=== PATIENT | female | born 1950 | race Caucasian/White ===

== ENCOUNTER 2024-03-09 08:38 | Emergency (ER) | payer MEDICARE, BC, SELFPAY ==
[2024-03-09 08:44] VITALS: BP 126/74; PULSE 71; RESP 18; TEMP 36.1; O2SAT 95; BMI 28.2
--- NOTE | 2024-03-09 08:53 | CRLHL7_ITS ---
For Patients: As a result of the Century Cures Act, medical imaging exams and procedure reports are released immediately into your electronic medical record. You may view this report before your referring provider. If you have questions, please contact your health care provider. INDICATION: Calf pain COMPARISON: None. TECHNIQUE: [place]-scale, color, and duplex Doppler imaging of the right lower extremity veins. Compression and augmentation attempted where anatomically and clinically feasible. FINDINGS: Laterality: Right Examined veins: Common femoral, femoral, popliteal, peroneal, posterior tibial Proximal greater saphenous The examined veins are patent with normal grayscale appearance and normal compressibility where anatomically feasible. Normal color Doppler flow. Normal venous waveforms on duplex Doppler ultrasound with normal augmentation. The left common femoral vein was sampled for comparison and is normal. IMPRESSION: No deep vein thrombosis in the right lower extremity. Dictated by Cami Escamilla MD @ 03/09/2024 10:01:44 AM (Electronically Signed)
--- NOTE | 2024-03-09 08:58 | ED.GENADULT ---
HPI - General Adult General Date Seen: 03/09/24 Chief complaint: Extremity Pain/Injury, Lower Stated complaint: right leg pain and swelling Time Seen by Provider: 03/09/24 08:41 Source: patient Mode of arrival: ambulatory Limitations: no limitations History of Present Illness HPI narrative: Patient is a 74-year-old woman, here for evaluation of upper calf pain which she has noticed for the past couple of days. It hurts more with walking and with dorsiflexion. She feels like that leg is a little ?puffier than the other. She told the nurse that yesterday the front of her leg looked a little bit pink, that seems to resolved. She has a history of feeling more short of breath lately and says she is being evaluated for possible congestive heart failure so she has actually been walking less than usual. That said, no travel or immobility. No injury. Related Data Home Medications ?Medication ?Instructions ?Recorded ?Confirmed rosuvastatin 10 mg tablet 10 mg PO 07/15/22 07/15/22 budesonide 3 mg 9 mg PO DAILY 03/09/24 03/09/24 capsule,delayed,extended release potassium chloride 10 mEq 10 meq PO DAILY 03/09/24 03/09/24 tablet,extended release propranolol 40 mg tablet 40 mg PO Q12H 03/09/24 03/09/24 torsemide 20 mg tablet 20 mg PO DAILY 03/09/24 03/09/24 Allergies Allergy/AdvReac Type Severity Reaction Status Date / Time No Known Drug Allergies Allergy Verified 07/19/22 13:24 Review of Systems Status of ROS: Reports: 6 or more systems reviewed and unremarkable except as noted in History and below 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 Extremities: Examination the right leg shows it to be normal in appearance. There is no erythema, I do not see edema at this time. She has some mild tenderness of the upper calf, no masses or bruising. Range of motion of the knee is full. Skin: Warm dry well perfused. No rash or lesion. Const: Vital Signs, click to edit/add: Vital Signs - 24 hr 03/09/24 08:44 Temperature 97.0 F L Pulse Rate [Pulse Oximeter] 71 Respiratory Rate 18 Blood Pressure [Ri ght Upper Arm] 126/74 Pulse Oximetry 95 Oxygen Delivery Me thod Room Air Course Course ED Course: Ultrasound read by audio video technician as negative. Final read pending. No evidence of cellulitis, Delgadillo cyst, or superficial thrombophlebitis on exam. Recommend supportive care, presumably muscle related. For severe or worsening pain, new symptoms such as significant redness or swelling, fevers etcetera return for re-evaluation. Primary care follow-up if not gradually improving over the next week. Vital Signs Vital signs: Initial Vital Signs Temperature 97.0 F L 03/09/24 08:44 Temperature Source Temporal Artery Scan 03/09/24 08:44 Pulse Rate 71 03/09/24 08:44 Pulse Rhythm Regular 03/09/24 08:44 Respiratory Rate 18 03/09/24 08:44 Blood Pressure 126/74 03/09/24 08:44 Blood Pressure Mean 91 03/09/24 08:44 Blood Pressure Position Sitting 03/09/24 08:44 Pulse Oximetry 95 03/09/24 08:44 Oxygen Delivery Method Room Air 03/09/24 08:44 Vital Signs Temperature 97.0 F L 03/09/24 08:44 Pulse Rate 71 03/09/24 08:44 Respiratory Rate 18 03/09/24 08:44 Blood Pressure 126/74 03/09/24 08:44 Pulse Oximetry 95 03/09/24 08:44 Oxygen Delivery Method Room Air 03/09/24 08:44 Temperature 97.0 F L 03/09/24 08:44 Pulse Rate 71 03/09/24 08:44 Respiratory Rate 18 03/09/24 08:44 Blood Pressure 126/74 03/09/24 08:44 Pulse Oximetry 95 03/09/24 08:44 Oxygen Delivery Method Room Air 03/09/24 08:44 Discharge Plan Discharge Clinical Impression: Right calf pain Patient Disposition: Home, Self-Care Condition: Stable Instructions: Leg Pain (ED) Additional Instructions: Tylenol, ice as needed. Your ultrasound does not show any evidence of blood clot or other abnormalities, symptoms are most likely related to muscle pain. However, if you have severe pain, developed significant swelling or redness or other changes, you should return for re-evaluation. See primary care if not improving over the next few days to week. Prescriptions: No Action rosuvastatin 10 mg tablet 10 mg PO Patient Comments: TAKE 1 TABLET (10 MG TOTAL) BY MOUTH DAILY. torsemide 20 mg tablet 20 mg PO DAILY potassium chloride 10 mEq tablet extended release 10 meq PO DAILY propranolol 40 mg tablet 40 mg PO Q12H budesonide 3 mg capsule,delayed,extend.release 9 mg PO DAILY Follow Up/Referrals: Provider,Not a Local [Primary Care Provider] - Stand Alone Forms: [facility] Info Instructions
--- OUTSIDE RECORDS SUMMARY | 2024-03-09 09:08 | XMS_ITS | Referral Summary ---
Author Organization [facility] Address [address] [place] [address] Care Team Providers Care Field Aide Name Role Phone Galina Brooks APRN, C.N.P., D.N.P. Primary Ca re Provider Source Comments Patient records contain information from all sites at [facility]. For routine questions regarding patient records, call [phone] during business hours, M-F 8:00 AM - 5:00 PM Central Time. Record requests for emergency care only can be directed to [phone] at any time.[facility] Encounters Date Type Department Care Team Description 02/29/2024 8:50 AM CDT - 02/29/2024 11:59 PM CDT Hospital Encounter Department of Laboratory Medicine in [address] [phone] Adelina Champion APRN, C.N.P., D.N.P. Failure Renal Acute (Acute Kidney Injury) (HCC); Hypokalemia Discharge Disposition: Home or Self Care 02/29/2024 10:15 AM CDT Comprehensive Visit Department of Cardiovascular Diseases in [address] [phone] Yaya Douglas M.D. Dyspnea On Exertion Discharge Disposition: Home or Self Care 02/16/2024 9:56 AM CDT - 02/16/2024 11:59 PM CDT Hospital Encounter Department of Laboratory Medicine in [place] [address] [place] [address] Carroll Hester M.D. Hypokalemia; Failure Renal Acute (Acute Kidney Injury) (HCC) Discharge Disposition: Home or Self Care 02/16/2024 10:30 AM CDT Office Visit Department of Family Medicine, [facility], [place], [place] [address] [place] [phone] Adelina Champion APRN, C.N.PMarixa, D.N.P. Failure Renal Acute (Acute Kidney Injury) (HCC) (Primary Dx); Hypokalemia Discharge Disposition: Home or Self Care 02/13/2024 4:05 PM CDT - 02/13/2024 7:59 PM CDT Emergency [facility] [address] [place] [phone] Tommie Mina M.D. Scholz, Daniel J, M.D. Hypokalemia (Primary Dx); Failure Renal Acute (Acute Kidney Injury) (HCC) Discharge Disposition: Home or Self Care 02/13/2024 Intake [facility] 02/13/2024 Documentation Division of Pulmonary Medicine in [place], [place] [address] [place] [phone] Ramesh Desai APRN, C.N.P., D.N.P. 02/13/2024 10:13 AM CDT - 02/13/2024 4:04 PM CDT Hospital Encounter Department of Laboratory Medicine in [address] [phone] Ramesh Desai APRN, C.N.P., D.N.P. Fatigue Extreme; Abnormal Finding Of Blood Chemistry Unspecified; Human Immunodeficiency Virus Screening; Dyspnea Discharge Disposition: Home or Self Care 02/12/2024 Orders Only Division of Pulmonary Medicine in [place], [place] [address] [place] [phone] Ramesh Desai APRN, C.N.P., D.N.P. 02/09/[address] [facility] Emergency Department [address] [place] [phone] Deann Bermudez R.N. Follow-up (Left Without Being Seen) 02/09/2024 2:00 PM CDT Office Visit Department of Family Medicine, [facility], in [address] [phone] Galina Brooks APRN, C.N.P., D.N.P. Fatigue (Primary Dx); Shortness Of Breath; Congestive Heart Failure (HCC); Chronic Kidney Disease (CKD), Stage 3a Glomerular Filtration Rate (GFR) 45 To 59 (HCC); Depression Major Recurrent Moderate (HCC); Tremor Essential Discharge Disposition: Home or Self Care 02/08/2024 12:44 PM CDT - 02/08/2024 4:[address] [facility] Emergency Department [address] [place] [phone] Discharge Disposition: Left Against Medical Advice or Discontinued Care 02/08/2024 Documentation Division of Pulmonary Medicine in [address] [phone] Ramesh Desai APRN, C.N.P., D.N.P. 02/08/2024 Intake [facility] 02/07/2024 Orders Only Department of Obstetrics and Gynecology, Division of Gynecologic Oncology in [address] [phone] Marbella Slaughter APRN, C.N.P. 02/05/2024 Orders Only Department of Oncology in [address] [phone] Adelina Arango APRN, C.N.P. 02/04/2024 7:32 AM CDT - 02/04/2024 2:45 PM CDT Emergency [facility] [address] [place] [phone] Jagdeep Strong APRN, C.N.P., M.S.N. Congestive Heart Failure (HCC) (Primary Dx) Discharge Disposition: Home or Self Care 01/31/2024 Orders Only Department of Oncology in [place], [place] [address] [place] [phone] Adelina Arango APRN, C.N.P. Melanoma Leg Left (HCC) (Primary Dx); Secondary Malignant Neoplasm Lymph Node (HCC); Medication Therapy Assisted Not Anticoagulant 01/31/2024 10:20 AM CDT Virtual Visit Department of Oncology in [place], [place] [address] [place] [phone] Andressa Desai APRN, C.N.P., M.S.N. Jerri Alvarez R.N., O.C.N. Shortness Of Breath [R06.02] (Primary Dx) 01/25/2024 Clinical Communication Division of Pulmonary Medicine in [place], [place] [address] [place] [phone] Ramesh Desai APRN, C.N.Manasa., D.N.P. 01/25/2024 1:30 PM CDT Virtual Visit Division of Pulmonary Medicine in [place], [place] [address] [place] [phone] Ramesh Desai APRN C.N.P., D.N.P. Hypertension Essential Primary (Primary Dx); Dyspnea On Exertion; Deconditioned 01/24/2024 2:30 PM CDT Diagnostic Division of Pulmonary Medicine in [place], [place] [address] [place] [phone] Andressa Desai APRN C.N.P., M.S.N. Dyspnea On Exertion 01/24/2024 9:39 AM CDT - 01/24/2024 11:59 PM CDT Hospital Encounter Department of Cardiovascular Diseases in [place], [place] [address] [place] [phone] Ramesh Desai APRN, C.N.P., D.N.P. Dyspnea On Exertion Discharge Disposition: Home or Self Care 01/24/2024 1:00 PM CDT Diagnostic Division of Pulmonary Medicine in [place], [place] [address] [place] [phone] Ramesh Desai APRN, C.N.P., D.N.P. Dyspnea On Exertion; Shortness Of Breath 01/24/2024 8:40 AM CDT Office Visit Department of Oncology in [place], [place] [address] [place] [phone] Andressa Desai APRN, C.N.Manasa., M.S.N. Shortness Of Breath (Primary Dx) 01/23/2024 Orders Only Division of Pulmonary Medicine in [place], [place] [address] [place] [phone] Ramesh Desai APRN, C.N.Jan, D.N.P. Shortness Of Breath (Primary Dx) 01/23/2024 1:00 PM CDT Office Visit Department of Family Medicine, [facility], in [address] [phone] Galina Brooks APRN, C.N.PMarixa, D.N.P. Viral Wart Unspecified (Primary Dx) Discharge Disposition: Home or Self Care 01/22/2024 11:30 AM CDT Internal E-Consult Division of Endocrinology in [place], [place] [address] [place] [phone] Rola Mai M.D. Dyspnea On Exertion 01/19/2024 8:30 AM CDT Comprehensive Visit Division of Pulmonary Medicine in [place], [place] [address] [place] [phone] Ramesh Desai APRN, C.N.P., D.N.P. Melanoma Leg Left (HCC) (Primary Dx); Dyspnea On Exertion; Cancer Endometrium Personal History 01/17/2024 8:26 AM CDT - 01/17/2024 11:59 PM CDT Hospital Encounter Department of Cardiovascular Diseases in [place], [place] [address] [place] [phone] Andressa Desai APRN, C.N.PMarixa, M.S.N. Dyspnea On Exertion Discharge Disposition: Home or Self Care 01/17/2024 2:40 PM CDT Office Visit Department of Oncology in [place], [place] [address] [place] [phone] Andressa Desai APRN, C.N.P., M.S.N. Dyspnea On Exertion (Primary Dx) 01/10/2024 12:10 PM CDT - 01/10/2024 2:52 PM CDT Hospital Encounter Department [place] [address] [place] [phone] Adelina Arango APRN, C.N.PMarixa Dyspnea On Exertion; Secondary Malignant Neoplasm Lymph Node (HCC); Medication Therapy Research Pharmacist Not Anticoagulant; Melanoma Leg Left (HCC) Discharge Disposition: Home or Self Care 01/10/2024 2:53 PM CDT - 01/10/2024 11:59 PM CDT Hospital [place] [address] [place] [phone] Adelina Arango APRN, C.N.PMarixa Dyspnea On Exertion; Secondary Malignant Neoplasm Lymph Node (HCC); Medication Therapy Research Pharmacist Not Anticoagulant; Melanoma Leg Left (HCC); Shortness Of Breath Discharge Disposition: Home or Self Care 01/10/2024 2:00 PM CDT Office Visit Department of Oncology in [address] [phone] Andressa Desai APRN, C.N.Manasa., M.S.N. Dyspnea On Exertion (Primary Dx) 01/05/2024 1:30 PM CDT Office Visit Department of Obstetrics and Gynecology, Division of Gynecologic Oncology in [address] [phone] Marbella Slaughter APRN, C.N.P. Cancer Endometrium Personal History (Primary Dx) 01/04/2024 6:03 AM CDT - 01/04/2024 11:59 PM CDT Hospital Encounter [place], [place] [address] [place] [phone] Adelina Arango APRN, C.N.P. Secondary Malignant Neoplasm Lymph Node (HCC); Medication Therapy Research Pharmacist Not Anticoagulant; Melanoma Leg Left (HCC) Discharge Disposition: Home or Self Care 01/04/2024 3:00 PM CDT Office Visit Department of Oncology in [place], [place] [address] [place] [phone] Adelina Arango APRN, C.N.P. Dyspnea On Exertion (Primary Dx) 01/03/2024 10:30 AM CDT Clinical Communication Virtual Review in [place], [place] [address] [place] [phone] Pre-visit Intake 01/02/2024 11:00 AM CDT Office Visit Department of Family Medicine, [facility], in [address] [phone] Galina Brooks APRN, C.N.P., D.N.P. Juana Page R.N. Annual Medicare Examination Return (Primary Dx); Screening Test Laboratory Discharge Disposition: Home or Self Care 12/27/2023 Orders Only Department of Oncology in [address] [phone] Adelina Arango APRN C.N.P. 12/26/2023 2:40 PM CDT Office Visit Department of Oncology in [address] [phone] Vy Granger P.A.-C., M.S. Cami Contreras APRN C.N.P., M.S. Candidiasis Intertrigo (Primary Dx); Melanoma Leg Left (HCC); Dyspnea On Exertion 12/26/2023 1:10 PM CDT - 12/26/2023 11:59 PM CDT Hospital Encounter Department of Radiology, [facility], in [address] [phone] Vy Granger P.A.-C., M.S. Other Assisted Current Drug Therapy; Melanoma Leg Left (HCC); Secondary Malignant Neoplasm Lymph Node (HCC); Shortness Of Breath Discharge Disposition: Home or Self Care 12/12/2023 Orders Only Department of Oncology in [address] [place] [phone] Adelina Arango APRN, C.N.P. from Last 3 Months Allergies No known active allergies Medications Medication Sig Dispensed Refills Start Date End Date Status diphenhydrAMINE -acetaminophen (TYLENOL PM) 25-500 mg per tablet Take 2 tablets by mouth at bedtime. Active clobetasoL (TEMOVATE) 0.05 % ointment Apply 1 application topically 2 (two) times a week. Apply to affected area 30 g 2 2 Active estradioL (ESTRACE) 0.1 mg/g (0.01%) vaginal cream INSERT 1 GRAM VAGINALLY 2 TIMES PER WEEK 42.5 g 2 3 Active losartan (COZAAR) 25 mg tablet Take 1 tablet (25 mg total) by mouth daily. 90 tablet 3 3 Active rosuvastatin (CRESTOR) 10 mg tablet TAKE ONE TABLET (10 MG) BY MOUTH DAILY. 90 tablet 3 4 Active propranoloL (INDERAL) 40 mg tablet TAKE 1 TABLET (40 MG TOTAL) BY MOUTH EVERY 12 (TWELVE) HOURS. 180 tablet 3 4 11/13/19 25 Active budesonide (ENTOCORT EC) 3 mg 24 hr capsule Take 3 capsules (9 mg total) by mouth daily. 90 capsule 1 4 Active torsemide (DEMADEX) 20 mg tablet Take 1 tablet (20 mg total) by mouth daily. 30 tablet 4 02/09/20 25 Active potassium chloride (KLORCON/K-TAB) 10 mEq ER tablet Take 1 tablet (10 mEq total) by mouth daily. Do not crush or chew. 90 tablet 3 4 Active albuterol 90 mcg/actuation inhalerIndicati ons:Dyspnea On Exertion Inhale 1 puff every 6 (six) hours as needed for shortness of breath. 8 g 3 4 02/29/20 24 Discontinued inhalational spacing device (Aerochamber MV) spacer 1 each as needed (for use with albuterol when wheezing or dyspnea). 1 each 4 02/29/20 24 Discontinued torsemide (DEMADEX) 20 mg tablet Take 1 tablet (20 mg total) by mouth daily for 10 days. 10 tablet 4 02/09/20 24 Discontinued(Reo rder) empagliflozin (Jardiance) 10 mg tablet Take 1 tablet (10 mg total) by mouth every morning before breakfast. 90 tablet 3 4 02/29/20 24 Discontinued Active Problems Problem Noted Date Diagnosed Date Tremor Essential 02/09/2024 Shortness Of Breath 01/24/2024 Primary Osteoarthritis Knee Bilateral 07/10/2023 Chronic Kidney Disease (CKD) , Stage 3a Glomerular Filtration Rate (GFR) 45 To 59 07/10/2023 Secondary Malignant Neoplasm Lymph Node 12/30/19 Medication Therapy Research Pharmacist Not Anticoagulant 0 12/29/2022 Melanoma Leg Left 11/18/2022 Cancer Staging:Pathologic:Stage IIIC(pT0, pN2b, cM0) - Signed by Vy Granger P.A.-C., M.S. on 08/02/2023 Malignant Neoplasm Of Uterus Endometrial 023 Cancer Staging:Clinical stage from 11/08/2022:FIGO Stage IA(cT1a, cN0(sn), cM0) - Signed by Roly Gaviria APRN, C.N.P., M.S. on 11/18/2022 Polyp Uterus 08/03/2022 Overview: Added automatically from request for surgery [id number] Lesion Skin Foot 07/13/2022 Polyp Colon Personal History 07/13/2022 Depression Major Recurrent Moderate 03/01/2022 Positive Cologuard Stool Deoxyribonucleic Acid T est 07/23/2021 Overview: Added automatically from request for surgery [id number] Depressive Disorder 07/06/2021 Overview: Switched from Celexa to Prozac 04/2021. Hypertension Essential Primary 07/06/2021 Overview: No prior cardiovascular events or end-organ damage. Monotherapy with ARB. Pain Knee Left 01/04/2021 Overview: Added automatically from request for surgery [id number] Distress Epigastric 09/13/2019 Keratosis Actinic 04/03/2015 Lichen Sclerosus 04/03/2015 Overview: Maintenance topical steroid and vaginal estrogen twice weekly. Hypothyroidism Acquired 02/26/2014 Pain Back Lumbar 01/29/2013 Hyperlipidemia 09/14/2011 Overview: Medium potency statin. Pain Hip Right Primary Osteoarthritis Hip Right Immunizations Name Administration Dates Next Due HZV (ZOSTAVAX) 03/16/2012 Influenza Split 06/18/2014, 3,06/04/2012,2010 Influenza high dose QV(65 ye ars or older) (PF) 06/26/2023,07/13/2022,07/07/2021,2019 MMR 03/30/1993 PCV13 06/03/2016 PPSV23 06/06/2017 RSV: respiratory syncytial v irus (AREXVY) recombinant vaccine 07/05/2023 RZV (SHINGRIX) 09/03/2019,07/04/2019 SARS-COV-2 (COVID-19) - PFIZ ER TS(Discontinued)(12 years or older) 07/13/2022(Deferred: Other - will complete at local pharmacy) Td, (Adult) Unspecified 03/30/1993 Tdap 07/18/2022,09/13/2011 influenza high dose (65 year s or older) (PF) 06/20/2019,06/19/2018,06/07/2017 Social History Tobacco Use Types Packs/Day Years Used Date Smoking Tobacco: Never Passive Smoke Exposure: Past Smokeless Tobacco: Never Tobacco Cessation:Counseling Given: Not Answered Alcohol Use Standard Drinks/Week Comments Yes 1 (1 standard drink = 0.6 oz pur e alcohol) [facility] Utilities Answer Date Recorded In the past 12 months has e [email or web address], gas, oil, or water [email or web address] threatened to shut off services in your home? No 12/29/2023 Humiliation, Afraid, Rape, and Kick questionnair e Answer Date Recorded Within the last year, have y ou been afraid of your partner or ex-partner? No 07/07/2022 Within the last year, have y ou been humiliated or emotionally abused in other ways by your partner or ex-partner? No Within the last year, have y ou been kicked, hit, slapped, or otherwise physically hurt by your partner or ex-partner? No 07/07/2022 Within the last year, have y ou been raped or forced to have any kind of sexual activity by your partner or ex-partner? No 07/07/2022 Social Connection and Isolat ion Panel [NHANES] Answer Date Recorded In a typical week, how many times do you talk on the phone with family, friends, or neighbors? Once a week 07/07/2022 How often do you get togethe r with friends or relatives? More than three times a week 07/07/2022 How often do you attend chur or congregation services? Never 07/07/2022 Do you belong to any clubs o r organizations such as confucianist groups, unions, fraternal or athletic groups, or school groups? No 07/07/2022 How often do you attend meet ings of the clubs or organizations you belong to? Never 07/07/2022 Are you , , di vorced, , never , or living with a partner? 07/07/2022 AUDIT-C Answer Date Recorded Q1: How often do you have a drink containing alc ohol? Monthly or less 07/07/2022 Q2: How many drinks containi ng alcohol do you have on a typical day when you are drinking? 1 or 2 07/07/2022 Q3: How often do you have si x or more drinks on one occasion? Never 07/07/2022 Overall Financial Resource Strain (CARDIA) Answe r Date Recorded How hard is it for you to pa y for the very basics like food, housing, medical care, and heating? Not hard at all 07/07/2022 PHQ-2 Answer Date Recorded PHQ-2 Score 2 11/15/2023 [facility] Occup[facility] ional [facility] - Occupational Stress Questionnaire Answer Date Recorded Do you feel stress - tense, restless, nervous, or anxious, or unable to sleep at night because your mind is troubled all the time - these days? Not at all 11/01/2022 Exercise Vital Sign Answer Date Recorde d On average, how many days pe r week do you engage in moderate to strenuous exercise (like a brisk walk)? 0 days 12/26/2023 On average, how many minutes do you engage in exercise at this level? 30 min 12/26/2023 Hunger Vital Sign Answer Date Recorded Within the past 12 months, y ou worried that your food would run out before you got the money to buy more. Never true 12/29/19 24 Within the past 12 months, t he food you bought just didn't last and you didn't have money to get more. Never true 12/29/2023 PRAPARE - Transportation Answer Date Re corded In the past 12 months, has l ack of transportation kept you from medical appointments or from getting medications? No 12/04 In the past 12 months, has l ack of transportation kept you from meetings, work, or from getting things needed for daily living? No 12/29/2023 Depression Answer Date Recor ded PHQ-9 Total Score (max 27) 5 11/14 Nutrition Answer Date Recorded On average, how many serving s of fruits and vegetables do you eat per day (serving size is equal to 1 cup or approximately the size of a tennis ball)? 0-2 12/26/2023 Dental Answer Date Recorded Dental: Regular Dentist Yes 10/26/19 Employment Answer Date Recorded Employment status Retired 12/26/2023 Housing Stability Answer Date Recorded What is your living situation today? I have a [facility] place to live 12/29/2023 Education Answer Date Recorded What is the highest level of school you have completed or the highest degree you have received? Associate degree: academic program 12/31/2020 Sex and Gender Information Value Date Recorded Sex Assigned at Female 06/04/2018 9:58 PM CDT Gender Identity Female 06/04/2018 9:58 PM CDT Sexual Orientation Straight 06/04/2018 9: 58 PM CDT Last Filed Vital Signs Vital Sign Reading Time Taken Comments Blood Pressure 130/66 02/29/2024 10:11 AM CDT Pulse 75 02/29/2024 10:11 AM CDT Temperature 36.1 ??C (97 ??F) 02/29/2024 10:11 AM CDT Respiratory Rate 18 02/16/2024 10:14 AM CDT Oxygen Saturation 75% 02/29/2024 10:11 AM CDT Inhaled Oxygen Concentration - - Weight 85 kg (187 lb 6.3 oz) 02/29/2024 10:11 AM CDT Height 167 cm (5' 5.75) 02/16/2024 10:14 AM CDT Body Mass Index 30.48 02/16/2024 10:14 AM CDT Plan of Treatment Upcoming Encounters Date Type Department Care Team (Latest Contact Info) Description 03/29/2024 12:30 PM CDT Clinical Communication Virtual Review in [place], [place] 200 [place] [phone] 04/01/2024 2:40 PM CDT Appointment Department of Laboratory Medicine and Pathology, [facility] in [place], [place] [address] [place] [phone] Adelina Arango APRN, C.N.P. [address] [place] [phone] 04/01/2024 4:00 PM CDT Appointment Department of Radiology, [facility] in [place], [place] [address] [place] [phone] Adelina Arango APRN, C.N.P. [address] [place] [phone] 04/02/2024 1:00 PM CDT Office Visit Department of Oncology in [address] [phone] Julia Gunn M.D., Ph.D. [address] [place] [phone] 05/20/2024 3:00 PM CDT Office Visit Department of Dermatology in [address] [phone] Pam Crain M.D. [address] [place] [phone] Discharge Disposition: Home or Self Care Medical Devices Implanted Type Area Overlock Collar Setter Device Identifier Shelf Expiration Date Model / Serial / Lot Conversions - Default Historical Implant Device Implanted:Qty: 1 on 06/06/2017 Breast Other Left: Breast Description:Body Location - Breast L. Device Status Text - BreastOth. clip Clp Hrzn Ti 6 Clp Familia - [id number] Implanted:Qty: 1 on 11/08/2022 by Kiley Lees M.D. at [facility] Hardware e.g. pins/screws /rods [employer] [id number] 04/25/2027 [id number] / / [id number] Clp Hrzn Ti 6 Clp Sm Red - [id number] Implanted:Qty: 1 on 12/14/2022 by Marcial Bernstein M.D. at [facility] Hardware e.g. pins/screws /rods [employer] [id number] / / Clp Hrzn Ti 6 Clp Familia - [id number] Implanted:Qty: 1 on 12/14/2022 by Marcial Bernstein M.D. at [facility] Hardware e.g. pins/screws /rods [employer] [id number] / / Clp Hrzn Ti 6 Cathie Lam Familia - [id number] Implanted:Qty: 1 on 12/14/2022 by Marcial Bernstein M.D. at [facility] Hardware e.g. pins/screws /rods [employer] [id number] 09/11/2027 [id number] / / [id number] Hip Implant Hip Implant Right: Hip Description:02/17/2020-[facility] Procedures Procedure Name Priority Date/Time Associated Diagnosis Comments CARDIOPULMONARY (VO2) EXERCISE TEST Routine 03/06/2024 10:44 AM CDT Dyspnea On Exertion BASIC METABOLIC PANEL, S/P Routine 02/29/2024 9:24 AM CDT Failure Renal Acute (Acute Kidney Injury) (HCC) Hypokalemia BASIC METABOLIC PANEL, S/P Routine 02/16/2024 10:06 AM CDT Hypokalemia Failure Renal Acute (Acute Kidney Injury) (HCC) VENOUS BLOOD GAS W/O COOX STAT 02/13/2024 5:02 PM CDT NT-PRO B-TYPE NATRIURETIC PEPTIDE (BNP), S STAT 02/13/2024 5:02 PM CDT PHOSPHORUS (INORGANIC), S STAT 02/13/2024 5:02 PM CDT MAGNESIUM, S STAT 02/13/2024 5:02 PM CDT BASIC METABOLIC PANEL, S/P STAT 02/13/2024 5:02 PM CDT CBC WITH DIFFERENTIAL, B STAT 02/13/2024 5:02 PM CDT CORTISOL, FREE AND TOTAL Routine 02/13/2024 10:28 AM CDT Fatigue Extreme ACTH, P Routine 02/13/2024 10:28 AM CDT Fatigue Extreme TROPONIN T, 5TH GEN, P Routine 02/13/2024 10:28 AM CDT Fatigue Extreme D-DIMER, P Routine 02/13/2024 10:28 AM CDT Fatigue Extreme COMPREHENSIVE METABOLIC PANEL, S/P Routine 02/13/2024 10:28 AM CDT Fatigue Extreme CBC WITH DIFFERENTIAL, B Routine 02/13/2024 10:28 AM CDT Fatigue Extreme NT-PRO B-TYPE NATRIURETIC PEPTIDE (BNP), S Routine 02/13/2024 10:28 AM CDT Fatigue Extreme Dyspnea C-REACTIVE PROTEIN (CRP), S/P Routine 02/13/2024 10:28 AM CDT Fatigue Extreme SEDIMENTATION RATE, B Routine 02/13/2024 10:28 AM CDT Fatigue Extreme CREATINE KINASE (CK), S Routine 02/13/2024 10:28 AM CDT Fatigue Extreme IRON AND TOT IRON-BINDING CAPACITY, S/P Routine 02/13/2024 10:28 AM CDT Fatigue Extreme Abnormal Finding Of Blood Chemistry Unspecified HIV-1/-2 AG AND AB SCREEN, PLASMA Routine 02/13/2024 10:28 AM CDT Fatigue Extreme Human Immunodeficiency Virus Screening HCV AB W/REFLEX TO HCV PCR, S Routine 02/13/2024 10:28 AM CDT Fatigue Extreme HBC TOTAL AB, SERUM Routine 02/13/2024 10:28 AM CDT Fatigue Extreme HBS ANTIBODY, SERUM Routine 02/13/2024 10:28 AM CDT Fatigue Extreme HEPATITIS B SURFACE ANTIGEN Routine 02/13/2024 10:28 AM CDT Fatigue Extreme FERRITIN, S Routine 02/09/2024 2:50 PM CDT Congestive Heart Failure (HCC) Shortness Of Breath THYROID-STIMULATING HORMONE-SENSITIVE (S-TSH) Routine 02/09/2024 2:50 PM CDT Fatigue Shortness Of Breath T4 (THYROXINE), FREE, S Routine 02/09/2024 2:50 PM CDT Fatigue Shortness Of Breath VITAMIN D, IMMUNOASSAY, TOTAL, S Routine 02/09/2024 2:50 PM CDT Chronic Kidney Disease (CKD), Stage 3a Glomerular Filtration Rate (GFR) 45 To 59 (HCC) Fatigue Shortness Of Breath CONNECTIVE TISSUE DISEASE CASCADE, ROYCE, S Routine 02/09/2024 2:50 PM CDT Fatigue Shortness Of Breath VITAMIN B12 ASSAY, S Routine 02/09/2024 2:50 PM CDT Fatigue Shortness Of Breath FOLATE, S Routine 02/09/2024 2:50 PM CDT Fatigue Shortness Of Breath NT-PRO B-TYPE NATRIURETIC PEPTIDE (BNP), S STAT 02/08/2024 1:45 PM CDT BASIC METABOLIC PANEL, S/P STAT 02/08/2024 1:45 PM CDT CBC WITH DIFFERENTIAL, B STAT 02/08/2024 1:45 PM CDT DX CHEST AP OR PA AND LATERAL 2 VIEWS RAD - Semiurgent (Fast; most ED patients; some inpatients) 02/08/2024 1:13 PM CDT ECG STAT 02/08/2024 1:01 PM CDT TROPONIN T, 2H/6H, 5TH GEN, P Timed 02/04/2024 11:[address] CHEST ANGIOGRAM AND PULMONARY ARTERIES WITH IV CONTRAST RAD - Semiurgent (Fast; most ED patients; some inpatients) 02/04/2024 9:49 AM CDT COMPREHENSIVE METABOLIC PANEL, S/P STAT 02/04/2024 8:34 AM CDT D-DIMER, P STAT 02/04/2024 8:34 AM CDT TROPONIN T, BASELINE, 5TH GEN, P STAT 02/04/2024 8:34 AM CDT NT-PRO B-TYPE NATRIURETIC PEPTIDE (BNP), S STAT 02/04/2024 8:34 AM CDT CBC WITH DIFFERENTIAL, B STAT 02/04/2024 8:34 AM CDT INFLUENZA A, B, RSV, PCR, POCT STAT 02/04/2024 8:02 AM CDT SARS CORONAVIRUS 2, PCR RAPID, V STAT 02/04/2024 8:02 AM CDT ECG STAT 02/04/2024 7:55 AM CDT HOLTER MONITOR - IN CLINIC COMMERCIAL OR INSTITUTIONAL CLEANER Routine 01/25/2024 12:28 PM CDT Dyspnea On Exertion PUL HOME OVERNIGHT OXIMETRY Routine 01/25/2024 Dyspnea On Exertion ABG W/ LACTATE - PULM Routine 01/24/2024 10:32 AM CDT Shortness Of Breath ABG W/ LACTATE - PULM Routine 01/24/2024 10:31 AM CDT Shortness Of Breath CPET SPIROMETRY Routine 01/24/2024 10:16 AM CDT Dyspnea On Exertion GA DEST BENIGN LESN OTHR<=14 Routine 01/23/2024 1:00 PM CDT Viral Wart Unspecified PULMONARY FUNCTION TESTS Routine 01/19/2024 6:58 AM CDT Dyspnea On Exertion (TTE) 2D ECHO DOPPLER COLOR Routine 01/17/2024 11:00 AM CDT Dyspnea On Exertion US LOWER EXTREMITY VEINS LEFT RAD - Routine (most inpatients and all outpatients) 01/10/2024 3:22 PM CDT Dyspnea On Exertion Secondary Malignant Neoplasm Lymph Node (HCC) Medication Therapy Research Pharmacist Not Anticoagulant Melanoma Leg Left (HCC) Shortness Of Breath CBC WITH DIFFERENTIAL, B Routine 01/10/2024 12:38 PM CDT Dyspnea On Exertion Secondary Malignant Neoplasm Lymph Node (HCC) Medication Therapy Research Pharmacist Not Anticoagulant Melanoma Leg Left (HCC) PET CT WHOLE BODY RAD - Routine (most inpatients and all outpatients) 01/04/2024 8:34 AM CDT Secondary Malignant Neoplasm Lymph Node (HCC) Medication Therapy Assisted Not Anticoagulant Melanoma Leg Left (HCC) THYROPEROXIDASE (TPO) ABS, S Routine 01/04/2024 8:26 AM CDT GA T4 FREE Routine 01/04/2024 8:26 AM CDT THYROID FUNCTION CASCADE, S Routine 01/04/2024 8:26 AM CDT Secondary Malignant Neoplasm Lymph Node (HCC) Medication Therapy Assisted Not Anticoagulant Melanoma Leg Left (HCC) COMPREHENSIVE METABOLIC PANEL, S/P Routine 01/04/2024 8:26 AM CDT Secondary Malignant Neoplasm Lymph Node (HCC) Medication Therapy Assisted Not Anticoagulant Melanoma Leg Left (HCC) CBC WITH DIFFERENTIAL, B Routine 01/04/2024 8:26 AM CDT Secondary Malignant Neoplasm Lymph Node (HCC) Medication Therapy Assisted Not Anticoagulant Melanoma Leg Left (HCC) CREATINE KINASE (CK), S Routine 01/04/2024 8:23 AM CDT Dyspnea On Exertion HCV AB SCRN W/REFLEX TO HCV PCR, S Routine 01/02/2024 11:26 AM CDT Screening Test Laboratory CT CHEST ANGIOGRAM AND PULMONARY ARTERIES WITH IV CONTRAST RAD - Routine (most inpatients and all outpatients) 12/26/2023 2:33 PM CDT Other Research Pharmacist Current Drug Therapy Melanoma Leg Left (HCC) Secondary Malignant Neoplasm Lymph Node (HCC) Shortness Of Breath BI BREAST SCREENING BILATERAL WITH TOMOSYNTHESIS RAD - Routine (most inpatients and all outpatients) 10/24/2023 11:04 AM EQUAL OPPORTUNITY COUNSELOR Screening Mammogram Breast Cancer LIPID PANEL, S Routine 07/13/2022 6:43 AM EQUAL OPPORTUNITY COUNSELOR Hyperlipidemia General Medical Examination Adult COLONOSCOPY 10/01/2021 2:17 PM EQUAL OPPORTUNITY COUNSELOR COLOGUARD Routine 07/08/2021 10:00 AM CDT Screening Colon Cancer Average Risk from Last 3 Months or Most Recently Relevant to Health Maintenance Results * CARDIOPULMONARY (VO2) EXERCISE TEST (03/06/2024 10:44 AM CDT) RER-VO2Max 1.49 ANTON ARIC ZE SUITE [id number] 11 mL/beat ANTON BR EEZE SUITE Work Asif-AT 61 Asif ANTON B REEZE SUITE Work Asif-VO2Max 122 Asif ANTON BREEZE SUITE METS-VO2Max 4.6 ANTON JOCELYN SHANKAR SUITE Time min-VO2Max 10:26 min ANTON BREEZE SUITE VE BTPS-VO2Max 74.2 L/min ANTON BREEZE SUITE VO2 kg-AT 10.4 mL/kg/min ANTON BREEZ E SUITE VO2 kg-VO2Max 16.0 mL/kg/min ANTON B REEZE SUITE VEVCO2-AT 31 ANTON BREEZ E SUITE VEVCO2-VO2Max 35 ANTON B REEZE SUITE HR-VO2Max 123 BPM ANTON BREEZ E SUITE SpO2-VO2Max 100 % ANTON JOCELYN SHANKAR SUITE RR-VO2Max 51 br/min ANTON BREEZ E SUITE 01/24/2024 10:3 3 AM CDT Ramesh Desai APRN, C.N.P., D.N.P. P FT ORDERABLES ANTON JOCELYNE SUITE NA * (ABNORMAL) Basic Metabolic Panel (02/29/2024 9:24 AM CDT) Only the most recent of4 resultswithin the time period is included. Potassium, P 3.4(L) 3.6 - 5.2 mmol/L 02/29/2024 9:44 AM CDT CNFL Sodium, P 144 135 - 145 mmol/L 02/29/2024 9:44 AM CDT CNFL Chloride, P 98 98 - 107 mmol/L 02/29/2024 9:44 AM CDT CNFL Bicarbonate, P 34(H) 22 - 29 mmol/L 02/29/2024 9:44 AM CDT CNFL Anion Gap, P 12 7 - 15 02/29/2024 9:44 AM CDT CNFL BUN (Blood Urea Nitrogen), P 19 6 - 21 mg/dL 02/29/2024 9:44 AM CDT CNFL Creatinine 0.98 0.59 - 1.04 mg/dL 02/29/2024 9:44 AM CDT CNFL Estimated GFR (eGFR) 61 >=60 mL/min/BSA 02/29/2024 9:44 AM CDT CNFL Comment: Estimated GFR calculated using the 2020 CKD_EPI creatinine equation. Calcium, Total, P 9.5 8.8 - 10.2 mg/dL 02/29/2024 9:44 AM CDT CNFL Glucose, P 96 70 - 140 mg/dL 02/29/2024 9:44 AM CDT CNFL Blood (Blood, Venous) 02/29/2024 9:24 AM CDT 02/29/2024 9:25 AM CDT Adelina Champion APRN, C.N.P., D.N.P. LAB B LOOD ADD-ON Performing Organization Address City/State/[facility] Co de Phone Number [facility] [address] [place] [address], [facility] CNFL [facility] [place] [address] * (ABNORMAL) Blood Gas without Coox, Venous (02/13/2024 5:02 PM CDT) Pathologist [facility] Sample Site, Venous Venipunct 02/13/2024 5:06 PM CDT [facility] pO2, Venous 31 Not applicable mm Hg 02/13/2024 5:06 PM CDT [facility] pCO2, Venous 47 41 - 51 mm Hg 5:06 PM CDT [facility] pH, Venous 7.53(H) 7.32 - 7.43 pH 02/13/2024 5:06 PM CDT [facility] Base Excess, Venous 14 Not applicable mmol/L 02/13/2024 5:06 PM CDT [facility] HCO3, Venous 39 Not applicable mmol/L 02/13/2024 5:06 PM CDT [facility] Blood (Blood, Venous) 02/13/2024 5:02 PM CDT 02/13/2024 5:04 PM CDT Tommie Mina M.D. LAB BLOOD NON ADD-ON [facility] [address] [address], [facility] RDWG [facility] [place] [address] * NT-Pro B-Type Natriuretic Peptide (BNP) (02/13/2024 5:02 PM CDT) Only the most recent of4 resultswithin the time period is included. NT-Pro BNP 342 <=540 pg/mL 02/13/2024 5:38 PM CDT [facility] Comment: NT-proBNP values less than 300 pg/mL have a 99% negative predictive value for excluding acute congestive heart failure. A cutoff of 1200 pg/mL for patients with an eGFR<60 yields a diagnostic sensitivity and specificity of 89% and 72% for acute congestive heart failure. A diagnostic NT-proBNP cutoff of 900 pg/mL has been suggested in adults 50-75 years of age in the absence of renal failure. Blood (Blood, Venous) 02/13/2024 5:02 PM CDT 02/13/2024 5:04 PM CDT Tommie Mina M.D. LAB BLOOD ADD-ON Performing Organization Address City/[facility]/ZIP Co de Phone Number [facility] [place] [place] [address], [facility] [place] [address] * (ABNORMAL) CBC with Differential, Blood (02/13/2024 5:02 PM CDT) Only the most recent of6 resultswithin the time period is included. Hemoglobin 13.6 11.6 - 15.0 g/dL 02/13/2024 5:07 PM CDT [facility] Hematocrit 39.7 35.5 - 44.9 % 02/13/2024 5:07 PM CDT [facility] Erythrocytes 4.56 3.92 - 5.13 x10(12)/L 02/13/2024 5:07 PM CDT [facility] MCV 87.1 78.2 - 97.9 fL 02/13/2024 5:07 PM CDT [facility] RBC Distrib Width 13.2 12.2 - 16.1 % 02/13/2024 5:07 PM CDT [facility] Platelet Count 356 157 - 371 x10(9)/L 02/13/2024 5:07 PM CDT [facility] Leukocytes 11.2(H) 3.4 - 9.6 x10(9)/L 02/13/2024 5:07 PM CDT [facility] Neutrophils 7.49(H) 1.56 - 6.45 x10(9)/L 02/13/2024 5:07 PM CDT [facility] Lymphocytes 2.36 0.95 - 3.07 x10(9)/L 02/13/2024 5:07 PM CDT [facility] Monocytes 1.30(H) 0.26 - 0.81 x10(9)/L 02/13/2024 5:07 PM CDT [facility] Eosinophils <0.03 0.03 - 0.48 x10(9)/L 02/13/2024 5:07 PM CDT [facility] Basophils 0.05 0.01 - 0.08 x10(9)/L 02/13/2024 5:07 PM CDT [facility] Blood (Blood, Venous) 02/13/2024 5:02 PM CDT 02/13/2024 5:04 PM CDT Tommie Mina M.D. LAB BLOOD ADD-ON [facility] [address] [place] [address], [facility] RDWG [facility] [place] [address] [facility] [address] * Phosphorus Inorganic (02/13/2024 5:02 PM CDT) Pathologist [facility] Phosphorus (Inorganic), P 3.7 2.5 - 4.5 mg/dL 02/13/2024 5:29 PM CDT [facility] Blood (Blood, Venous) 02/13/2024 5:02 PM CDT 02/13/2024 5:04 PM CDT Tommie Mina M.D. LAB BLOOD ADD-ON [facility] [address] [address], [facility] RDWG [facility] [place] [address] [place] [facility] [place] [address] * Magnesium (02/13/2024 5:02 PM CDT) Magnesium, P 2.2 1.7 - 2.3 mg/dL 02/13/2024 5:29 PM CDT [facility] Blood (Blood, Venous) 02/13/2024 5:02 PM CDT 02/13/2024 5:04 PM CDT Tommie Mina M.D. LAB BLOOD ADD-ON Performing Organization Address City/[facility]/ZIP Co de Phone Number [facility] [place] [address], [facility] RDWG [facility] [place] [address] [place] [facility] [place] [address] * HIV-1/-2 Ag and Ab Screen, Plasma (02/13/2024 10:28 AM CDT) HIV Ag/Ab Screen, P Negative Negative 02/14/2024 11:28 AM CDT [facility] Comment: Negative result does not rule out HIV infection. If exposure to HIV infection occurred <14 days ago, contact the laboratory to request addition of HIV-1/HIV-2 RNA detection, Plasma (HIP12). HIV-1 p24 Ag Screen, P Negative Negative 02/14/2024 11:28 AM CDT [facility] Comment: Negative result does not rule out HIV infection. If exposure to HIV infection occurred <14 days ago, contact the laboratory to request addition of HIV-1/HIV-2 RNA detection, Plasma (HIP12). HIV-1 Ab Screen, P Negative Negative 02/14/2024 11:28 AM CDT [facility] Comment: Negative result does not rule out HIV infection. If exposure to HIV infection occurred <14 days ago, contact the laboratory to request addition of HIV-1/HIV-2 RNA detection, Plasma (HIP12). HIV-2 Ab Screen, P Negative Negative 02/14/2024 11:28 AM CDT E[facility] Comment: Negative result does not rule out HIV infection. If exposure to HIV infection occurred <14 days ago, contact the laboratory to request addition of HIV-1/HIV-2 RNA detection, Plasma (HIP12). Blood (Blood, Venous) 02/13/2024 10:28 AM CDT 02/13/2024 8:44 PM CDT Ramesh Desai APRN, C.N.P., D.N.P. L AB MICROBIOLOGY - BLOOD ORDERABLES [facility] [address] [place] [address], [facility] ECLR [facility] [place] [address] * (ABNORMAL) Cortisol, Free and Total (02/13/2024 10:28 AM CDT) Cortisol, Free, S 1.465(H) 6:00-10:30 AM Collection 0.121-1.065 mcg/dL mcg/dL 02/16/2024 10:33 PM CDT [facility] Comment: ----ADDITIONAL INFORMATION---- This test was developed and its performance characteristics determined by [facility] in a manner consistent with CLIA requirements. This test has not been cleared or approved by the U.S. Food and Drug Administration. AM Cortisol 26(H) 5 - 25 mcg/dL 02/15/2024 6:23 PM CDT [facility] Blood (Blood, Venous) 02/13/2024 10:28 AM CDT 02/14/2024 11:33 AM CDT Ramesh Desai APRN, C.N.P., Margo.N.P. L AB BLOOD NON ADD-ON [facility] [address] [place] [address] [facility] [address] [place] [address] [place] [address] * HCV Ab w/Reflex to HCV PCR, Serum (02/13/2024 10:28 AM CDT) HCV Ab, S Negative Negative 02/13/2024 9:14 PM CDT [facility] Blood (Blood, Venous) 02/13/2024 10:28 AM CDT 02/13/2024 8:44 PM CDT Narrative [facility] - 02/13/2024 9:14 PM CDT Specimen Information: Specimen ID: [id number] Specimen Type: Blood Specimen Collection Start Date: 02/13/2024 10:28 AM Specimen Received Date: 02/13/2024 ??8:44 PM Specimen ID: [id number] Specimen Type: Blood Specimen Collection Start Date: 02/13/2024 10:28 AM Specimen Received Date: 02/13/2024 ??8:44 PM Jass Escalona APRNN.Manasa., Margo.N.P. L AB MICROBIOLOGY - BLOOD ORDERABLES [facility] [address] [place] [address], [facility] ECLR [facility] [place] [address] * Iron and Total Iron-Binding Capacity (02/13/2024 10:28 AM CDT) Iron 115 35 - 145 mcg/dL 02/13/2024 3:31 PM CDT [facility] Total Iron Binding Capacity 359 250 - 400 mcg/dL 02/13/2024 3:31 PM CDT [facility] Percent Saturation 32 14 - 50 % 02/13/2024 3:31 PM CDT [facility] Blood (Blood, Venous) 02/13/2024 10:28 AM CDT 02/13/2024 2:25 PM CDT Naima Escalona APRN.N.P., Margo.N.P. L AB BLOOD ADD-ON Performing Organization Address City/[facility]/ZIP Co de Phone Number [facility] [address] [place] [address] ECLR [facility] in [address] [address] * HBc Total Ab, Serum (02/13/2024 10:28 AM CDT) HBc Total Ab, w/Reflex, S Negative Negative 02/13/2024 9:20 PM CDT [facility] Blood (Blood, Venous) 02/13/2024 10:28 AM CDT 02/13/2024 8:44 PM CDT Jass Escalona APRNN.P., D.N.P. L AB MICROBIOLOGY - BLOOD ORDERABLES Performing Organization Address City/[facility]/ZIP Co de Phone Number [facility] [address] [place] [id number] [place] [address] ECLR [facility] [place] [address] * ACTH (Adrenocorticotropic Hormone) (02/13/2024 10:28 AM CDT) Adrenocorticotropic Hormone, P 11 7.2-63 (a.m. collectio n) pg/mL 02/13/2024 8:54 PM CDT [facility] Blood (Blood, Venous) 02/13/2024 10:28 AM CDT 02/13/2024 8:23 PM CDT Naima Escalona APRN.N.P., D.N.P. L AB BLOOD NON ADD-ON [facility] [address] [place] [address] [facility] [address] [place] [address] * HBs Antibody, Serum (02/13/2024 10:28 AM CDT) HBs Antibody, S Positive 9:19 PM CDT [facility] Comment: Patient is considered to have been exposed to HBV or immune from HBV vaccination. ----REFERENCE VALUE---- Unvaccinated: Negative Vaccinated: Positive HBs Antibody, Quantitative, S 32.49 mIU/mL 02/13/2024 9:19 PM CDT [facility] Comment: ----REFERENCE VALUE---- <8.50: Negative 8.50-11.49: Indeterminate >=11.50: Positive Blood (Blood, Venous) 02/13/2024 10:28 AM CDT 02/13/2024 8:44 PM CDT Jass Escalona APRNNMarixaP., D.N.P. L AB MICROBIOLOGY - BLOOD ORDERABLES Performing Organization Address [facility] Co de Phone Number [facility] [address] [place] [address], [facility] ECLR [facility] [place] [address] * Hepatitis B Surface Antigen (02/13/2024 10:28 AM CDT) HBs Antigen, S Nonreactive Nonreactive 02/13/2024 9:20 PM CDT [facility] Blood (Blood, Venous) 02/13/2024 10:28 AM CDT 02/13/2024 8:44 PM CDT Naima Escalona APRN.N.P., D.N.P. L AB MICROBIOLOGY - BLOOD ORDERABLES Performing Organization Address City/[facility]/ZIP Co de Phone Number [facility] [address] [place] [id number] ECLR [facility] in [address] [address] * Sedimentation Rate (02/13/2024 10:28 AM CDT) Sedimentation Rate, B 22 0 - 29 mm/1 h 02/13/2024 2:53 PM CDT [facility] Blood (Blood, Venous) 02/13/2024 10:28 AM CDT 02/13/2024 2:25 PM CDT Ramesh Desai APRN, C.N.P., D.N.P. L AB BLOOD ADD-ON [facility] [address] [place] [phone] [place] [address] ECLR [facility] in [address] [address] * (ABNORMAL) D-Dimer (02/13/2024 10:28 AM CDT) Only the most recent of2 resultswithin the time period is included. Pathologist [facility] D-Dimer, P 540(H) <=500 ng/mL FEU 02/13/2024 10:49 AM CDT CNFL Comment: D-dimer concentrations increase with age. ??For DVT/PE exclusion, in addition to clinical pre-test probability, age-adjusted D-dimer cut-offs are suggested for patients >50 years old. For additional information refer to the D-dimer assay in the Laboratory Test Catalog (LTC) and/or AskMayoExpert (JOE). ----ADDITIONAL INFORMATION---- D-dimer values less than or equal to 500 ng/mL fibrinogen equivalent units (FEU) may be used in conjunction with clinical pre-test probability to exclude deep vein thrombosis (DVT) and/or pulmonary embolism (PE). Blood (Blood, Venous) 02/13/2024 10:28 AM CDT 02/13/2024 10:30 AM CDT Ramesh Desai APRN, C.N.P., LoN.P. L AB BLOOD ADD-ON [address] [address], [address] [address] * CRP (C-Reactive Protein) (02/13/2024 10:28 AM CDT) C-Reactive Protein (CRP), P 3.6 <5.0 mg/L 02/13/2024 10:54 AM CDT CNFL Blood (Blood, Venous) 02/13/2024 10:28 AM CDT 02/13/2024 10:30 AM CDT Ramesh Desai APRN, C.N.P., Margo.N.P. L AB BLOOD ADD-ON [address] [address], [place] [facility] in [address] [address] * (ABNORMAL) Troponin T, 5th Generation (02/13/2024 10:28 AM CDT) Troponin T, 5th gen 12(H) <=10 ng/L 02/13/2024 11:05 AM CDT CNFL Blood (Blood, Venous) 02/13/2024 10:28 AM CDT 02/13/2024 10:30 AM CDT Ramesh Desai APRN, C.N.P., Margo.N.P. L AB BLOOD ADD-ON [address] [address], [facility] in [address] [address] * CK (Creatine Kinase) (02/13/2024 10:28 AM CDT) Only the most recent of2 resultswithin the time period is included. Creatine Kinase, P 50 26 - 192 U/L 02/13/2024 10:54 AM CDT CNFL Blood (Blood, Venous) 02/13/2024 10:28 AM CDT 02/13/2024 10:30 AM CDT Ramesh Desai APRN, C.N.P., D.N.P. L AB BLOOD ADD-ON [facility] [address] [place] [address], [facility] CNFL [facility] [place] [address] * (ABNORMAL) Comprehensive Metabolic Panel (02/13/2024 10:28 AM CDT) Only the most recent of3 resultswithin the time period is included. Potassium, P 2.9(L) 3.6 - 5.2 mmol/L 02/13/2024 10:54 AM CDT CNFL Sodium, P 134(L) 135 - 145 mmol/L 02/13/2024 10:54 AM CDT CNFL Chloride, P 85(L) 98 - 107 mmol/L 02/13/2024 10:54 AM CDT CNFL Bicarbonate, P 35(H) 22 - 29 mmol/L 02/13/2024 10:54 AM CDT CNFL Anion Gap, P 14 7 - 15 02/13/2024 10:54 AM CDT CN[facility] BUN (Blood Urea Nitrogen), P 32(H) 6 - 21 mg/dL 02/13/2024 10:54 AM CDT CNFL Creatinine 1.00 0.59 - 1.04 mg/dL 02/13/2024 10:54 AM CDT CNFL Estimated GFR (eGFR) 59(L) >=60 mL/min/BS A 02/13/2024 10:54 AM CDT CN[facility] Comment: Estimated GFR calculated using the 2020 CKD_EPI creatinine equation. Calcium, Total, P 9.6 8.8 - 10.2 mg/dL 02/13/2024 10:54 AM CDT CNFL Glucose, P 128 70 - 140 mg/dL 02/13/2024 10:54 AM CDT CN[facility] Protein, Total, P 7.6 6.3 - 7.9 g/dL 02/13/2024 10:54 AM CDT CN[facility] Albumin, P 4.2 3.5 - 5.0 g/dL 02/13/2024 10:54 AM CDT CNFL Aspartate Aminotransferase (AST), P 23 8 - 43 U/L 02/13/2024 10:54 AM CDT [facility] Alkaline Phosphatase, P 126(H) 35 - 104 U/L 02/13/2024 10:54 AM CDT [facility] Alanine Aminotransferase (ALT), P 36 7 - 45 U/L 02/13/2024 10:54 AM CDT CNFL Bilirubin, Total, P 0.6 0.0 - 1.2 mg/dL 02/13/2024 10:54 AM CDT [facility] Blood (Blood, Venous) 02/13/2024 10:28 AM CDT 02/13/2024 10:30 AM CDT Ramesh Desai APRN, C.N.P., D.N.P. L AB BLOOD ADD-ON Performing Organization Address [facility]/State/ZIP Co de Phone Number [facility] [address] [place] [address], [facility] [place] [address] * Vitamin D, Immunoassay, Total, Serum (02/09/2024 2:50 PM CDT) Vitamin D, Immunoassay, Total, S 26 20 - 80 ng/mL 02/09/2024 9:26 PM CDT [facility] Comment: Optimum levels within the healthy population are 20-50, patients with bone disease may benefit from high levels within this range Blood (Blood, Venous) 02/09/2024 2:50 PM CDT 02/09/2024 8:40 PM CDT Galina Brooks APRN, C.N.P., D.N.P. LAB BLOOD ADD-ON [facility] [address] [place] [address], [facility] ECLR [facility] in [place] [address] [place] [address] * Connective Tissue Diseases [place] (02/09/2024 2:50 PM CDT) Antinuclear Ab, S 0.7 <=1.0 (Negative ) U 02/10/2024 2:42 PM CDT [facility] Comment: ----ADDITIONAL INFORMATION---- Method: Enzyme-linked immunoassay using HEp-2 nuclear extract supplemented with purified antigens. Cyclic Citrullinated Peptide Ab, S <15.6 <20.0 (Negative ) U 02/10/2024 12:04 PM CDT [facility] Interpretation SEE COMMENT 2:42 PM CDT [facility] Comment: Tests for antibodies to dsDNA and RADHA antigens are not performed automatically unless the SHO result is > or = 3.0 U. ??Studies performed at [facility] indicate that positive SHO results <3.0 U are rarely accompanied by positive second order tests. Blood (Blood, Venous) 02/09/2024 2:50 PM CDT 02/10/2024 6:59 AM CDT Jass Carrillo APRNN.P., D.N.P. LAB BLOOD ADD-ON [facility] [address] [place] [address] [facility] [address] [place] [address] * S-TSH (Thyroid-Stimulating Hormone - Sensitive) (02/09/2024 2:50 PM CDT) TSH, Sensitive 3.8 0.3 - 4.2 mIU/L 02/09/2024 4:22 PM CDT [facility] Blood (Blood, Venous) 02/09/2024 2:50 PM CDT 02/09/2024 2:54 PM CDT Galina Brooks APRN, C.N.P., Margo.N.P. LAB BLOOD ADD-ON [facility] [address] [place] [id number], [facility] CNFL [facility] in [address] [address] * T4 (Thyroxine), Free (02/09/2024 2:50 PM CDT) T4 (Thyroxine), Free, P 1.6 0.9 - 1.7 ng/dL 02/09/2024 7:40 PM CDT RDWG Blood (Blood, Venous) 02/09/2024 2:50 PM CDT 02/09/2024 6:58 PM CDT Galina Brooks APRN, C.N.P., D.N.P. LAB BLOOD ADD-ON Performing Organization Address City/[facility]/ZIP Co de Phone Number [facility] [address] [place] [phone], [facility] RDWG [facility] in [address] [id number] * Folate (02/09/2024 2:50 PM CDT) Folate, S 12.0 >=4.0 mcg/L 02/09/2024 9:26 PM CDT ECLR Comment: Biotin has been identified by the motorboat mechanic inboard/outboard as a potential interfering substance. Higher concentrations of biotin may be found in multivitamins, hair/nail supplements, and workout supplements. If the result does not match clinical observations, repeat testing after patient refrains from the use of supplements for at least 12 hours. Blood (Blood, Venous) 02/09/2024 2:50 PM CDT 02/09/2024 8:40 PM CDT Jass Carrillo APRNN.P., D.N.P. LAB BLOOD ADD-ON [facility] [address] [place] [address], [place] ECLR [facility] in [place] [address] [place] [address] * Ferritin (02/09/2024 2:50 PM CDT) Ferritin, S 267 11 - 328 mcg/L 02/09/2024 11:18 PM CDT RDWG Comment: Biotin has been identified by the motorboat mechanic inboard/outboard as a potential interfering substance. Higher concentrations of biotin may be found in multivitamins, hair/nail supplements, and workout supplements. If the result does not match clinical observations, repeat testing after patient refrains from the use of supplements for at least 12 hours. Blood (Blood, Venous) 02/09/2024 2:50 PM CDT 02/09/2024 6:58 PM CDT Jass Carrillo APRNN.P., D.N.P. LAB BLOOD ADD-ON Performing Organization Address City/[facility]/ZIP Co de Phone Number [facility] [address] [place] [id number], [facility] RDWG [facility] in [place] [address] [place] [id number] * Vitamin B12 Assay (02/09/2024 2:50 PM CDT) Vitamin B12 Assay, S 1105 232 - 1245 ng/L 02/09/2024 9:26 PM CDT ECLR Comment: Biotin has been identified by the motorboat mechanic inboard/outboard as a potential interfering substance. Higher concentrations of biotin may be found in multivitamins, hair/nail supplements, and workout supplements. If the result does not match clinical observations, repeat testing after patient refrains from the use of supplements for at least 12 hours. Blood (Blood, Venous) 02/09/2024 2:50 PM CDT 02/09/2024 8:40 PM CDT Galina M Cecilia DIANA, C.N.P., Margo.N.P. LAB BLOOD ADD-ON [facility] [address] [place] [address], [facility] ECLR [facility] in [address] [address] * DX Chest AP or PA and Lateral 2 Views (02/08/2024 1:13 PM CDT) Anatomical Region Laterality Modality Chest, Thoracic RST LOS, Tho racic ARZ LOS, Thoracic FLA LOS N/A Digital Radiography Impressions 02/08/2024 1:49 PM CDT No significant change from 11/07/2022. ??No focal consolidation, pleural effusion or pneumothorax. ??Normal heart size. ??Vascular calcifications. ??Scattered musculoskeletal degenerative changes. Narrative 02/08/2024 1:49 PM CDT EXAM: ??DX CHEST AP OR PA AND LATERAL 2 VIEWS Procedure Note Adan Martinez M.D. - 02/08/2024 EXAM: DX CHEST AP OR PA AND LATERAL 2 VIEWS IMPRESSION: No significant change from 11/07/2022. No focal consolidation, pleuraleffusion or pneumothorax. Normal heart size. Vascular calcifications.Scattered musculoskeletal degenerative changes. Jeremias Delgadillo APRN, C.N.P. IMG DIAGN OSTIC IMAGING PROCEDURES * ECG 12 Lead (02/08/2024 1:01 PM CDT) Only the most recent of2 resultswithin the time period is included. Ventricular Rate ECG/Min 91 BPM MUSE GA Interval 144 ms MUSE QRSD Interval 86 ms MUSE QT Interval 368 ms MUSE QTC Interval 452 ms MUSE P [place] 29 degrees MUSE R [place] -25 degrees MUSE T Wave [place] 44 degrees MUSE 02/08/2024 1:01 PM CDT 02/08/2024 1:19 PM CDT Impressions MUSE - 02/08/2024 1:19 PM CDT Normal sinus rhythm Moderate voltage criteria for LVH, may be normal variant Nonspecific ST and T wave abnormality When compared with ECG of 04-Feb-2024 07:55, No significant change was found Reviewed by NISHA Vasquez Narrative Procedure Note Sandeep Segovia M.D., Ph.D. - 02/08/2024 IMPRESSION: Normal sinus rhythm Moderate voltage criteria for LVH, may be normal variant Nonspecific ST and T wave abnormality When compared with ECG of 04-Feb-2024 07:55, No significant change was found Reviewed by NISHA Vasquez Jass Costello APRNNMarixaPMarixa ECG ORDER MCKAY MUSE NA * Troponin T, 2h/6h, 5th Gen (02/04/2024 11:53 AM CDT) Troponin T, 2 hr, 5th gen CANCELED <=10 ng/L 02/04/2024 7:10 PM CDT CNFL Comment: REVISED RESULTS ----PREVIOUSLY REPORTED ---- 15, Flagged as: Abnormal_High (Reported 02/04/2024 12:26) 2H Delta CANCELED ng/L 02/04/2024 7:10 PM CDT CNFL Comment: REVISED RESULTS ----PREVIOUSLY REPORTED ---- -4, Flagged as: Normal (Reported 02/04/2024 12:26) 2H Delta % CANCELED % 02/04/2024 7:10 PM CDT CNFL Comment:Result canceled by t he ancillary. 2H Delta Interp CANCELED 7:10 PM CDT CNFL Comment: REVISED RESULTS ----PREVIOUSLY REPORTED ---- Indeterminate Indeterminate delta, additional sample suggested, Flagged as: Normal (Reported 02/04/2024 12:26) Troponin T, 6 hr, 5th gen CANCELED 02/04/2024 7:10 PM CDT CNFL Comment:Result canceled by t he ancillary. 6H Delta CANCELED 02/04/2024 7:10 PM CDT CNFL Comment:Result canceled by t he ancillary. 6H Delta Interp CANCELED 7:10 PM CDT CNFL Comment:Result canceled by t he ancillary. Blood (Blood, Venous) 02/04/2024 11:53 AM CDT 02/04/2024 12:02 PM CDT Narrative [facility] - 02/04/2024 7:10 PM CDT Troponin T, 2H/6H, 5th gen, P was cancelled on 02/04/2024 at 19:10; Per provider's request. Specimen Information: Specimen ID: [id number] Specimen Type: Blood Specimen Collection Start Date: 02/04/2024 11:53 AM Specimen Received Date: 02/04/2024 12:02 PM Specimen ID: [id number] Specimen Type: Blood Jagdeep Strong APRN C.N.P., M.S.N. LAB B LOOD TROPONIN [facility] [address] [place] [address], [facility] [place] [address] * CT Chest Angiogram and Pulmonary Arteries with IV Contrast (02/04/2024 9:49 AM CDT) Only the most recent of2 resultswithin the time period is included. Anatomical Region Laterality Modality Chest, Cardiovascular RST LO S, Thoracic ARZ LOS, Thoracic FLA LOS N/A Computed Tomography 02/04/2024 9:51 AM CDT Impressions 02/04/2024 10:27 AM CDT - Negative for acute pulmonary embolism. -Mild diffuse interlobular septal thickening suggestive of mild acute interstitial pulmonary edema. -Diffuse mosaic lung attenuation which could also be seen with reactive small airway disease. Narrative 02/04/2024 10:27 AM CDT EXAM: CT CHEST ANGIOGRAM AND PULMONARY ARTERIES WITH IV CONTRAST Including 3D image postprocessing with or without AI assistance. COMPARISON: CT chest angiogram, 12/26/2023. FINDINGS: CT Angiogram Chest: Support Devices: None. Lungs and large airways: Diffuse mosaic lung attenuation. Mild diffuse interlobular septal thickening. Negative for consolidation. Mild dependent bibasal atelectasis. Previously noted left lower lobe micronodules are not well appreciated on the current exams. Pleura/diaphragm: Unremarkable Pulmonary arteries: No acute pulmonary emboli. Thoracic aorta: Normal caliber ascending thoracic aorta. Mild scattered atherosclerotic calcification in the thoracic aorta. Heart and pericardium: Unremarkable Mediastinum and natasha: Unchanged subcentimeter mediastinal lymph nodes and mildly enlarged right hilar lymph node probably reactive. Upper abdomen: Unremarkable Chest wall/lower neck: Unremarkable Bones: Mild chronic degenerative changes in the spine. Procedure Note Brenton Blue M.B., Rosio Serrano - 02/04/2024 EXAM: CT CHEST ANGIOGRAM AND PULMONARY ARTERIES WITH IV CONTRAST Including 3D image postprocessing with or without AI assistance. COMPARISON: CT chest angiogram, 12/26/2023. FINDINGS: CT Angiogram Chest: Support Devices: None. Lungs and large airways: Diffuse mosaic lung attenuation. Mild diffuseinterlobular septal thickening. Negative for consolidation. Mild dependentbibasal atelectasis. Previously noted left lower lobe micronodules are notwell appreciated on the current exams. Pleura/diaphragm: Unremarkable Pulmonary arteries: No acute pulmonary emboli. Thoracic aorta: Normal caliber ascending thoracic aorta. Mild scatteredatherosclerotic calcification in the thoracic aorta. Heart and pericardium: Unremarkable Mediastinum and natasha: Unchanged subcentimeter mediastinal lymph nodes andmildly enlarged right hilar lymph node probably reactive. Upper abdomen: Unremarkable Chest wall/lower neck: Unremarkable Bones: Mild chronic degenerative changes in the spine. IMPRESSION: - Negative for acute pulmonary embolism. -Mild diffuse interlobular septal thickening suggestive of mild acuteinterstitial pulmonary edema. -Diffuse mosaic lung attenuation which could also be seen with reactivesmall airway disease. Jagdeep Strong APRN, C.N.P., M.S.N. IMG C T PROCEDURES * (ABNORMAL) Troponin T, Baseline, 5th gen (02/04/2024 8:34 AM CDT) Troponin T, Baseline, 5th gen 19(H) <=10 ng/L 02/04/2024 9:10 AM CDT CNFL Blood (Blood, Venous) 02/04/2024 8:34 AM CDT 02/04/2024 8:46 AM CDT Jagdeep Strong APRN, C.N.P., M.S.N. LAB B LOOD TROPONIN Performing Organization Address [facility] Co de Phone Number [facility] [address] [place] [address], [facility] [place] [address] * SARS Coronavirus 2, PCR Rapid Symptomatic (02/04/2024 8:02 AM CDT) SARS CoV-2, PCR, Rapid, V Undetected Undetected 02/04/2024 9:08 AM CDT CNFL Comment: ----ADDITIONAL INFORMATION---- This RT-PCR test was performed using the [employer] SARS-CoV-2 and Influenza A/B Reagent assay from [employer], which has received Emergency Use Authorization(EUA) by the U.S. Food and Drug Administration. Fact sheets for this Emergency Use Authorization (EUA) assay can be found at the following links: For Healthcare Providers: https://www.fda.gov/media/481859/download For Patients: https://www.fda.gov/media/874680/download SARS Coronavirus 2, Source, Rapid Swab, Nasopharynx 02/04/2024 8:46 AM CDT CNFL Swab (Nasopharynx) 02/04/2024 8:02 AM CDT 02/04/2024 8:46 AM CDT Jagdeep Strong APRN, C.N.P., M.S.N. LAB M ICROBIOLOGY - GENERAL ORDERABLES [address] [address], [facility] in [address] [address] * Influenza A/B and RSV, PCR, Point of Care (02/04/2024 8:02 AM CDT) Influenza A, POCT Negative Negative 02/04/2024 9:09 AM CDT CNFL Influenza B, POCT Negative Negative 02/04/2024 9:09 AM CDT CNFL Resp Syncytial Virus, POCT Negative Negative 02/04/2024 9:09 AM CDT CNFL Swab (Nasopharynx) 02/04/2024 8:02 AM CDT 02/04/2024 8:46 AM CDT Naima Swan APRN.N.P., M.S.N. LAB P OCT ORDERABLES - DEVICE Performing Organization Address City/State/[facility] Co de Phone Number [address] [address], [facility] in [address] [address] * HOLTER MONITOR - IN CLINIC COMMERCIAL OR INSTITUTIONAL CLEANER (01/25/2024 12:28 PM CDT) Min Heart Rate 53 bpm INFOB IONIC MOME Max Heart Rate 114 bpm INFOB IONIC MOME Mean Heart Rate 73 bpm INFOBIONIC MOME VE Total Beats 378 count INFOB IONIC MOME VE Percent Beats less than 1 percent INFOBIONIC MOME SVE Total Beats 72 count INFOBIONIC MOME SVE Percent Beats less than 1 percent INFOBIONIC MOME AF Count 0 count INFOBIONIC MOME AF Duration 0 duration INFOBION IC MOME AF Crescent 0 percent INFOBIONIC MOME Symptom Count 1 count INFOBI ONIC MOME 01/24/2024 9:51 AM CDT Narrative INFOBIONIC MOME - 02/01/2024 11:29 AM CDT [place] 1. The basic rhythm was sinus with sinus arrhythmia. The total analyzed time was 1d 20h 35m. The heart rate varied from 53 to 114 bpm. The average HR was 73 bpm. 2. Premature ventricular complexes were noted singly, in one pair, and in bigeminal patterns. There were 378 PVCs recorded with a PVC burden of less than 1%. 3. Premature supraventricular complexes were noted singly, paired, and in one 4 beat atrial run at a rate of 103 bpm. ??There were 72 PACs recorded with a PAC burden of less than 1%. 4. A total of 1 symptomatic event was noted, which included shortness of breath. ??The basic rhythm was sinus. ??The heart rate was 66 bpm. ??No ectopy was noted during or around this time. [facility] Owner: NISHA Flynn/ NISHA Powell Procedure Note Jack Wells M.D. - 02/01/2024 [place] 1. The basic rhythm was sinus with sinus arrhythmia. The total analyzedtime was 1d 20h 35m. The heart rate varied from 53 to 114 bpm. The averageHR was 73 bpm. 2. Premature ventricular complexes were noted singly, in one pair, and inbigeminal patterns. There were 378 PVCs recorded with a PVC burden of lessthan 1%. 3. Premature supraventricular complexes were noted singly, paired, and inone 4 beat atrial run at a rate of 103 bpm. There were 72 PACs recordedwith a PAC burden of less than 1%. 4. A total of 1 symptomatic event was noted, which included shortness ofbreath. The basic rhythm was sinus. The heart rate was 66 bpm. Noectopy was noted during or around this time. [facility] Owner: NISHA Flynn/ NISHA Powell Ramesh Desai APRN, C.N.P., D.N.P. C V CARDIAC SERVICES PROCEDURES INFOBIONIC HECTOR NA * Home Overnight Oximetry (01/25/2024) 01/25/2024 Impressions [facility] - 01/26/2024 8:25 AM CDT This is an overnight oximetry performed on room air. ??Mean saturation of 92% with a varying baseline between 88 and 95%. ??A single abrupt drop in oxygen saturation is likely artifactual due to probe malposition. Impression: ??Borderline overnight oximetry. ??Oxygen saturation in the low- normal to mildly reduced range may suggest the presence of an underlying pulmonary gas exchange or ventilatory abnormality. ??No clear evidence for a sleep-related breathing disorder. Physician: Mickey Verde M.D. [id number] Narrative Procedure Note Mickey Verde M.D., Ph.D. - 01/26/2024 IMPRESSION: This is an overnight oximetry performed on room air. Mean saturation of92% with a varying baseline between 88 and 95%. A single abrupt drop inoxygen saturation is likely artifactual due to probe malposition. Impression: Borderline overnight oximetry. Oxygen saturation in thelow-normal to mildly reduced range may suggest the presence of anunderlying pulmonary gas exchange or ventilatory abnormality. No clearevidence for a sleep-related breathing disorder. Physician: Mickey Verde M.D. [id number] Naima Wolff APRN.N.Manasa., M.S.N. PFT ORDERABLES [facility] * Arterial Blood Gas with Lactate (01/24/2024 10:32 AM CDT) Only the most recent of2 resultswithin the time period is included. Sample Site Right Radial Catheter CPX 01/24/2024 12:14 PM CDT DTL Patient Position Sit 01/24/20 12:14 PM CDT DTL Patient Activity Rest 01/24/20 12:14 PM CDT DTL FIO2 21.00 21%=AIR % 01/24/2024 12:14 PM CDT DTL pH Arterial 7.45 7.35 - 7.45 01/24/2024 12:14 PM CDT DTL pCO2 Arterial 37.9 35.0 - 45.0 mm Hg 01/24/2024 12:14 PM CDT DTL pO2 Arterial 83.0 80.0 - 100.0 mm Hg 01/24/2024 12:14 PM CDT DTL Total Hemoglobin 13.6 11.6 - 15.0 g/dL 01/24/2024 12:14 PM CDT DTL O2 Saturation 96.5 94.0 - 98.0 % 01/24/2024 12:14 PM CDT DTL Carboxyhemoglobin 0.9 0.0 - 1.9 % 01/24/2024 12:14 PM CDT DTL Methemoglobin 0.2 0.0 - 0.9 % 01/24/2024 12:14 PM CDT DTL Bicarbonate Conc 26.0 22.0 - 26.0 mmol/L 01/24/2024 12:14 PM CDT DTL Base Excess 2.0 0.0 - 2.0 mmol/L 01/24/2024 12:14 PM CDT DTL Lactate, B 1.9 0.5 - 2.2 mmol/L 01/24/2024 12:14 PM CDT DTL Asif 0.00 01/24/2024 12:14 PM CDT DTL Activity Time 0.0 min 01/24/2024 12:14 PM CDT DTL Subcutaneous Lidocaine 2.0 mL 01/24/2024 12:14 PM CDT DTL O2 Devices N/A 01/24/2024 12:14 PM CDT DTL Blood (Blood, Arterial) 01/24/2024 10:32 AM CDT 01/24/2024 10:35 AM CDT Ramesh Desai APRN, C.N.P., D.N.P. L AB BLOOD NON ADD-ON [facility] [address] [place] [address], [facility] [address] [place] [address] * CPET Spirometry (01/24/2024 10:16 AM CDT) [facility] Signature CHALFVC 2.82 L 01/24/2024 4:51 PM CDT [facility] SUITE CHALFEV1 2.01 L 01/24/2024 4:[address] [facility] FEV1/FVC PROVOCATION 71.12 % 01/24/2024 4:[address] [facility] FEF 25-75% PROVOCATION 1.30 L/s 01/24/2024 4:[address] [facility] PEF PROVOCATION 6.26 L/s 4:[address] [facility] FET PROVOCATION 10.68 sec 4:[address] [facility] FVC PROVBASE 2.72 L 01/24/2024 4:[address] [facility] FEV 1 PROVBASE 1.98 L 01/24/2024 4:[address] [facility] FEV1/FVC PROVBASE 72.65 % 01/24/2024 4:[address] [facility] FEF 25-75% PROVBASE 1.39 L/s 01/24/2024 4:[address] [facility] PEF PROVBASE 6.14 L/s 01/24/2024 4:[address] [facility] FET PROVBASE 11.49 sec 01/24/2024 4:[address] [facility] MVV PROVBASE 89.84 L/min 01/24/2024 4:[address] [facility] SUBSTANCE PROVOCATION Post-Exerc ise 01/24/2024 4:[address] [facility] 01/24/2024 10:[address] [facility] - 01/24/2024 4:51 PM CDT Negative exercise challenge. Baseline spirometry is normal. The patient exercised on a cycle ergometer for a total of 7 minutes 25 seconds to a maximum workload of 120 w while breathing room air. Narrative Procedure Note Mickey Verde M.D., Ph.D. - 01/24/2024 IMPRESSION: Negative exercise challenge. Baseline spirometry is normal. The patient exercised on a cycle ergometer for a total of 7 minutes 25seconds to a maximum workload of 120 w while breathing room air. Ramesh Desai APRN C.N.P., D.N.P. P FT ORDERABLES Performing Organization Address City/[facility]/ZIP Co de Phone Number [facility] NA * GA DEST BENIGN LESN OTHR<=14 (01/23/2024 1:00 PM CDT) Narrative [facility] - 01/23/2024 1:00 PM CDT Galina Brooks APRN, C.N.PMarixa, Margo.N.P. ? 01/23/2024 ??1:23 PM Lesion Destruction Performed by: Galina Brooks APRN, C.N.PMarixa, Margo.N.P. Authorized by: Galina Brooks APRN, C.NZarina, Margo.N.P. ?? PROCEDURE DETAILS Number of body areas treated: 2 Body Area Number 1 Number of lesions treated: 1 Location on body: right lower extremity Lower extremity: calf. Destruction method: cryotherapy Hemostasis: natural processes Body Area Number 2 Number of lesions treated: 1 Location on body: right lower extremity Lower extremity: thigh, posterior. Destruction method: cryotherapy Hemostasis: natural processes CONSENT Consent obtained: verbal Consent given by: patient PRE-PROCEDURE DETAILS ?? Procedure purpose: therapeutic Appropriate hand hygiene, gown, cap, mask, protective eyewear, sterile gloves, skin preparation, sterile drape, and strict aseptic technique were utilized as applicable for the procedure.: yes ?? Site preparation: alcohol Pre-procedural diagnosis: wart POST-PROCEDURE DETAILS ?? Total lesions destroyed: 2 Total lesions destroyed by chemical injection: 0 Estimated blood loss: minimal Procedure completed successfully: yes ?? Complications: no apparent complications ?? Tolerance: well tolerated Follow up: no follow up planned unless complications COMMENTS Recommend dermatology visit if not resolving after 1-3 cryotherapy cycles due to history of melanoma. Jass Carrillo APRNNMarixaPMarixa, Margo.N.P. PRO CEDURE/MINOR SURGICAL ORDERABLES Performing Organization Address [facility] Co de Phone Number [facility] NA * Pulmonary Function Tests (01/19/2024 6:58 AM CDT) FVC 2.60 L 01/19/2024 11:[address] [facility] FEV1 1.98 L 01/19/2024 11:[address] [facility] FEV1/FVC 76.26 % 01/19/2024 11:[address] [facility] CLT69-25% 1.59 L/s 01/19/2024 11:[address] [facility] PEF PRE 6.23 L/s 01/19/2024 11:[address] [facility] PIF PRE 5.35 L/s 01/19/2024 11:[address] [facility] FEF 50 % FIF 50 PRE 33.63 % 01/19/2024 11:[address] [facility] FET PRE 11.84 sec 01/19/2024 11:[address] [facility] DLCO 16.55 ml/(min*mm Hg) 01/19/2024 11:[address] [facility] DLCOc 16.98 ml/(min*mm Hg) 01/19/2024 11:[address] [facility] HB 12.60 g(Hb)/dL 01/19/2024 11:[address] [facility] VA 4.34 L 01/19/2024 11:[address] [facility] 01/19/2024 6:[address] [facility] - 01/19/2024 11:12 AM CDT Normal study. Narrative Procedure Note Henrry Martin M.D. - 01/19/2024 IMPRESSION: Normal study. Andressa Desai APRN, C.N.P., M.S.N. PFT ORDERABLES [facility] NA * (TTE) 2D ECHO DOPPLER COLOR (01/17/2024 11:00 AM CDT) Ejection Fraction 60 MC CV EIMS Sinus of Valsalva 33 MC CV EIMS Sinotubular Junction 26 MC CV EIMS Proximal Ascending Aorta 31 MC CV EIMS Mid-Ascending Aorta 33 MC CV EIMS LV Mass Index 90 MC CV EIMS LV End-Diastolic Diameter 49 MC CV EIMS LV End-Systolic Diameter 33 MC CV EIMS LV End-Diastolic Volume 105 MC CV EIMS LV End-Systolic Volume 42 MC CV EIMS MV E Velocity 0.8 MC CV EIMS MV A Velocity 0.6 MC CV EIMS MV E/A 1.33 MC CV EIMS MV e' Velocity Medial 0.07 MC CV EIMS MV e' Velocity Lateral 0.07 MC CV EIMS MV E/e' Medial 11.4 MC CV EIMS MV E/e' Lateral 11.4 MC CV EIMS Left ventricular stroke volume index 37 MC CV EIMS Cardiac Output 4.02 MC CV EIMS Cardiac Index 2.05 MC CV EIMS LV Interventricular Septal Wall Thickness 10 MC CV EIMS LV Posterior Wall Thickness 10 MC CV EIMS LV Relative Wall Thickness 41 MC CV EIMS RV 4-Chamber Basal Diameter 35 MC CV EIMS RV 4-Chamber Mid Diameter 23 MC CV EIMS RV 4-Chamber Length 67 MC CV EIMS Tricuspid Annular S? 0.12 MC CV EIMS TR Vmax 2.2 MC CV EIMS RA Pressure 5 MC CV EIMS RV Systolic Pressure 24 MC CV EIMS AV mean gradient 2 MC CV EIMS Aortic valve area 2.67 MC CV EIMS Aortic Valve Dimensionless Index 0.77 MC CV EIMS LA Volume Index 24 MC CV EIMS Aortic Valve Systolic Peak Velocity 1 MC CV EIMS Anatomical Region Laterality Modality Other 01/17/2024 8:29 AM CDT Impressions 01/17/2024 10:05 AM CDT There are no previous [facility] echocardiograms available for comparison. LEFT VENTRICLE:Normal left ventricular chamber size. Normal left ventricular geometry. Calculated 2-D biplane volumetric left ventricular ejection fraction of 60%. Left ventricular stroke volume index 37 ml/m2. Left ventricular cardiac index 2.05 l/min/m2. No regional wall motion abnormalities. Normal left ventricular filling pressure. Left ventricular strain assessment was performed but not reported based on automotive parts interpreter's judgment. RIGHT VENTRICLE:Normal right ventricular chamber size. Normal right ventricular systolic function. Estimated right ventricular systolic pressure 24 mmHg (right atrial pressure of 5 mmHg). ATRIA:Normal left atrial size. Left atrial volume index 24 ml/m2. Strain imaging examination performed to assess left atrial function. Global averaged left atrial biplane longitudinal peak systolic strain is abnormal at 25.0% (normal is greater than 35%). Normal right atrial size. CARDIAC VALVES:Trileaflet aortic valve. Mildly thickened aortic valve. No aortic valve regurgitation. Normal mitral valve. Mild mitral valve regurgitation. Normal pulmonary valve. Normal pulmonary valve systolic velocities. No pulmonary valve regurgitation. Normal tricuspid valve. Mild tricuspid valve regurgitation. OTHER ECHO FINDINGS:Normal inferior vena cava size with normal inspiratory collapse (>50%). Normal sinus of Valsalva diameter of 33 mm. Proximal ascending aorta diameter of 31 mm. Normal mid ascending aorta diameter of 33 mm. No abdominal aortic aneurysm. Normal abdominal aorta Doppler flow pattern. Imaging inadequate for detection of atrial level shunt by color flow imaging. No intracardiac mass or thrombus, but the left atrial appendage cannot be visualized adequately with transthoracic echo to exclude thrombus in this location. No ??pericardial effusion. For the complete report, see the Order-Level Documents. Narrative 01/17/2024 10:05 AM CDT For the complete report, see the Order-Level Documents. Hemodynamics Heart Rate: 56 BPM Blood Pressure: 153 / 84 mmHg ECG: Sinus rhythm, Bradycardia Final Impressions 1. Normal left ventricular chamber size, no regional wall motion abnormalities, calculated 2-D biplane volumetric ejection fraction of 60%. 2. Left ventricular strain assessment was performed but not reported based on automotive parts interpreter's judgment. 3. Normal left ventricular geometry, normal filling pressure. 4. Normal right ventricular chamber size, normal systolic function, estimated right ventricular systolic pressure 24 mmHg (right atrial pressure of 5 mmHg). 5. No ??significant valvular heart disease. 6. No ??pericardial effusion. Procedure Note Jaime Hunter M.D. - 01/17/2024 For the complete report, see the Order-Level Documents. Hemodynamics Heart Rate: 56 BPM Blood Pressure: 153 / 84 mmHg ECG: Sinus rhythm, Bradycardia Final Impressions 1. Normal left ventricular chamber size, no regional wall motionabnormalities, calculated 2-D biplane volumetric ejection fraction of60%. 2. Left ventricular strain assessment was performed but not reported basedon automotive parts interpreter's judgment. 3. Normal left ventricular geometry, normal filling pressure. 4. Normal right ventricular chamber size, normal systolic function,estimated right ventricular systolic pressure 24 mmHg (right atrialpressure of 5 mmHg). 5. No significant valvular heart disease. 6. No pericardial effusion. Findings There are no previous [facility] echocardiograms available forcomparison. LEFT VENTRICLE:Normal left ventricular chamber size. Normal leftventricular geometry. Calculated 2-D biplane volumetric left ventricularejection fraction of 60%. Left ventricular stroke volume index 37 ml/m2.Left ventricular cardiac index 2.05 l/min/m2. No regional wall motionabnormalities. Normal left ventricular filling pressure. Left ventricularstrain assessment was performed but not reported based on automotive parts interpreter'sjudgment. RIGHT VENTRICLE:Normal right ventricular chamber size. Normal rightventricular systolic function. Estimated right ventricular systolicpressure 24 mmHg (right atrial pressure of 5 mmHg). ATRIA:Normal left atrial size. Left atrial volume index 24 ml/m2. Strainimaging examination performed to assess left atrial function. Globalaveraged left atrial biplane longitudinal peak systolic strain is abnormalat 25.0% (normal is greater than 35%). Normal right atrial size. CARDIAC VALVES:Trileaflet aortic valve. Mildly thickened aortic valve. Noaortic valve regurgitation. Normal mitral valve. Mild mitral valveregurgitation. Normal pulmonary valve. Normal pulmonary valve systolicvelocities. No pulmonary valve regurgitation. Normal tricuspid valve. Mildtricuspid valve regurgitation. OTHER ECHO FINDINGS:Normal inferior vena cava size with normal inspiratorycollapse (>50%). Normal sinus of Valsalva diameter of 33 mm. Proximalascending aorta diameter of 31 mm. Normal mid ascending aorta diameter of33 mm. No abdominal aortic aneurysm. Normal abdominal aorta Doppler flowpattern. Imaging inadequate for detection of atrial level shunt by colorflow imaging. No intracardiac mass or thrombus, but the left atrialappendage cannot be visualized adequately with transthoracic echo toexclude thrombus in this location. No pericardial effusion. For the complete report, see the Order-Level Documents. Andressa Desai APRN, C.N.P., M.S.N. CV ECHO PROCEDURES * US Lower Extremity Veins Left (01/10/2024 3:22 PM CDT) Anatomical Region Laterality Modality Lower Extremity, Ultrasound RST LOS, Ultrasound ARZ LOS, Ultrasound FLA LOS Left Ultrasound Impressions 01/10/2024 3:27 PM CDT Negative for acute DVT. Narrative 01/10/2024 3:27 PM CDT EXAM: US LOWER EXTREMITY VEINS LEFT Exam performed with color and spectral Doppler analysis. COMPARISON: None. FINDINGS: LEFT: Common Femoral Vein: Negative. Profunda Femoral Vein: Negative. Femoral Vein: Negative. Popliteal Vein: Negative. Gastrocnemius Veins: Negative where seen. Soleal Veins: Negative where seen. Posterior Tibial Veins: Negative where seen. Peroneal Veins: Negative where seen. Great Saphenous Vein: Negative where seen. Small Saphenous Vein: Not evaluated. Popliteal Fossa: Negative. Other: n/a Information on venous thrombosis and management can be found on the CDNlion site. Link [email or web address] Procedure Note Rigoberto Koo M.D. - 01/10/2024 EXAM: US LOWER EXTREMITY VEINS LEFT Exam performed with color and spectral Doppler analysis. COMPARISON: None. FINDINGS: LEFT: Common Femoral Vein: Negative. Profunda Femoral Vein: Negative. Femoral Vein: Negative. Popliteal Vein: Negative. Gastrocnemius Veins: Negative where seen. Soleal Veins: Negative where seen. Posterior Tibial Veins: Negative where seen. Peroneal Veins: Negative where seen. Great Saphenous Vein: Negative where seen. Small Saphenous Vein: Not evaluated. Popliteal Fossa: Negative. Other: n/a Information on venous thrombosis and management can be found on theCDNlion site. [email or web address] IMPRESSION: Negative for acute DVT. Adelina Arango APRN, C.N.P. IMG US GA OCEDURES * PET CT Whole Body FDG (01/04/2024 8:34 AM CDT) Anatomical Region Laterality Modality Whole body, Nuclear Medicine PET RST LOS, PET ARZ LOS, Nuclear Medicine PET FLA LOS, Nuclear Medicine N/A Positron Emission Tomogr aphy (PET), Positron Emission Tomography (PET) Impressions 01/04/2024 12:34 PM CDT 1. No FDG avid local recurrent or metastatic melanoma. 2. Decreased FDG activity through the colon suggestive of improved inflammation. Narrative 01/04/2024 12:34 PM CDT EXAM: ??PET CT WHOLE BODY FDG Serum glucose at time of F-18 FDG injection was 90 mg/dL. Patient followed standard dietary/fasting requirements for this exam. RADIOPHARMACEUTICAL/MEDS: Route: intravenous fludeoxyglucose F 18 injection SHELTER (FDG F-18),10.01 millicurie TECHNIQUE: ??F-18 FDG PET/CT scan was performed from the vertex through the toes with low dose, non-contrast, free-breathing CT images for attenuation correction and anatomic localization (AC/AL), with imaging beginning at approximately 60 minutes after radiotracer injection. 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 Status post left thigh excision and left inguinal lymph node dissection and immunotherapy. Subsequent treatment strategy. . The patient reports no recent vaccinations. FINDINGS: ?? Postoperative changes of left inguinal lymphadenectomy. ??No evidence of locally recurrent disease. ??Mild FDG activity in the resection bed is favored to be postoperative. No FDG avid hepatic lesions. ??No FDG avid osseous lesions. ??Near resolution of the FDG activity of the healing undisplaced fractures of the anterior lateral right 5th through 7th ribs. Synovitis bilateral knees with trace effusions. ??Degenerative type uptake bilateral knees, left hip, ??lumbar spine, and ??glenohumeral joints. Linear inflammatory type uptake in the esophagus. ?? Decreased mild/moderate FDG activity throughout the colon suggestive of improved inflammation, previously intense activity. Incidental CT findings: ??Vascular calcifications. ??Hysterectomy. ??Right GLENROY. ??Hepatic cysts. ??Subsegmental atelectasis/scarring at the lung bases. Procedure Note Adan Martinez M.D. - 01/04/2024 EXAM: PET CT WHOLE BODY FDG Serum glucose at time of F-18 FDG injection was 90 mg/dL. Patient followedstandard dietary/fasting requirements for this exam. RADIOPHARMACEUTICAL/MEDS: Route: intravenous fludeoxyglucose F 18 injection SHELTER (FDG F-18),10.01 millicurie TECHNIQUE: F-18 FDG PET/CT scan was performed from the vertex through thetoes with low dose, non-contrast, free-breathing CT images for attenuationcorrection and anatomic localization (AC/AL), with imaging beginning atapproximately 60 minutes after radiotracer injection. COMPARISON: FDG PET-CT 10/10/2023, 06/29/2023 INDICATION: Left thigh melanoma, metastatic left inguinal lymph nodesdiagnosed during hysterectomy and bilateral salpingo-oophorectomy forendometrial cancer on 11/08/2022. Status post left thigh excision and leftinguinal lymph node dissection and immunotherapy. Subsequent treatment strategy. . The patient reports no recent vaccinations. FINDINGS: Postoperative changes of left inguinal lymphadenectomy. No evidence oflocally recurrent disease. Mild FDG activity in the resection bed isfavored to be postoperative. No FDG avid hepatic lesions. No FDG avid osseous lesions. Nearresolution of the FDG activity of the healing undisplaced fractures of theanterior lateral right 5th through 7th ribs. Synovitis bilateral knees with trace effusions. Degenerative type uptakebilateral knees, left hip, lumbar spine, and glenohumeral joints. Linear inflammatory type uptake in the esophagus. Decreased mild/moderate FDG activity throughout the colon suggestive ofimproved inflammation, previously intense activity. Incidental CT findings: Vascular calcifications. Hysterectomy. RightTHA. Hepatic cysts. Subsegmental atelectasis/scarring at the lungbases. IMPRESSION: 1. No FDG avid local recurrent or metastatic melanoma. 2. Decreased FDG activity through the colon suggestive of improvedinflammation. Adelina Arango APRN, C.N.P. IMG NM GA OCEDURES * T4 (Thyroxine), Free, Serum (01/04/2024 8:26 AM CDT) T4 (Thyroxine), Free, S 1.1 0.9 - 1.7 ng/dL 01/04/2024 9:40 AM CDT DTL Blood 01/04/2024 8:26 AM CDT 01/04/2024 8:52 AM CDT Jass Mann APRNN.P. LAB BLOOD ADD-ON [facility] [address] [place] [address] * (ABNORMAL) Thyroid Function [place] (01/04/2024 8:26 AM CDT) TSH, Sensitive 7.7(H) 0.3 - 4.2 mIU/L 01/04/2024 9:18 AM CDT DTL Blood (Blood, Venous) 01/04/2024 8:26 AM CDT 01/04/2024 8:52 AM CDT Naima Mann APRN.N.P. LAB BLOOD ADD-ON Performing Organization Address City/[facility] Co de Phone Number [facility] [address] [place] [address] * Thyroperoxidase (TPO) Antibodies (01/04/2024 8:26 AM CDT) Thyroperoxidase Ab, S <15.0 <34.0 IU/mL 01/04/2024 9:40 AM CDT DTL Blood 01/04/2024 8:26 AM CDT 01/04/2024 8:52 AM CDT Naima Mann APRN.N.P. LAB BLOOD ADD-ON [facility] [address] [place] [address] * HCV Ab Scrn w/Reflex to HCV PCR, Serum (01/02/2024 11:26 AM CDT) HCV Ab Screen, S Negative Negative 01/03/2024 3:05 AM CDT ECLR Blood (Blood, Venous) 01/02/2024 11:26 AM CDT 01/02/2024 8:44 PM CDT Narrative [facility] - 01/03/2024 3:05 AM CDT Specimen Information: Specimen ID: [id number] Specimen Type: Blood Specimen Collection Start Date: 01/02/2024 11:26 AM Specimen Received Date: 01/02/2024 ??8:44 PM Specimen ID: [id number] Specimen Type: Blood Specimen Collection Start Date: 01/02/2024 11:26 AM Specimen Received Date: 01/02/2024 ??8:42 PM Galina Brooks APRN C.N.P., D.N.P. LAB MICROBIOLOGY - BLOOD ORDERABLES [facility] [address] [place] [address] ECLR [facility] [place] [address] * BI Breast Screening Bilateral with Tomosynthesis (10/24/2023 11:04 AM EQUAL OPPORTUNITY COUNSELOR) Anatomical Region Laterality Modality Breast, Breast Imaging RST L OS, Breast Imaging ARZ LOS, Breast Imaging FLA LOS Bilateral Mammography Impressions 10/24/2023 5:10 PM EQUAL OPPORTUNITY COUNSELOR Negative. RECOMMENDATION: ??Annual Screening Mammogram ASSESSMENT: ??BI-RADS: 1: Negative. Narrative 10/24/2023 5:10 PM EQUAL OPPORTUNITY COUNSELOR EXAM: ??BI BREAST SCREENING BILATERAL WITH TOMOSYNTHESIS Current study was evaluated with a Computer Aided Detection (CAD) system. INDICATION: ??Screening mammogram. COMPARISON: ??Prior exam(s) were available and reviewed for comparison. DENSITY: ??b. There are scattered areas of fibroglandular density. FINDINGS: ??No mammographic findings of malignancy. Procedure Note Marbella Kitchen D.O. - 10/24/2023 EXAM: BI BREAST SCREENING BILATERAL WITH TOMOSYNTHESIS Current study was evaluated with a Computer Aided Detection (CAD) system. INDICATION: Screening mammogram. COMPARISON: Prior exam(s) were available and reviewed for comparison. DENSITY: b. There are scattered areas of fibroglandular density. FINDINGS: No mammographic findings of malignancy. IMPRESSION: Negative. RECOMMENDATION: Annual Screening Mammogram ASSESSMENT: BI-RADS: 1: Negative. Naima Carrillo APRN.N.P., D.N.P. [facility]ED[place] * Lipid Panel (07/13/2022 6:43 AM EQUAL OPPORTUNITY COUNSELOR) Triglycerides 98 mg/dL 07/13/2022 7:40 AM EQUAL OPPORTUNITY COUNSELOR DTL Comment: ----REFERENCE VALUE---- Normal: <150 mg/dL Borderline High: 150-199 mg/dL High: 200-499 mg/dL Very High: > or =500 mg/dL Cholesterol, Total 183 mg/dL 2021 7:40 AM EQUAL OPPORTUNITY COUNSELOR DTL Comment: ----REFERENCE VALUE---- Desirable: < 200 mg/dL Borderline High: 200 - 239 mg/dL High: > or = 240 mg/dL Cholesterol, LDL, Calculated 94 mg/dL 07/13/2022 7:40 AM EQUAL OPPORTUNITY COUNSELOR DTL Comment: ----REFERENCE VALUE---- Desirable: <100 mg/dL Above Desirable: 100-129 mg/dL Borderline High: 130-159 mg/dL High: 160-189 mg/dL Very High: >=190 mg/dL ----ADDITIONAL INFORMATION---- LDL cholesterol calculated using the Terry/NIH equation. Cholesterol, HDL, S 71 >=50 mg/dL 07/13/2022 7:40 AM EQUAL OPPORTUNITY COUNSELOR DTL Cholesterol, Non-HDL, Calculated 112 mg/dL 07/13/2022 7:40 AM EQUAL OPPORTUNITY COUNSELOR DTL Comment: ----REFERENCE VALUE---- Desirable: <130 mg/dL Above Desirable: 130-159 mg/dL Borderline High: 160-189 mg/dL High: 190-219 mg/dL Very High: > or =220 mg/dL Fasting (8 HR or more) y 07/13/2022 7:22 AM EQUAL OPPORTUNITY COUNSELOR DTL Blood (Blood, Venous) 07/13/2022 6:43 AM EQUAL OPPORTUNITY COUNSELOR 07/13/2022 7:22 AM EQUAL OPPORTUNITY COUNSELOR Lidia Gan APRN, C.N.P., M.S.N. LAB BLOOD ADD-ON [facility] [address] [place] [address], [facility] DTL [facility] [address] [place] [address] * COLONOSCOPY (10/01/2021 2:17 PM EQUAL OPPORTUNITY COUNSELOR) Narrative Procedure Note Malcolm Strickland M.D. - 10/01/2021 2:17 PM CST [facility] Patient Name: Ivy Duran Procedure Date: 10/01/2021 2:17 PM Date of : 1950 Age: 71 Gender: Female Procedure: Colonoscopy Providers: Malcolm Strickland MD, Galina Brooks (Ordering Provider) Referring Provider: Galina Brooks Pre-op Diagnoses: Positive Cologuard test Post-op Diagnoses: - One 1 mm polyp in the ascending colon, removed with a cold biopsy forceps. Resected and retrieved. - Five 4 to 12 mm polyps in the transverse colon and in the ascending colon, removed with a cold snare. Resected and retrieved. - The examination was otherwise normal on direct and retroflexionviews. Recommendation: - Repeat colonoscopy in 3 years for surveillance. Findings: The perianal and digital rectal examinations were normal. A 1 mm polyp was found in the ascending colon. The polyp was sessile. The polyp was removed with a cold biopsy forceps. Resection and retrieval were complete. Five sessile polyps were found in the transverse colon and ascending colon. The polyps were 4 to 12 mm in size. These polyps were removed with a cold snare. Resection and retrieval were complete. The exam was otherwise without abnormality on direct and retroflexion views. Medicines: Monitored Anesthesia Care Estimated Blood Loss: Estimated blood loss: none. Complications: No immediate complications. Procedure Details: The patient was seen, evaluated, and history reviewed. Airway and heart and lung exams were performed and were satisfactory for plannedsedation care. The risks, benefits and alternatives for the procedure and sedation were discussed andinformed consent was obtained. A procedural pause was conducted in the presence of assisting personnelto verify the correct patient identity and procedureto be performed. Throughout the procedure, the patient's blood pressure, pulse, and oxygen saturations were monitored continuously. The Colonoscope was introduced under directvision through the anus and advanced to the terminalileum. The colonoscopy was performed without difficulty. The patient tolerated the procedure well. The quality of the bowel preparation was evaluatedusing the BBPS ([place] Bowel Preparation Scale) with scores of: Right Colon = 3, Transverse Colon = 3and Left Colon = 3 (entire mucosa seen well with no residual staining, small fragments of stool or opaque liquid). The total BBPS score equals 9. Sedation: ARLETTE Strickland MD 10/01/2021 2:21:51 PM This report has been signed electronically. Number of Addenda: 0 Note Initiated On: 10/01/2021 2:17 PM Galina Brooks APRN, C.N.P., D.N.P. GI PROCEDURE ORDERABLES * (ABNORMAL) Cologuard-Sent Out Lab (07/08/2021 10:00 AM CDT) Result Positive( A) Negative 07/23/2021 3:34 AM EQUAL OPPORTUNITY COUNSELOR EXLI Comment: POSITIVE TEST RESULT. A positive Cologuard result should be followed with a colonoscopy or visual examination of the colon. The normal value (reference range) for this assay is negative. TEST DESCRIPTION: Composite algorithmic analysis of stool DNA-biomarkers with hemoglobin immunoassay. ?? Quantitative values of individual biomarkers are not reportable and are not associated with individual biomarker result reference ranges. Cologuard is intended for colorectal cancer screening of adults of either sex, 45 years or older, who are at average-risk for colorectal cancer (CRC). Cologuard has been approved for use by the U.S. FDA. The performance of Cologuard was established in a cross sectional study of average-risk adults aged 50-84. Cologuard performance in patients ages 45 to 49 years was estimated by sub-group analysis of near-age groups. Colonoscopies performed for a positive result may find as the most clinically significant lesion: colorectal cancer [4.0%], advanced adenoma (including sessile serrated polyps greater than or equal to 1cm diameter) [20%] or non- advanced adenoma [31%]; or no colorectal neoplasia [45%]. These estimates are derived from a prospective cross-sectional screening study of 10,000 individuals at average risk for colorectal cancer who were screened with both Cologuard and colonoscopy. (Rocky Booker. et al, N Engl J Med 2014;370(14):0856-9271.) Cologuard may produce a false negative or false positive result (no colorectal cancer or precancerous polyp present at colonoscopy follow up). A negative Cologuard test result does not guarantee the absence of CRC or advanced adenoma (pre-cancer). The current Cologuard screening interval is every 3 years. ([place] [employer] and U.S. Multi-Society Task Force). Cologuard performance data in a 10,000 patient pivotal study using colonoscopy as the reference method can be accessed at the following location: www.[employer]/results. Additional description of the Cologuard test process, warnings and precautions can be found at www.cologuard.com. Stool (Stool) 07/08/2021 10: 00 AM CDT 07/10/2021 1:57 PM CDT Lidia Gan APRN, C.N.P., M.S.N. 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 See document viewer. * Full Code (Latest Code Status on File) Date Activated Date Inactivated Comments 12/14/2022 9:40 AM 12/14/2022 11:14 PM Question Answer Comments Full Code: Discussed * Full Code Date Activated Date Inactivated Comments 11/08/2022 2:44 PM 11/08/2022 7:17 PM Question Answer Comments Full Code: Not Discussed Due to: Patient not available * Full Code Date Activated Date Inactivated Comments 11/08/2022 5:48 AM 11/08/2022 2:44 PM Question Answer Comments Full Code: Discussed * Full Code Date Activated Date Inactivated Comments 10/21/2022 8:38 AM 10/21/2022 3:05 PM Question Answer Comments Full Code: Discussed * Full Code Date Activated Date Inactivated Comments 10/01/2021 2:48 PM 10/01/2021 5:03 PM Question Answer Comments Full Code: Discussed Care Teams Field Aide Relationship Specialty Start Date End Date Galina Brooks APRN, C.N.P., D.N.P. [id number] [place] [id number] PCP - General Family Medicine 02/22/21 Dr Favian Doan- pt was not aware what the name of the dental group is. Dentistry 11/01/22 opthalmology [place] 11/01/22
--- OUTSIDE RECORDS SUMMARY | 2024-03-09 09:08 | XMS_ITS | Clinical Summary ---
Author Organization [facility] Address [address] [place] [address] Care Team Providers Care Egg Buyer Name Role Phone Galina Brooks APRN, C.N.P., D.N.P. Primary Ca re Provider Source Comments Patient records contain information from all sites at [facility]. For routine questions regarding patient records, call [phone] during business hours, M-F 8:00 AM - 5:00 PM Central Time. Record requests for emergency care only can be directed to [phone] at any time.[facility] Allergies No known active allergies Medications Medication [...] 07/10/2023 Secondary Malignant Neoplasm Lymph Node 12/30/19 23 Medication Therapy Mold Breaker Not Anticoagulant 0 12/29/2022 Melanoma Leg Left 11/18/2022 Cancer Staging:Pathologic:Stage IIIC(pT0, pN2b, cM0) - Signed by Vy Granger P.A.-C., M.S. on 08/02/2023 Malignant Neoplasm Of Uterus Endometrial 023 Cancer Staging:Clinical stage from 11/08/2022:FIGO Stage IA(cT1a, cN0(sn), cM0) - Signed by Roly Gaviria APRN, C.N.P., M.S. on 11/18/2022 Polyp Uterus 08/03/2022 Overview: Added automatically from request for surgery [id number] Lesion Skin Foot 07/13/2022 Polyp Colon Personal History 07/13/2022 Depression Major Recurrent Moderate 03/01/2022 Positive Cologuard Stool Deoxyribonucleic Acid T est 07/23/2021 Overview: Added automatically from request for surgery [id number] Depressive Disorder 07/06/2021 Overview: Switched from Celexa to Prozac 04/2021. Hypertension Essential Primary 07/06/2021 Overview: No prior cardiovascular events or end-organ damage. Monotherapy with ARB. Pain Knee Left 01/04/2021 Overview: Added automatically from request for surgery [id number] Distress Epigastric 09/13/2019 Keratosis Actinic 04/03/2015 Lichen Sclerosus 04/03/2015 Overview: Maintenance topical steroid and vaginal estrogen twice weekly. Hypothyroidism Acquired 02/26/2014 Pain Back Lumbar 01/29/2013 Hyperlipidemia 09/14/2011 Overview: Medium potency statin. Pain Hip Right Primary Osteoarthritis Hip Right Encounters Date Type Department Care Team Description 02/29/2024 10:15 AM CDT Comprehensive Visit Department of Cardiovascular Diseases in [address] [phone] Yaya Douglas M.D. Dyspnea On Exertion Discharge Disposition: Home or Self Care 02/29/2024 8:50 AM CDT - 02/29/2024 11:59 PM CDT Hospital Encounter Department of Laboratory Medicine in [address] [phone] Adelina Champion APRN, C.N.P., D.N.P. Failure Renal Acute (Acute Kidney Injury) (HCC); Hypokalemia Discharge Disposition: Home or Self Care 02/16/2024 10:30 AM CDT Office Visit Department of Family Medicine, [facility], in [place], [place] [address] [place] [address] Adelina Champion APRN, C.N.P., D.N.P. Failure Renal Acute (Acute Kidney Injury) (HCC) (Primary Dx); Hypokalemia Discharge Disposition: Home or Self Care 02/16/2024 9:56 AM CDT - 02/16/2024 11:59 PM CDT Hospital Encounter Department of Laboratory Medicine in [place], [place] [address] [place] [address] Carroll Hester M.D. Hypokalemia; Failure Renal Acute (Acute Kidney Injury) (HCC) Discharge Disposition: Home or Self Care 02/13/2024 4:05 PM CDT - 02/13/2024 7:59 PM CDT Emergency [facility] [address] [place] [phone] Tommie Mina M.D. Scholz, Daniel J, M.D. Hypokalemia (Primary Dx); Failure Renal Acute (Acute Kidney Injury) (HCC) Discharge Disposition: Home or Self Care 02/13/2024 10:13 AM CDT - 02/13/2024 4:04 PM CDT Hospital Encounter Department of Laboratory Medicine in [address] [phone] Ramesh Desai APRN, C.N.P., D.N.P. Fatigue Extreme; Abnormal Finding Of Blood Chemistry Unspecified; Human Immunodeficiency Virus Screening; Dyspnea Discharge Disposition: Home or Self Care 02/13/2024 Intake [facility] 02/13/2024 Documentation Division of Pulmonary Medicine in [place], [place] [address] [place] [phone] Ramesh Desai APRN, C.N.P., D.N.P. 02/12/2024 Orders Only Division of Pulmonary Medicine in [place], [place] [address] [place] [phone] Ramesh eDsai APRN, C.N.P., D.N.P. 02/09/2024 2:00 PM CDT Office Visit Department of Family Medicine, [facility], in [address] [phone] Galina Brooks APRN, C.N.P., D.N.P. Fatigue (Primary Dx); Shortness Of Breath; Congestive Heart Failure (HCC); Chronic Kidney Disease (CKD), Stage 3a Glomerular Filtration Rate (GFR) 45 To 59 (HCC); Depression Major Recurrent Moderate (HCC); Tremor Essential Discharge Disposition: Home or Self Care 02/09/2024 Clinical Communication [facility] Emergency Department [address] [place] [phone] Deann Bermudez R.N. Follow-up (Left Without Being Seen) 02/08/2024 12:44 PM CDT - 02/08/2024 4:22 PM CDT Emergency [facility] Emergency Department [address] [place] [phone] Discharge Disposition: Left Against Medical Advice or Discontinued Care 02/08/2024 Documentation Division of Pulmonary Medicine in [address] [phone] Ramesh Desai APRN, C.N.P., D.N.P. 02/08/2024 Intake [facility] 02/07/2024 Orders Only Department of Obstetrics and Gynecology, Division of Gynecologic Oncology in [address] [phone] Marbella Slaughter APRN, C.N.P. 02/05/2024 Orders Only Department of Oncology in [address] [phone] Adelina Arango APRN, C.N.P. 02/04/2024 7:32 AM CDT - 02/04/2024 2:45 PM CDT Emergency [facility] [address] [place] [phone] Jagdeep Strong APRN, C.NFede., M.S.N. Congestive Heart Failure (HCC) (Primary Dx) Discharge Disposition: Home or Self Care 01/31/2024 10:20 AM CDT Virtual Visit Department of Oncology in [address] [phone] Andressa Desai APRN, C.N.Manasa., M.S.N. Jerri Alvarez R.N., O.C.N. Shortness Of Breath [R06.02] (Primary Dx) 01/31/2024 Orders Only Department of Oncology in [address] [phone] Adelina Arango APRN, C.N.Jan Melanoma Leg Left (HCC) (Primary Dx); Secondary Malignant Neoplasm Lymph Node (HCC); Medication Therapy Mold Breaker Not Anticoagulant 01/25/2024 1:30 PM CDT Virtual Visit Division of Pulmonary Medicine in [address] [phone] Ramesh Desai APRN C.N.P., D.N.P. Hypertension Essential Primary (Primary Dx); Dyspnea On Exertion; Deconditioned 01/25/2024 Clinical Communication Division of Pulmonary Medicine in [address] [phone] Ramesh Desai APRN, C.N.P., D.N.P. 01/24/2024 2:30 PM CDT Diagnostic Division of Pulmonary Medicine in [address] [phone] Andressa Desai APRN, C.N.P., M.S.N. Dyspnea On Exertion 01/24/2024 1:00 PM CDT Diagnostic Division of Pulmonary Medicine in [address] [phone] Ramesh Desai APRN, C.N.P., D.N.P. Dyspnea On Exertion; Shortness Of Breath 01/24/2024 9:39 AM CDT - 01/24/2024 11:59 PM CDT Hospital Encounter Department of Cardiovascular Diseases in [place], [place] [address] [place] [phone] Ramesh Desai APRN, C.N.PMarixa, D.N.P. Dyspnea On Exertion Discharge Disposition: Home or Self Care 01/24/2024 8:40 AM CDT Office Visit Department of Oncology in [place], [place] [address] [place] [phone] Andressa Desai APRN, C.N.P., M.S.N. Shortness Of Breath (Primary Dx) 01/23/2024 1:00 PM CDT Office Visit Department of Family Medicine, [facility], in [address] [phone] Galina Brooks APRN, C.N.PMarixa, D.N.P. Viral Wart Unspecified (Primary Dx) Discharge Disposition: Home or Self Care 01/23/2024 Orders Only Division of Pulmonary Medicine in [address] [phone] Ramesh Desai APRN, C.N.P., D.N.P. Shortness Of Breath (Primary Dx) 01/22/2024 11:30 AM CDT Internal E-Consult Division of Endocrinology in [place], [place] [address] [place] [phone] Rola Mai M.D. Dyspnea On Exertion 01/19/2024 8:30 AM CDT Comprehensive Visit Division of Pulmonary Medicine in [address] [phone] Ramesh Desai APRN C.N.P., D.N.P. Melanoma Leg Left (HCC) (Primary Dx); Dyspnea On Exertion; Cancer Endometrium Personal History 01/17/2024 2:40 PM CDT Office Visit Department of Oncology in [place], [place] [address] [place] [phone] Andressa Desai APRN, C.N.P., M.S.N. Dyspnea On Exertion (Primary Dx) 01/17/2024 8:26 AM CDT - 01/17/2024 11:59 PM CDT Hospital Encounter Department of Cardiovascular Diseases in [place], [place] [address] [place] [phone] Andressa Desai APRN, C.NZarina, M.S.N. Dyspnea On Exertion Discharge Disposition: Home or Self Care 01/10/2024 2:53 PM CDT - 01/10/2024 11:59 PM CDT Hospital Encounter Department of Radiology, [place], [place] [address] [place] [phone] Adelina Arango APRN, C.N.P. Dyspnea On Exertion; Secondary Malignant Neoplasm Lymph Node (HCC); Medication Therapy Mold Breaker Not Anticoagulant; Melanoma Leg Left (HCC); Shortness Of Breath Discharge Disposition: Home or Self Care 01/10/2024 2:00 PM CDT Office Visit Department of Oncology in [address] [phone] Andressa Desai APRN, C.NZarina, M.S.N. Dyspnea On Exertion (Primary Dx) 01/10/2024 12:10 PM CDT - 01/10/2024 2:52 PM CDT Hospital Encounter [facility] [address] [phone] Adelina Arango APRN, C.N.P. Dyspnea On Exertion; Secondary Malignant Neoplasm Lymph Node (HCC); Medication Therapy Assisted Not Anticoagulant; Melanoma Leg Left (HCC) Discharge Disposition: Home or Self Care 01/05/2024 1:30 PM CDT Office Visit Department of Obstetrics and Gynecology, Division of Gynecologic Oncology in [address] [phone] Marbella Slaughter APRN, C.N.PMarixa Cancer Endometrium Personal History (Primary Dx) 01/04/2024 3:00 PM CDT Office Visit Department of Oncology in [address] [phone] Kottschade, Adelina A, HEAD MVA REACTOR OPERATOR, C.N.P. Dyspnea On Exertion (Primary Dx) 01/04/2024 6:03 AM CDT - 01/04/2024 11:59 PM CDT Hospital Encounter Department of Radiology, [facility], in [place], [place] [address] [place] [phone] Adelina Arango APRN, C.N.P. Secondary Malignant Neoplasm Lymph Node (HCC); Medication Therapy Assisted Not Anticoagulant; Melanoma Leg Left (HCC) Discharge Disposition: Home or Self Care 01/03/2024 10:30 AM CDT Clinical Communication Virtual Review in [place], [place] 200 [place] [phone] Pre-visit Intake 01/02/2024 11:00 AM CDT Office Visit Department of Family Medicine, [facility], in [address] [phone] Galina Brooks APRN C.N.P., Margo.N.P. Juana Page, R.Ismael. Annual Medicare Examination Return (Primary Dx); Screening Test Laboratory Discharge Disposition: Home or Self Care 12/27/2023 Orders Only Department of Oncology in [address] [phone] Adelina Arango APRN, C.N.P. 12/26/2023 2:40 PM CDT Office Visit Department of Oncology in [place], [place] [address] [place] [phone] yV Granger P.A.-C., M.S. Cami Contreras APRN, C.N.P., M.S. Candidiasis Intertrigo (Primary Dx); Melanoma Leg Left (HCC); Dyspnea On Exertion 12/26/2023 1:10 PM CDT - 12/26/2023 11:59 PM CDT Hospital Encounter Department of Radiology, [facility], in [place], [place] [address] [place] [phone] Vy Granger P.A.-C., M.S. Other Assisted Current Drug Therapy; Melanoma Leg Left (HCC); Secondary Malignant Neoplasm Lymph Node (HCC); Shortness Of Breath Discharge Disposition: Home or Self Care 12/12/2023 Orders Only Department of Oncology in [place], [place] [address] [place] [phone] Adelina Arango APRN, C.N.P. from Last 3 Months Immunizations Name Administration Dates Next Due HZV [...] (65 year s or older) (PF) 06/20/2019,06/19/2018,06/07/2017 Family History Medical History Relation Name Comments Other cancer Father Amilcar Pancreatic cancer Father Amilcar 83 y/o dx Hypertension Maternal Grandfather Mother Breast cancer Mother Brianna 65 yrs old Diabetes Mother Brianna Hyperlipidemia Mother Brianna Hypertension Mother Brianna Other cancer Mother Brianna Breast cancer Mother's Sister 1 Adelaida Other cancer Mother's Sister 1 Adelaida Leukemia Mother's Sister 2 Ivy Other cancer Mother's Sister 2 Ivy Breast cancer Sister 1 Lorna > 5 yrs ago Diabetes Sister 1 Lorna Hyperlipidemia Sister 1 Lorna Hypertension Sister 1 Lorna Other cancer Sister 1 Lorna Breast cancer Sister 2 Sofia > 30 yrs ago Other cancer Sister 2 Sofia Diabetes Sister 3 matt Hyperlipidemia Sister 3 matt Other cancer Sister 3 matt bone lichen sclerosus Sister 4 Nguyen Relation Name Status Comments Father Amilcar Maternal Grandfather Mother Mother Brianna Mother's Sister 1 Adelaida Mother's Sister 2 Ivy Sister 1 Lorna Sister 2 Sofia Sister 3 amtt Sister 4 Nguyen Alive Social History Tobacco Use Types Packs/Day Years Used Date Smoking Tobacco: Never Passive Smoke Exposure: Past Smokeless Tobacco: Never Tobacco Cessation:Counseling Given: Not Answered Alcohol Use Standard Drinks/Week Comments Yes 1 (1 standard drink = 0.6 oz pur e alcohol) [facility] Utilities Answer Date Recorded In the past 12 months has e [employer], [employer], oil, or water [employer] threatened to shut off services in your [...] 07/07/2022 How often do you attend chur ch or judaism services? Never 07/07/2022 Do you belong to any clubs o r organizations such as restorationism groups, unions, fraternal or athletic groups, or [...] Answer Date Recorded PHQ-2 Score 2 11/15/2023 [facility] - Occupational Stress Questionnaire Answer Date Recorded [...] your living situation today? I have a [facility] place to live 12/29/2023 Education Answer Date [...] PM CDT Clinical Communication Virtual Review in [place], [place] [address] [place] [phone] 04/01/2024 2:40 PM CDT Appointment Department of Laboratory Medicine and Pathology, [facility] [place], [place] [address] [place] [phone] Adelina Arango APRN, C.N.P. [address] [place] [phone] 04/01/2024 4:00 PM CDT Appointment Department of Radiology, [place], [place] [address] [place] [address] Adelina Arango APRN, C.N.P. [address] [place] [phone] 04/02/2024 1:00 PM CDT Office Visit Department of Oncology in [place], [place] [address] [place] [phone] Julia Gunn M.D., Ph.D. [address] [place] [phone] 05/20/2024 3:00 PM CDT Office Visit Department of Dermatology in [address] [phone] Pam Crain M.D. [address] [place] [phone] Discharge Disposition: Home or Self Care Health Maintenance Due Date Last Done Comments CT Colonography 1950 Visit: Chronic Disease, age 18+ 11/01/2023 11/01/2022 Depression Monitoring (PHQ-9) 03/16/2024 11/15/2023 Influenza Vaccine (#1) 2024 , 07/13/2022, 07/07/2021, Additional history exists Cologuard 07/23/2024 07/23/2021, 07/08/2021 Colonoscopy 10/01/2024 10/01/2021, 09/05, 09/04/2010 (Performed elsewhere) Colorectal Cancer Surveillance 10/01/2024 Mammogram 10/24/2024 10/24/2023, 05/2022, 07/14/2021, Additional history exists Visit: Medicare Annual Wellness 01/02/2025 01/02/2024 Creatinine Level (Kidney Function Test) 02/28/2025 02/29/2024, 02/16/2024, 02/13/2024, Additional history exists Office Visit for Blood Pressure Check / Re-check 02/28/2025 02/29/2024 Potassium Level 02/28/2025 02/29/2024, 02/02, 02/13/2024, Additional history exists Sodium Level 02/28/2025 02/29/2024, 02/02, 02/13/2024, Additional history exists Fasting Glucose for Diabetes Screening 02/28/2027 02/29/2024, 02/16/2024, 02/13/2024, Additional history exists Lipid (Cholesterol) Screening 07/13/2027 07/13/2022, 07/07/2021, 06/23/2020, Additional history exists DTaP,Tdap,and Td Vaccines (3 - Td or Tdap) 07/18/2032 07/18/2022, 09/13/2011, 03/30/1993 Pneumococcal vaccine (65+ years) Completed 06/06/2017, 06/03/2016 Zoster Vaccines Completed 09/03/2019, 06/06, 03/16/2012 RSV vaccine - (32-36 weeks) or 60+ years Completed 07/05/2023 COVID-19 Vaccine Completed 01/09/2024, , 01/09/2023, Additional history exists Fall Risk Screen (Annual) Completed 01/24/2024 HPV Vaccines Aged Out No longer eligi ble based on patient's age to complete this topic Medical Devices Implanted Type Area Soaking Room Operator Device Identifier Shelf Expiration Date Model / Serial / Lot Conversions - Default Historical Implant Device Implanted:Qty: 1 on 06/06/2017 Breast Other Left: Breast Description:Body Location - Breast L. Device Status Text - BreastOth. clip Clp Hrzn Ti 6 Cathie Lam Familia - [id number] Implanted:Qty: 1 on 11/08/2022 by Kiley Lees M.D. at [facility] Hardware e.g. pins/screws /rods Teleflex Viveve [id number] 04/25/2027 [id number] / / [id number] Clp Hrzn Ti 6 Clp Red - [id number] Implanted:Qty: 1 on 12/14/2022 by Marcial Bernstein M.D. at [facility] Hardware e.g. pins/screws /rods [employer] [id number] / / Clp Hrzn Ti 6 Cathie Lam Familia - [id number] Implanted:Qty: 1 on 12/14/2022 by Marcial Bernstein M.D. at [facility] Hardware e.g. pins/screws /rods [employer] [id number] / / Cathie Hrzn Ti 6 Clp Familia - [id number] Implanted:Qty: 1 on 12/14/2022 by Marcial Bernstein M.D. at [facility] Hardware e.g. pins/screws /rods [employer]flex Viveve [id number] 09/11/2027 [id number] / / [id number] Hip Implant Hip Implant Right: Hip Description:02/17/2020-[facility] ield Procedures Procedure Name Priority Date/Time Associated Diagnosis [...] AM CDT HOLTER MONITOR - IN CLINIC PRIVATE EQUITY ASSOCIATE Routine 01/25/2024 12:28 PM CDT Dyspnea On Exertion PUL HOME OVERNIGHT OXIMETRY Routine 01/25/2024 Dyspnea On Exertion ABG W/ LACTATE - PULM Routine 01/24/2024 10:32 AM CDT Shortness Of Breath ABG W/ LACTATE - PULM Routine 01/24/2024 10:31 AM CDT Shortness Of Breath CPET SPIROMETRY Routine 01/24/2024 10:16 AM CDT Dyspnea On Exertion [place] DEST BENIGN LESN OTHR<=14 Routine 01/23/2024 1:00 [...] Assisted Not Anticoagulant Melanoma Leg Left (HCC) Shortness Of Breath CBC WITH DIFFERENTIAL, B Routine 01/10/2024 12:38 PM CDT Dyspnea On Exertion Secondary Malignant Neoplasm Lymph Node (HCC) Medication Therapy Assisted Not Anticoagulant Melanoma Leg Left (HCC) PET CT WHOLE BODY RAD - Routine (most inpatients and all outpatients) 01/04/2024 8:34 AM CDT Secondary Malignant Neoplasm Lymph Node (HCC) Medication Therapy Mold Breaker Not Anticoagulant Melanoma Leg Left (HCC) THYROPEROXIDASE (TPO) ABS, S Routine 01/04/2024 8:26 AM CDT [place] T4 FREE Routine 01/04/2024 8:26 AM CDT THYROID FUNCTION CASCADE, S Routine 01/04/2024 8:26 AM CDT Secondary Malignant Neoplasm Lymph Node (HCC) Medication Therapy Assisted Not Anticoagulant Melanoma Leg Left (HCC) COMPREHENSIVE METABOLIC PANEL, S/P Routine 01/04/2024 8:26 AM CDT Secondary Malignant Neoplasm Lymph Node (HCC) Medication Therapy Mold Breaker Not Anticoagulant Melanoma Leg Left (HCC) CBC [...] all outpatients) 12/26/2023 2:33 PM CDT Other Mold Breaker Current Drug Therapy Melanoma Leg Left (HCC) Secondary Malignant Neoplasm Lymph Node (HCC) Shortness Of Breath BI BREAST SCREENING BILATERAL WITH TOMOSYNTHESIS RAD - Routine (most inpatients and all outpatients) 10/24/2023 11:04 AM ACLS NURSE Screening Mammogram Breast Cancer LIPID PANEL, S Routine 07/13/2022 6:43 AM ACLS NURSE Hyperlipidemia General Medical Examination Adult COLONOSCOPY 10/01/2021 2:17 PM ACLS NURSE COLOGUARD Routine 07/08/2021 10:00 AM CDT Screening Colon Cancer Average Risk from Last 3 Months or Most Recently Relevant to Health Maintenance Results * CARDIOPULMONARY (VO2) EXERCISE TEST (03/06/2024 10:44 AM CDT) RER-VO2Max 1.49 [facility] [id number] 11 mL/beat [facility] Work Asif-AT 61 Asif [facility] Work Asif-VO2Max 122 Asif [facility] METS-VO2Max 4.6 [facility] Time min-VO2Max 10:26 min [facility] VE BTPS-VO2Max 74.2 L/min [facility] VO2 kg-AT 10.4 mL/kg/min [facility] VO2 kg-VO2Max 16.0 mL/kg/min [facility] VEVCO2-AT 31 [facility] VEVCO2-VO2Max 35 [facility] HR-VO2Max 123 BPM [facility] SpO2-VO2Max 100 % [facility] RR-VO2Max 51 br/min [facility] 01/24/2024 10:3 3 AM CDT Mellissa Escalona APRN.P., Margo.N.P. P FT ORDERABLES BROAD TOP MARANDA SUITE NA * (ABNORMAL) Basic Metabolic Panel [...] 9:24 AM CDT 02/29/2024 9:25 AM CDT Naima Toro APRN.N.P., D.N.P. LAB B LOOD ADD-ON [facility] [address] [place] [address], [facility] CNFL [facility] in [address] [address] * (ABNORMAL) Blood Gas without Coox, Venous (02/13/2024 5:02 PM CDT) Sample Site, Venous Venipunct 02/13/2024 5:06 PM [...] Tommie Mina M.D. LAB BLOOD NON ADD-ON [facility] [address] [place] [address], [facility] R[facility] [place] [address] [place] [phone] * NT-Pro B-Type Natriuretic Peptide (BNP) (02/13/2024 [...] CDT Tommie Mina M.D. LAB BLOOD ADD-ON [facility] [address] [place] [address], [facility] [place] [address] [facility] [place] [phone] * (ABNORMAL) CBC with Differential, Blood (02/13/2024 [...] M.D. LAB BLOOD ADD-ON Performing Organization Address City/[facility]/ZIP Co de Phone Number [facility] [address] [place] [address], [facility] RDW[facility] in [address] [address] * Phosphorus Inorganic (02/13/2024 5:02 PM CDT) Phosphorus (Inorganic), P 3.7 2.5 - 4.5 mg/dL 02/13/2024 5:29 PM CDT [facility] Blood (Blood, Venous) 02/13/2024 5:02 PM CDT 02/13/2024 5:04 PM CDT Tommie Mina M.D. LAB BLOOD ADD-ON [facility] [address] [place] [address], [facility] in [address] [phone] * Magnesium (02/13/2024 5:02 PM CDT) Magnesium, P 2.2 1.7 - 2.3 mg/dL 02/13/2024 5:29 PM CDT [facility] Blood (Blood, Venous) 02/13/2024 5:02 PM CDT 02/13/2024 5:04 PM CDT Tommie Mina M.D. LAB BLOOD ADD-ON [facility] [address] [place] [address], [place] [facility] [place] [address] [place] [address] * HIV-1/-2 Ag and Ab Screen, Plasma [...] D.N.P. L AB MICROBIOLOGY - BLOOD ORDERABLES [facility] [address] [place] [address], [facility] ECLR [facility] [place] [address] [place] [address] * (ABNORMAL) Cortisol, Free and Total (02/13/2024 10:28 AM CDT) Cortisol, Free, S 1.465(H) 6:00-10:30 AM Collection 0.121-1.065 mcg/dL mcg/dL 02/16/2024 10:33 PM CDT [facility] Comment: ----ADDITIONAL INFORMATION---- This test was developed and its performance characteristics determined by [facility] in a manner consistent with CLIA requirements. This test has not been cleared or approved by the U.S. Food and Drug Administration. AM Cortisol 26(H) 5 - 25 mcg/dL 02/15/2024 6:23 PM CDT [facility] Blood (Blood, Venous) 02/13/2024 10:28 AM CDT 02/14/2024 11:33 AM CDT Ramesh Desai APRN, C.N.P., D.N.P. L AB BLOOD NON ADD-ON [facility] [address] [place] [address] [facility] [address] [place] [address] [place] [address] * HCV Ab w/Reflex to HCV PCR, Serum (02/13/2024 10:28 AM CDT) HCV Ab, S Negative Negative 02/13/2024 9:14 PM CDT [facility] Blood (Blood, Venous) 02/13/2024 10:28 AM CDT 02/13/2024 8:44 PM CDT Narrative [facility] - 02/13/2024 9:14 PM CDT Specimen Information: Specimen ID: [id number] Specimen Type: Blood Specimen Collection Start Date: 02/13/2024 10:28 AM Specimen Received Date: 02/13/2024 ??8:44 PM Specimen ID: [id number] Specimen Type: Blood Specimen Collection Start Date: 02/13/2024 10:28 AM Specimen Received Date: 02/13/2024 ??8:44 PM Naima Escalona APRN.N.P., D.N.P. L AB MICROBIOLOGY - BLOOD ORDERABLES Performing Organization Address City/[facility] Co de Phone Number [facility] [address] [place] [address], [facility] ECLR [facility] [address] * Iron and Total Iron-Binding Capacity (02/13/2024 10:28 AM CDT) Iron 115 35 - 145 mcg/dL 02/13/2024 3:31 PM CDT ECLR Total Iron Binding Capacity 359 250 - 400 mcg/dL 02/13/2024 3:31 PM CDT ECLR Percent Saturation 32 14 - 50 % 02/13/2024 3:31 PM CDT ECLR Blood (Blood, Venous) 02/13/2024 10:28 AM CDT 02/13/2024 2:25 PM CDT Naima Escalona APRN.N.P., D.N.P. L AB BLOOD ADD-ON Performing Organization Address [facility] Co de Phone Number [facility] [address] [place] [address], [facility] ECLR [facility] in [address] [address] * HBc Total Ab, Serum (02/13/2024 10:28 AM CDT) HBc Total Ab, w/Reflex, S Negative Negative 02/13/2024 9:20 PM CDT ECLR Blood (Blood, Venous) 02/13/2024 10:28 AM CDT 02/13/2024 8:44 PM CDT Ramesh Desai APRN, C.N.P., LoNMarixaP. L AB MICROBIOLOGY - BLOOD ORDERABLES [facility] [address] [place] [address], [facility] [place] [address] * ACTH (Adrenocorticotropic Hormone) (02/13/2024 10:28 AM CDT) Adrenocorticotropic Hormone, P 11 7.2-63 (a.m. collectio n) pg/mL 02/13/2024 8:54 PM CDT [facility] Blood (Blood, Venous) 02/13/2024 10:28 AM CDT 02/13/2024 8:23 PM CDT Ramesh Desai APRN, C.N.P., Susie L AB BLOOD NON ADD-ON Performing Organization Address City/[facility]/ZIP Co de Phone Number [facility] [address] [place], [place] [phone] [place] [address] [place] [address] * HBs Antibody, Serum (02/13/2024 10:28 AM [...] 8:44 PM CDT Ramesh Desai APRN, C.N.P., Margo.N.P. L AB MICROBIOLOGY - BLOOD ORDERABLES Performing Organization Address City/[facility]/ZIP Co de Phone Number [facility] [address] [place] [address], [facility] ECLR [facility] in [address] [address] * Hepatitis B Surface Antigen (02/13/2024 10:28 AM CDT) HBs Antigen, S Nonreactive Nonreactive 02/13/2024 9:20 PM CDT ECLR Blood (Blood, Venous) 02/13/2024 10:28 AM CDT 02/13/2024 8:44 PM CDT Ramesh Desai APRN, C.N.P., Margo.N.P. L AB MICROBIOLOGY - BLOOD ORDERABLES Performing Organization Address City/[facility] Co de Phone Number [facility] [address] [place] [address], [facility] ECLR [facility] in [address] [address] * Sedimentation Rate (02/13/2024 10:28 AM CDT) Sedimentation Rate, B 22 0 - 29 mm/1 h 02/13/2024 2:53 PM CDT ECLR Blood (Blood, Venous) 02/13/2024 10:28 AM CDT 02/13/2024 2:25 PM CDT Ramesh Desai APRN, C.N.P., Margo.N.P. L AB BLOOD ADD-ON Performing Organization Address City/[facility]/ZIP Co de Phone Number [facility] [address] [place] [address], [facility] ECLR [facility] in [address] [address] * (ABNORMAL) D-Dimer (02/13/2024 10:28 AM CDT) Only the most recent of2 resultswithin the time period is included. D-Dimer, P 540(H) <=500 ng/mL FEU 02/13/2024 [...] L AB BLOOD ADD-ON Performing Organization Address City/State/[facility] Co de Phone Number [facility] [place] [address], [facility] [place] [address] * CRP (C-Reactive Protein) (02/13/2024 10:28 AM CDT) C-Reactive Protein (CRP), P 3.6 <5.0 mg/L 02/13/2024 10:54 AM CDT [place] Blood (Blood, Venous) 02/13/2024 10:28 AM CDT 02/13/2024 10:30 AM CDT Ramesh Desai APRN, C.N.P., D.N.P. L AB BLOOD ADD-ON [address] [address], [address] [address] * (ABNORMAL) Troponin T, 5th Generation (02/13/2024 10:28 AM CDT) Troponin T, 5th gen 12(H) <=10 ng/L 02/13/2024 11:05 AM CDT [facility] Blood (Blood, Venous) 02/13/2024 10:28 AM CDT 02/13/2024 10:30 AM CDT Naima Escalona APRN.N.P., D.N.P. L AB BLOOD ADD-ON Performing Organization Address [facility] Co de Phone Number [address] [address], [address] [address] * CK (Creatine Kinase) (02/13/2024 10:28 AM CDT) Only the most recent of2 resultswithin the time period is included. Creatine Kinase, P 50 26 - 192 U/L 02/13/2024 10:54 AM CDT [facility] Blood (Blood, Venous) 02/13/2024 10:28 AM CDT 02/13/2024 10:30 AM CDT Naima Escalona APRN.N.P., D.N.P. L AB BLOOD ADD-ON [address] [address], [address] [address] * (ABNORMAL) Comprehensive Metabolic Panel (02/13/2024 10:28 [...] 10:28 AM CDT 02/13/2024 10:30 AM CDT Naima Escalona APRN.N.Manasa., Margo.N.P. L AB BLOOD ADD-ON Performing Organization Address City/[facility] Co de Phone Number [facility] [address] [place] [address], [facility] CNFL [facility] in [address] [address] * Vitamin D, Immunoassay, Total, Serum (02/09/2024 2:50 PM CDT) Vitamin D, Immunoassay, Total, S 26 20 - 80 ng/mL 02/09/2024 9:26 PM CDT ECLR Comment: Optimum levels within the healthy population are 20-50, patients with bone disease may benefit from high levels within this range Blood (Blood, Venous) 02/09/2024 2:50 PM CDT 02/09/2024 8:40 PM CDT Naima Carrillo APRN.N.P., D.N.P. LAB BLOOD ADD-ON Performing Organization Address City/[facility] Co de Phone Number [facility] [address] [place] [address], [facility] [place]R [place] [address] * Connective Tissue Diseases Marlin (02/09/2024 2:50 PM CDT) Antinuclear Ab, S 0.7 <=1.0 (Negative ) U 02/10/2024 2:42 PM CDT [facility] Comment: ----ADDITIONAL INFORMATION---- Method: Enzyme-linked immunoassay using HEp-2 nuclear extract supplemented with purified antigens. Cyclic Citrullinated Peptide Ab, S <15.6 <20.0 (Negative ) U 02/10/2024 12:04 PM CDT [facility] Interpretation SEE COMMENT 2:42 PM CDT [facility] Comment: Tests for antibodies to dsDNA and RADHA antigens are not performed automatically unless the SHO result is > or = 3.0 U. ??Studies performed at [facility] indicate that positive SHO results <3.0 U are rarely accompanied by positive second order tests. Blood (Blood, Venous) 02/09/2024 2:50 PM CDT 02/10/2024 6:59 AM CDT Mellissa Carrillo APRN.Manasa., D.N.P. LAB BLOOD ADD-ON [facility] [address] [place] [address] [facility] [address] [place] [address] * S-TSH (Thyroid-Stimulating Hormone - Sensitive) (02/09/2024 2:50 PM CDT) Pathologist [facility] TSH, Sensitive 3.8 0.3 - 4.2 mIU/L 02/09/2024 4:22 PM CDT CNFL Blood (Blood, Venous) 02/09/2024 2:50 PM CDT 02/09/2024 2:54 PM CDT Jass Carrillo APRNN.P., D.N.P. LAB BLOOD ADD-ON Performing Organization Address City/[facility]/ZIP Co de Phone Number [facility] [address] [place] [address], [facility] in [address] [address] * T4 (Thyroxine), Free (02/09/2024 2:50 PM CDT) T4 (Thyroxine), Free, P 1.6 0.9 - 1.7 ng/dL 02/09/2024 7:40 PM CDT [facility] Blood (Blood, Venous) 02/09/2024 2:50 PM CDT 02/09/2024 6:58 PM CDT Galina Brooks APRN, C.N.P., D.N.P. LAB BLOOD ADD-ON [facility] [address] [place] [address], [place] [facility] [place] [address] [place] [address] * Folate (02/09/2024 2:50 PM CDT) Folate, S 12.0 >=4.0 mcg/L 02/09/2024 9:26 PM CDT ECLR Comment: Biotin has been identified by the fire prevention bureau captain as a potential interfering substance. Higher concentrations of biotin may be found in multivitamins, hair/nail supplements, and workout supplements. If the result does not match clinical observations, repeat testing after patient refrains from the use of supplements for at least 12 hours. Blood (Blood, Venous) 02/09/2024 2:50 PM CDT 02/09/2024 8:40 PM CDT Galina Brooks APRN, C.N.P., D.N.P. LAB BLOOD ADD-ON [facility] [address] [place] [address], [facility] ECLR [place] [address] * Ferritin (02/09/2024 2:50 PM CDT) Ferritin, S 267 11 - 328 mcg/L 02/09/2024 11:18 PM CDT [facility] Comment: Biotin has been identified by the fire prevention bureau captain as a potential interfering substance. Higher concentrations of biotin may be found in multivitamins, hair/nail supplements, and workout supplements. If the result does not match clinical observations, repeat testing after patient refrains from the use of supplements for at least 12 hours. Blood (Blood, Venous) 02/09/2024 2:50 PM CDT 02/09/2024 6:58 PM CDT Galina Brooks APRN, C.N.P., Margo.N.P. LAB BLOOD ADD-ON [facility] [address] [place] [address], [facility] [facility] [place] [address] [place] [address] * Vitamin B12 Assay (02/09/2024 2:50 PM CDT) Vitamin B12 Assay, S 1105 232 - 1245 ng/L 02/09/2024 9:26 PM CDT ECLR Comment: Biotin has been identified by the fire prevention bureau captain as a potential interfering substance. Higher concentrations of biotin may be found in multivitamins, hair/nail supplements, and workout supplements. If the result does not match clinical observations, repeat testing after patient refrains from the use of supplements for at least 12 hours. Blood (Blood, Venous) 02/09/2024 2:50 PM CDT 02/09/2024 8:40 PM CDT Galina Brooks APRN, C.N.P., D.N.P. LAB BLOOD ADD-ON [facility] [address] [place] [address], [facility] ECLR [facility] in [address] [address] * DX Chest AP or PA and [...] included. Ventricular Rate ECG/Min 91 BPM MUSE [place] Interval 144 ms MUSE QRSD Interval 86 ms MUSE QT Interval 368 ms MUSE QTC Interval 452 ms MUSE P [place] 29 degrees MUSE R [place] -25 degrees MUSE T Wave [place] 44 degrees MUSE 02/08/2024 1:01 PM CDT [...] change was found Reviewed by NISHA Vasquez Jeremias Delgadillo APRN, C.N.P. ECG ORDER MCKAY MUSE NA * Troponin [...] AM CDT 02/04/2024 12:02 PM CDT Narrative [facility] - 02/04/2024 7:10 PM CDT Troponin T, 2H/6H, 5th gen, P was cancelled on 02/04/2024 at 19:10; Per provider's request. Specimen Information: Specimen ID: [id number] Specimen Type: Blood Specimen Collection Start Date: 02/04/2024 11:53 AM Specimen Received Date: 02/04/2024 12:02 PM Specimen ID: [id number] Specimen Type: Blood Jagdeep Strong APRN, C.N.P., M.S.N. LAB B LOOD TROPONIN [facility] [address] [place] [address], [facility] CNFL [facility] in [address] [address] * CT Chest Angiogram and Pulmonary Arteries [...] the spine. Procedure Note Brenton Blue M.B., Maggie, MJosephine. - 02/04/2024 EXAM: CT CHEST ANGIOGRAM AND [...] also be seen with reactivesmall airway disease. Naima Swan APRN.N.P., M.S.N. IMG C T PROCEDURES * (ABNORMAL) Troponin T, Baseline, 5th gen (02/04/2024 8:34 AM CDT) [facility] Troponin T, Baseline, 5th gen 19(H) <=10 ng/L 02/04/2024 9:10 AM CDT [facility] Blood (Blood, Venous) 02/04/2024 8:34 AM CDT 02/04/2024 8:46 AM CDT Naima Swan APRN.N.P., M.S.N. LAB B LOOD TROPONIN [facility] [address] [place] [address], [facility] in [address] [address] * SARS Coronavirus 2, PCR Rapid Symptomatic (02/04/2024 8:02 AM CDT) [facility] SARS CoV-2, PCR, Rapid, V Undetected Undetected [...] at the following links: For Healthcare Providers: https://www.fda.gov/media/128288/download For Patients: https://www.fda.gov/media/376408/download SARS Coronavirus 2, Source, Rapid Swab, Nasopharynx 02/04/2024 8:46 AM CDT CNFL Swab (Nasopharynx) 02/04/2024 8:02 AM CDT 02/04/2024 8:46 AM CDT Jagdeep Strong APRN, C.N.P., M.S.N. LAB M ICROBIOLOGY - GENERAL ORDERABLES Performing Organization Address [facility]/ZIP Co de Phone Number [facility] [address] [place] [address], [facility] [place] [address] * Influenza A/B and RSV, PCR, Point of Care (02/04/2024 8:02 AM CDT) Influenza A, POCT Negative Negative 02/04/2024 9:09 AM CDT [facility] Influenza B, POCT Negative Negative 02/04/2024 9:09 AM CDT CN[facility] Resp Syncytial Virus, POCT Negative Negative 02/04/2024 9:09 AM CDT [facility] Swab (Nasopharynx) 02/04/2024 8:02 AM CDT 02/04/2024 8:46 AM CDT Jagdeep Strong APRN, C.N.P., M.S.N. LAB P OCT ORDERABLES - DEVICE [facility] [address] [place] [address], [place] CN[place] [facility] in [address] [address] * HOLTER MONITOR - IN CLINIC PRIVATE EQUITY ASSOCIATE (01/25/2024 12:28 PM CDT) Min Heart Rate [...] Duration 0 duration INFOBION IC MOME AF [place] 0 percent INFOBIONIC MOME Symptom Count 1 count INFOBI ONIC MOME 01/24/2024 9:51 AM CDT Narrative INFOBIONIC MOME - 02/01/2024 11:29 AM CDT [place] 1. The basic rhythm was sinus with [...] was noted during or around this time. Office Assistant Receptionist: NISHA Flynn/ NISHA Powell Procedure Note Jack Wells M.D. - 02/01/2024 [place] 1. The basic rhythm was sinus with [...] was noted during or around this time. Office Assistant Receptionist: NISHA Flynn/ NISHA Powell Ramesh Desai APRN, C.N.P., D.N.P. C V CARDIAC SERVICES PROCEDURES INFOBIONIC HECTOR NA * Home Overnight Oximetry (01/25/2024) 01/25/2024 [facility]ressions [facility] - 01/26/2024 8:25 AM CDT This is [...] sleep-related breathing disorder. Physician: Mickey Verde M.D. [id number] Narrative Procedure Note Mickey Verde M.D., Ph.D. [...] sleep-related breathing disorder. Physician: Mickey Verde M.D. [id number] Andressa Desai APRN, C.N.P., M.S.N. PFT ORDERABLES [facility] EAP * Arterial Blood Gas with Lactate [...] C.N.P., D.N.P. L AB BLOOD NON ADD-ON [facility] [address] [place] [address], [facility] [address] [place] [address] * CPET Spirometry (01/24/2024 10:16 AM CDT) CHALFVC 2.82 L 01/24/2024 4:51 PM CDT [facility] SUITE CHALFEV1 2.01 L 01/24/2024 4:51 PM CDT [facility] FEV1/FVC PROVOCATION 71.12 % 01/24/2024 4:51 PM CDT [facility] FEF 25-75% PROVOCATION 1.30 L/s 01/24/2024 4:51 PM CDT [facility] PEF PROVOCATION 6.26 L/s 4:51 PM CDT [facility] FET PROVOCATION 10.68 sec 4:51 PM CDT [facility] FVC PROVBASE 2.72 L 01/24/2024 4:51 PM CDT [facility] FEV 1 PROVBASE 1.98 L 01/24/2024 4:51 PM CDT [facility] FEV1/FVC PROVBASE 72.65 % 01/24/2024 4:51 PM CDT [facility] FEF 25-75% PROVBASE 1.39 L/s 01/24/2024 4:51 PM CDT [facility] PEF PROVBASE 6.14 L/s 01/24/2024 4:51 PM CDT [facility] FET PROVBASE 11.49 sec 01/24/2024 4:51 PM CDT [facility] MVV PROVBASE 89.84 L/min 01/24/2024 4:51 PM CDT [facility] SUBSTANCE PROVOCATION Post-Exerc ise 01/24/2024 4:51 PM CDT [facility] 01/24/2024 10:1 6 AM CDT Impressions [facility] - 01/24/2024 4:51 PM CDT Negative exercise [...] of 120 w while breathing room air. Naima Escalona APRN.N.PMarixa, D.N.P. P FT ORDERABLES [facility] NA * [place] DEST BENIGN LESN OTHR<=14 (01/23/2024 1:00 PM CDT) Narrative MMODAL - 01/23/2024 1:00 PM CDT Galian Brooks APRN, C.N.P., D.N.P. ? 01/23/2024 ??1:23 PM Lesion Destruction Performed by: Galina Brooks APRN, C.N.P., D.N.P. Authorized by: Galina Brooks APRN, C.N.P., D.N.P. ?? PROCEDURE DETAILS Number of body areas [...] cryotherapy cycles due to history of melanoma. Galina Brooks APRN, C.N.P., D.N.P. PRO CEDURE/MINOR SURGICAL ORDERABLES MM[facility]AL NA * Pulmonary Function Tests (01/19/2024 6:58 AM CDT) FVC 2.60 L 01/19/2024 11:12 AM CDT [facility] FEV1 1.98 L 01/19/2024 11:12 AM CDT [facility] FEV1/FVC 76.26 % 01/19/2024 11:12 AM CDT [facility] HGJ12-49% 1.59 L/s 01/19/2024 11:12 AM CDT [facility] PEF PRE 6.23 L/s 01/19/2024 11:12 AM CDT [facility] PIF PRE 5.35 L/s 01/19/2024 11:12 AM CDT [facility] FEF 50 % FIF 50 PRE 33.63 % 01/19/2024 11:12 AM CDT [facility] FET PRE 11.84 sec 01/19/2024 11:12 AM CDT [facility] DLCO 16.55 ml/(min*mm Hg) 01/19/2024 11:12 AM CDT [facility] DLCOc 16.98 ml/(min*mm Hg) 01/19/2024 11:12 AM CDT [facility] HB 12.60 g(Hb)/dL 01/19/2024 11:12 AM CDT [facility] VA 4.34 L 01/19/2024 11:12 AM CDT [facility] 01/19/2024 6:58 AM CDT Impressions [facility] - 01/19/2024 11:12 AM CDT Normal study. Narrative Procedure Note Henrry Martin M.D. - 01/19/2024 IMPRESSION: Normal study. Andressa Desai APRN, C.N.P., M.S.N. PFT ORDERABLES [facility] NA * (TTE) 2D ECHO DOPPLER COLOR [...] CDT There are no previous [facility] echocardiograms available for comparison. LEFT VENTRICLE:Normal left ventricular chamber size. Normal left ventricular geometry. Calculated 2-D biplane volumetric left ventricular ejection fraction of 60%. Left ventricular stroke volume index 37 ml/m2. Left ventricular cardiac index 2.05 l/min/m2. No regional wall motion abnormalities. Normal left ventricular filling pressure. Left ventricular strain assessment was performed but not reported based on audiovisual librarian's judgment. RIGHT VENTRICLE:Normal right ventricular chamber size. [...] was performed but not reported based on audiovisual librarian's judgment. 3. Normal left ventricular geometry, normal [...] assessment was performed but not reported basedon audiovisual librarian's judgment. 3. Normal left ventricular geometry, normal filling pressure. 4. Normal right ventricular chamber size, normal systolic function,estimated right ventricular systolic pressure 24 mmHg (right atrialpressure of 5 mmHg). 5. No significant valvular heart disease. 6. No pericardial effusion. Findings There are no previous [facility] echocardiograms available forcomparison. LEFT VENTRICLE:Normal left ventricular chamber size. Normal leftventricular geometry. Calculated 2-D biplane volumetric left ventricularejection fraction of 60%. Left ventricular stroke volume index 37 ml/m2.Left ventricular cardiac index 2.05 l/min/m2. No regional wall motionabnormalities. Normal left ventricular filling pressure. Left ventricularstrain assessment was performed but not reported based on audiovisual librarian'sjudgment. RIGHT VENTRICLE:Normal right ventricular chamber size. Normal [...] report, see the Order-Level Documents. Andressa Desai APRN C.N.Manasa., M.S.N. CV ECHO PROCEDURES * US Lower [...] and management can be found on the [employer] site. Link [email or web address]/topic/clinical-answers/cnt-12543269/cpm-[email or web address] 29982 Procedure Note Rigoberto Koo M.D. - 01/10/2024 [...] thrombosis and management can be found on theAskMa[place]urtle [place] site. [email or web address]://[email or web address]/topic/clinical-answers/[email or web address]/cpm -2049 1725 IMPRESSION: Negative for acute DVT. Adelina Arango APRN C.N.P. IMG [place] OCEDURES * PET CT Whole Body FDG [...] RADIOPHARMACEUTICAL/MEDS: Route: intravenous fludeoxyglucose F 18 injection [facility] (FDG F-18),10.01 millicurie TECHNIQUE: ??F-18 FDG PET/CT [...] RADIOPHARMACEUTICAL/MEDS: Route: intravenous fludeoxyglucose F 18 injection [facility] (FDG F-18),10.01 millicurie TECHNIQUE: F-18 FDG PET/CT [...] activity through the colon suggestive of improvedinflammation. Jass Mann APRNN.P. [facility] [place] OCEDURES * T4 (Thyroxine), Free, Serum (01/04/2024 8:26 AM CDT) T4 (Thyroxine), Free, S 1.1 0.9 - 1.7 ng/dL 01/04/2024 9:40 AM CDT DTL Blood 01/04/2024 8:26 AM CDT 01/04/2024 8:52 AM CDT Adelina Arango APRN C.N.P. LAB BLOOD ADD-ON [facility] [address] [place] [address], [facility] [address] [place] [address] * (ABNORMAL) Thyroid Function [place] (01/04/2024 8:26 AM CDT) TSH, Sensitive 7.7(H) 0.3 - 4.2 mIU/L 01/04/2024 9:18 AM CDT DTL Blood (Blood, Venous) 01/04/2024 8:26 AM CDT 01/04/2024 8:52 AM CDT Jass Mann APRNNMarixaP. LAB BLOOD ADD-ON Performing Organization Address City/[facility]/ZIP Co de Phone Number [facility] [address] [place] [address] * Thyroperoxidase (TPO) Antibodies (01/04/2024 8:26 AM CDT) Thyroperoxidase Ab, S <15.0 <34.0 IU/mL 01/04/2024 9:40 AM CDT DTL Blood 01/04/2024 8:26 AM CDT 01/04/2024 8:52 AM CDT Jass Mann APRNN.P. LAB BLOOD ADD-ON Performing Organization Address City/[facility] [place] [address] * HCV Ab Scrn w/Reflex to HCV PCR, Serum (01/02/2024 11:26 AM CDT) HCV Ab Screen, S Negative Negative 01/03/2024 3:05 AM CDT ECL[facility] Blood (Blood, Venous) 01/02/2024 11:26 AM CDT 01/02/2024 8:44 PM CDT Narrative [facility] - 01/03/2024 3:05 AM CDT Specimen Information: Specimen ID: [id number] Specimen Type: Blood Specimen Collection Start Date: 01/02/2024 11:26 AM Specimen Received Date: 01/02/2024 ??8:44 PM Specimen ID: [id number] Specimen Type: Blood Specimen Collection Start Date: 01/02/2024 11:26 AM Specimen Received Date: 01/02/2024 ??8:42 PM Naima Carrillo APRN.N.P., D.N.P. LAB MICROBIOLOGY - BLOOD ORDERABLES [facility] [address] [place] [address], [facility] ECLR [facility] [place] [address] [place] [address] * BI Breast Screening Bilateral with Tomosynthesis (10/24/2023 11:04 AM ACLS NURSE) Anatomical Region Laterality Modality Breast, Breast Imaging RST L OS, Breast Imaging ARZ LOS, Breast Imaging FLA LOS Bilateral Mammography Impressions 10/24/2023 5:10 PM ACLS NURSE Negative. RECOMMENDATION: ??Annual Screening Mammogram ASSESSMENT: ??BI-RADS: 1: Negative. Narrative 10/24/2023 5:10 PM ACLS NURSE EXAM: ??BI BREAST SCREENING BILATERAL WITH TOMOSYNTHESIS [...] BI-RADS: 1: Negative. Naima Carrillo APRN.N.P., D.N.P. IMG BI PROCEDURES * Lipid Panel (07/13/2022 6:43 AM ACLS NURSE) Triglycerides 98 mg/dL 07/13/2022 7:40 AM ACLS NURSE DTL Comment: ----REFERENCE VALUE---- Normal: <150 mg/dL Borderline High: 150-199 mg/dL High: 200-499 mg/dL Very High: > or =500 mg/dL Cholesterol, Total 183 mg/dL 2021 7:40 AM ACLS NURSE DTL Comment: ----REFERENCE VALUE---- Desirable: < 200 mg/dL Borderline High: 200 - 239 mg/dL High: > or = 240 mg/dL Cholesterol, LDL, Calculated 94 mg/dL 07/13/2022 7:40 AM ACLS NURSE DTL Comment: ----REFERENCE VALUE---- Desirable: <100 mg/dL Above Desirable: 100-129 mg/dL Borderline High: 130-159 mg/dL High: 160-189 mg/dL Very High: >=190 mg/dL ----ADDITIONAL INFORMATION---- LDL cholesterol calculated using the Terry/NIH equation. Cholesterol, HDL, S 71 >=50 mg/dL 07/13/2022 7:40 AM ACLS NURSE DTL Cholesterol, Non-HDL, Calculated 112 mg/dL 07/13/2022 7:40 AM ACLS NURSE DTL Comment: ----REFERENCE VALUE---- Desirable: <130 mg/dL Above Desirable: 130-159 mg/dL Borderline High: 160-189 mg/dL High: 190-219 mg/dL Very High: > or =220 mg/dL Fasting (8 HR or more) y 07/13/2022 7:22 AM ACLS NURSE DTL Blood (Blood, Venous) 07/13/2022 6:43 AM ACLS NURSE 07/13/2022 7:22 AM ACLS NURSE Lidia Gan APRN, C.N.P., M.S.N. LAB BLOOD ADD-ON [facility] [address] [place] [address], [facility] [address] [place] [address] * COLONOSCOPY (10/01/2021 2:17 PM ACLS NURSE) Narrative Procedure Note Malcolm Strickland M.D. - 10/01/2021 2:17 PM CST [facility] Patient Name: Ivy Duran Procedure Date: [...] the bowel preparation was evaluatedusing the BBPS ([place] Bowel Preparation Scale) with scores of: Right [...] Initiated On: 10/01/2021 2:17 PM Galina Brooks ADALGISA, C.N.P., D.N.P. GI PROCEDURE ORDERABLES * (ABNORMAL) Cologuard-Sent Out Lab (07/08/2021 10:00 AM CDT) Result Positive( A) Negative 07/23/2021 3:34 AM ACLS NURSE EXLI Comment: POSITIVE TEST RESULT. A positive [...] screened with both Cologuard and colonoscopy. (Rocky Campbell al, N Engl J Med 2014;370(14):1411-6692.) Cologuard may produce a false negative or false positive result (no colorectal cancer or precancerous polyp present at colonoscopy follow up). A negative Cologuard test result does not guarantee the absence of CRC or advanced adenoma (pre-cancer). The current Cologuard screening interval is every 3 years. ([place] [employer] Society and U.S. Multi-Society Task Force). Cologuard performance data in a 10,000 patient pivotal study using colonoscopy as the reference method can be accessed at the following location: www.[employer].iFlipd/results. Additional description of the Cologuard test process, warnings and precautions can be found at www.cologuard.com. Stool (Stool) 07/08/2021 10: 00 AM CDT 07/10/2021 1:57 PM CDT Lidia Gan APRN C.N.P., M.S.N. LAB BODY FLUIDS AND STOOLS ORDERABLES [employer] [address] [place] [id number] [employer] [address] [place] [address], [address] [place] [address] from Last 3 Months or Most Recently Relevant to Health Maintenance Advance Directives For more information, please contact: [phone] Documents on File Type Date Recorded Patient Coronary Care Unit Nurse Expl anation Advance Directives 09/13/2011 12:00 AM [...] Answer Comments Full Code: Discussed Care Teams Egg Buyer Relationship Specialty Start Date End Date Galina Brooks APRN, C.N.P., D.N.P. [id number] [phone] PCP - General Family Medicine 02/22/21 Dr Favian Doan- pt was not aware what the name of the dental group is. Dentistry 11/01/22 opthalmology [place] 11/01/22
--- OUTSIDE RECORDS SUMMARY | 2024-03-09 09:09 | XMS_ITS | Encounter Summary ---
Author Organization [facility] Address [address] [place] [address] Care Team Providers Care Stitcher Tape Controlled Machine Name Role Phone Galina Brooks APRN, C.N.P., D.N.P. Primary Ca re Provider Reason for Visit * Reason Comments Post Ed Visit Follow-up * Appointment Request (Routine) - Closed Specialty Diagnoses / Procedures Referred By Patric yeung Referred To Contact Family Medicine Referral ID Status Reason Start Date Expiration Date Visits Re quested Visits Authorized [id number] Closed 02/15/2024 02/14/2025 1 1 Encounter Details Date Type Department Care Team (Late st Contact Info) Description 02/16/2024 10:30 AM CDT Office Visit Department of Family Medicine, [facility], in [place], [place] [address] [place] [phone] Adelina Champion APRN, C.N.P., D.N.P. [address] [place] [phone] Failure Renal Acute (Acute Kidney Injury) (HCC) (Primary Dx); Hypokalemia Discharge Disposition: Home or Self Care Social History Tobacco Use Types Packs/Day Years Used Date Smoking Tobacco: Never Passive Smoke Exposure: Past Smokeless Tobacco: Never Tobacco Cessation:Counseling Given: Not Answered Alcohol Use Standard Drinks/Week Comments Yes 1 (1 standard drink = 0.6 oz pur e alcohol) [facility] Utilities Answer Date Recorded In the past 12 months has [employer], [employer], or [employer] threatened to shut off services in your [...] How often do you attend chur or rastafarian services? Never 07/07/2022 Do you belong to any clubs o r organizations such as episcopal groups, unions, fraternal or athletic groups, or [...] Answer Date Recorded PHQ-2 Score 2 11/15/2023 [place] [employer] - Occupational Stress [...] your living situation today? I have a [facility] place to live 12/29/2023 Education Answer Date Recorded What is the highest level of school you have completed or the highest degree you have received? Associate degree: academic program 12/31/2020 Sex and Gender Information Value Date Recorded Sex Assigned at Female 06/04/2018 9:58 PM CDT Gender Identity Female 06/04/2018 9:58 PM CDT Sexual Orientation Straight 06/04/2018 9: 58 PM CDT documented as of this encounter Last Filed Vital Signs Vital Sign Reading Time Taken Comments Blood Pressure 115/75 02/16/2024 10:14 AM CDT Pulse 64 02/16/2024 10:14 AM CDT Temperature 36.3 ??C (97.3 ??F) 02/16/2024 10:14 AM C DT Respiratory Rate 18 02/16/2024 10:14 AM CDT Oxygen Saturation - - Inhaled Oxygen Concentration - - Weight 82.8 kg (182 lb 8.7 oz) 02/16/2024 10:14 AM CDT Height 167 cm (5' 5.75) 02/16/2024 10:14 AM CDT Body Mass Index 29.69 02/16/2024 10:14 AM CDT documented in this encounter Progress Notes * Adelina Champion, ADALGISA, C.N.P., D.N.P. 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 ACTIVE PROBLEM LIST Patient Active Problem List Diagnosis Hyperlipidemia Hypothyroidism Acquired Keratosis Actinic Lichen Sclerosus Pain Back Lumbar Distress Epigastric Pain Hip Right Primary Osteoarthritis Hip Right Pain Knee Left Depressive Disorder Hypertension Essential Primary Positive Cologuard Stool Deoxyribonucleic Acid Test Depression Major Recurrent Moderate (HCC) Lesion Skin Foot Polyp Colon Personal History Polyp Uterus Malignant Neoplasm Of Uterus Endometrial (HCC) Melanoma Leg Left (HCC) Secondary Malignant Neoplasm Lymph Node (HCC) Medication Therapy Detention Not Anticoagulant Primary Osteoarthritis Knee Bilateral Chronic Kidney Disease (CKD), Stage 3a Glomerular Filtration Rate (GFR) 45 To 59 (HCC) Shortness Of Breath Tremor Essential HISTORY OF PRESENT ILLNESS 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 She had an ED visit on 02/04/2024 found to be congestive heart failure, followed up with her PCP on02/09/2024 where it was felt her shortness breath was related to heart failure, she was continued on torsemide 20 mg daily until Cardiology follow-up. She was seen by pulmonology on 02/13/2024. At that appointment given her progressive fatigue, rising BUN and bicarbonate, it was suspected that her presyncopal symptoms or related to this, and dehydration and she was again sent to the emergency department. She was seen in the ED 02/13/2024, potassium 3.3, sodium 132, creatinine 1.31, EGFR 43 and BUN 36. Her potassium was repleted in the ED and she was provided 2 L of crystalloid fluids, she was up to the bathroom several times without any dizziness. She is here today for follow-up. She is cardiovascular appointment on 02/29/2024. She had echo on 01/17/2024 1. Normal left ventricular chamber size, no regional wall motion abnormalities, calculated 2-D biplane volumetric ejection fraction of 60%. 2. Left ventricular strain assessment was performed but not reported based on gas desulfurizer's judgment. 3. Normal left ventricular geometry, normal filling pressure. 4. Normal right ventricular chamber size, normal systolic function, estimated right ventricular systolic pressure 24 mmHg (right atrial pressure of 5 mmHg). 5. No significant valvular heart disease. 6. No pericardial effusion. She had chest CT angiogram on 02/04/2024 IMPRESSION: - Negative for acute pulmonary embolism. -Mild diffuse interlobular septal thickening suggestive of mild acute interstitial pulmonary edema. -Diffuse mosaic lung attenuation which could also be seen with reactive small airway disease. She had chest x-ray 02/08/2024 IMPRESSION: No significant change from 11/07/2022. No focal consolidation, pleural effusion or pneumothorax. Normal heart size. Vascular calcifications. Scattered musculoskeletal degenerative changes. Overall she does feel like she is slowly improving. She is trying to be more active. Her iswondering if PT would be an option to help with her fatigue symptoms. Wt Readings from Last 3 Encounters: 02/16/24 82.8 kg 02/13/24 81.9 kg 02/09/24 83.6 kg I have reviewed and updated the following: The following portions of the patient's history were reviewed and updated as appropriate: current medications, allergies, medical history, surgical history, and problem list. REVIEW OF SYSTEMS Constitutional: Positive for fatigue. All other systems reviewed and are negative. OBJECTIVE VITAL SIGNS BP 115/75 (BP Location: Left arm, Patient Position: Sitting, Cuff Size: Regular) Pulse 64 Temp 36.3 ??C (Temporal) Resp 18 Ht 167 cm Wt 82.8 kg BMI 29.69 kg/m?? PHYSICAL EXAMINATION Constitutional Appearance: Normal appearance. HENT Mouth/Throat: Mouth: Mucous membranes are moist. Eyes Pupils: Pupils are equal, round, and reactive to light. Cardiovascular Rate and Rhythm: Normal rate and regular rhythm. Pulses: Normal pulses. Heart sounds: Normal heart sounds. No murmur heard. No gallop. Pulmonary Effort: Pulmonary effort is normal. Musculoskeletal Right lower leg: No edema. Left lower leg: No edema. Skin General: Skin is warm and dry. Capillary Refill: Capillary refill takes less than 2 seconds. Neurological Mental Status: She is alert and oriented to person, place, and time. Mental status is at baseline. Psychiatric Mood and Affect: Mood normal. Behavior: Behavior normal. DIAGNOSTICS Recent Results (from the past 24 hour(s)) Basic Metabolic Panel Collection Time: 02/16/24 10:06 AM Result Value Potassium, P 3.3 (L) Sodium, P 139 Chloride, P 94 (L) Bicarbonate, P 37 (H) Anion Gap, P 8 BUN (Blood Urea Nitrogen), P 24 (H) Creatinine 1.13 (H) Estimated GFR (eGFR) 51 (L) Calcium, Total, P 9.5 Glucose, P 109 ASSESSMENT / PLAN 1. Failure Renal Acute (Acute Kidney Injury) (HCC) 2. Hypokalemia -her potassium is still slightly low. Recommend potassium chloride 10 mEq daily with food, recheck BMP prior to her cardiology appointment on 02/29/2024. -Discussed her fatigue symptoms and recommended she work to 10-minutes of walking daily, slowly increasing time [id number] versus day-to-day. At this time, I do not think that a PT evaluation wouldbe necessary for the fatigue, however, I did encourage them to discuss with pulmonology and cardiology whether they feel cardiac or pulmonary rehab would be a benefit for her moving forward, or this time and slow increase in activity due to deconditioning is sufficient. -Continue to monitor daily weights. Continue on Torsemide 20 mg daily. -I encouraged her to intake electrolytes with POWERade/Gatorade/Pedialyte with her daily fluid intake for added electrolytes. -Follow-up with PCP as needed and Cardiology as scheduled on 02/29/2024. Patient verbalizes understanding. All questions were answered/addressed to the best of my ability. Happy to see back in clinic if symptoms worsen, fail to improve or change. documented in this encounter Plan of Treatment Upcoming Encounters Date Type Department Care Team (Latest Contact Info) Description 03/29/2024 12:30 PM CDT Clinical Communication Virtual Review in [place], [place] [address] [place] [phone] 04/01/2024 2:40 PM CDT Appointment Department of Laboratory Medicine and Pathology, [place], [place] [address] [place] [phone] Adelina Arango APRN, C.N.P. [address] [place] [phone] 04/01/2024 4:00 PM CDT Appointment Department of Radiology, [place], [place] [address] [place] [phone] Adelina Arango APRN, C.N.P. [address] [place] [phone] 04/02/2024 1:00 PM CDT Office Visit Department of Oncology in [address] [phone] Julia Gunn M.D., Ph.D. [address] [place] [phone] 05/20/2024 3:00 PM CDT Office Visit Department of Dermatology in [address] [phone] Pam Crain M.D. [address] [place] [phone] Discharge Disposition: Home or Self Care documented as of this encounter Results * (ABNORMAL) Basic Metabolic Panel (02/29/2024 9:24 AM CDT) Potassium, P 3.4(L) 3.6 - 5.2 mmol/L [...] APRN, C.N.P., D.N.P. LAB B LOOD ADD-ON [facility] [address] [place] [phone], [facility] CNFL [facility] in [address] [address] documented in this encounter Visit Diagnoses Diagnosis Failure Renal Acute (Acute Kidney Injury) (HCC)- Primary Hypokalemia documented in this encounter Additional Health Concerns Assessment Noted Time PHQ-9 Depression Total Score: 5 11/15/19 24 11:23 AM CDT documented as of this encounter Care Teams Stitcher Tape Controlled Machine Relationship Specialty Start Date End Date Galina Brooks APRN, C.N.P., D.N.P. [address] [phone] PCP - General Family Medicine 02/22/21 Dr Favian Doan- pt was not aware what the name of the dental group is. Dentistry 11/01/22 opthalmology [place] 11/01/22 documented as of this encounter
--- OUTSIDE RECORDS SUMMARY | 2024-03-09 09:09 | XMS_ITS | Encounter Summary ---
Author Organization [facility] Address [address] [place] [address] Care Team Providers Care Medical Language Specialist Name Role Phone Galina Brooks APRN, C.N.P., D.N.P. Primary Ca re Provider Reason for Referral * Outpatient (Routine) - Authorized Specialty Diagnoses / Procedures Referred By Patric yeung Referred To Contact Cardiovascular Disease Yaya Douglas M.D. [address] [place] [address] [facility] Region Referral ID Status Reason Start Date Expiration Date V isits Requested Visits Authorized [id number] Authorized 02/29/2024 08/30/2025 1 1 Reason for Visit * Reason Comments Consult Congestive Heart Failure * Outpatient (Routine) - Closed Specialty Diagnoses / Procedures Referred By Patric yeung Referred To Contact Emergency Medicine Diagnoses Congestive Heart Failure (HCC) Jagdeep Strong APRN, C.N.P., M.S.N. [address] [place] [address] [facility] Region Referral ID Status Reason Start Date Expiration Date Visits Re quested Visits Authorized [id number] Closed 02/04/2024 08/05/2025 1 1 Encounter Details Date Type Department Care Team (Latest Contact Info) Description 02/29/2024 10:15 AM CDT Comprehensive Visit Department of Cardiovascular Diseases in [address] [place] [phone] Yaya Douglas M.D. [address] [facility] [place] [address] Dyspnea On Exertion Discharge Disposition: Home or Self Care Social History Tobacco Use Types Packs/Day Years Used Date Smoking Tobacco: Never Passive Smoke Exposure: Past Smokeless Tobacco: Never Tobacco Cessation:Counseling Given: Not Answered Alcohol Use Standard Drinks/Week Comments Yes 1 (1 standard drink = 0.6 oz pur e alcohol) [facility] Utilities Answer Date Recorded In the past 12 months has e [employer], gas, oil, or water company threatened to shut off services in your [...] often do you attend chur ch or pentecostalism services? Never 07/07/2022 Do you belong to any clubs o r organizations such as jewish groups, unions, fraternal or athletic groups, or [...] Answer Date Recorded PHQ-2 Score 2 11/15/2023 [facility] - Occupational Stress Questionnaire Answer Date Recorded [...] ??F) 02/29/2024 10:11 AM CDT Respiratory Rate - - Oxygen Saturation 75% 02/29/2024 10:11 AM CDT Inhaled Oxygen Concentration - - Weight 85 kg (187 lb 6.3 oz) 02/29/2024 10:11 AM CDT Height - - Body Mass Index 30.48 02/16/2024 10:14 AM CDT documented in this encounter Patient Instructions * Patient Instructions* Yaya Douglas M.D. - 02/29/2024 10:15 AM CDT Ok to stop jardiance. Use the torsemide as you see fit. Regular exercise (20-30 minutes most days of the week). Strength training. documented in this encounter Consult Notes * Yaya Douglas M.D. - 02/29/2024 10:15 AM CDT SUBJECTIVE REFERRING PROVIDER Jagdeep Strong, ADALGISA, C.N.P., M.S.N. 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 Over the last several months, she developed increased dyspnea on exertion. She was seen in the emergency department on 02/04/24. EKG demonstrated normal sinus rhythm. NT proBNP was 5626. CTA angiogram showed no evidence of pulmonary edema. CT suggested mild interstitial pulmonary edema. She was started on torsemide. With this, she lost several kg and felt mildly but not completely improved. An echoon 01/17/2024 was normal. These included normal filling pressures at rest. A Holter monitor showed sinus rhythm without any significant abnormalities. She was also seen by Pulmonary this spring. They did not have a clear etiology for her dyspnea. [id number] was limited by leg fatigue. No evidence of ischemia. There was no clear cardiac or pulmonary impairment. She was able to do 70% of predicted. Workup has also included PFTs which were overall normal. She has a background history of endometrial cancer status post NENA/BSO 11/08/2022. While undergoingTAH/BSO, sentinel lymph node biopsy noted metastatic melanoma. It was felt that the primary may have been in her left heel. She was treated with an immune checkpoint inhibitor. 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 She has not had PND or orthopnea. She actually feels better lying flat. No significant edema. She notes dyspnea when she exerts herself with some associated tightness in her chest. She does feel there is likely a component of deconditioning. MEDICAL HISTORY 1. Hypothyroidism. 2. History of uterine cancer. 3. History of melanoma, metastatic to lymph node. 4. CKD. CURRENT MEDICATIONS Current Outpatient Medications on File Prior to Visit Medication Sig Dispense Refill budesonide (ENTOCORT EC) 3 mg 24 hr capsule Take 3 capsules (9 mg total) by mouth daily. 90 capsule1 clobetasoL (TEMOVATE) 0.05 % ointment Apply 1 application topically 2 (two) times a week. Apply to affected area 30 g 2 diphenhydrAMINE-acetaminophen (TYLENOL PM) 25-500 mg per tablet Take 2 tablets by mouth at bedtime. empagliflozin (Jardiance) 10 mg tablet Take 1 tablet (10 mg total) by mouth every morning before breakfast. 90 tablet 3 estradioL (ESTRACE) 0.1 mg/g (0.01%) vaginal cream INSERT 1 GRAM VAGINALLY 2 TIMES PER WEEK 42.5 g 2 losartan (COZAAR) 25 mg tablet Take 1 tablet (25 mg total) by mouth daily. 90 tablet 3 potassium chloride (KLORCON/K-TAB) 10 mEq ER tablet Take 1 tablet (10 mEq total) by mouth daily. Donot crush or chew. 90 tablet 3 propranoloL (INDERAL) 40 mg tablet TAKE 1 TABLET (40 MG TOTAL) BY MOUTH EVERY 12 (TWELVE) HOURS. 180 tablet 3 rosuvastatin (CRESTOR) 10 mg tablet TAKE ONE TABLET (10 MG) BY MOUTH DAILY. 90 tablet 3 torsemide (DEMADEX) 20 mg tablet Take 1 tablet (20 mg total) by mouth daily. 30 tablet 0 albuterol 90 mcg/actuation inhaler Inhale 1 puff every 6 (six) hours as needed for shortness of breath. 8 g 3 inhalational spacing device (Aerochamber MV) spacer 1 each as needed (for use with albuterol when wheezing or dyspnea). 1 each 0 No current facility-administered medications on file prior to visit. SOCIAL HISTORY Social History Tobacco Use Smoking status: Never Passive exposure: Past Smokeless tobacco: Never Substance Use Topics Alcohol use: Yes Alcohol/week: 1.0 standard drink of alcohol FAMILY HISTORY Family History Problem Relation Name Age of Onset Diabetes Mother Brianna Breast cancer Mother Brianna 65 yrs old Hypertension Mother Brianna Hyperlipidemia Mother Brianna Other cancer Mother Brianna Pancreatic cancer Father Amlicar 83 y/o dx Other cancer Father Amilcar Breast cancer Sister Lorna > 5 yrs ago Diabetes Sister Lorna Hypertension Sister Lorna Hyperlipidemia Sister Lorna Other cancer Sister Lorna Breast cancer Sister Sofia > 30 yrs ago Other cancer Sister Sofia Other cancer Sister matt bone Diabetes Sister matt Hyperlipidemia Sister matt Other (lichen sclerosus) Sister Nguyen Breast cancer Mother's Sister Adelaida Other cancer Mother's Sister Adelaida Leukemia Mother's Sister Ivy Other cancer Mother's Sister Ivy Hypertension Maternal Grandfather Mother REVIEW OF SYSTEMS As per HPI. OBJECTIVE BP 130/66 (BP Location: Left arm, Patient Position: Sitting, Cuff Size: Regular) Pulse 75 Temp 36.1 ??C Wt 85 kg SpO2 (!) 75% BMI 30.48 kg/m?? PHYSICAL EXAMINATION General: Pleasant, conversant, and in no distress. Appears stated age. HEENT: Mucous membranes moist. Neck is supple. Trachea is midline. No scleral icterus or conjunctival pallor. Neck: Supple, no erythema. Cardiovascular: Regular rhythm and rate. No murmurs. Jugular venous pressure is normal. Pulmonary: Normal respiratory effort. Clear without wheezing or rhonchi. Abdomen: Soft, nontender, nondistended. Extremities: Warm and dry without significant edema. Psychiatric: Alert and oriented with appropriate affect. DIAGNOSTICS Lab Results Component Value Date/Time CHOL 183 07/13/2022 06:43 AM LDLCALC 94 07/13/2022 06:43 AM HDL 71 07/13/2022 06:43 AM TRIG 98 07/13/2022 06:43 AM ASSESSMENT / PLAN 1. Dyspnea on exertion, query diastolic heart failure. 2. Metastatic melanoma with recent treatment with immune checkpoint inhibitor. 3. Endometrial cancer status post NENA/BSO. She has had dyspnea over the last several months. She has a relatively complicated past medical history with endometrial cancer status post NENA/BSO as well as metastatic melanoma recently treated with Nivolumab. Workup for dyspnea thus far has been reassuring. She did have an elevated NT proBNP and a chest CT which suggested the possibility of pulmonary edema. She lost several lb with the diuretic but did not feel substantially better. She does not have other signs of heart failure such as PND, orthopnea, or lower extremity edema. Her echo was normal including normal diastolic function at rest. VO2 treadmill suggested no particular cardiac or pulmonary impairment and did not suggest ischemia.Evaluation has also been done by Pulmonary. While she does have some findings that would suggest congestive heart failure, I will reserve this diagnosis for now. Some of the volume may be related to recent chemotherapy/treatment related to multiple malignancies. I think there is also a component of deconditioning. I think that further workup at this time we would be low value. I would like her to have some more time to recover away from chemotherapy and any surgeries. She will continue to use her diuretic as needed. We will meet back with her again in 3 months. If she has persistent trouble with volume overload or manifested other signs of cardiovascular disease, then we can treat accordingly. I think it is very important that she have a regular aerobic exercise program and we discussed this in detail. If she continued to have symptoms and her diagnosis was unclear, she could undergo a right and leftheart catheterization with exercise in [place]. 60 minutes over half of which was spent in counseling and coordination of care in regards to dyspnea on exertion. documented in this encounter Plan of Treatment Upcoming Encounters Date Type Department Care Team (Latest Contact Info) Description 03/29/2024 12:30 PM CDT Clinical Communication Virtual Review in [place], [place] [address] [place] [address] 04/01/2024 2:40 PM CDT Appointment Department of Laboratory Medicine and Pathology, [facility] in [address] [phone] Adelina Arango APRN, C.N.P. [address] [place] [phone] 04/01/2024 4:00 PM CDT Appointment Department of Radiology, [facility] in [address] [phone] Adelina Arango APRN, C.N.P. [address] [place] [phone] 04/02/2024 1:00 PM CDT Office Visit Department of Oncology in [address] [phone] Julia Gunn M.D., Ph.D. [address] [place] [phone] 05/20/2024 3:00 PM CDT Office Visit Department of Dermatology in [address] [phone] Pam Crain M.D. [address] [place] [phone] Discharge Disposition: Home or Self Care Scheduled Referrals Name Type Priority Associated Diagnoses Order Schedule Cardiovascular Disease office visit (clinic) Outpatient Referral Routine Expect ed: 05/31/2024 (Approximate), Expires: 05/31/2025 documented as of this encounter Visit Diagnoses Diagnosis Dyspnea On Exertion documented in this encounter Additional Health Concerns Assessment Noted Time PHQ-9 Depression Total Score: 5 11/15/19 24 11:23 AM CDT documented as of this encounter Care Teams Medical Language Specialist Relationship Specialty Start Date End Date Galina Brooks APRN, C.N.P., D.N.P. [address] [place] [phone] PCP - General Family Medicine 02/22/21 Dr Favian Doan- pt was not aware what the name of the dental group is. Dentistry 11/01/22 opthalmology [place] 11/01/22 documented as of this encounter
--- OUTSIDE RECORDS SUMMARY | 2024-03-09 09:09 | XMS_ITS | Encounter Summary ---
Author Organization [facility] Address [address] [place] [address] Care Team Providers Care Vice President Of Manufacturing Name Role Phone Galina Brooks APRN, C.N.P., D.N.P. Primary Ca re Provider Encounter Details Date Type Department Care Team (Latest Contact Info) Description 02/16/2024 9:56 AM CDT - 02/16/2024 11:59 PM CDT Hospital Encounter Department of Laboratory Medicine in [place], [place] [address] [place] [phone] Carroll Hester M.D. [address] [place] [phone] Hypokalemia; Failure Renal Acute (Acute Kidney Injury) (HCC) Discharge Disposition: Home or Self Care Social History Tobacco Use Types Packs/Day Years Used Date Smoking Tobacco: Never Passive Smoke Exposure: Past Smokeless Tobacco: Never Alcohol Use Standard Drinks/Week Comments Yes 1 (1 standard drink = 0.6 oz pur e alcohol) [facility] Utilities Answer Date Recorded In the past 12 months has e electric, gas, oil, or water company threatened to [...] often do you attend chur ch or taoist services? Never 07/07/2022 Do you belong to any clubs o r organizations such as jew groups, unions, fraternal or athletic groups, or [...] Answer Date Recorded PHQ-2 Score 2 11/15/2023 [facility] of Occupat ional Health - Occupational Stress [...] your living situation today? I have a [facility] place to live 12/29/2023 Education Answer [...] PM CDT documented as of this encounter Medications at Time of Discharge Medication Sig Dispensed Refills Start Date End Date budesonide (ENTOCORT EC) 3 mg 24 hr capsule Take 3 capsules (9 mg total) by mouth daily. 90 capsule 1 01/24/2024 clobetasoL (TEMOVATE) 0.05 % ointment Apply 1 application topically 2 (two) times a week. Apply to affected area 30 g 2 09/13/2021 diphenhydrAMINE-aceta minophen (TYLENOL PM) 25-500 mg per tablet Take 2 tablets by mouth at bedtime. estradioL (ESTRACE) 0.1 mg/g (0.01%) vaginal cream INSERT 1 GRAM VAGINALLY 2 TIMES PER WEEK 42.5 g 2 03/16/2023 losartan (COZAAR) 25 mg tablet Take 1 tablet (25 mg total) by mouth daily. 90 tablet 3 07/17/2023 potassium chloride (KLORCON/K-TAB) 10 mEq ER tablet Take 1 tablet (10 mEq total) by mouth daily. Do not crush or chew. 90 tablet 3 02/16/2024 propranoloL (INDERAL) 40 mg tablet TAKE 1 TABLET (40 MG TOTAL) BY MOUTH EVERY 12 (TWELVE) HOURS. 180 tablet 3 11/13/2023 11/12/2024 rosuvastatin (CRESTOR) 10 mg tablet TAKE ONE TABLET (10 MG) BY MOUTH DAILY. 90 tablet 3 10/12/2023 torsemide (DEMADEX) 20 mg tablet Take 1 tablet (20 mg total) by mouth daily. 30 tablet 02/09/2024 02/08/2025 albuterol 90 mcg/actuation inhalerIndications:Dy spnea On Exertion Inhale 1 puff every 6 (six) hours as needed for shortness of breath. 8 g 3 01/19/2024 02/29/2024 empagliflozin (Jardiance) 10 mg tablet Take 1 tablet (10 mg total) by mouth every morning before breakfast. 90 tablet 3 02/09/2024 02/29/2024 inhalational spacing device (Aerochamber MV) spacer 1 each as needed (for use with albuterol when wheezing or dyspnea). 1 each 01/24/2024 02/29/2024 documented as of this encounter Plan of Treatment Upcoming Encounters Date Type Department Care Team (Latest Contact Info) Description 03/29/2024 12:30 PM CDT Clinical Communication Virtual Review in [place], [place] [address] [place] [phone] 04/01/2024 2:40 PM CDT Appointment Department of Laboratory Medicine and Pathology, [facility], in [place], [place] [address] [place] [address] Adelina Arango APRN, C.N.P. [address] [place] [phone] 04/01/2024 4:00 PM CDT Appointment Department of Radiology, [facility], in [place], [place] [address] [place] [phone] Adelina Arango APRN, C.N.P. [address] [place] [phone] 04/02/2024 1:00 PM CDT Office Visit Department of Oncology in [place], [place] [address] [place] [phone] Julia Gunn M.D., Ph.D. [address] [place] [phone] 05/20/2024 3:00 PM CDT Office Visit Department of Dermatology in [address] [phone] Pam Crain M.D. [address] [place] [phone] Discharge Disposition: Home or Self Care documented as of this encounter Procedures Procedure Name Priority Date/Time Associated Diagnosis Comments BASIC METABOLIC PANEL, S/P Routine 02/16/2024 10:06 AM CDT Hypokalemia Failure Renal Acute (Acute Kidney Injury) (HCC) documented in this encounter Results * (ABNORMAL) Basic Metabolic Panel (02/16/2024 10:06 AM CDT) Potassium, P 3.3(L) 3.6 - 5.2 mmol/L 02/16/2024 10:28 AM CDT [facility] Sodium, P 139 135 - 145 mmol/L 02/16/2024 10:28 AM CDT [facility] Chloride, P 94(L) 98 - 107 mmol/L 02/16/2024 10:28 AM CDT [facility] Bicarbonate, P 37(H) 22 - 29 mmol/L 02/16/2024 10:28 AM CDT [facility] Anion Gap, P 8 7 - 15 02/16/2024 10:28 AM CDT [facility] BUN (Blood Urea Nitrogen), P 24(H) 6 - 21 mg/dL 02/16/2024 10:28 AM CDT [facility] Creatinine 1.13(H) 0.59 - 1.04 mg/dL 02/16/2024 10:28 AM CDT [facility] Estimated GFR (eGFR) 51(L) >=60 mL/min/BSA 02/16/2024 10:28 AM CDT [facility] Comment: Estimated GFR calculated using the 2020 CKD_EPI creatinine equation. Calcium, Total, P 9.5 8.8 - 10.2 mg/dL 02/16/2024 10:28 AM CDT [facility] Glucose, P 109 70 - 140 mg/dL 02/16/2024 10:28 AM CDT [facility] Blood (Blood, Venous) 02/16/2024 10:06 AM CDT 02/16/2024 10:07 AM CDT Carroll Hester M.D. LAB BLOOD ADD-ON [facility] [address] [place] [address], [facility] in [place] [address] [place] [address] documented in this encounter Visit Diagnoses Diagnosis Hypokalemia Failure Renal Acute (Acute Kidney Injury) (HCC) documented in this encounter Additional Health Concerns Assessment Noted Time PHQ-9 Depression Total Score: 5 11/15/19 24 11:23 AM CDT documented as of this encounter Care Teams Vice President Of Manufacturing Relationship Specialty Start Date End Date Galina Brooks APRN, C.N.P., D.N.P. [address] [phone] PCP - General Family Medicine 02/22/21 Dr Favian Doan- pt was not aware what the name of the dental group is. Dentistry 11/01/22 opthalmology [place] 11/01/22 documented as of this encounter
--- OUTSIDE RECORDS SUMMARY | 2024-03-09 09:09 | XMS_ITS | Encounter Summary ---
Author Organization [facility] Address [address] [place] [address] Care Team Providers Care Edge Inker Name Role Phone Galina Brooks APRN, C.N.P., D.N.P. Primary Ca re Provider Reason for Referral * Outpatient (Routine) - Closed Specialty Diagnoses / Procedures Referred By Patirc yeung Referred To Contact Emergency Medicine Diagnoses Hypokalemia Failure Renal Acute (Acute Kidney Injury) (HCC) Carroll Hester M.D. [address] [address] [facility] Region Referral ID Status Reason Start Date Expiration Date Visits Re quested Visits Authorized [id number] Closed 02/13/2024 08/14/2025 1 1 Reason for Visit * Reason Comments Abnormal Lab Patient has had abno rmal labs, she has been recently put on diuretic which has now lead to dehydration & lab derangement. Encounter Details Date Type Department Care Team (Late st Contact Info) Description 02/13/2024 4:05 PM CDT - 02/13/2024 7:59 PM CDT Emergency [facility] [address] [place] [address] [phone] Tommie Mina M.D. Scholz, Daniel J, M.D. [address] [address] Hypokalemia (Primary Dx); Failure Renal Acute (Acute Kidney Injury) (HCC) Discharge Disposition: Home or Self Care Social History Tobacco Use Types Packs/Day Years Used Date Smoking Tobacco: Never Passive Smoke Exposure: Past Smokeless Tobacco: Never Alcohol Use Standard Drinks/Week Comments Yes 1 (1 standard drink = 0.6 oz pur e alcohol) [facility] Utilities Answer Date Recorded In the past 12 months has e [employer], oil, or water [employer] threatened to shut off services in your [...] How often do you attend chur or holiness services? Never 07/07/2022 Do you belong to any clubs o r organizations such as moravian groups, unions, fraternal or athletic groups, or [...] Answer Date Recorded PHQ-2 Score 2 11/15/2023 [facility] - Occupational Stress Questionnaire Answer [...] living situation today? I have a [facility] [place] place to live 12/29/2023 Education Answer Date [...] Sign Reading Time Taken Comments Blood Pressure 115/52 02/13/2024 7:15 PM CDT Pulse 79 02/13/2024 7:15 PM CDT Temperature 36.9 ??C (98.5 ??F) 02/13/2024 4:10 PM CD T Respiratory Rate 23 02/13/2024 7:15 PM CDT Oxygen Saturation 94% 02/13/2024 7:15 PM CDT Inhaled Oxygen Concentration - - Weight 81.9 kg (180 lb 8 oz) 02/13/2024 4:09 PM CDT Height - - Body Mass Index 29.36 01/24/2024 9:01 AM CDT documented in this encounter Discharge Instructions * Discharge Instructions* Carroll Hester M.D. - 02/13/2024 6:52 PM CDT I have requested outpatient follow-up for you and a repeat check of your potassium and kidney function before this follow-up. You should follow-up within the next 3 days. You should have a diet high in potassium in the meantime. Please see paperwork for foods high in potassium. Please reseek care sooner if you become lightheaded and are passing out at home, have worsening shortness of breath, or feel unsafe at home. * Attachments The following attachments cannot be sent through Care Everywhere. * Hypokalemia (Urdu) documented in this encounter Medications at Time of Discharge [...] by mouth daily. 90 tablet 3 07/17/2023 propranoloL (INDERAL) 40 mg tablet TAKE 1 [...] 01/24/2024 02/29/2024 documented as of this encounter ED Notes * Carroll Hseter M.D. - 02/13/2024 7:43 PM CDT Assuming care of this patient. She has eaten ice cream. She is finishing her 2L of crystalloid. Shehas ambulated multiple times to the bathroom without presyncope. I requested outpatient follow-up for her with family medicine in the next few days and ordered a basic metabolic panel for her. I alsorecommended a diet high in potassium. I discussed return precautions with her. VITAL SIGNS BP (!) 115/52 Pulse 79 Temp 36.9 ??C (Oral) Resp 23 Wt 81.9 kg SpO2 94% BMI 29.36 kg/m?? Final Diagnoses: as of 02/13/241942 Hypokalemia Failure Renal Acute (Acute Kidney Injury) (HCC) Carroll Hester M.D. 02/13/241951 * Tommie Mina M.D. - 02/13/2024 6:27 PM CDT SUBJECTIVE CHIEF COMPLAINT/REASON FOR VISIT Abnormal Lab (Patient has had abnormal labs, she has been recently put on diuretic which has now lead to dehydration & lab derangement. ) HISTORY OF PRESENT ILLNESS 74-year-old with a history of uterine cancer, melanoma, CKD, and hypertension who was recently treated for congestive heart failure who was evaluated for some worsening fatigue. Patient had had some lab done yesterday and early today for evaluation of her response to CHF treatment as well as to look for reversible cause for her recent fatigue. She had recently been on a prednisone taper as well as some continuing doses of budesonide. Laboratory values revealed some hypokalemia, worsening renal function, and likely dehydration. She was contacted by provider who recommended she come in here forfluids and possibly other electrolyte replacement. Patient denies any current symptoms of shortnessof breath, chest pain, nausea, vomiting, or dysuria. REVIEW OF SYSTEMS Constitutional: Positive for fatigue. Negative for chills and fever. HENT: Negative for ear pain and sore throat. Eyes: Negative for pain and visual disturbance. Respiratory: Negative for cough and shortness of breath. Cardiovascular: Negative for chest pain, palpitations and leg swelling. Gastrointestinal: Negative for abdominal pain, diarrhea, nausea and vomiting. Genitourinary: Negative for dysuria, flank pain and hematuria. Musculoskeletal: Negative for back pain and extremity pain. Skin: Negative for color change and rash. Neurological: Negative for weakness and headaches. Psychiatric/Behavioral: Negative for depression. The patient is not nervous/anxious. OBJECTIVE Initial Vitals Temperature 02/13/24 1610 36.9 ??C Pulse Rate 02/13/24 1608 76 Heart Rate 02/13/24 1610 82 Resp Rate 02/13/24 1610 17 Blood Pressure 02/13/24 1609 141/73 SpO2 02/13/24 1608 93 % Pain Score 02/13/24 1608 0 - No pain PHYSICAL EXAMINATION Constitutional: Nursing note and vitals reviewed. She is cooperative. No distress. HENT: Head: Normocephalic and atraumatic. Mouth/Throat: Oropharynx is clear and moist. Mucous membranes are moist. Eyes: Conjunctivae and EOM are normal. Neck: Neck supple. Cardiovascular: Normal rate, intact distal pulses and normal peripheral perfusion. Edema: no edema noted Pulmonary/Chest: Effort normal. Musculoskeletal: General: Normal range of motion. Cervical back: Full passive range of motion without pain, normal range of motion and neck supple. Neurological: Alert and oriented to person, place, and time. She has normal sensation and normal strength. Normal speech. Skin: Skin is warm, dry and intact. No rash noted. Psychiatric: She has a normal mood and affect. Speech pattern is normal. ASSESSMENT/PLAN ED Medication Administration from 02/13/2024 1602 to 02/13/2024 1851 Date/Time Order Dose Route Action Action by 02/13/2024 1703 CDT NaCl 0.9 % bolus 1,000 mL 1,000 mL intravenous New Bag Anna Izaguirre 02/13/2024 1827 CDT NaCl 0.9 % bolus 1,000 mL 0 mL intravenous Kandi Abdullahi 02/13/2024 1819 CDT potassium chloride ER tablet 60 mEq (KLOR-CON M/KDUR) 60 mEq oral Given Megan Hopkins 02/13/2024 1840 CDT Lactated Ringer's bolus 1,000 mL 1,000 mL intravenous New Bag Kandi Lees ED Course as of 02/13/24 1857 Tue Feb 13, 2024 1709 Blood Gas without Coox, Venous(!): Sample Site, Venous Venipunct pO2, Venous 31 Venous pCO2 47 Venous pH 7.53(!) Base Excess, Venous 14 HCO3, Venous 39 1828 Potassium, P(!): 3.3 1828 Sodium, P(!): 132 1828 Chloride, P(!): 86 1828 Bicarbonate, P(!): 34 1828 BUN (Blood Urea Nitrogen), P(!): 36 1828 Creatinine(!): 1.31 1828 Estimated GFR (eGFR)(!): 43 Final Diagnoses: as of 02/13/241856 Hypokalemia Failure Renal Acute (Acute Kidney Injury) (HCC) Fluid replacement initiated and patient is already feeling better. She had a large amount of urine which she was quite pleased about. Potassium is at 3.3 upon recheck today. Patient will be given 60 of oral potassium and information about dietary supplementation of her potassium. Anticipate discharge home and follow up with her medical team in the next few days. Tommie Mina M.D. 02/13/24 1858 documented in this encounter Plan of Treatment Upcoming Encounters Date Type Department Care Team (Latest Contact Info) Description 03/29/2024 12:30 PM CDT Clinical Communication Virtual Review in [place], [place] [address] [place] [phone] 04/01/2024 2:40 PM CDT Appointment Department of Laboratory Medicine and Pathology, [facility] in [address] [phone] Adelina Arango APRN, C.N.P. [address] [place] [phone] 04/01/2024 4:00 PM CDT Appointment Department of Radiology, [facility] in [place], [place] [address] [place] [phone] Adelina Arango APRN, C.N.P. [address] [place] [phone] 04/02/2024 1:00 PM CDT Office Visit Department of Oncology in [address] [phone] Julia Gunn M.D., Ph.D. [address] [place] [phone] 05/20/2024 3:00 PM CDT Office Visit Department of Dermatology in [address] [phone] Pam Crain M.D. [address] [place] [phone] Discharge Disposition: Home or Self Care Scheduled Referrals Name Type Priority Associated Diagnoses Orde r Schedule POST ED VISIT Family Medicine Outpatient Referral Routine Hypokalemia Failure Renal Acute (Acute Kidney Injury) (HCC) Expected: 02/16/2024, Expires: 05/15/2025 documented as of this encounter Procedures Procedure Name Priority Date/Time Associated Diagnosis Comments VENOUS BLOOD GAS W/O COOX STAT 02/13/2024 5:02 PM CDT NT-PRO B-TYPE NATRIURETIC PEPTIDE (BNP), S STAT 02/13/2024 5:02 PM CDT CBC WITH DIFFERENTIAL, B STAT 02/13/2024 5:02 PM CDT PHOSPHORUS (INORGANIC), S STAT 02/13/2024 5:02 PM CDT MAGNESIUM, S STAT 02/13/2024 5:02 PM CDT BASIC METABOLIC PANEL, S/P STAT 02/13/2024 5:02 PM CDT documented in this encounter Results * (ABNORMAL) [...] CDT Carroll Hester M.D. LAB BLOOD ADD-ON [facility] [address] [place] [address], [facility] [place] [address] * (ABNORMAL) Blood Gas without Coox, Venous [...] Tommie Mina M.D. LAB BLOOD NON ADD-ON [facility] [address] [address], [facility] in [place] [address] * NT-Pro B-Type Natriuretic Peptide (BNP) (02/13/2024 5:02 PM CDT) NT-Pro BNP 342 <=540 pg/mL 02/13/2024 5:38 [...] M.D. LAB BLOOD ADD-ON Performing Organization Address City/[facility]/ZIP Co de Phone Number [facility] [address], [place] [address], [facility] [place] [address] * Phosphorus Inorganic (02/13/2024 5:02 PM CDT) Phosphorus (Inorganic), P 3.7 2.5 - 4.5 mg/dL 02/13/2024 5:29 PM CDT [facility] Blood (Blood, Venous) 02/13/2024 5:02 PM CDT 02/13/2024 5:04 PM CDT Tommie Mina M.D. LAB BLOOD ADD-ON [facility] [address] [place] [address], [facility] [place] [address] * Magnesium (02/13/2024 5:02 PM CDT) Magnesium, P 2.2 1.7 - 2.3 mg/dL 02/13/2024 5:29 PM CDT [facility] Blood (Blood, Venous) 02/13/2024 5:02 PM CDT 02/13/2024 5:04 PM CDT Tommie Mina M.D. LAB BLOOD ADD-ON Performing Organization Address City/[facility]/ZIP Co de Phone Number [facility] [address] [place] [address], [facility] [place] [address] * (ABNORMAL) Basic Metabolic Panel (02/13/2024 5:02 PM CDT) Potassium, P 3.3(L) 3.6 - 5.2 mmol/L 02/13/2024 5:29 PM CDT [facility] Sodium, P 132(L) 135 - 145 mmol/L 02/13/2024 5:29 PM CDT [facility] Chloride, P 86(L) 98 - 107 mmol/L 02/13/2024 5:29 PM CDT [facility] Bicarbonate, P 34(H) 22 - 29 mmol/L 02/13/2024 5:29 PM CDT [facility] Anion Gap, P 12 7 - 15 02/13/2024 5:29 PM CDT [facility] BUN (Blood Urea Nitrogen), P 36(H) 6 - 21 mg/dL 02/13/2024 5:29 PM CDT [facility] Creatinine 1.31(H) 0.59 - 1.04 mg/dL 02/13/2024 5:29 PM CDT [facility] Estimated GFR (eGFR) 43(L) >=60 mL/min/BSA 02/13/2024 5:29 PM CDT [facility] Comment: Estimated GFR calculated using the 2020 CKD_EPI creatinine equation. Calcium, Total, P 9.4 8.8 - 10.2 mg/dL 02/13/2024 5:29 PM CDT [facility] Glucose, P 120 70 - 140 mg/dL 02/13/2024 5:29 PM CDT [facility] Blood (Blood, Venous) 02/13/2024 5:02 PM CDT 02/13/2024 5:04 PM CDT Tommie Mina M.D. LAB BLOOD ADD-ON [facility] [address] [place] [address], [facility] in [place] 701 [place] [phone] * (ABNORMAL) CBC with Differential, Blood (02/13/2024 5:02 PM CDT) Hemoglobin 13.6 11.6 - 15.0 g/dL 02/13/2024 [...] CDT Tommie Mina M.D. LAB BLOOD ADD-ON [facility] [address] [place] [address], [facility] in [place] [address] [place] [phone] documented in this encounter Visit Diagnoses Diagnosis Hypokalemia- Primary Failure Renal Acute (Acute Kidney Injury) (HCC) documented in this encounter Administered Medications Inactive Administered Medications - up to 3 most recent administrations Medication Order MAR Action Action Date Dose Rate Site Lactated Ringer's bolus 1,000 mL 1,000 mL, intravenous, at 1,000 mL/hr, Administer over 1 Hours, Once, On Mon02/13/24 at 1830, For 1 dose New Bag 02/13/2024 6:40 PM CDT 1,000 mL 1000 mL/hr NaCl 0.9 % bolus 1,000 mL 1,000 mL, intravenous, at 1,000 mL/hr, Administer over 1 Hours, Once, On Mon02/13/24 at 1642, For 1 dose New Bag 02/13/2024 5:03 PM CDT 1,000 mL 1000 mL/hr potassium chloride ER tablet 60 mEq (KLOR-CON M/KDUR) 60 mEq, oral, Once, On Mon02/13/24 at 1813, For 1 dose, For K<3.0-3.2 mEq/L - give total of 60 mEq Depending on the preschool assistant director this tablet may be split on score and give as partial tablets, or added to an ounce of water and dispersed into a slurry for drinking. It is not recommended that the microburst tablet be crushed as it may cause stomach upset., Monitor the following for replacement: Potassium, Replace Potassium per: Standard Schedule Given 02/13/2024 6:19 PM CDT 60 mEq sodium chloride 0.9 % injection 2-10 mL 2-10 mL, intravenous, As needed, line care, Starting on Mon02/13/24 at 1641 documented in this encounter Active and Recently Administered Medications Times are shown in CDT. Scheduled Medication Order 02/11/2024 02/12/2024 02/13/2024 Lactated Ringer's bolus 1,000 mL (COMPLETED) 1,000 mL, intravenous, at 1,000 mL/hr, Administer over 1 Hours, Once, On Mon02/13/24 at 1830, For 1 dose 1840 (New Bag - Prov ider: Nikkie Lees R.N.)1945 (Stopped - Provider: Nikkie Lees RMarixaN.) NaCl 0.9 % bolus 1,000 mL (COMPLETED) 1,000 mL, intravenous, at 1,000 mL/hr, Administer over 1 Hours, Once, On Mon02/13/24 at 1642, For 1 dose 1703 (Estuardo Bag - Prov ider: Addie Izaguirre R.N.)1827 (Stopped - Provider: Nikkie Lees RMarixaN.) potassium chloride ER tablet 60 mEq (KLOR-CON M/KDUR) (COMPLETED) 60 mEq, oral, Once, On Mon02/13/24 at 1813, For 1 dose, For K<3.0-3.2 mEq/L - give total of 60 mEq Depending on the preschool assistant director this tablet may be split on score and give as partial tablets, or added to an ounce of water and dispersed into a slurry for drinking. It is not recommended that the microburst tablet be crushed as it may cause stomach upset., Monitor the following for replacement: Potassium, Replace Potassium per: Standard Schedule 1819 (Given - Provid er: Tom Hopkins R.N.) PRN Medication Order 02/11/2024 02/12/2024 02/13/2024 sodium chloride 0.9 % injection 2-10 mL(Linked Group 1) 2-10 mL, intravenous, As needed, line care, Starting on Mon02/13/24 at 1641 Linked Groups Order Group 1: Place peripheral IV: No upper extremity site restrictions (COMPLETED) Upper extremity site restriction: No upper extremity site restrictions, Quantity of PIVs requested: One, STAT, Once, On Mon02/13/24 at 1642, For 1 occurrence And sodium chloride 0.9 % injection 2-10 mLJump to med 2-10 mL, intravenous, As needed, line care, Starting on Mon02/13/24 at 1641 documented in this encounter Additional Health Concerns Assessment Noted Time PHQ-9 Depression Total Score: 5 11/15/19 24 11:23 AM CDT documented as of this encounter Care Teams Edge Inker Relationship Specialty Start Date End Date Galina Brooks APRN, C.N.P., D.N.P. [id number] [phone] PCP - General Family Medicine 02/22/21 Dr Favian Doan- pt was not aware what the name of the dental group is. Dentistry 11/01/22 opthalmology [place] 11/01/22 documented as of this encounter
--- OUTSIDE RECORDS SUMMARY | 2024-03-09 09:09 | XMS_ITS | Encounter Summary ---
Author Organization [facility] Address [address] [place] [phone] Care Team Providers Care Seed Buyer Name Role Phone Galina Brooks APRN, C.N.P., D.N.P. Primary Ca re Provider Encounter Details Date Type Department Care Team (Late st Contact Info) Description 02/12/2024 Orders Only Division of Pulmonary Medicine in [place], [place] [address] [place] [phone] Ramesh Desai APRN, C.N.P., D.N.P. [address] [place] [phone] Social History Tobacco Use Types Packs/Day Years Used Date Smoking Tobacco: Never Passive Smoke Exposure: Past Smokeless Tobacco: Never Alcohol Use Standard Drinks/Week Comments Yes 1 (1 standard drink = 0.6 oz pur e alcohol) [facility] Utilities Answer Date Recorded In the past 12 months has e [employer], gas, oil, or water [employer] threatened to shut off services in your [...] How often do you attend chur or moravian services? Never 07/07/2022 Do you belong to any clubs o r organizations such as muslim groups, unions, fraternal or athletic groups, or [...] Answer Date Recorded PHQ-2 Score 2 11/15/2023 [facility] - Occupational Stress [...] your living situation today? I have a [facility] place to live 12/29/2023 Education [...] PM CDT documented as of this encounter Plan of Treatment Upcoming Encounters Date Type Department Care Team (Latest Contact Info) Description 03/29/2024 12:30 PM CDT Clinical Communication Virtual Review in [place], [place] 200 [place] [phone] 04/01/2024 2:40 PM CDT Appointment Department of Laboratory Medicine and Pathology, [facility], in [place], [place] [address] [place] [phone] Adelina Arango APRN, C.N.P. [address] [place] [phone] 04/01/2024 4:00 PM CDT Appointment Department of Radiology, [facility], in [place], [place] [address] [place] [phone] Adelina Arango APRN, C.N.P. [address] [place] [phone] 04/02/2024 1:00 PM CDT Office Visit Department of Oncology in [place], [place] [address] [place] [phone] Julia Gunn M.D., Ph.D. [address] [place] [phone] 05/20/2024 3:00 PM CDT Office Visit Department of Dermatology in [address] [phone] Pam Crain M.D. [address] [place] [phone] Discharge Disposition: Home or Self Care documented as of this encounter Visit Diagnoses Not on filedocumented in this encounter Additional Health Concerns Assessment Noted Time PHQ-9 Depression Total Score: 5 11/15/19 24 11:23 AM CDT documented as of this encounter Care Teams Seed Buyer Relationship Specialty Start Date End Date Galina Brooks APRN, C.N.P., D.N.P. [address] [place] [phone] PCP - General Family Medicine 02/22/21 Dr Favian Doan- pt was not aware what the name of the dental group is. Dentistry 11/01/22 opthalmology [place] 11/01/22 documented as of this encounter
--- OUTSIDE RECORDS SUMMARY | 2024-03-09 09:09 | XMS_ITS | Encounter Summary ---
Author Organization [facility] Address [address] [place] [address] Care Team Providers Care Chemical Process Engineer Name Role Phone Galina Brooks APRN, C.N.P., D.N.P. Primary Ca re Provider Reason for Visit * Reason Comments Follow-up Re treat wart ? Back of leg and up by inner knee Shortness of Breath Post ED visit from and Monday SOB hard to do 12 stairs and fatigue started with the COB ? CHF? * Outpatient (Routine) - Closed Specialty Diagnoses / Procedures Referred By Patric yeung Referred To Contact Family Medicine Galina Brooks APRN, C.N.P., D.N.P. [address] [place] [phone] [facility] Referral ID Status Reason Start Date Expiration Date Visits Re quested Visits Authorized [id number] Closed 01/25/2024 07/26/2025 1 1 Encounter Details Date Type Department Care Team (Late st Contact Info) Description 02/09/2024 2:00 PM CDT Office Visit Department of Family Medicine, [facility], in [address] [phone] Galina Brooks APRN, C.N.P., D.N.P. [address] [place] [phone] Fatigue (Primary Dx); Shortness Of Breath; Congestive Heart Failure (HCC); Chronic Kidney Disease (CKD), Stage 3a Glomerular Filtration Rate (GFR) 45 To 59 (HCC); Depression Major Recurrent Moderate (HCC); Tremor Essential Discharge Disposition: Home or Self Care Social History Tobacco Use Types Packs/Day Years Used Date Smoking Tobacco: Never Passive Smoke Exposure: Past Smokeless Tobacco: Never Tobacco Cessation:Counseling Given: Not Answered Alcohol Use Standard Drinks/Week Comments Yes 1 (1 standard drink = 0.6 oz pur e alcohol) [facility] [employer] Answer Date Recorded In the past 12 months has e [employer], oil, or water [employer] threatened to shut off services in your [...] often do you attend chur ch or mandaen services? Never 07/07/2022 Do you belong to any clubs o r organizations such as uatsdin groups, unions, fraternal or athletic groups, or [...] Answer Date Recorded PHQ-2 Score 2 11/15/2023 [facility] of Occupat ional Health - Occupational Stress [...] Date Recorded Dental: Regular Dentist Yes 10/26/19 21 Employment Answer Date Recorded Employment status Retired [...] Sign Reading Time Taken Comments Blood Pressure 139/87 02/09/2024 1:56 PM CDT Pulse 94 02/09/2024 1:56 PM CDT Temperature 36.5 ??C (97.7 ??F) 02/09/2024 1:56 PM CD T Respiratory Rate - - Oxygen Saturation 100% 02/09/2024 1:56 PM CDT Inhaled Oxygen Concentration - - Weight 83.6 kg (184 lb 4.9 oz) 02/09/2024 1:56 P M CDT Height - - Body Mass Index 29.98 01/24/2024 9:01 AM CDT documented in this encounter Progress Notes * Galina Brooks, ADALGISA, C.N.P., D.N.P. 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 Back of leg and up by inner knee ) and Shortness of Breath (Post ED visit from yesterday and Monday /SOB hard to do 12 stairs and fatigue started with the COB ? CHF? ). 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 She was first evaluated in the emergency room on February 03 and found to have a CHF exacerbation with elevated BNP, she was treated with IV Lasix and oral torsemide. She reported minimal improvement in fatigue symptoms and shortness of breaths symptoms so returned to the emergency room yesterday where workup showed a BNP back to normallevels and no other concerning evaluation. She reports significant fatigue described as sleepiness, and a whole-body fatigue. She also continues to have shortness a breath. She does not have any orthopnea. She does not have any lower extremity edema. OBJECTIVE PHYSICAL EXAMINATION Vital Signs: BP 139/87 (BP Location: Left arm, Patient Position: Sitting, Cuff Size: Regular) Pulse 94 Temp 36.5 ??C Wt 83.6 kg SpO2 100% BMI 29.98 kg/m?? Body mass index is 29.98 kg/m??. General: No acute distress. HEENT: Normocephalic. Extraocular movements intact. Pupils equal, round, reactive to light. Canals patent. Tympanic membranes normal. Oropharynx without lesion of mucosa. Neck: No nodes, no thyromegaly, no bruit auscultated. Heart: Regular rate and rhythm. No murmurs, gallops or rubs noted. Lungs: Non-labored breathing. Clear to auscultation bilaterally. No expiratory wheeze. Abdomen: Nontender to palpation. No hepatosplenomegaly. No mass. Normal bowel sounds in all 4 quadrants. Extremities: No lower extremity edema. No neurovascular compromise. No cyanosis, clubbing or edema. Skin: No atypical moles or skin changes. Neurologic: Alert and oriented x3, nonfocal, moving all 4 extremities. Cranial nerves 2-12 grossly intact. Psychiatric: Affect is appropriate. ASSESSMENT / PLAN #1 Shortness Of Breath #2 Congestive Heart Failure (HCC) She has had a thorough evaluation of her symptoms thus far, she is currently following with Pulmonary. Discussed that I do suspect that her shortness a breath is likely due to her heart failure, her fluid status does seem optimized today. Recommend continuing on torsemide 20 mg daily until cardiology follow-up. Discussed daily weight checks and increasing to 40 mg daily if her weight increases by3 lb overnight or 5 lb over a few days. Will add in Jardiance 10 mg daily. Advised on fluid and salt restriction. #3 Fatigue Unclear etiology at this time, will obtain labs for further evaluation. #4 Chronic Kidney Disease (CKD), Stage 3a Glomerular Filtration Rate (GFR) 45 To 59 (HCC) Labs stable, blood pressure improved with diuresis. Continue on current medication regimen. #5 Depression Major Recurrent Moderate (HCC) Not currently on medications, continue to monitor for the need for starting medications or therapy. #6 Tremor Essential She is currently on propanolol 40 mg twice daily for tremor. Did discuss that this has the potential for causing bronchial spasm, so could consider discontinuation to see if her shortness a breath improves. She does not want to do this at this time. Patient was instructed to follow up in primary care if symptoms are worsening or there is no improvement over the next several days. Plan was discussed with patient and is in agreement with plan. All questions were answered. Side effects of any/all new medications were discussed. Patient left in no acute distress. PATIENT EDUCATION: Ready to learn. No apparent learning barriers were identified. Learning preferences include listening. Explained diagnosis and treatment plan. Patient/Child/Caregiver expressed understanding of the content. Galina Brooks APRN, C.N.P., D.N.P. Total Time: 45 minute. documented in this encounter Plan of Treatment Upcoming Encounters Date Type Department Care Team (Latest Contact Info) Description 03/29/2024 12:30 PM CDT Clinical Communication Virtual Review in [address] [phone] 04/01/2024 2:40 PM CDT Appointment Department of Laboratory Medicine and Pathology, [address] [phone] Adelina Arango APRN, C.N.P. [address] [place] [phone] 04/01/2024 4:00 PM CDT Appointment Department of Radiology, [facility] in [address] [phone] Adelina Arango APRN, C.N.P. [address] [place] [phone] 04/02/2024 1:00 PM CDT Office Visit Department of Oncology in [address] [phone] Julia Gunn M.D., Ph.D. [address] [place] [phone] 05/20/2024 3:00 PM CDT Office Visit Department of Dermatology in [address] [phone] Pam Crain M.D. [address] [place] [phone] Discharge Disposition: Home or Self Care documented as of this encounter Procedures Procedure Name Priority Date/Time Associated Diagnosis Comments VITAMIN D, IMMUNOASSAY, TOTAL, S Routine 02/09/2024 2:50 PM CDT Chronic Kidney Disease (CKD), Stage 3a Glomerular Filtration Rate (GFR) 45 To 59 (HCC) Fatigue Shortness Of Breath CONNECTIVE TISSUE DISEASE CASCADE, ROYCE, S Routine 02/09/2024 2:50 PM CDT Fatigue Shortness Of Breath THYROID-STIMULATING HORMONE-SENSITIVE (S-TSH) Routine 02/09/2024 2:50 PM CDT Fatigue Shortness Of Breath T4 (THYROXINE), FREE, S Routine 02/09/2024 2:50 PM CDT Fatigue Shortness Of Breath FOLATE, S Routine 02/09/2024 2:50 PM CDT Fatigue Shortness Of Breath FERRITIN, S Routine 02/09/2024 2:50 PM CDT Congestive Heart Failure (HCC) Shortness Of Breath VITAMIN B12 ASSAY, S Routine 02/09/2024 2:50 PM CDT Fatigue Shortness Of Breath documented in this encounter Results * Ferritin (02/09/2024 2:50 PM CDT) Ferritin, S 267 11 - 328 mcg/L 02/09/2024 11:18 PM CDT [facility] Comment: Biotin has been identified by the real estate agent as a potential interfering substance. Higher concentrations of biotin may be found in multivitamins, hair/nail supplements, and workout supplements. If the result does not match clinical observations, repeat testing after patient refrains from the use of supplements for at least 12 hours. Blood (Blood, Venous) 02/09/2024 2:50 PM CDT 02/09/2024 6:58 PM CDT Naima Carrillo APRN.N.P., D.N.P. LAB BLOOD ADD-ON [facility] [address] [place] [phone], [facility] in [address] [phone] * Folate (02/09/2024 2:50 PM CDT) Pathologist [facility] Folate, S 12.0 >=4.0 mcg/L 02/09/2024 9:26 PM CDT [facility] Comment: Biotin has been identified by the real estate agent as a potential interfering substance. Higher concentrations of biotin may be found in multivitamins, hair/nail supplements, and workout supplements. If the result does not match clinical observations, repeat testing after patient refrains from the use of supplements for at least 12 hours. Blood (Blood, Venous) 02/09/2024 2:50 PM CDT 02/09/2024 8:40 PM CDT Naima Carrillo APRN.N.P., D.N.P. LAB BLOOD ADD-ON [facility] [address] [place] [phone], [facility] in [address] [address] * Vitamin B12 Assay (02/09/2024 2:50 PM CDT) Vitamin B12 Assay, S 1105 232 - 1245 ng/L 02/09/2024 9:26 PM CDT [facility] Comment: Biotin has been identified by the real estate agent as a potential interfering substance. Higher concentrations of biotin may be found in multivitamins, hair/nail supplements, and workout supplements. If the result does not match clinical observations, repeat testing after patient refrains from the use of supplements for at least 12 hours. Blood (Blood, Venous) 02/09/2024 2:50 PM CDT 02/09/2024 8:40 PM CDT Naima Carrillo APRN.N.PMarixa, D.N.P. LAB BLOOD ADD-ON [facility] [address] [place] [address], [facility] ECLR [facility] [place] [address] * Connective Tissue Diseases [place] (02/09/2024 2:50 PM CDT) Pathologist [facility] Antinuclear Ab, S 0.7 <=1.0 (Negative ) U 02/10/2024 2:42 PM CDT [facility] Comment: ----ADDITIONAL INFORMATION---- Method: Enzyme-linked immunoassay using HEp-2 nuclear extract supplemented with purified antigens. Cyclic Citrullinated Peptide Ab, S <15.6 <20.0 (Negative ) U 02/10/2024 12:04 PM CDT [facility] Interpretation SEE COMMENT 2:42 PM CDT [facility] Comment: Tests for antibodies to dsDNA and RADHA antigens are not performed automatically unless the SHO result is > or = 3.0 U. ??Studies performed at [facility] indicate that positive SHO results <3.0 U are rarely accompanied by positive second order tests. Blood (Blood, Venous) 02/09/2024 2:50 PM CDT 02/10/2024 6:59 AM CDT Naima Carrillo APRN.N.P., D.N.P. LAB BLOOD ADD-ON [facility] [address] [place] [address] [facility] [address] [place] [address] * Vitamin D, Immunoassay, Total, Serum (02/09/2024 2:50 PM CDT) Vitamin D, Immunoassay, Total, S 26 20 - 80 ng/mL 02/09/2024 9:26 PM CDT [facility] Comment: Optimum levels within the healthy population are 20-50, patients with bone disease may benefit from high levels within this range Blood (Blood, Venous) 02/09/2024 2:50 PM CDT 02/09/2024 8:40 PM CDT Jass Carrillo APRNNZarina, D.N.P. LAB BLOOD ADD-ON Performing Organization Address City/[facility]/ZIP Co de Phone Number [facility] [address] [place] [address], [facility] ECLR [facility] [place] [address] * T4 (Thyroxine), Free (02/09/2024 2:50 PM CDT) T4 (Thyroxine), Free, P 1.6 0.9 - 1.7 ng/dL 02/09/2024 7:40 PM CDT [facility] Blood (Blood, Venous) 02/09/2024 2:50 PM CDT 02/09/2024 6:58 PM CDT Jass Carrillo APRNNZarina, D.N.P. LAB BLOOD ADD-ON [facility] [address] [place] [address], [facility] in [place] [address] [place] [address] * S-TSH (Thyroid-Stimulating Hormone - Sensitive) (02/09/2024 2:50 PM CDT) TSH, Sensitive 3.8 0.3 - 4.2 mIU/L 02/09/2024 4:22 PM CDT [facility] Blood (Blood, Venous) 02/09/2024 2:50 PM CDT 02/09/2024 2:54 PM CDT Galina Brooks APRN, C.N.P., D.N.P. LAB BLOOD ADD-ON [facility] [address] [place] [address], [facility] CNFL [facility] in [address] [address] documented in this encounter Visit Diagnoses Diagnosis Fatigue- Primary Shortness Of Breath Congestive Heart Failure (HCC) Chronic Kidney Disease (CKD), Stage 3a Glomerular Filtration Rate (GFR) 45 To 59 (HCC) Depression Major Recurrent Moderate (HCC) Tremor Essential documented in this encounter Additional Health Concerns Assessment Noted Time PHQ-9 Depression Total Score: 5 11/15/19 24 11:23 AM CDT documented as of this encounter Care Teams Chemical Process Engineer Relationship Specialty Start Date End Date Galina Brooks APRN, C.N.P., D.N.P. [address] [place] [phone] PCP - General Family Medicine 02/22/21 Dr Favian Doan- pt was not aware what the name of the dental group is. Dentistry 11/01/22 opthalmology [place] 11/01/22 documented as of this encounter
--- OUTSIDE RECORDS SUMMARY | 2024-03-09 09:09 | XMS_ITS | Encounter Summary ---
Author Organization [facility] Address [address] [place] [address] Care Team Providers Care Manual Control Auger Press Operator Name Role Phone Galina Brooks APRN, C.N.P., D.N.P. Primary Ca re Provider Reason for Visit * Reason Onset Date Comments Follow-up 02/09/2024 Left Without Nikki ng Seen Encounter Details Date Type Department Care Team (Latest Contact Info) Description 02/09/2024 Clinical Communication [facility] Emergency Department [address] [place] [address] Deann Bermudez S, RMarixaN. [address] [place] [address] Follow-up (Left Without Being Seen) Social History Tobacco Use Types Packs/Day Years Used Date Smoking Tobacco: Never Passive Smoke Exposure: Past Smokeless Tobacco: Never Alcohol Use Standard Drinks/Week Comments Yes 1 (1 standard drink = 0.6 oz pur e alcohol) [facility] Util[employer] Answer Date Recorded In the past 12 months has [facility] [employer], gas, oil, or water [employer] threatened to shut off services in your [...] often do you attend chur ch or taoism services? Never 07/07/2022 Do you belong to any clubs o r organizations such as jehovah's witness groups, unions, fraternal or athletic groups, or [...] Answer Date Recorded PHQ-2 Score 2 11/15/2023 [facility] of Occupat ionfl Health - Occupational Stress Questionnaire Answer Date [...] your living situation today? I have a [facility] place to live 12/29/2023 Education Answer [...] PM CDT documented as of this encounter Miscellaneous Notes * Telephone Encounter - Deann Bermudez, RMarixaN. - 02/09/2024 10:57 AM CDT Ivy Duran presented to the [facility] ED on 02/08/24 with concerns for shortness of breath. Per note lila SÁNCHEZ, Sofia Crawford, Pt here for fatigue and shortness of breath that hasn't gotten any better since her ED visit at [place] on monday02/04/2024. Pt's primary sent pt to the ED for further eval. Protocols were initiated in Intake including lab tests and ECG. The patient left the ED prior tobeing seen by a provider. I contacted the patient today to reassess, assure awareness of results and discuss a plan for follow up care. Ms. Duran reports she is very fatigued today. She is able to perform basic ADL's but tires easily.For example, she notes she can climb a flight of stairs but has to rest at the top. She denies chest pain or difficulty breathing. She is speaking in clear, complete sentences without pause. I did review lab results with her. She reports she has an appointment today with her primary care provider to discuss her symptoms and review recent tests. I did inform her that she may return to the ED at any time for new or worsening symptoms such as chest pain, difficulty breathing, dizziness, confusion,or weakness. Ms. Duran verbalized understanding and had no further questions at this time. Deann Bermudez R.N. 02/09/24 1107 documented in this encounter Plan of Treatment Upcoming Encounters Date Type Department Care Team (Latest Contact Info) Description 03/29/2024 12:30 PM CDT Clinical Communication Virtual Review in [address] [phone] 04/01/2024 2:40 PM CDT Appointment Department of Laboratory Medicine and Pathology, [facility] in [address] [phone] Adelina Arango APRN, C.N.P. [address] [place] [phone] 04/01/2024 4:00 PM CDT Appointment Department of Radiology, [facility] in [address] [phone] Adelina Arango APRN, C.N.P. [address] [place] [phone] 04/02/2024 1:00 PM CDT Office Visit Department of Oncology in [place], [place] [address] [place] [phone] Julia Gunn M.D., Ph.D. [address] [place] [phone] 05/20/2024 3:00 PM CDT Office Visit Department of Dermatology in [address] [phone] Pam Crain M.D. [address] [place] [phone] Discharge Disposition: Home or Self Care documented as of this encounter Visit Diagnoses Not on filedocumented in this encounter Additional Health Concerns Assessment Noted Time PHQ-9 Depression Total Score: 5 11/15/19 24 11:23 AM CDT documented as of this encounter Care Teams Manual Control Auger Press Operator Relationship Specialty Start Date End Date Galina Brooks APRN, C.N.P., D.N.P. [address] [place] [phone] PCP - General Family Medicine 02/22/21 Dr Favian Doan- pt was not aware what the name of the dental group is. Dentistry 11/01/22 opthalmology [place] 11/01/22 documented as of this encounter
--- OUTSIDE RECORDS SUMMARY | 2024-03-09 09:09 | XMS_ITS | Encounter Summary ---
Author Organization [facility] Address [address] [place] [address] Care Team Providers Care Clerical Order Filler Name Role Phone Galina Brooks APRN, C.N.P., D.N.P. Primary Ca re Provider Encounter Details Date Type Department Care Team (Latest Contact Info) Description 02/29/2024 8:50 AM CDT - 02/29/2024 11:59 PM CDT Hospital Encounter Department of Laboratory Medicine in [address] [phone] Adelina Champion, ADALGISA, C.N.P., D.N.P. [address] [place] [phone] Failure Renal Acute (Acute Kidney Injury) (HCC); Hypokalemia Discharge Disposition: Home or Self Care Social History Tobacco Use Types Packs/Day Years Used Date Smoking Tobacco: Never Passive Smoke Exposure: Past Smokeless Tobacco: Never Alcohol Use Standard Drinks/Week Comments Yes 1 (1 standard drink = 0.6 oz pur e alcohol) [facility] Utilities Answer Date Recorded In the past 12 months has e [employer], gas, oil, or water [employer] threatened to shut off services in your [...] often do you attend chur ch or baptism services? Never 07/07/2022 Do you belong to any clubs o r organizations such as voodoo groups, unions, fraternal or athletic groups, or [...] Answer Date Recorded PHQ-2 Score 2 11/15/2023 [facility] of Occupat ional Health - Occupational Stress [...] your living situation today? I have a [facility] place to live 12/29/2023 Education Answer Date [...] by mouth daily. 30 tablet 02/09/2024 02/08/2025 documented as of this encounter Plan of Treatment Upcoming Encounters Date Type Department Care Team (Latest Contact Info) Description 03/29/2024 12:30 PM CDT Clinical Communication Virtual Review in [place], [place] 200 [place] [address] 04/01/2024 2:40 PM CDT Appointment Department of Laboratory Medicine and Pathology, [facility] in [place], [place] [address] [place] [phone] Adelina Arango APRN, C.N.P. [address] [place] [phone] 04/01/2024 4:00 PM CDT Appointment Department of Radiology, [place], [place] [address] [place] [phone] Adelina Arango APRN, C.N.P. [address] [place] [phone] 04/02/2024 1:00 PM CDT Office Visit Department of Oncology in [place], [place] [address] [place] [address] Julia Gunn M.D., Ph.D. [address] [place] [address] 05/20/2024 3:00 PM CDT Office Visit Department of Dermatology in [address] [phone] Pam Crain M.D. 200 [place] [phone] Discharge Disposition: Home or Self Care documented as of this encounter Procedures Procedure Name Priority Date/Time Associated Diagnosis Comments BASIC METABOLIC PANEL, S/P Routine 02/29/2024 9:24 AM CDT Failure Renal Acute (Acute Kidney Injury) (HCC) Hypokalemia documented in this encounter Results * (ABNORMAL) [...] Adelina Champion APRN, C.N.P., D.N.P. LAB B OD ADD-ON [facility] [address] [place] [address], [facility] CNFL [facility] in [address] [address] documented in this encounter Visit Diagnoses Diagnosis Failure Renal Acute (Acute Kidney Injury) (HCC) Hypokalemia documented in this encounter Additional Health Concerns Assessment Noted Time PHQ-9 Depression Total Score: 5 11/15/19 24 11:23 AM CDT documented as of this encounter Care Teams Clerical Order Filler Relationship Specialty Start Date End Date Galina Brooks APRN, C.N.P., D.N.P. [address] [place] [phone] PCP - General Family Medicine 02/22/21 Dr Favian Doan- pt was not aware what the name of the dental group is. Dentistry 11/01/22 opthalmology [place] 11/01/22 documented as of this encounter
--- OUTSIDE RECORDS SUMMARY | 2024-03-09 09:09 | XMS_ITS | Encounter Summary ---
Author Organization [facility] Address [address] [place] [address] Care Team Providers Care Optometric Technologist Name Role Phone Galina Brooks APRN, C.N.P., D.N.P. Primary Ca re Provider Encounter Details Date Type Department Care Team (Late st Contact Info) Description 02/13/2024 Documentation Division of Pulmonary Medicine in [place], [place] [address] [place] [phone] Ramesh Desai APRN, C.N.P., D.N.P. [address] [place] [phone] Social History Tobacco Use Types Packs/Day Years Used Date Smoking Tobacco: Never Passive Smoke Exposure: Past Smokeless Tobacco: Never Alcohol Use Standard Drinks/Week Comments Yes 1 (1 standard drink = 0.6 oz pur e alcohol) [facility] Utilities Answer Date Recorded In the past 12 months has e [employer], gas, oil, or water [employer] threatened to shut off services in [...] How often do you attend chur or oriental orthodox services? Never 07/07/2022 Do you belong to any clubs o r organizations such as roman catholic groups, unions, fraternal or athletic groups, or [...] Answer Date Recorded PHQ-2 Score 2 11/15/2023 [facility] of Occupat ional Health - Occupational Stress [...] your living situation today? I have a [facility] place to live 12/29/2023 Education Answer [...] PM CDT documented as of this encounter Progress Notes * Ramesh Desai APRN, C.N.P., D.N.P. - 02/13/2024 2:37 PM CDT Chart Update #1 Worsening fatigue #2 Electrolyte derangement, likely secondary to diuretic #3 Endometrial cancer 2022 #3 Melanoma of the left leg post resection (2022), most recently treated with nivolumab last dose November 2023 I called the patient in response to lab studies from earlier today. Recall, she is a 74-year-old female, never smoker with a past medical history most significant for melanoma and endometrial malignancy diagnosed in 2022 most recently on nivolumab (last dose November 2023). Past medical history is also significant for hyperlipidemia, hypertension, history of depression. Secondary to progressive fatigue, I did have her complete additional laboratory studies today. She does have some electrolyte derangements and with rising BUN and bicarbonate likely some degree of dehydration. She has noted some presyncopal episodes when standing. From a positive perspective, her BNP has improved dramatically from a week ago. Please recall, she did recently complete a prednisone taper which may very well be somewhat contributing to her fatigue. While we could attempt to correct some of these electrolytes with oral replacement, given her presyncopal episodes I do think that it would be prudent for her to be evaluated in the ER for consideration of rehydration and electrolyte balancing. The patient is agreeable to proceed with the plan as outlined above, all questions have been answered. I have contacted the [facility] and updated them of her impending arrival to [facility]. I personally spent 25 minutes in care of the patient today. Time includes both non face to face andface to face patient care. documented in this encounter Plan of Treatment Upcoming Encounters Date Type Department Care Team (Latest Contact Info) Description 03/29/2024 12:30 PM CDT Clinical Communication Virtual Review in [place], [place] 200 [place] [phone] 04/01/2024 2:40 PM CDT Appointment Department of Laboratory Medicine and Pathology, [address] [phone] Adelina Arango APRN, C.N.P. [address] [place] [phone] 04/01/2024 4:00 PM CDT Appointment Department of Radiology, [address] [phone] Adelina Arango APRN, C.N.P. [address] [place] [phone] 04/02/2024 1:00 PM CDT Office Visit Department of Oncology in [place], [place] [address] [place] [phone] Julia Gunn M.D., Ph.D. [address] [place] [phone] 05/20/2024 3:00 PM CDT Office Visit Department of Dermatology in [address] [phone] Pam Crain M.D. [address] [place] [phone] Discharge Disposition: Home or Self Care documented as of this encounter Visit Diagnoses Diagnosis Fatigue [R53.83]- Primary Fluid And Electrolyte Disorder [E87.8] documented in this encounter Additional Health Concerns Assessment Noted Time PHQ-9 Depression Total Score: 5 11/15/19 24 11:23 AM CDT documented as of this encounter Care Teams Optometric Technologist Relationship Specialty Start Date End Date Galina Brooks APRN, C.N.P., D.N.P. [address] [place] [phone] PCP - General Family Medicine 02/22/21 Dr Favian Doan- pt was not aware what the name of the dental group is. Dentistry 11/01/22 opthalmology [place] 11/01/22 documented as of this encounter
--- OUTSIDE RECORDS SUMMARY | 2024-03-09 09:09 | XMS_ITS ---
Author Organization [facility] Address [address] [place] [address] Care Team Providers Care Fruit Grader Name Role Phone Galina Brooks APRN, C.N.P., D.N.P. Primary Ca re Provider Active Problems Problem Noted Date Diagnosed Date Tremor Essential 02/09/2024 Shortness Of Breath 01/24/2024 Primary Osteoarthritis Knee Bilateral 07/10/2023 Chronic Kidney Disease (CKD) , Stage 3a Glomerular Filtration Rate (GFR) 45 To 59 07/10/2023 Secondary Malignant Neoplasm Lymph Node 12/30/19 23 Medication Therapy Residential Not Anticoagulant 0 12/29/2022 Melanoma Leg Left 11/18/2022 Cancer Staging:Pathologic:Stage IIIC(pT0, pN2b, cM0) - Signed by Vy Granger, Berna-C., M.S. on 08/02/2023 Malignant Neoplasm Of Uterus Endometrial 023 Cancer Staging:Clinical stage from 11/08/2022:FIGO Stage IA(cT1a, cN0(sn), cM0) - Signed by Roly Gaviria APRN, C.N.P., M.S. on 11/18/2022 Polyp Uterus 08/03/2022 Overview: Added automatically from request for surgery [id number] Lesion Skin Foot 07/13/2022 Polyp Colon Personal History 07/13/2022 Depression Major Recurrent Moderate 03/01/2022 Positive Cologuard Stool Deoxyribonucleic Acid T est 07/23/2021 Overview: Added automatically from request for surgery [id number] Depressive Disorder 07/06/2021 Overview: Switched from Celexa to Prozac 04/2021. Hypertension Essential Primary 07/06/2021 Overview: No prior cardiovascular events or end-organ damage. Monotherapy with ARB. Pain Knee Left 01/04/2021 Overview: Added automatically from request for surgery [id number] Distress Epigastric 09/13/2019 Keratosis Actinic 04/03/2015 Lichen Sclerosus 04/03/2015 Overview: Maintenance topical steroid and vaginal estrogen twice weekly. Hypothyroidism Acquired 02/26/2014 Pain Back Lumbar 01/29/2013 Hyperlipidemia 09/14/2011 Overview: Medium potency statin. Pain Hip Right Primary Osteoarthritis Hip Right Current Oncology Plans No current plan information found. Past Plans Flushes/Hydration Plan Name Start Date Discontinue Date Treatment Medications Discontinue Reason Plan Provider VASCULAR ACCESS PATENCY - PERIPHERAL INTRAVENOUS CATHETER AND RAPID INFUSION CATHETER 01/02/2023 12/27/2023 No medications scheduled. Therapy Complete - Hematology / Oncology Treatment 1 Plan Name Start Date Discontinue Date Treatment Medications Discontinue Reason Plan Provider Cycles Nivolumab 480 mg every 4 weeks 01/02/2023 02/05/2024 nivolumab (Opdivo)nivolu mab (Opdivo) 480 MG IVPB in NaCl 0.9% 100 mL (Opdivo) Therapy Complete Adelina Arango APRN, C.N.P. 11 of 12 cycles started Radiation Treatments * No radiation treatments are documented for this patient in [facility]. Treatments may have been administered in another system.
--- OUTSIDE RECORDS SUMMARY | 2024-03-09 09:09 | XMS_ITS | Encounter Summary ---
Author Organization [facility] Address [address] [place] [address] Care Team Providers Care Dehydrogenation Supervisor Name Role Phone Galina Brooks APRN, C.N.P., D.N.P. Primary Ca re Provider Encounter Details Date Type Department Care Team (Latest Contact Info) Description 02/13/2024 Intake [facility] Social History Tobacco Use Types Packs/Day Years Used Date Smoking Tobacco: Never Passive Smoke Exposure: Past Smokeless Tobacco: Never Alcohol Use Standard Drinks/Week Comments Yes 1 (1 standard drink = 0.6 oz pur e alcohol) [facility] Utilities Answer Date Recorded In the past 12 months has [facility] [employer], gas, oil, or water [employer] threatened to shut off services in your [...] How often do you attend chur or sabianist services? Never 07/07/2022 Do you belong to any clubs o r organizations such as orthodoxy groups, unions, fraternal or athletic groups, or [...] Answer Date Recorded PHQ-2 Score 2 11/15/2023 [facility] Occupat ional Health [...] your living situation today? I have a [facility] place to live 12/29/2023 Education Answer [...] PM CDT Clinical Communication Virtual Review in [place], [place] [address] [place] [phone] 04/01/2024 2:40 PM CDT Appointment Department of Laboratory Medicine and Pathology, [place], [place] [address] [place] [phone] Adelina Arango APRN, C.N.P. [address] [place] [phone] 04/01/2024 4:00 PM CDT Appointment Department of Radiology, [facility] in [place], [place] [address] [place] [phone] Adelina Arango APRN, C.N.P. [address] [place] [phone] 04/02/2024 1:00 PM CDT Office Visit Department of Oncology in [place], [place] [address] [place] [phone] Julia Gunn M.D., Ph.D. [address] [place] [phone] 05/20/2024 3:00 PM CDT Office Visit Department of Dermatology in [address] [phone] Pam Crain M.D. [address] [place] [phone] Discharge Disposition: Home or Self Care documented as of this encounter Visit Diagnoses Not on filedocumented in this encounter Additional Health Concerns Assessment Noted Time PHQ-9 Depression Total Score: 5 11/15/19 24 11:23 AM CDT documented as of this encounter Care Teams Dehydrogenation Supervisor Relationship Specialty Start Date End Date Galina Brooks APRN, C.N.P., D.N.P. [address] [place] [phone] PCP - General Family Medicine 02/22/21 Dr Favian Doan- pt was not aware what the name of the dental group is. Dentistry 11/01/22 opthalmology [place] 11/01/22 documented as of this encounter
--- OUTSIDE RECORDS SUMMARY | 2024-03-09 09:09 | XMS_ITS | Encounter Summary ---
Author Organization [facility] Address [address] [place] [address] Care Team Providers Care Information Technology Account Manager Name Role Phone Galina Brooks APRN, C.N.P., D.N.P. Primary Ca re Provider Encounter Details Date Type Department Care Team (Latest Contact Info) Description 02/13/2024 10:13 AM CDT - 02/13/2024 4:04 PM CDT Hospital Encounter Department of Laboratory Medicine in [address] [phone] Ramesh Desai APRN, C.N.P., D.N.P. [address] [place] [phone] Fatigue Extreme; Abnormal Finding Of Blood Chemistry Unspecified; Human Immunodeficiency Virus Screening; Dyspnea Discharge Disposition: Home or Self Care Social History Tobacco Use Types Packs/Day Years Used Date Smoking Tobacco: Never Passive Smoke Exposure: Past Smokeless Tobacco: Never Alcohol Use Standard Drinks/Week Comments Yes 1 (1 standard drink = 0.6 oz pur e alcohol) [facility] Utilities Answer Date Recorded In the past 12 months has e [employer], gas, oil, or water [employer] threatened to shut off services in your [...] How often do you attend chur or mandaen services? Never 07/07/2022 Do you belong to any clubs o r organizations such as jainism groups, unions, fraternal or athletic groups, or [...] Answer Date Recorded PHQ-2 Score 2 11/15/2023 [facility] of Occupat ional Health - Occupational Stress [...] your living situation today? I have a [facility] place to live 12/29/2023 Education Answer Date [...] PM CDT Clinical Communication Virtual Review in [place], [place] 200 [place] [phone] 04/01/2024 2:40 PM CDT Appointment Department of Laboratory Medicine and Pathology, [facility], in [place], [place] [address] [place] [phone] Adelina Arango APRN, C.N.P. [address] [place] [phone] 04/01/2024 4:00 PM CDT Appointment Department of Radiology, [facility], in [place], [place] [address] [place] [phone] Adelina Arango APRN, C.N.P. [address] [place] [phone] 04/02/2024 1:00 PM CDT Office Visit Department of Oncology in [place], [place] [address] [place] [phone] Julia Gunn M.D., Ph.D. [address] [place] [phone] 05/20/2024 3:00 PM CDT Office Visit Department of Dermatology in [address] [phone] Pam Crain M.D. [address] [place] [phone] Discharge Disposition: Home or Self Care documented as of this encounter Procedures Procedure Name Priority Date/Time Associated Diagnosis Comments HIV-1/-2 AG AND AB SCREEN, PLASMA Routine 02/13/2024 10:28 AM CDT Fatigue Extreme Human Immunodeficiency Virus Screening CORTISOL, FREE AND TOTAL Routine 02/13/2024 10:28 AM CDT Fatigue Extreme HCV AB W/REFLEX TO HCV PCR, S Routine 02/13/2024 10:28 AM CDT Fatigue Extreme NT-PRO B-TYPE NATRIURETIC PEPTIDE (BNP), S Routine 02/13/2024 10:28 AM CDT Fatigue Extreme Dyspnea IRON AND TOT IRON-BINDING CAPACITY, S/P Routine 02/13/2024 10:28 AM CDT Fatigue Extreme Abnormal Finding Of Blood Chemistry Unspecified HBC TOTAL AB, SERUM Routine 02/13/2024 1 0:28 AM CDT Fatigue Extreme ACTH, P Routine 02/13/2024 10:28 AM CDT Fatigue Extreme HBS ANTIBODY, SERUM Routine 02/13/2024 1 0:28 AM CDT Fatigue Extreme HEPATITIS B SURFACE ANTIGEN Routine 02/13/2024 10:28 AM CDT Fatigue Extreme SEDIMENTATION RATE, B Routine 02/13/2024 10:28 AM CDT Fatigue Extreme D-DIMER, P Routine 02/13/2024 10:28 AM CDT Fatigue Extreme CBC WITH DIFFERENTIAL, B Routine 02/13/2024 10:28 AM CDT Fatigue Extreme C-REACTIVE PROTEIN (CRP), S/P Routine 02/13/2024 10:28 AM CDT Fatigue Extreme TROPONIN T, 5TH GEN, P Routine 02/13/2024 10:28 AM CDT Fatigue Extreme CREATINE KINASE (CK), S Routine 02/13/2024 10:28 AM CDT Fatigue Extreme COMPREHENSIVE METABOLIC PANEL, S/P Routine 02/13/2024 10:28 AM CDT Fatigue Extreme documented in this encounter Results * (ABNORMAL) Cortisol, Free and Total (02/13/2024 10:28 AM CDT) Pathologist [facility] Cortisol, Free, S 1.465(H) 6:00-10:30 AM Collection 0.121-1.065 mcg/dL mcg/dL 02/16/2024 10:33 PM CDT [facility] Comment: ----ADDITIONAL INFORMATION---- This test was developed and its performance characteristics determined by [facility] in a manner consistent with CLIA requirements. This test has not been cleared or approved by the U.S. Food and Drug Administration. AM Cortisol 26(H) 5 - 25 mcg/dL 02/15/2024 6:23 PM CDT [facility] Blood (Blood, Venous) 02/13/2024 10:28 AM CDT 02/14/2024 11:33 AM CDT Jass Escalona APRNN.Manasa., Margo.N.P. L AB BLOOD NON ADD-ON Performing Organization Address City/[facility]/ZIP Co de Phone Number [facility] [address] [place] [address] [facility] [address] [place] [address] [place] [address] * ACTH (Adrenocorticotropic Hormone) (02/13/2024 10:28 AM CDT) Adrenocorticotropic Hormone, P 11 7.2-63 (a.m. collectio n) pg/mL 02/13/2024 8:54 PM CDT [facility] Blood (Blood, Venous) 02/13/2024 10:28 AM CDT 02/13/2024 8:23 PM CDT Ramesh Desai APRN, C.N.P., D.N.P. L AB BLOOD NON ADD-ON Performing Organization Address [facility] Co de Phone Number [facility] [address] [place] [address] [facility] [address] [place] [address] * (ABNORMAL) Troponin T, 5th Generation (02/13/2024 10:28 AM CDT) Troponin T, 5th gen 12(H) <=10 ng/L 02/13/2024 11:05 AM CDT [facility] Blood (Blood, Venous) 02/13/2024 10:28 AM CDT 02/13/2024 10:30 AM CDT Jass Escalona APRNN.Manasa., Margo.N.P. L AB BLOOD ADD-ON [facility] [address] [place] [address], [address] [address] * (ABNORMAL) D-Dimer (02/13/2024 10:28 AM CDT) D-Dimer, P 540(H) <=500 ng/mL FEU 02/13/2024 [...] Escalona APRN.N.P., D.N.P. L AB BLOOD ADD-ON [facility] [address] [place] [address], [address] [address] * (ABNORMAL) Comprehensive Metabolic Panel (02/13/2024 10:28 AM CDT) Potassium, P 2.9(L) 3.6 - 5.2 mmol/L [...] APRN, C.N.P., D.N.P. L AB BLOOD ADD-ON [place] [address] [place] [address], [facility] CNFL [facility] in [address] [address] * (ABNORMAL) CBC with Differential, Blood (02/13/2024 10:28 AM CDT) [facility] Hemoglobin 14.1 11.6 - 15.0 g/dL 02/13/2024 10:37 AM CDT CNFL Hematocrit 42.2 35.5 - 44.9 % 02/13/2024 10:37 AM CDT CNFL Erythrocytes 4.88 3.92 - 5.13 x10(12)/L 02/13/2024 10:37 AM CDT CNFL MCV 86.5 78.2 - 97.9 fL 02/13/2024 10:37 AM CDT CNFL RBC Distrib Width 13.0 12.2 - 16.1 % 02/13/2024 10:37 AM CDT CNFL Platelet Count 370 157 - 371 x10(9)/L 02/13/2024 10:37 AM CDT CNFL Leukocytes 9.7(H) 3.4 - 9.6 x10(9)/L 02/13/2024 10:37 AM CDT CNFL Neutrophils 6.11 1.56 - 6.45 x10(9)/L 02/13/2024 10:37 AM CDT CNFL Lymphocytes 2.45 0.95 - 3.07 x10(9)/L 02/13/2024 10:37 AM CDT CNFL Monocytes 1.11(H) 0.26 - 0.81 x10(9)/L 02/13/2024 10:37 AM CDT CNFL Eosinophils <0.04 0.03 - 0.48 x10(9)/L 02/13/2024 10:37 AM CDT CNFL Basophils <0.04 0.01 - 0.08 x10(9)/L 02/13/2024 10:37 AM CDT CNFL Blood (Blood, Venous) 02/13/2024 10:28 AM CDT 02/13/2024 10:30 AM CDT Ramesh Desai APRN, C.N.P., LoN.P. L AB BLOOD ADD-ON [facility] [address] [place] [phone], [facility] in [address] [address] * NT-Pro B-Type Natriuretic Peptide (BNP) (02/13/2024 10:28 AM CDT) NT-Pro BNP 359 <=540 pg/mL 02/13/2024 11:05 AM CDT [facility] Comment: NT-proBNP values less than 300 pg/mL [...] of renal failure. Blood (Blood, Venous) 02/13/2024 10:28 AM CDT 02/13/2024 10:30 AM CDT Ramesh Desai APRN, C.N.P., oLN.P. L AB BLOOD ADD-ON [address] [address], [facility] in [address] [address] * CRP (C-Reactive Protein) (02/13/2024 10:28 AM CDT) C-Reactive Protein (CRP), P 3.6 <5.0 mg/L 02/13/2024 10:54 AM CDT [facility] Blood (Blood, Venous) 02/13/2024 10:28 AM CDT 02/13/2024 10:30 AM CDT Ramesh Desai APRN, C.N.P., Margo.N.P. L AB BLOOD ADD-ON [facility] [address] [place] [phone], [facility] CNFL [facility] in [address] [place] [address] * Sedimentation Rate (02/13/2024 10:28 AM CDT) Sedimentation Rate, B 22 0 - 29 mm/1 h 02/13/2024 2:53 PM CDT [facility] Blood (Blood, Venous) 02/13/2024 10:28 AM CDT 02/13/2024 2:25 PM CDT Naima Escalona APRN.N.P., Konrad.P. L AB BLOOD ADD-ON Performing Organization Address City/[facility]/ZIP Co de Phone Number [facility] [address] [place] [address], [facility] ECLR [facility] [place] [address] * HIV-1/-2 Ag and Ab Screen, Plasma [...] 8:44 PM CDT Ramesh Desai APRN, C.N.P., LoN.P. L AB MICROBIOLOGY - BLOOD ORDERABLES Performing Organization Address City/[facility] Co de Phone Number [facility] [address] [place] [address], [facility] ECLR [facility] [place] [address] * HCV Ab w/Reflex to HCV PCR, Serum (02/13/2024 10:28 AM CDT) HCV Ab, S Negative Negative 02/13/2024 9:14 PM CDT [facility] Blood (Blood, Venous) 02/13/2024 10:28 AM CDT 02/13/2024 8:44 PM CDT Narrative [facility] - 02/13/2024 9:14 PM CDT Specimen Information: Specimen ID: [id number] Specimen Type: Blood Specimen Collection Start Date: 02/13/2024 10:28 AM Specimen Received Date: 02/13/2024 ??8:44 PM Specimen ID: [id number] Specimen Type: Blood Specimen Collection Start Date: 02/13/2024 10:28 AM Specimen Received Date: 02/13/2024 ??8:44 PM Ramesh Desai APRN, C.N.P., Margo.N.P. L AB MICROBIOLOGY - BLOOD ORDERABLES Performing Organization Address City/[facility]/ZIP Co de Phone Number [facility] [address] [place] [address] ECLR [facility] [place] [address] * HBc Total Ab, Serum (02/13/2024 10:28 AM CDT) HBc Total Ab, w/Reflex, S Negative Negative 02/13/2024 9:20 PM CDT [facility] Blood (Blood, Venous) 02/13/2024 10:28 AM CDT 02/13/2024 8:44 PM CDT Ramesh Desai APRN, C.N.P., D.N.P. L AB MICROBIOLOGY - BLOOD ORDERABLES [facility] [address] [place] [address] ECLR [facility] [place] [address] * HBs Antibody, Serum (02/13/2024 10:28 AM [...] D.N.P. L AB MICROBIOLOGY - BLOOD ORDERABLES [facility] [address] [place] [address] ECLR [facility] in [address] [address] * Hepatitis B Surface Antigen (02/13/2024 10:28 AM CDT) HBs Antigen, S Nonreactive Nonreactive 02/13/2024 9:20 PM CDT [facility] Blood (Blood, Venous) 02/13/2024 10:28 AM CDT 02/13/2024 8:44 PM CDT Naima Escalona APRN.N.P., D.N.P. L AB MICROBIOLOGY - BLOOD ORDERABLES [facility] [address] [place] [phone] [place] [address] ECLR [facility] in [address] [address] * CK (Creatine Kinase) (02/13/2024 10:28 AM CDT) Creatine Kinase, P 50 26 - 192 U/L 02/13/2024 10:54 AM CDT CNFL Blood (Blood, Venous) 02/13/2024 10:28 AM CDT 02/13/2024 10:30 AM CDT Naima Escalona APRN.N.P., D.N.P. L AB BLOOD ADD-ON [facility] [address] [place] [address], [facility] in [address] [address] * Iron and Total Iron-Binding Capacity (02/13/2024 [...] APRN, C.N.P., D.N.P. L AB BLOOD ADD-ON [facility] [address] [place] [address], [facility] ECLR [facility] [place] [address] documented in this encounter Visit Diagnoses Diagnosis Fatigue Extreme Abnormal Finding Of Blood Chemistry Unspecified Human Immunodeficiency Virus Screening Dyspnea documented in this encounter Additional Health Concerns Assessment Noted Time PHQ-9 Depression Total Score: 5 11/15/19 24 11:23 AM CDT documented as of this encounter Care Teams Information Technology Account Manager Relationship Specialty Start Date End Date Galina Brooks APRN, C.N.P., D.N.P. [address] [place] [phone] PCP - General Family Medicine 02/22/21 Dr Favian Doan- pt was not aware what the name of the dental group is. Dentistry 11/01/22 opthalmology [place] 11/01/22 documented as of this encounter
--- OUTSIDE RECORDS SUMMARY | 2024-03-09 09:09 | XMS_ITS ---
Author Organization [facility] Address [address] [place] [address] Care Team Providers Care Press Operator [employer] Name Role Phone Unavailable Unavailable Unavailable Surgery Details Not on file Complications Check Surgery Details section. Procedure Estimated Blood Loss Check Surgery Details section. Procedure Findings Check Surgery Details section. Procedure Specimens Taken Check Surgery Details section.
--- OUTSIDE RECORDS SUMMARY | 2024-03-09 09:10 | XMS_ITS | Encounter Summary ---
Author Organization [facility] Address [address] [place] [address] Care Team Providers Care Artists' Model Name Role Phone Galina Brooks APRN, C.N.P., D.N.P. Primary Ca re Provider Encounter Details Date Type Department Care Team (Late st Contact Info) Description 02/05/2024 Orders Only Department of Oncology in [place], [place] [address] [place] [phone] Adelina Arango APRN, C.N.P. [address] [place] [phone] Social History Tobacco Use Types Packs/Day Years Used Date Smoking Tobacco: Never Passive Smoke Exposure: Past Smokeless Tobacco: Never Alcohol Use Standard Drinks/Week Comments Yes 1 (1 standard drink = 0.6 oz pur e alcohol) [facility] Utilities Answer Date Recorded In the past 12 months has [place], gas, oil, or water [employer] threatened to shut off services in your [...] often do you attend chur ch or orthodoxy services? Never 07/07/2022 Do you belong to any clubs o r organizations such as lutheran groups, unions, fraternal or athletic groups, or [...] Answer Date Recorded PHQ-2 Score 2 11/15/2023 [facility] of Occupat ional Health - [...] your living situation today? I have a [facility] place to live 12/29/2023 Education Answer [...] PM CDT Clinical Communication Virtual Review in [place], [place] [address] [place] [phone] 04/01/2024 2:40 PM CDT Appointment Department of Laboratory Medicine and Pathology, [facility], in [place], [place] [address] [place] [phone] Adelina Arango APRN, C.N.P. [address] [place] [phone] 04/01/2024 4:00 PM CDT Appointment Department of Radiology, [facility], in [place], [place] [address] [place] [phone] Adelina Arango APRN, C.N.P. [address] [place] [phone] 04/02/2024 1:00 PM CDT Office Visit Department of Oncology in [place], [place] [address] [place] [phone] Julia Gunn M.D., Ph.D. [address] [place] [phone] 05/20/2024 3:00 PM CDT Office Visit Department of Dermatology in [address] [phone] Pam Crain M.D. [address] [place] [phone] Discharge Disposition: Home or Self Care documented as of this encounter Visit Diagnoses Not on filedocumented in this encounter Additional Health Concerns Assessment Noted Time PHQ-9 Depression Total Score: 5 11/15/19 24 11:23 AM CDT documented as of this encounter Care Teams Artists' Model Relationship Specialty Start Date End Date Galina Brooks APRN, C.N.P., D.N.P. [address] [place] [phone] PCP - General Family Medicine 02/22/21 Dr Favian Doan- pt was not aware what the name of the dental group is. Dentistry 11/01/22 opthalmology [place] 11/01/22 documented as of this encounter
--- OUTSIDE RECORDS SUMMARY | 2024-03-09 09:10 | XMS_ITS | Encounter Summary ---
Author Organization [facility] Address [address] [place] [address] Care Team Providers Care Sales Planner Name Role Phone Galina Brooks APRN, C.N.P., D.N.P. Primary Ca re Provider Reason for Visit * Reason Comments Shortness of Breath Encounter Details Date Type Department Care Team (Late st Contact Info) Description 02/08/2024 12:44 PM CDT - 02/08/2024 4:22 PM CDT Emergency [facility] Emergency Department [address] [place] [phone] Discharge Disposition: Left Against Medical Advice or Discontinued Care Social History Tobacco Use Types Packs/Day Years Used Date Smoking Tobacco: Never Passive Smoke Exposure: Past Smokeless Tobacco: Never Alcohol Use Standard Drinks/Week Comments Yes 1 (1 standard drink = 0.6 oz pur e alcohol) [facility] Utilities Answer Date Recorded In the past 12 months has [facility] [employer] gas, oil, or water [employer] threatened to shut off services in your [...] How often do you attend chur or worship services? Never 07/07/2022 Do you belong to any clubs o r organizations such as zoroastrian groups, unions, fraternal or athletic groups, or [...] Answer Date Recorded PHQ-2 Score 2 11/15/2023 [facility] of Occupat ionmi Health - Occupational Stress Questionnaire Answer Date [...] your living situation today? I have a [facility] place [facility] 12/29/2023 Education Answer [...] Sign Reading Time Taken Comments Blood Pressure 144/98 02/08/2024 2:52 PM CDT Pulse 95 02/08/2024 2:52 PM CDT Temperature 36.5 ??C (97.7 ??F) 02/08/2024 12:53 PM C DT Respiratory Rate 16 02/08/2024 2:52 PM CDT Oxygen Saturation 98% 02/08/2024 2:52 PM CDT Inhaled Oxygen Concentration - - Weight 83.1 kg (183 lb 3.2 oz) 02/08/2024 12:46 PM CDT Height - - Body Mass Index 29.8 01/24/2024 9:01 AM CDT documented in this encounter Medications at Time [...] BY MOUTH DAILY. 90 tablet 3 10/12/2023 albuterol 90 mcg/actuation inhalerIndications:Dy spnea On Exertion Inhale 1 puff every 6 (six) hours as needed for shortness of breath. 8 g 3 01/19/2024 02/29/2024 inhalational spacing device (Aerochamber MV) spacer 1 each as needed (for use with albuterol when wheezing or dyspnea). 1 each 01/24/2024 02/29/2024 torsemide (DEMADEX) 20 mg tablet Take 1 tablet (20 mg total) by mouth daily for 10 days. 10 tablet 02/04/2024 02/09/2024 documented as of this encounter ED Notes * Sofia Crawford R.N. - 02/08/2024 12:51 PM CDT Pt here for fatigue and shortness of breath that hasn't gotten any better since her ED visit at [place] on monday02/04/2024. Pt's primary sent pt to the ED for further eval. Sofia Crawford R.N. 02/08/24 1252 documented in this encounter Plan of Treatment Upcoming Encounters Date Type Department Care Team (Latest Contact Info) Description 03/29/2024 12:30 PM CDT Clinical Communication Virtual Review in [place], [place] 200 [place] [phone] 04/01/2024 2:40 PM CDT Appointment Department of Laboratory Medicine and Pathology, [place], [place] [address] [place] [phone] Adelina Arango APRN, C.N.P. [address] [place] [phone] 04/01/2024 4:00 PM CDT Appointment Department of Radiology, [facility] in [place], [place] [address] [place] [phone] Adelina Arango APRN, C.N.P. [address] [place] [phone] 04/02/2024 1:00 PM CDT Office Visit Department of Oncology in [address] [phone] Julia Gunn M.D., Ph.D. [address] [place] [phone] 05/20/2024 3:00 PM CDT Office Visit Department of Dermatology in [address] [phone] Pam Crain M.D. [address] [place] [phone] Discharge Disposition: Home or Self Care documented as of this encounter Procedures Procedure Name Priority Date/Time Associated Diagnosis Comments NT-PRO B-TYPE NATRIURETIC PEPTIDE (BNP), S STAT 02/08/2024 1:45 PM CDT CBC WITH DIFFERENTIAL, B STAT 02/08/2024 1:45 PM CDT BASIC METABOLIC PANEL, S/P STAT 02/08/2024 1:45 PM CDT DX CHEST AP OR PA AND LATERAL 2 VIEWS RAD - Semiurgent (Fast; most ED patients; some inpatients) 02/08/2024 1:13 PM CDT ECG STAT 02/08/2024 1:01 PM CDT documented in this encounter Results * NT-Pro B-Type Natriuretic Peptide (BNP) (02/08/2024 1:45 PM CDT) NT-Pro BNP 334 <=540 pg/mL 02/08/2024 2:18 PM CDT [facility] Comment: NT-proBNP values less than 300 pg/mL [...] absence of renal failure. Blood (Blood, Venous) 02/08/2024 1:45 PM CDT 02/08/2024 1:53 PM CDT Jeremias Delgadillo APRN, C.N.P. LAB BLOOD ADD-ON [facility] [address] [place] [address], [facility] [address] [place] [address] * (ABNORMAL) Basic Metabolic Panel (02/08/2024 1:45 PM CDT) Potassium, P 3.9 3.6 - 5.2 mmol/L 02/08/2024 2:12 PM CDT [facility] Sodium, P 137 135 - 145 mmol/L 02/08/2024 2:12 PM CDT [facility] Chloride, P 93(L) 98 - 107 mmol/L 02/08/2024 2:12 PM CDT [facility] Bicarbonate, P 30(H) 22 - 29 mmol/L 02/08/2024 2:12 PM CDT [facility] Anion Gap, P 14 7 - 15 02/08/2024 2:12 PM CDT [facility] BUN (Blood Urea Nitrogen), P 28(H) 6 - 21 mg/dL 02/08/2024 2:12 PM CDT [facility] Creatinine 0.97 0.59 - 1.04 mg/dL 02/08/2024 2:12 PM CDT [facility] Estimated GFR (eGFR) 62 >=60 mL/min/BSA 02/08/2024 2:12 PM CDT [facility] Comment: Estimated GFR calculated using the 2020 CKD_EPI creatinine equation. Calcium, Total, P 9.6 8.8 - 10.2 mg/dL 02/08/2024 2:12 PM CDT [facility] Glucose, P 135 70 - 140 mg/dL 02/08/2024 2:12 PM CDT [facility] Blood (Blood, Venous) 02/08/2024 1:45 PM CDT 02/08/2024 1:53 PM CDT Jeremias Delgadillo APRN, C.N.P. LAB BLOOD ADD-ON [facility] [address] [place] [address], [facility] [address] [place] [address] * (ABNORMAL) CBC with Differential, Blood (02/08/2024 1:45 PM CDT) Hemoglobin 13.8 11.6 - 15.0 g/dL 02/08/2024 1:56 PM CDT [facility] Hematocrit 42.4 35.5 - 44.9 % 02/08/2024 1:56 PM CDT [facility] Erythrocytes 4.83 3.92 - 5.13 x10(12)/L 02/08/2024 1:56 PM CDT [facility] MCV 87.8 78.2 - 97.9 fL 02/08/2024 1:56 PM CDT [facility] RBC Distrib Width 13.3 12.2 - 16.1 % 02/08/2024 1:56 PM CDT [facility] Platelet Count 410(H) 157 - 371 x10(9)/L 02/08/2024 1:56 PM CDT [facility] Leukocytes 9.0 3.4 - 9.6 x10(9)/L 02/08/2024 1:56 PM CDT [facility] Neutrophils 6.24 1.56 - 6.45 x10(9)/L 02/08/2024 1:56 PM CDT [facility] Lymphocytes 1.92 0.95 - 3.07 x10(9)/L 02/08/2024 1:56 PM CDT [facility] Monocytes 0.79 0.26 - 0.81 x10(9)/L 02/08/2024 1:56 PM CDT [facility] Eosinophils 0.04 0.03 - 0.48 x10(9)/L 02/08/2024 1:56 PM CDT [facility] Basophils 0.05 0.01 - 0.08 x10(9)/L 02/08/2024 1:56 PM CDT [facility] Blood (Blood, Venous) 02/08/2024 1:45 PM CDT 02/08/2024 1:53 PM CDT Jeremias Delgadillo APRN, C.N.P. LAB BLOOD ADD-ON [facility] [address] [place] [address], [facility] ST[facility] [address] [place] [address] DHPM [facility] [address] [place] [address] * DX Chest AP or PA and [...] ECG 12 Lead (02/08/2024 1:01 PM CDT) Ventricular Rate ECG/Min 91 BPM MUSE [place] Interval 144 ms MUSE QRSD Interval 86 ms MUSE QT Interval 368 ms MUSE QTC Interval 452 ms MUSE P [place] 29 degrees MUSE R [place] -25 degrees MUSE T Wave [place] 44 degrees MUSE 02/08/2024 1:01 PM CDT [...] APRN, C.N.P. ECG ORDER MCKAY MUSE NA documented in this encounter Visit Diagnoses Not on filedocumented in this encounter Additional Health Concerns Assessment Noted Time PHQ-9 Depression Total Score: 5 11/15/19 24 11:23 AM CDT documented as of this encounter Care Teams Sales Planner Relationship Specialty Start Date End Date Galina Brooks APRN, C.N.P., D.N.P. [id number] [place] [phone] PCP - General Family Medicine 02/22/21 Dr Favian Doan- pt was not aware what the name of the dental group is. Dentistry 11/01/22 opthalmology [place] 11/01/22 documented as of this encounter
--- OUTSIDE RECORDS SUMMARY | 2024-03-09 09:10 | XMS_ITS | Encounter Summary ---
Author Organization [facility] Address [address] [place] [phone] Care Team Providers Care Fabric Finisher Name Role Phone Galina Brooks APRN, C.N.P., D.N.P. Primary Ca re Provider Encounter Details Date Type Department Care Team (Late st Contact Info) Description 01/24/2024 1:00 PM CDT Diagnostic Division of Pulmonary Medicine in [place], [place] [address] [place] [phone] Ramesh Desai APRN, C.N.P., D.N.P. [address] [place] [phone] Dyspnea On Exertion; Shortness Of Breath Social History Tobacco Use Types Packs/Day Years Used Date Smoking Tobacco: Never Passive Smoke Exposure: Past Smokeless Tobacco: Never Alcohol Use Standard Drinks/Week Comments Yes 1 (1 standard drink = 0.6 oz pur e alcohol) [facility] Utilities Answer Date Recorded In the past 12 months has e [employer], gas, oil, or water [employer] threatened to shut off services in your [...] often do you attend chur ch or gnosticism services? Never 07/07/2022 Do you belong to any clubs o r organizations such as roman catholic groups, unions, fraRollbar or athletic groups, or school groups? No [...] Answer Date Recorded PHQ-2 Score 2 11/15/2023 [facility] of Occupat ional Health - Occupational Stress [...] living situation today? I have a [facility] place to live 12/29/2023 Education Answer Date [...] as of this encounter Progress Notes * Ellie Whitehead, LMarixaRMarixaT. - 01/24/2024 1:00 PM CDT Mrs. Duran was given an exercise prescription as outlined below. Lower extremity endurance mode including but not limited to walking, jogging, running, or biking. Intensity of exercise includes: target heart rate of 95-105 and a perceived exertion level of 10-12(6-20 scale). Duration goals include: a warm up of 3-5 minutes, conditioning phase of 30 minutes, and a cool downof 5-10 minutes. Frequency exercise days: 3-5 days per week Other instructions: stretch lower extremities before and after exercise and start slow, set goals, stretch before and after exercise, consult your physician with any questions. The patient understanding: verbalized understanding of exercise. documented in this encounter Plan of Treatment Upcoming Encounters Date Type Department Care Team (Latest Contact Info) Description 03/29/2024 12:30 PM CDT Clinical Communication Virtual Review in [place], [place] [address] [place] [phone] 04/01/2024 2:40 PM CDT Appointment Department of Laboratory Medicine and Pathology, [facility] in [address] [phone] Adelina Arango APRN, C.N.P. [address] [place] [phone] 04/01/2024 4:00 PM CDT Appointment Department of Radiology, [facility] in [address] [phone] Adelina Arango APRN, C.N.P. [address] [place] [phone] 04/02/2024 1:00 PM CDT Office Visit Department of Oncology in [address] [phone] Julia Gunn M.D., Ph.D. [address] [place] [phone] 05/20/2024 3:00 PM CDT Office Visit Department of Dermatology in [address] [phone] Pam Crain M.D. [address] [place] [phone] Discharge Disposition: Home or Self Care documented as of this encounter Procedures Procedure Name Priority Date/Time Associated Diagnosis Comments CARDIOPULMONARY (VO2) EXERCISE TEST Routine 03/06/2024 10:44 AM CDT Dyspnea On Exertion ABG W/ LACTATE - PULM Routine 01/24/2024 10:32 AM CDT Shortness Of Breath ABG W/ LACTATE - PULM Routine 01/24/2024 10:31 AM CDT Shortness Of Breath documented in this encounter Results * CARDIOPULMONARY (VO2) EXERCISE TEST (03/06/2024 10:44 AM CDT) RER-VO2Max 1.49 [id number] 11 mL/beat [facility] EEZE SUITE Work Asif-AT 61 Asif [facility] SUITE Work Asif-VO2Max 122 Asif [facility] SU[facility] METS-VO2Max 4.6 [facility] SUITE Time min-VO2Max 10:26 min [facility] SU[facility] VE BTPS-VO2Max 74.2 L/min [facility] VO2 kg-AT 10.4 mL/kg/min [facility] SUITE VO2 kg-VO2Max 16.0 mL/kg/min [facility] SUITE VEVCO2-AT 31 [facility] SUITE VEVCO2-VO2Max 35 [facility] SUITE HR-VO2Max 123 BPM [facility] SUITE SpO2-VO2Max 100 % [facility] SUITE RR-VO2Max 51 br/min [facility] SUITE 01/24/2024 10:3 3 AM CDT Ramesh Desai APRN, C.N.P., D.N.P. P FT ORDERABLES [facility] SU[facility] NA * Arterial Blood Gas with Lactate (01/24/2024 10:32 AM CDT) Sample Site Right Radial Catheter CPX 01/24/2024 [...] C.N.P., D.N.P. L AB BLOOD NON ADD-ON [facility] [address] [place] [address], [facility] DTL [facility] [address] [place] [address] * (ABNORMAL) Arterial Blood Gas with Lactate (01/24/2024 10:31 AM CDT) Sample Site Right Radial Catheter CPX 01/24/2024 12:14 PM CDT DTL Patient Position Sit 01/24/20 12:14 PM CDT DTL Patient Activity Ergometry 01/24/20 12:14 PM CDT DTL FIO2 21.00 21%=AIR % 01/24/2024 12:14 PM CDT DTL pH Arterial 7.40 7.35 - 7.45 01/24/2024 12:14 PM CDT DTL pCO2 Arterial 34.2(L) 35.0 - 45.0 mm Hg 01/24/2024 12:14 PM CDT DTL pO2 Arterial 94.2 80.0 - 100.0 mm Hg 01/24/2024 12:14 PM CDT DTL Total Hemoglobin 14.3 11.6 - 15.0 g/dL 01/24/2024 12:14 PM CDT DTL O2 Saturation 96.8 94.0 - 98.0 % 01/24/2024 12:14 PM CDT DTL Carboxyhemoglobin 1.1 0.0 - 1.9 % 01/24/2024 12:14 PM CDT DTL Methemoglobin 0.6 0.0 - 0.9 % 01/24/2024 12:14 PM CDT DTL Bicarbonate Conc 21.0(L) 22.0 - 26.0 mmol/L 01/24/2024 12:14 PM CDT DTL Base Excess -3.9(L) 0.0 - 2.0 mmol/L 01/24/2024 12:14 PM CDT DTL Lactate, B 8.4(H) 0.5 - 2.2 mmol/L 01/24/2024 12:14 PM CDT DTL Asif 120.00 01/24/2024 12:14 PM CDT DTL Subcutaneous Lidocaine 0.0 mL 01/24/2024 12:14 PM CDT DTL O2 Devices N/A 01/24/2024 12:14 PM CDT DTL Blood (Blood, Arterial) 01/24/2024 10:31 AM CDT 01/24/2024 10:35 AM CDT Ramesh Desai APRN, C.N.P., D.N.P. L AB BLOOD NON ADD-ON [facility] [address] [place] [address], [facility] [address] [place] [address] documented in this encounter Visit Diagnoses Diagnosis Dyspnea On Exertion Shortness Of Breath documented in this encounter Additional Health Concerns Infection Onset Date Last Indicated Resolved Time COVID19 Pending 02/04/2024 02/04/2024 02/04/2024 9 :27 AM CDT Assessment Noted Time PHQ-9 Depression Total Score: 5 11/15/19 24 11:23 AM CDT documented as of this encounter Care Teams Fabric Finisher Relationship Specialty Start Date End Date Galina Brooks APRN, C.N.P., D.N.P. [address] [place] [phone] PCP - General Family Medicine 02/22/21 Dr Favian Doan- pt was not aware what the name of the dental group is. Dentistry 11/01/22 opthalmology [place] 11/01/22 documented as of this encounter
--- OUTSIDE RECORDS SUMMARY | 2024-03-09 09:10 | XMS_ITS | Encounter Summary ---
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 Primary Ca re Provider Reason for Referral * Outpatient (Routine) - Closed Specialty Diagnoses / Procedures Referred By Contac t Referred To Contact Emergency Medicine Diagnoses Congestive Heart Failure (HCC) Jagdeep Strong APRN, C.N.P., M.S.N. [address] [address] [facility] Region Referral ID Status Reason Start Date Expiration Date Visits Re quested Visits Authorized [id number] Closed 02/04/2024 08/05/2025 1 1 * Outpatient (Routine) - Authorized Specialty Diagnoses / Procedures Referred By Contac t Referred To Contact Emergency Medicine Diagnoses Congestive Heart Failure (HCC) Jagdeep Strong APRN, Naima.N.P., M.S.N. [address] [address] [facility] Region Referral ID Status Reason Start Date Expiration Date V isits Requested Visits Authorized [id number] Authorized 02/04/2024 08/05/2025 1 1 Reason for Visit * Reason Comments Shortness of Breath Pt arrives to ED via private vehicle with . Has had SOB x1 month, states intermittent pain in head with standing, ear pain bilaterally, states low grade fevers in evenings and mornings (T Max 100.7 F per pt). General malaise and weakness in BLE. Encounter Details Date Type Department Care Team (Late st Contact Info) Description 02/04/2024 7:32 AM CDT - 02/04/2024 2:45 PM CDT [facility] [address] [place] [phone] Jagdeep Strong APRN, C.N.P., M.S.N. [address] [place] [address] Congestive Heart Failure (HCC) (Primary Dx) Discharge Disposition: Home or Self Care Social History Tobacco Use Types Packs/Day Years Used Date Smoking Tobacco: Never Passive Smoke Exposure: Past Smokeless Tobacco: Never Alcohol Use Standard Drinks/Week Comments Yes 1 (1 standard drink = 0.6 oz pur e alcohol) [facility] Utilities Answer Date Recorded In the past 12 months has e [employer], gas, oil, or water [employer] threatened to shut off services in your [...] often do you attend chur ch or buddhist services? Never 07/07/2022 Do you belong to any clubs o r organizations such as oriental orthodox groups, unions, fraternal or athletic groups, or [...] Answer Date Recorded PHQ-2 Score 2 11/15/2023 [facility] - Occupational Stress Questionnaire Answer Date Recorded [...] your living situation today? I have a [facility] place to live 12/29/2023 [...] Sign Reading Time Taken Comments Blood Pressure 102/66 02/04/2024 2:27 PM CDT Pulse 86 02/04/2024 2:27 PM CDT Temperature 36.7 ??C (98.1 ??F) 02/04/2024 2:27 PM CD T Respiratory Rate 18 02/04/2024 2:27 PM CDT Oxygen Saturation 93% 02/04/2024 2:27 PM CDT Inhaled Oxygen Concentration - - Weight 87.8 kg (193 lb 9 oz) 02/04/2024 7:42 AM CDT Height - - Body Mass Index 31.48 01/24/2024 9:01 AM CDT documented in this encounter Discharge Instructions * Discharge Instructions* Jagdeep Strong, ADALGISA, C.N.P., M.S.N. - 02/04/2024 12:16 PM CDT Ensure you are taking the diuretic medication that you were started on daily and follow up closely with the your primary care provider as well as Cardiology. We yourself daily if you have a weight gain of 5 lb overnight then please return to the emergency department for further evaluation. If you have any new or worsening symptoms then please return to the ED for further evaluation. documented in this encounter Medications at Time [...] as of this encounter ED Notes * Jagdeep Strong APRN, C.N.P., M.S.N. - 02/04/2024 7:59 AM CDT SUBJECTIVE CHIEF COMPLAINT/REASON FOR VISIT Shortness of Breath (Pt arrives to ED via private vehicle with . Has had SOB x1 month, states intermittent pain in head with standing, ear pain bilaterally, states low grade fevers in eveningsand mornings (T Max 100.7 F per pt). 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 She states that her shortness of breath has been ongoing over the last month. She states that she has been seen previously and has had labs and imaging. She does state that she previously completed therapy for colon cancer in December. She states that she camein the emergency department because she feels that the shortness of breath is now worse than it wasbefore. She states that the shortness of breath increases with the movement and ambulation. 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 Respiratory: Positive for shortness of breath. Negative for cough. Cardiovascular: Negative for chest pain, palpitations and leg swelling. Gastrointestinal: Negative for abdominal distention, abdominal pain, constipation, diarrhea, nauseaand vomiting. Genitourinary: Negative for flank pain. Musculoskeletal: Negative for back pain and extremity pain. Neurological: Positive for headaches. Negative for dizziness, weakness and numbness. Psychiatric/Behavioral: Negative for agitation and confusion. OBJECTIVE Initial Vitals Temperature 02/04/24 0743 36.9 ??C Pulse Rate 02/04/24 0734 61 Heart Rate -- Resp Rate 02/04/24 0734 20 Blood Pressure 02/04/24 0743 127/74 SpO2 06/02/24 0734 99 % Pain Score 02/04/24 0741 0 - No pain PHYSICAL EXAMINATION Constitutional: Nursing note and vitals reviewed. She is cooperative. No distress. Eyes: Conjunctivae and EOM are normal. Pupils are equal, round, and reactive to light. Neck: No tracheal deviation present. Cardiovascular: Normal rate, regular rhythm, S1 normal, S2 normal and normal heart sounds. Pulses are strong and palpable. Pulses: Radial pulses are 2+ on the right side, and 2+ on the left side. Capillary refill: takes less than 3 seconds, Right upper extremity < 2. , Left upper extremity < 2 Pulmonary/Chest: Effort normal and breath sounds normal. There is normal air entry. No stridor. No tachypnea. No respiratory distress. She has no wheezes. She has no rhonchi. She has no rales. Abdominal: Soft. Bowel sounds are normal. exhibits no distension. There is no abdominal tenderness.There is no guarding, no CVA tenderness, no tenderness at McBurney's point and negative Pagan's sign. Neurological: Alert and oriented to person, place, and time. She has normal strength and cranial nerves II through XII intact. She is not disoriented. No cranial nerve deficit. GCS eye subscore is 4.GCS verbal subscore is 5. GCS motor subscore is 6. Normal speech. Interacting normally Skin: Skin is warm, dry, intact and normal color. She is not diaphoretic. Psychiatric: She has a normal mood and affect. Speech pattern is normal and behavior is normal. Relaxed.Cognition and memory are normal. 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 She states that her shortness of breath has been ongoing over the last month. She states that she has been seen previously and has had labs and imaging. She does state that she previously completed therapy for colon cancer in December. She states that she camein the emergency department because she feels that the shortness of breath is now worse than it wasbefore. She states that the shortness of breath increases with the movement and ambulation. She otherwise denies any cough, fever, chills, chest pain, nausea, vomiting any other related symptoms On physical exam patient was alert oriented vitals stable, afebrile and does not appear to be in any acute distress. Lung sounds clear and equal bilateral no cardiac abnormalities noted auscultation.Pulses +2 equal bilateral. Abdomen is soft nontender nondistended. Patient was resting comfortably and does not appear to be any acute distress, she does not appear to be short of breath the time of exam. No significant abnormalities noted on physical exam. We will obtain further workup and evaluation including CBC, CMP, troponin, proBNP, D-dimer, viral swab, ECG, and CT imaging of the chest. ECG was reassuring as it did not demonstrate any signs of ischemia. CBC did note a mild anemia however she denied any obvious signs of bleeding low suspicion forGI bleed it was a cause of anemia it was could be related to fluid overload. No leukocytosis noted.CMP noted a mild decrease in sodium and chloride no renal dysfunction noted. However patient was have some elevation in his alk phos it was well as her AST and ALT. No obvious signs of significant hepatic dysfunction. Patients initial troponin it was 19, 2 hour repeat troponin was indeterminate butdowntrending ACS unlikely. ProBNP was elevated at 5626 with no previous labs to compare to. Her D-dimer was elevated at [address] with CT imaging for PE rule out. CT imaging was negative for PE however she did have some pulmonary edema which increases my suspicion for congestive heart fail ure as cause of his symptoms. I did give the patient a dose of Lasix 40 mg IV here in the emergencydepartment. Consulted Cardiology who agreed that this is likely a congestive failure exacerbation, however, she was vitally stable and I believe she can follow up in the outpatient setting which cardiology agreed with. We did monitor the patient after her Lasix was given and she did have a appropriate response to diuretics. Her vitals remained stable and therefore feel that we can continue with outpatient follow up. We will place a close follow up with the primary care provider as well as with Cardiology. Strict ED return precautions discussed with the patient. At time of discharge patient isunder no acute distress, appears non-toxic, and is still alert and acting normally. Patient was advised to f/u in ED if pt develops any new/worsening sx. Patient was agreeable to planof care. Patient understands patient education and ED return precautions. All other questions and concerns were addressed prior to patient discharge home . DIFFERENTIAL DIAGNOSES Differential diagnosis includes but isn't limited to pneumonia, PE, ACS, viral upper respiratory illness,. PROBLEMS ADDRESSED THIS VISIT Problem 1: Shortness of breath. ED Course as of 02/04/24 1435 Sun Feb 04, 2024 0758 ECG 12 Lead ECG demonstrates normal sinus rhythm no ST elevation or depression noted no widened QRS complex noted rate 96 beats per minute QTC 429 0905 Hemoglobin(!): 10.6 0905 Hematocrit(!): 32.5 0905 Leukocytes: 4.9 0905 CBC notes mild anemia 2 point drop last 3 weeks, no leukocytosis 0910 Potassium, P: 4.0 0910 Sodium, P(!): 133 0910 Chloride, P(!): 97 0910 Aspartate Aminotransferase (AST), P(!): 91 0910 Alkaline Phosphatase, P(!): 151 0910 Alanine Aminotransferase (ALT), P(!): 134 0910 CMP notes mild decrease in sodium and chloride no renal dysfunction noted however patient was does have some elevated liver enzymes which it was new on today's labs. 0910 Troponin T, Baseline, 5th gen(!): 19 Troponin mildly elevated at 19, no previous to compare we will continue to trend and repeat in 2 hours 0911 D-DIMER, P(!): 1115 D-dimer elevated at 1115 we will proceed with a CT imaging for PE 0927 NT-Pro BNP(!): 5626 ProBNP elevated at 5626 no signs of significant fluid overload 0927 SARS CoV-2, PCR, Rapid, V: Undetected 1031 CT Chest Angiogram and Pulmonary Arteries with IV Contrast On my review patient was CT angiogram no acute pulmonary embolism noted. Radiology report agrees with this assessment notes following findings: IMPRESSION: - Negative for acute pulmonary embolism. -Mild diffuse interlobular septal thickening suggestive of mild acute interstitial pulmonary edema. -Diffuse mosaic lung attenuation which could also be seen with reactive small airway disease. 1032 Influenza A, POCT: Negative 1033 Influenza B, POCT: Negative 1033 Resp Syncytial Virus, POCT: Negative 1033 SARS CoV-2, PCR, Rapid, V: Undetected 1033 Viral swab unremarkable 1122 Contacted ATC for cardiology consult it was able to speak to with Cardiology as I gave the patient 40 mg of IV Lasix for a CHF exacerbation. Did agree that this has likely related to CHF he recommended starting the patient on torsemide 20 mg and monitoring the patient was here after the Lasix to determine appropriate response to diuretics. He did feel the patient will likely be appropriate for outpatient cardiology and PCP follow up recommending a echocardiogram prior to cardiology follow up. 1227 Troponin T, 2 hr, 5th gen(!): 15 2 hour repeat troponin indeterminate with a delta of -4. Final Diagnoses: as of 02/04/24 1435 Congestive Heart Failure (HCC) My ECG interpretation is documented in ED Course. My CT Scan interpretation is documented in ED Course. I discussed the management of the patient with: Cardiology. Jagdeep tSrong APRN, C.N.P., M.S.N. 02/04/24 1435 documented in this encounter Plan of Treatment Upcoming Encounters Date Type Department Care Team (Latest Contact Info) Description 03/29/2024 12:30 PM CDT Clinical Communication Virtual Review in [address] [phone] 04/01/2024 2:40 PM CDT Appointment Department of Laboratory Medicine and Pathology, [address] [address] Adelina Arango APRN, C.N.P. [address] [place] [phone] 04/01/2024 4:00 PM CDT Appointment Department of Radiology, [address] [phone] Adelina Arango APRN, C.N.P. [address] [place] [phone] 04/02/2024 1:00 PM CDT Office Visit Department of Oncology in [address] [phone] Julia Gunn M.D., Ph.D. [address] [place] [address] 05/20/2024 3:00 PM CDT Office Visit Department of Dermatology in [address] [phone] Pam Crain M.D. [address] [place] [address] Discharge Disposition: Home or Self Care Scheduled Referrals Name Type Priority Associated Diagnoses Order Schedule POST ED VISIT Family Medicine Outpatient Referral Routine Congestive Heart Failure (HCC) Expected: 02/04/2024, Expires: 05/06/2025 POST ED VISIT Cardiovascular Disease Outpatient Referral Routine Congestive Heart Failure (HCC) Expected: 02/07/2024, Expires: 05/06/2025 documented as of this encounter Procedures Procedure Name Priority Date/Time Associated Diagnosis Comments TROPONIN T, 2H/6H, 5TH GEN, P Timed 02/04/2024 11:[address] CHEST ANGIOGRAM AND PULMONARY ARTERIES WITH IV CONTRAST RAD - Semiurgent (Fast; most ED patients; some inpatients) 02/04/2024 9:49 AM CDT TROPONIN T, BASELINE, 5TH GEN, P STAT 02/04/2024 8:34 AM CDT NT-PRO B-TYPE NATRIURETIC PEPTIDE (BNP), S STAT 02/04/2024 8:34 AM CDT D-DIMER, P STAT 02/04/2024 8:34 AM CDT CBC WITH DIFFERENTIAL, B STAT 02/04/2024 8:34 AM CDT COMPREHENSIVE METABOLIC PANEL, S/P STAT 02/04/2024 8:34 AM CDT SARS CORONAVIRUS 2, PCR RAPID, V STAT 02/04/2024 8:02 AM CDT INFLUENZA A, B, RSV, PCR, POCT STAT 02/04/2024 8:02 AM CDT ECG STAT 02/04/2024 7:55 AM CDT documented in this encounter Results * Troponin T, 2h/6h, 5th Gen (02/04/2024 [...] AM CDT 02/04/2024 12:02 PM CDT Narrative [facility] - 02/04/2024 7:10 PM CDT Troponin T, 2H/6H, 5th gen, P was cancelled on 02/04/2024 at 19:10; Per provider's request. Specimen Information: Specimen ID: [id number] Specimen Type: Blood Specimen Collection Start Date: 02/04/2024 11:53 AM Specimen Received Date: 02/04/2024 12:02 PM Specimen ID: [id number] Specimen Type: Blood Jagdeep Strong APRN, C.N.P., M.S.N. LAB B LOOD TROPONIN [facility] [address] [place] [address], [facility] CNFL [facility] [place] [address] * CT Chest Angiogram and Pulmonary Arteries with IV Contrast (02/04/2024 9:49 AM CDT) Anatomical Region Laterality Modality Chest, Cardiovascular RST [...] seen with reactivesmall airway disease. Jagdeep Strong APRN C.N.P., M.S.N. IMG C T PROCEDURES * (ABNORMAL) Comprehensive Metabolic Panel (02/04/2024 8:34 AM CDT) [facility] Potassium, P 4.0 3.6 - 5.2 mmol/L 02/04/2024 9:07 AM CDT [facility] Sodium, P 133(L) 135 - 145 mmol/L 02/04/2024 9:07 AM CDT [facility] Chloride, P 97(L) 98 - 107 mmol/L 02/04/2024 9:07 AM CDT [facility] Bicarbonate, P 26 22 - 29 mmol/L 02/04/2024 9:07 AM CDT CN[facility] Anion Gap, P 10 7 - 15 02/04/2024 9:07 AM CDT [facility] BUN (Blood Urea Nitrogen), P 19 6 - 21 mg/dL 02/04/2024 9:07 AM CDT [facility] Creatinine 0.90 0.59 - 1.04 mg/dL 02/04/2024 9:07 AM CDT [facility] Estimated GFR (eGFR) 68 >=60 mL/min/BS A 02/04/2024 9:07 AM CDT [facility] Comment: Estimated GFR calculated using the 2020 CKD_EPI creatinine equation. Calcium, Total, P 8.5(L) 8.8 - 10.2 mg/dL 02/04/2024 9:07 AM CDT [facility] Glucose, P 106 70 - 140 mg/dL 02/04/2024 9:07 AM CDT [facility] Protein, Total, P 6.1(L) 6.3 - 7.9 g/dL 02/04/2024 9:07 AM CDT CN[facility] Albumin, P 3.2(L) 3.5 - 5.0 g/dL 02/04/2024 9:07 AM CDT [facility] Aspartate Aminotransferase (AST), P 91(H) 8 - 43 U/L 02/04/2024 9:07 AM CDT [facility] Alkaline Phosphatase, P 151(H) 35 - 104 U/L 02/04/2024 9:07 AM CDT [facility] Alanine Aminotransferase (ALT), P 134(H) 7 - 45 U/L 02/04/2024 9:07 AM CDT [facility] Bilirubin, Total, P 0.4 0.0 - 1.2 mg/dL 02/04/2024 9:07 AM CDT [facility] Blood (Blood, Venous) 02/04/2024 8:34 AM CDT 02/04/2024 8:46 AM CDT Jagdeep Strong APRN, C.N.P., M.S.N. LAB B GORDON ADD-ON [facility] [address] [place] [id number], [facility] CNFL [facility] [place] [address] * (ABNORMAL) D-Dimer (02/04/2024 8:34 AM CDT) D-Dimer, P 1115(H) <=500 ng/mL FEU 02/04/2024 9:[address] [facility] Comment: D-dimer concentrations increase with age. ??For [...] and/or pulmonary embolism (PE). Blood (Blood, Venous) 02/04/2024 8:34 AM CDT 02/04/2024 8:46 AM CDT Jagdeep Strong APRN, Naima.N.P., M.S.N. LAB B LOOD ADD-ON Performing Organization Address City/[facility]/[place] [address], [facility] in [address] [address] * (ABNORMAL) Troponin T, Baseline, 5th gen (02/04/2024 8:34 AM CDT) Troponin T, Baseline, 5th gen 19(H) <=10 ng/L 02/04/2024 9:[address] [facility] Blood (Blood, Venous) 02/04/2024 8:34 AM CDT 02/04/2024 8:46 AM CDT Naima Swan APRN.N.P., M.S.N. LAB B LOOD TROPONIN [address] [place] [address], [facility] in [address] [address] * (ABNORMAL) NT-Pro B-Type Natriuretic Peptide (BNP) (02/04/2024 8:34 AM CDT) Pathologist [facility] NT-Pro BNP 5626(H) <=540 pg/mL 02/04/2024 9:19 AM CDT CNFL Comment: NT-proBNP values less than 300 pg/mL [...] absence of renal failure. Blood (Blood, Venous) 02/04/2024 8:34 AM CDT 02/04/2024 8:46 AM CDT Jass Swan APRNNFede., M.S.N. LAB B LOOD ADD-ON [facility] [address] [place] [id number], [facility] in [address] [address] * (ABNORMAL) CBC with Differential, Blood (02/04/2024 8:34 AM CDT) Pathologist [facility] Hemoglobin 10.6(L) 11.6 - 15.0 g/dL 02/04/2024 9:04 AM CDT CNFL Hematocrit 32.5(L) 35.5 - 44.9 % 02/04/2024 9:04 AM CDT CNFL Erythrocytes 3.63(L) 3.92 - 5.13 x10(12)/L 02/04/2024 9:04 AM CDT CNFL MCV 89.5 78.2 - 97.9 fL 02/04/2024 9:04 AM CDT CNFL RBC Distrib Width 14.2 12.2 - 16.1 % 02/04/2024 9:04 AM CDT CN[facility] Platelet Count 162 157 - 371 x10(9)/L 02/04/2024 9:04 AM CDT [facility] Leukocytes 4.9 3.4 - 9.6 x10(9)/L 02/04/2024 9:04 AM CDT CNFL Neutrophils 3.70 1.56 - 6.45 x10(9)/L 02/04/2024 9:04 AM CDT CNFL Lymphocytes 0.73(L) 0.95 - 3.07 x10(9)/L 02/04/2024 9:04 AM CDT CNFL Monocytes 0.46 0.26 - 0.81 x10(9)/L 02/04/2024 9:04 AM CDT CNFL Eosinophils <0.04 0.03 - 0.48 x10(9)/L 02/04/2024 9:04 AM CDT CNFL Basophils <0.04 0.01 - 0.08 x10(9)/L 02/04/2024 9:04 AM CDT CN[facility] Blood (Blood, Venous) 02/04/2024 8:34 AM CDT 02/04/2024 8:46 AM CDT Jagdeep Strong APRN C.N.P., M.S.N. LAB B LOOD ADD-ON Performing Organization Address City/State/[facility] Co de Phone Number [facility] [address] [place] [id number], [facility] CNFL [facility] in [address] [address] * Influenza A/B and RSV, PCR, Point of Care (02/04/2024 8:02 AM CDT) Pathologist [facility] Influenza A, POCT Negative Negative 02/04/2024 9:09 AM CDT CNFL Influenza B, POCT Negative Negative 02/04/2024 9:09 AM CDT CNFL Resp Syncytial Virus, POCT Negative Negative 02/04/2024 9:09 AM CDT CNFL Swab (Nasopharynx) 02/04/2024 8:02 AM CDT 02/04/2024 8:46 AM CDT Jagdeep Strong APRN, C.N.P., M.S.N. LAB P OCT ORDERABLES - DEVICE Performing Organization Address [facility] [place] [address], [place] [address] * SARS Coronavirus 2, PCR Rapid Symptomatic (02/04/2024 8:02 AM CDT) SARS CoV-2, PCR, Rapid, V Undetected Undetected 02/04/2024 9:[address] [facility] Comment: ----ADDITIONAL INFORMATION---- This RT-PCR test was performed using the [employer] SARS-CoV-2 and Influenza A/B Reagent assay from [employer], which has received Emergency Use Authorization(EUA) by the U.S. Food and Drug Administration. Fact sheets for this Emergency Use Authorization (EUA) assay can be found at the following links: For Healthcare Providers: https://www.fda.gov/media/119395/download For Patients: https://www.fda.gov/media/044240/download SARS Coronavirus 2, Source, Rapid Swab, Nasopharynx 02/04/2024 8:[address] [facility] Swab (Nasopharynx) 02/04/2024 8:02 AM CDT 02/04/2024 8:46 AM CDT Jagdeep Strong APRN, C.N.P., M.S.N. LAB M ICROBIOLOGY - GENERAL ORDERABLES [address] [address], [place] [address] * ECG 12 Lead (02/04/2024 7:55 AM CDT) Ventricular Rate ECG/Min 96 BPM MUSE NV Interval 154 ms MUSE QRSD Interval 86 ms MUSE QT Interval 340 ms MUSE QTC Interval 429 ms MUSE P [place] 60 degrees MUSE R [place] -26 degrees MUSE T Wave [place] 47 degrees MUSE 02/04/2024 7:55 AM CDT 02/04/2024 7:57 AM CDT Impressions MUSE - 02/04/2024 7:57 AM CDT Normal sinus rhythm Normal ECG When compared with ECG of 07-Nov-2022 13:57, No significant change was found Reviewed by NISHA Polanco Narrative Procedure Note Sandeep Segovia M.D., Ph.D. - 02/04/2024 IMPRESSION: Normal sinus rhythm Normal ECG When compared with ECG of 07-Nov-2022 13:57, No significant change was found Reviewed by NISHA Polanco Jass Swan APRNNFede., M.S.N. ECG O RDERABLES MUSE NA documented in this encounter Visit Diagnoses Diagnosis Congestive Heart Failure (HCC)- Primary documented in this encounter Administered Medications Inactive Administered Medications - up to 3 most recent administrations Medication Order MAR Action Action Date Dose Rate Site dexAMETHasone injection 10 mg (DECADRON) 10 mg, intravenous, Once, On 02/04/24 at 0749, For 1 dose Given 02/04/2024 8:04 AM CDT 10 mg furosemide injection 40 mg (LASIX) 40 mg, intravenous, Once, On Mon02/04/24 at 1032, For 1 dose, Adults: Doses less than 120 mg: IV push over 20 mg/minute. Doses 120 mg or greater: IVPB at 4 mg/minute. Peds/Neonates: Doses less than 120 mg over 0.5 mg/kg/minute. Doses 120 mg or greater: IVPB at 4 mg/minute. Given 02/04/2024 10:58 AM CDT 40 mg iopromide 370 mg iodine/mL injection 100 mL (ULTRAVIST) 100 mL, intravenous, Once in imaging, contrast, Starting on Mon02/04/24 at 0931, For 1 dose Given 02/04/2024 9:50 AM CDT 100 mL ketorolac injection 15 mg (TORADOL) 15 mg, intravenous, Once, On 02/04/24 at 0808, For 1 dose, Adult IV push rate: Over 15 seconds. Peds IV push rate: Over 1 minute. Doses > 15 mg IV/IM are discouraged due to lack of additional analgesic benefit. Given 02/04/2024 8:09 AM CDT 15 mg NaCl 0.9 % bolus 80 mL 80 mL, intravenous, at 80 mL/hr, Administer over 1 Hours, Once, On 02/04/24 at 0933, For 1 dose New Bag 02/04/2024 9:51 AM CDT 80 mL 80 mL/hr sodium chloride 0.9 % injection 10 mL 10 mL, intravenous, As needed, line care, Starting on 02/04/24 at 0747, Peripheral Intravenous Catheter and Rapid Infusion Catheter, prior to blood sampling, post blood transfusion or post blood sampling Given 02/04/2024 11:01 AM CDT 10 mL sodium chloride 0.9 % injection 10 mL 10 mL, intravenous, Once, On 02/04/24 at 0933, For 1 dose Given 02/04/2024 9:51 AM CDT 10 mL sodium chloride 0.9 % injection 3 mL 3 mL, intravenous, As needed, line care, Starting on 02/04/24 at 0747, Prior to and following infusion and between multiple consecutive infusions: sodium chloride 0.9 % injection sodium chloride 0.9 % injection 3 mL 3 mL, intravenous, Every 12 hours scheduled, First dose on Mon02/04/24 at 0900, Peripheral Intravenous Catheter and Rapid Infusion Catheter, when no infusion to maintain patency documented in this encounter Active and Recently Administered Medications Times are shown in CDT. Scheduled Medication Order 02/02/2024 02/03/2024 02/04/2024 dexAMETHasone injection 10 mg (DECADRON) (COMPLETED) 10 mg, intravenous, Once, On 02/04/24 at 0749, For 1 dose 0804 (Given - Provid er: Tracee Stanford R.N.) furosemide injection 40 mg (LASIX) (COMPLETED) 40 mg, intravenous, Once, On 02/04/24 at 1032, For 1 dose, Adults: Doses less than 120 mg: IV push over 20 mg/minute. Doses 120 mg or greater: IVPB at 4 mg/minute. Peds/Neonates: Doses less than 120 mg over 0.5 mg/kg/minute. Doses 120 mg or greater: IVPB at 4 mg/minute. 1058 (Given - Provid er: Tracee Stanford R.N.) ketorolac injection 15 mg (TORADOL) (COMPLETED) 15 mg, intravenous, Once, On 02/04/24 at 0808, For 1 dose, Adult IV push rate: Over 15 seconds. Peds IV push rate: Over 1 minute. Doses > 15 mg IV/IM are discouraged due to lack of additional analgesic benefit. 0809 (Given - Provid er: Tracee Stanford R.N.) NaCl 0.9 % bolus 80 mL (COMPLETED) 80 mL, intravenous, at 80 mL/hr, Administer over 1 Hours, Once, On 02/04/24 at 0933, For 1 dose 0951 (New Bag - Prov ider: Jeanne Can(R)(CT), R.T.(R))1147 (Stopped - Provider: Morales Ann R.N.) sodium chloride 0.9 % injection 10 mL (COMPLETED) 10 mL, intravenous, Once, On 02/04/24 at 0933, For 1 dose 0951 (Given - Provid er: Jeanne Can(R)(CT), R.T.(R)) sodium chloride 0.9 % injection 3 mL 3 mL, intravenous, Every 12 hours scheduled, First dose on Mon02/04/24 at 0900, Peripheral Intravenous Catheter and Rapid Infusion Catheter, when no infusion to maintain patency 0900 (Due) PRN Medication Order 02/02/2024 02/03/2024 02/04/2024 iopromide 370 mg iodine/mL injection 100 mL (ULTRAVIST) (COMPLETED) 100 mL, intravenous, Once in imaging, contrast, Starting on 02/04/24 at 0931, For 1 dose 0950 (Given - Provid er: Jeanne Can(R)(CT), R.T.(R)) sodium chloride 0.9 % injection 10 mL 10 mL, intravenous, As needed, line care, Starting on Mon02/04/24 at 0747, Peripheral Intravenous Catheter and Rapid Infusion Catheter, prior to blood sampling, post blood transfusion or post blood sampling 1101 (Given - Provid er: Tracee Stanford R.N.) sodium chloride 0.9 % injection 3 mL 3 mL, intravenous, As needed, line care, Starting on 02/04/24 at 0747, Prior to and following infusion and between multiple consecutive infusions: sodium chloride 0.9 % injection documented in this encounter Additional Health Concerns Infection Onset Date Last Indicated Resolved Time COVID19 Pending 02/04/2024 02/04/2024 02/04/2024 9 :27 AM CDT Assessment Noted Time PHQ-9 Depression Total Score: 5 11/15/19 24 11:23 AM CDT documented as of this encounter Care Teams Automatic Corn Grinder Operator Relationship Specialty Start Date End Date Galina Brooks APRN, C.N.P., D.N.P. [address] [phone] PCP - General Family Medicine 02/22/21 Dr Favian Doan- pt was not aware what the name of the dental group is. Dentistry 11/01/22 opthalmology [place] 11/01/22 documented as of this encounter
--- OUTSIDE RECORDS SUMMARY | 2024-03-09 09:10 | XMS_ITS | Encounter Summary ---
Author Organization [facility] Address [address] [place] [address] Care Team Providers Care Fireworks Maker Name Role Phone Galina Brooks APRN, C.N.P., D.N.P. Primary Ca re Provider Encounter Details Date Type Department Care Team (Latest Contact Info) Description 02/08/2024 Intake [facility] Social History Tobacco Use Types Packs/Day Years Used Date Smoking Tobacco: Never Passive Smoke Exposure: Past Smokeless Tobacco: Never Alcohol Use Standard Drinks/Week Comments Yes 1 (1 standard drink = 0.6 oz pur e alcohol) [facility] Utilities Answer Date Recorded In the past 12 months has [facility] [employer], gas, oil, or water [employer] threatened to shut off services in your [...] How often do you attend chur or druze services? Never 07/07/2022 Do you belong to any clubs o r organizations such as christian groups, unions, fraternal or athletic groups, or [...] Answer Date Recorded PHQ-2 Score 2 11/15/2023 [facility]at ional [facility] - [...] your living situation today? I have a [facility] place to live 12/29/2023 Education Answer [...] PM CDT Clinical Communication Virtual Review in [place], [place] [address] [place] [phone] 04/01/2024 2:40 PM CDT Appointment Department of Laboratory Medicine and Pathology, [place], [place] [address] [place] [phone] Adelina Arango APRN, C.N.P. [address] [place] [phone] 04/01/2024 4:00 PM CDT Appointment Department of Radiology, [facility] in [place], [place] [address] [place] [phone] Adelina Arango APRN, C.N.P. [address] [place] [phone] 04/02/2024 1:00 PM CDT Office Visit Department of Oncology in [place], [place] [address] [place] [phone] Julia Gunn M.D., Ph.D. [address] [place] [phone] 05/20/2024 3:00 PM CDT Office Visit Department of Dermatology in [address] [phone] Pam Crain M.D. [address] [place] [phone] Discharge Disposition: Home or Self Care documented as of this encounter Visit Diagnoses Not on filedocumented in this encounter Additional Health Concerns Assessment Noted Time PHQ-9 Depression Total Score: 5 11/15/19 24 11:23 AM CDT documented as of this encounter Care Teams Fireworks Maker Relationship Specialty Start Date End Date Galina Brooks APRN, C.N.P., D.N.P. [address] [place] [phone] PCP - General Family Medicine 02/22/21 Dr Favian Doan- pt was not aware what the name of the dental group is. Dentistry 11/01/22 opthalmology [place] 11/01/22 documented as of this encounter
--- OUTSIDE RECORDS SUMMARY | 2024-03-09 09:10 | XMS_ITS | Encounter Summary ---
Author Organization [facility] Address [address] [place] [address] Care Team Providers Care Indirect Fire Infantryman Name Role Phone Galina Brooks APRN, C.N.PMarixa, D.N.P. Primary Ca re Provider Reason for Referral * Outpatient (Routine) - Closed Specialty Diagnoses / Procedures Referred By Patric t Referred To Contact Family Medicine Galina Brooks APRN, C.N.P., D.N.P. [phone] [place] [phone] [facility] Referral ID Status Reason Start Date Expiration Date Visits Re quested Visits Authorized [id number] Closed 01/25/2024 07/26/2025 1 1 Encounter Details Date Type Department Care Team (Late st Contact Info) Description 01/25/2024 Clinical Communication Division of Pulmonary Medicine in [place], [place] [address] [place] [phone] Ramesh Desai APRN, C.N.P., D.N.P. [address] [place] [phone] Social History Tobacco Use Types Packs/Day Years Used Date Smoking Tobacco: Never Passive Smoke Exposure: Past Smokeless Tobacco: Never Alcohol Use Standard Drinks/Week Comments Yes 1 (1 standard drink = 0.6 oz pur e alcohol) [facility] Utilities Answer Date Recorded In the [...] any clubs o r organizations such as anabaptist groups, unions, fraternal or athletic groups, or [...] Answer Date Recorded PHQ-2 Score 2 11/15/2023 [facility] of Occupat ional [facility] - Occupational Stress Questionnaire Answer [...] your living situation today? I have a [facility] place to live 12/29/2023 Education [...] encounter Miscellaneous Notes * Telephone Encounter - Galina Brooks APRN, C.NZarina, D.N.P. - 01/25/2024 1:56 PM CDT Chacho-Thanks, I will meet with her to discuss. Scheduling- Could you assist with scheduling for an appointment in 2-3 weeks to re-treat her wart and to discuss blood pressure/exercise. documented in this encounter Plan of Treatment Upcoming Encounters Date Type Department Care Team (Latest Contact Info) Description 03/29/2024 12:30 PM CDT Clinical Communication Virtual Review in [address] [phone] 04/01/2024 2:40 PM CDT Appointment Department of Laboratory Medicine and Pathology, [facility] in [address] [phone] Adelina Arango APRN, C.N.P. [address] [place] [phone] 04/01/2024 4:00 PM CDT Appointment Department of Radiology, [facility] in [address] [phone] Adelina Arango APRN, C.N.P. [address] [place] [phone] 04/02/2024 1:00 PM CDT Office Visit Department of Oncology in [address] [phone] Julia Gunn M.D., Ph.D. [address] [place] [phone] 05/20/2024 3:00 PM CDT Office Visit Department of Dermatology in [address] [phone] Pam Crain M.D. [address] [place] [phone] Discharge Disposition: Home or Self Care Scheduled Referrals Name Type Priority Associated Diagnoses Orde r Schedule Family Medicine office visit (clinic) Outpatient Referral Routine Expected: 02/08/2024, Expires: 04/26/2025 documented as of this encounter Visit Diagnoses Not on filedocumented in this encounter Additional Health Concerns Infection Onset Date Last Indicated Resolved Time COVID19 Pending 02/04/2024 02/04/2024 02/04/2024 9 :27 AM CDT Assessment Noted Time PHQ-9 Depression Total Score: 5 11/15/19 24 11:23 AM CDT documented as of this encounter Care Teams Indirect Fire Infantryman Relationship Specialty Start Date End Date Galina Brooks APRN, C.N.P., D.N.P. [address] [place] [phone] PCP - General Family Medicine 02/22/21 Dr Favian Doan- pt was not aware what the name of the dental group is. Dentistry 11/01/22 opthalmology [facility] 11/01/22 documented as of this encounter
--- OUTSIDE RECORDS SUMMARY | 2024-03-09 09:10 | XMS_ITS | Encounter Summary ---
Author Organization [facility] Address [address] [place] [phone] Care Team Providers Care Account Representative Name Role Phone Galina Brooks APRN, C.N.P., D.N.P. Primary Ca re Provider Reason for Visit * Outpatient (Routine) - Closed Specialty Diagnoses / Procedures Referred By Patric yeung Referred To Contact Oncology Andressa Desai APRN C.N.P., M.S.N. [address] [place] [phone] [facility] Referral ID Status Reason Start Date Expiration Date Visits Re quested Visits Authorized [id number] Closed 01/24/2024 07/25/2025 1 1 Encounter Details Date Type Department Care Team (Late st Contact Info) Description 01/31/2024 10:20 AM CDT Virtual Visit Department of Oncology in [place], [place] [address] [place] [phone] Andressa Desai APRN C.N.P., M.S.N. [address] [place] [phone] Jerri Alvarez R.N., O.C.N. [address] [place] [phone] Shortness Of Breath [R06.02] (Primary Dx) Social History Tobacco Use Types Packs/Day Years Used Date Smoking Tobacco: Never Passive Smoke Exposure: Past Smokeless Tobacco: Never Alcohol Use Standard Drinks/Week Comments Yes 1 (1 standard drink = 0.6 oz pur e alcohol) [facility] Utilities Answer Date Recorded In the past 12 months has th e electric, gas, oil, or water company [...] often do you attend chur ch or christianity services? Never 07/07/2022 Do you belong to [...] Date Recorded PHQ-2 Score 2 11/15/2023 [facility] - Occupational Stress Questionnaire Answer [...] your living situation today? [facility] 12/29/2023 Education Answer Date [...] as of this encounter Progress Notes * Jerri Alvarez R.N., O.C.N. - 01/31/2024 10:20 AM CDT SUBJECTIVE CHIEF COMPLAINT / REASON FOR CALL ICI Follow Up ICI Toxicity: Colitis, ? Pneumonitis ASSESSMENT Confirmed with patient that they are currently taking: Steroids: 9 mg budesonide daily I called and spoke with Mrs. Duran. She states that she stopped her prednisone approx 1 week ago. She states that she hasn't noticed any negative effect after stopping this. She states that she does not have any shortness of breath at rest. She reports that she can do approx 8 minutes of walking before she notices any shortness of breath. She states that this is mild. She states that she has checked her oxygen saturations at rest on room air and they have been in the low 90's, but she hasn't checked it with activity. I have encouraged her to check this after activitytoday and to let us know if it is below 90%. Mrs. Duran reports having a slight wheeze when she isshort of breath. She states that this is chronic for her and is unchanged. She denies any cough, chest pain, or chest pressure. Mrs. Duran reports that she is having 2-3 formed bowel movements per day. She denies any blood in the stool, abdominal pain, and nausea. She states that she is eating and drinking well. She does note that she has dry mouth. She denies noticing any dry eyes. I have reviewed with her that she shouldstay well hydrated, but that she can try sugar free hard candies or over the counter mouthwashes, such as biotene or similar. She verbalized understanding of this. Corticosteroid History: 01/04/2024-prednisone 40 mg p.o. daily 01/10/2024-prednisone 80 mg p.o. daily 01/17/2024- Prednisone 60 mg daily 01/20/2024- Prednisone 40 mg daily 01/24/2024- Prednisone 20 mg daily and Budesonide 9 mg daily 01/27/2024- Prednisone stopped; budesonide 9 mg daily PLAN Update Andressa Desai, ADALGISA, CRYSTAL GROWER and Adelina Arango APRN, CNP Disposition/Recommendation: notified provider and awaiting recommendations. Information/Education: patient/caller able to teach back. Caller agreeable to plan of care: yes. The following references were used: nursing clinical judgement. Follow up conducted via real-time audio technology by Jerri Alvarez R.N., O.C.NMarixa in [facility] to the patient in patient's home. * Obdulia Bernstein R.N. - 01/31/2024 10:20 AM CDT Unable to reach the patient by phone. Will send detailed POM.Per Andressa Desai APRN will dismiss form ICI follow up. Will encourage her to reach out to primary onc team with any symptom changes. documented in this encounter Plan of Treatment Upcoming Encounters Date Type Department Care Team (Latest Contact Info) Description 03/29/2024 12:30 PM CDT Clinical Communication Virtual Review in [address] [phone] 04/01/2024 2:40 PM CDT Appointment Department of Laboratory Medicine and Pathology, [address] [phone] Adelina Arango APRN, C.N.P. [address] [place] [phone] 04/01/2024 4:00 PM CDT Appointment Department of Radiology, [address] [phone] Adelina Arango APRN, C.N.P. [address] [place] [phone] 04/02/2024 1:00 PM CDT Office Visit Department of Oncology in [place], [place] [address] [place] [phone] Julia Gunn M.D., Ph.D. [address] [place] [phone] 05/20/2024 3:00 PM CDT Office Visit Department of Dermatology in [address] [phone] Pam Crain M.D. [address] [place] [phone] Discharge Disposition: Home or Self Care documented as of this encounter Visit Diagnoses Diagnosis Shortness Of Breath [R06.02]- Primary documented in this encounter Additional Health Concerns Assessment Noted Time PHQ-9 Depression Total Score: 5 11/15/19 24 11:23 AM CDT documented as of this encounter Care Teams Account Representative Relationship Specialty Start Date End Date Galina Brooks APRN, C.N.P., D.N.P. [address] [place] [phone] PCP - General Family Medicine 02/22/21 Dr Favian Doan- pt was not aware what the name of the dental group is. Dentistry 11/01/22 opthalmology [place] 11/01/22 documented as of this encounter
--- OUTSIDE RECORDS SUMMARY | 2024-03-09 09:10 | XMS_ITS | Encounter Summary ---
Author Organization [facility] Address [address] [place] [address] Care Team Providers Care Ink Technician Name Role Phone Galina Brooks APRN, C.N.P., D.N.P. Primary Ca re Provider Encounter Details Date Type Department Care Team (Late st Contact Info) Description 02/08/2024 Documentation Division of Pulmonary Medicine in [place], [place] [address] [place] [phone] Ramesh Desai APRN, C.N.P., D.N.P. [address] [place] [phone] Social History Tobacco Use Types Packs/Day Years Used Date Smoking Tobacco: Never Passive Smoke Exposure: Past Smokeless Tobacco: Never Alcohol Use Standard Drinks/Week Comments Yes 1 (1 standard drink = 0.6 oz pur e alcohol) [facility] Utilities Answer Date Recorded In the past 12 months has e [employer], gas, oil, or water [employer] threatened to shut off services in your [...] How often do you attend chur or hoahaoism services? Never 07/07/2022 Do you belong to any clubs o r organizations such as christianity groups, unions, fraternal or athletic groups, or [...] Answer Date Recorded PHQ-2 Score 2 11/15/2023 [facility] of Occupat ional Health - Occupational [...] * Ramesh Desai APRN, C.N.P., D.N.P. - 02/08/2024 11:11 AM CDT Chart Update #1 Worsening dyspnea on exertion and fatigue #2 Endometrial cancer 2022 #3 Melanoma of the left leg post resection (2022), most recently treated with nivolumab last dose November 2023 I received a portal message from the patient today that she is purely exhausted, she feels as though she is slipping; mild hypoxemia with 89% reported. She does not feel as though she can tolerate this until her family medicine appointment tomorrow. Recall, she was seen in the local emergency department on 02/04/2024 and was found to have a BNP of 5600, she was treated with IV Lasix and placed on oral torsemide. CT angiogram at that time was negative for PE though did show some pulmonary edema, D-dimer was 1115. She was also noted to have some relative anemia down to 10.6 from 12.6 last month ago. Please see previously extensive workup here in the Pulmonary Department in January 2024. Given her worsening symptomatology despite evaluation a few days ago, I do believe that it would beprudent for her to be evaluated urgently today. For higher level of care I would recommend she be evaluated in the [facility] Emergency Department. My primary concern is question of heart failure. Given her progressive symptoms, after ER evaluation there may be a role for admission. The patient wishes to proceed as outlined above. I have updated the ATC of her impending arrival, will drive via private car. I personally spent 25 minutes in care of the patient today. Time includes both non face to face andface to face patient care. documented in this encounter Plan of Treatment Upcoming Encounters Date Type Department Care Team (Latest Contact Info) Description 03/29/2024 12:30 PM CDT Clinical Communication Virtual Review in [place], [place] 200 [place] [phone] 04/01/2024 2:40 PM CDT Appointment Department of Laboratory Medicine and Pathology, [facility] in [place], [place] [address] [place] [phone] Adelina Arango APRN, C.N.P. [address] [place] [phone] 04/01/2024 4:00 PM CDT Appointment Department of Radiology, [facility] in [place], [place] [address] [place] [phone] Adelina Arango APRN, C.N.P. [address] [place] [phone] 04/02/2024 1:00 PM CDT Office Visit Department of Oncology in [place], [place] [address] [place] [phone] Julia Gunn M.D., Ph.D. [address] [place] [phone] 05/20/2024 3:00 PM CDT Office Visit Department of Dermatology in [address] [phone] Pam Crain M.D. [address] [place] [phone] Discharge Disposition: Home or Self Care documented as of this encounter Visit Diagnoses Diagnosis Dyspnea On Exertion [R06.09]- Primary documented in this encounter Additional Health Concerns Assessment Noted Time PHQ-9 Depression Total Score: 5 11/15/19 24 11:23 AM CDT documented as of this encounter Care Teams Ink Technician Relationship Specialty Start Date End Date Galina Brooks APRN, C.N.P., D.N.P. [address] [place] [phone] PCP - General Family Medicine 02/22/21 Dr Favian Doan- pt was not aware what the name of the dental group is. Dentistry 11/01/22 opthalmology [place] 11/01/22 documented as of this encounter
--- OUTSIDE RECORDS SUMMARY | 2024-03-09 09:10 | XMS_ITS | Encounter Summary ---
Author Organization [facility] Address [address] [place] [address] Care Team Providers Care Program Advocate Name Role Phone Galina Brooks APRN, C.N.P., D.N.P. Primary Ca re Provider Reason for Visit * Outpatient (Routine) - Closed Specialty Diagnoses / Procedures Referred By Patric yeung Referred To Contact Pulmonary Medicine Diagnoses Dyspnea On Exertion Ramesh Desai APRN, C.N.P., D.N.P. [address] [place] [phone] [facility] Referral ID Status Reason Start Date Expiration Date Visits Re quested Visits Authorized [id number] Closed 01/19/2024 07/20/2025 1 1 Encounter Details Date Type Department Care Team (Latest Contact Info) Description 01/25/2024 1:30 PM CDT Virtual Visit Division of Pulmonary Medicine in [place], [place] [address] [place] [phone] Ramesh Desai APRN, C.N.P., D.N.P. [address] [place] [phone] Hypertension Essential Primary (Primary Dx); Dyspnea On Exertion; Deconditioned Social History Tobacco Use Types Packs/Day Years Used Date Smoking Tobacco: Never Passive Smoke Exposure: Past Smokeless Tobacco: Never Alcohol Use Standard Drinks/Week Comments Yes 1 (1 standard drink = 0.6 oz pur e alcohol) [facility] Utilities Answer Date Recorded In the past 12 months has th e [employer], [employer], oil, or water [employer] threatened to shut off services in your [...] any clubs o r organizations such as sikhism groups, unions, fraternal or athletic groups, or [...] Answer Date Recorded PHQ-2 Score 2 11/15/2023 [facility] - Occupational Stress Questionnaire Answer Date Recorded [...] your living situation today? [facility] 12/29/2023 Education Answer [...] of this encounter Progress Notes * Ramesh Desai, ADALGISA, C.N.P., D.N.P. - 01/25/2024 1:30 PM CDT PROGRESS NOTE, ESTABLISHED PATIENT SUBJECTIVE Ms. Duran returns today for discussion of recent diagnostics as well as development of a plan of care. Recall, she is a 74-year-old female, never smoker with a past medical history most significant for melanoma and endometrial malignancy diagnosed in 2022 most recently on nivolumab (last dose November 2023). Past medical history is also significant for hyperlipidemia, hypertension, history of depression. Over the past month or two she has developed dyspnea on exertion even with simple tasks. 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 However she was started on oral prednisone 40 mg on 01/04/2024 secondary to the worsening dyspnea, colitis symptoms have resolved but dyspnea did not change. Therefore on 01/10/2024 she was increased to 80 mg of prednisone still with no improvement in dyspnea. She has subsequently been slowlydown titrated to 60 mg prednisone as of 01/17/2024. CT scan 12/26/2023: No significant bilateral infiltrate, PE negative. Echocardiogram 01/17/2024: LVEF 60%; RVSP 24 with normal size. PFT 01/19/2024: FEV1 1.98 (88%), bronchodilator response not assessed; DLCO 86%. Hemoglobin 12.6. Cardiopulmonary exercise test 01/24/2024: No pulmonary limitation to exercise. Deconditioning. Baseline systolic hypertension. Overnight oximeter 01/24/2024: No acute need for nocturnal oxygen supplementation. Holter monitor 01/24/2024: Pending. She continues to have dyspnea on exertion, no acutely new symptoms. She continues on her prednisonetaper, has been resumed on budesonide by Oncology to try and prevent recurrence of ICI colitis. OBJECTIVE This was a phone visit. ASSESSMENT / PLAN #1 Indeterminate dyspnea on exertion, query relation to baseline hypertension and deconditioning #2 Endometrial cancer 2022 #3 Melanoma of the left leg post resection (2022), most recently treated with nivolumab last dose November 2023 I personally reviewed the patient's diagnostics with the patient today via phone. Cardiopulmonary exercise test did demonstrated degree of deconditioning and baseline hypertension, cardiac and pulmonary responses to exercise were normal. I will personally reach out to her primary care provider, Galina Brooks APRN, to assist in further blood pressure management given this. We did discuss the importance of increasing activity to improve tolerance. We did also discuss the importance of weight lossas another mechanism by which to improve dyspnea on exertion. I will follow-up on her Holter monitor once that is concluded, though my review of the tracing thus far does not demonstrate any acute concern. I would recommend we continue with prednisone taper as previously discussed. She will reach out if there is any concern in the future. The patient is agreeable to proceed with the plan as outlined above, all questions have been answered. Total time of 25 minutes includes Tbaj-yd-Izkc and gdz-Kasm-pj-Face pre and post visit tasks performed on the day of patient visit. documented in this encounter Plan of Treatment Upcoming Encounters Date Type Department Care Team (Latest Contact Info) Description 03/29/2024 12:30 PM CDT Clinical Communication Virtual Review in [address] [phone] 04/01/2024 2:40 PM CDT Appointment Department of Laboratory Medicine and Pathology, [facility] in [address] [phone] Adelina Arango APRN, C.N.P. [address] [place] [phone] 04/01/2024 4:00 PM CDT Appointment Department of Radiology, [facility] in [address] [phone] Adelina Arango APRN, C.N.P. [address] [place] [phone] 04/02/2024 1:00 PM CDT Office Visit Department of Oncology in [address] [phone] Julia Gunn M.D., Ph.D. [address] [place] [phone] 05/20/2024 3:00 PM CDT Office Visit Department of Dermatology in [address] [phone] Pam Crain M.D. [address] [place] [phone] Discharge Disposition: Home or Self Care documented as of this encounter Visit Diagnoses Diagnosis Hypertension Essential Primary- Primary Dyspnea On Exertion Deconditioned documented in this encounter Additional Health Concerns Assessment Noted Time PHQ-9 Depression Total Score: 5 11/15/19 24 11:23 AM CDT documented as of this encounter Care Teams Program Advocate Relationship Specialty Start Date End Date Galina Brooks APRN, C.N.P., D.N.P. [address] [place] [phone] PCP - General Family Medicine 02/22/21 Dr Favian Doan- pt was not aware what the name of the dental group is. Dentistry 11/01/22 opthalmology [place] 11/01/22 documented as of this encounter
--- OUTSIDE RECORDS SUMMARY | 2024-03-09 09:10 | XMS_ITS | Encounter Summary ---
Author Organization [facility] Address [address] [place] [address] Care Team Providers Care Dental Laboratory Worker Name Role Phone Galina Brooks APRN, C.N.P., D.N.P. Primary Ca re Provider Reason for Referral * Outpatient (Routine) - Authorized Specialty Diagnoses / Procedures Referred By Contac t Referred To Contact Diagnoses Dyspnea On Exertion Procedures ECG Heart rhythm monitor (Holter) Ramesh eDsai APRN, C.N.P., D.N.P. [address] [place] [phone] [facility] Referral ID Status Reason Start Date Expiration Date V isits Requested Visits Authorized [id number] Authorized 01/19/2024 01/18/2025 1 1 Reason for Visit * Outpatient (Routine) - Authorized Specialty Diagnoses / Procedures Referred By Contac t Referred To Contact Diagnoses Dyspnea On Exertion Procedures ECG Heart rhythm monitor (Holter) Ramesh Desai APRN, C.N.P., D.N.P. [address] [place] [phone] [facility] Referral ID Status Reason Start Date Expiration Date V isits Requested Visits Authorized [id number] Authorized 01/19/2024 01/18/2025 1 1 Encounter Details Date Type Department Care Team (Latest Contact Info) Description 01/24/2024 9:39 AM CDT - 01/24/2024 11:59 PM CDT Hospital Encounter Department of Cardiovascular Diseases in [place], [place] [address] [place] [phone] Ramesh Desai APRN, C.N.P., D.N.P. [address] [place] [phone] Dyspnea On Exertion Discharge Disposition: Home or Self Care Social History Tobacco Use Types Packs/Day Years Used Date Smoking Tobacco: Never Passive Smoke Exposure: Past Smokeless Tobacco: Never Alcohol Use Standard Drinks/Week Comments Yes 1 (1 standard drink = 0.6 oz pur e alcohol) [facility] [employer] Answer Date Recorded In the past 12 months has e [employer], gas, oil, or water [employer] threatened to shut off services in your [...] often do you attend chur ch or spiritism services? Never 07/07/2022 Do you belong to any clubs o r organizations such as taoist groups, unions, fraternal or athletic groups, or [...] Answer Date Recorded PHQ-2 Score 2 11/15/2023 [facility] - Occupational Stress Questionnaire Answer Date [...] your living situation today? I have a [facility] place to live 12/29/2023 Education Answer [...] of breath. 8 g 3 01/19/2024 02/29/2024 famotidine (PEPCID) 20 mg tablet Take 1 tablet (20 mg total) by mouth 2 (two) times a day. 30 tablet 1 01/04/2024 02/04/2024 inhalational spacing device (Aerochamber MV) spacer 1 each as needed (for use with albuterol when wheezing or dyspnea). 1 each 01/24/2024 02/29/2024 predniSONE (DELTASONE) 20 mg tablet Take 4 tablets (80 mg total) by mouth daily. Taper per oncology 01/10/2024 02/04/2024 documented as of this encounter Plan of Treatment Upcoming Encounters Date Type Department Care Team (Latest Contact Info) Description 03/29/2024 12:30 PM CDT Clinical Communication Virtual Review in [place], [place] 200 [place] [phone] 04/01/2024 2:40 PM CDT Appointment Department of Laboratory Medicine and Pathology, [facility] in [place], [place] [address] [place] [phone] Adelina Arango, ADALGISA, C.N.P. [address] [place] [phone] 04/01/2024 4:00 PM CDT Appointment Department of Radiology, [facility] in [address] [phone] Adelina Arango APRN, C.N.P. [address] [place] [phone] 04/02/2024 1:00 PM CDT Office Visit Department of Oncology in [address] [phone] Julia Gunn M.D., Ph.D. [address] [place] [phone] 05/20/2024 3:00 PM CDT Office Visit Department of Dermatology in [address] [phone] Pam Crain M.D. [address] [place] [phone] Discharge Disposition: Home or Self Care documented as of this encounter Procedures Procedure Name Priority Date/Time Associated Diagnosis Comments HOLTER MONITOR - IN CLINIC STRATEGIC PLANNING CONSULTANT Routine 01/25/2024 12:28 PM CDT Dyspnea On Exertion documented in this encounter Results * HOLTER MONITOR - IN CLINIC STRATEGIC PLANNING CONSULTANT (01/25/2024 12:28 PM CDT) Min Heart Rate [...] Duration 0 duration INFOBION IC MOME AF Mobile 0 percent INFOBIONIC MOME Symptom Count 1 count INFOBI ONIC MOME 01/24/2024 9:51 AM CDT Narrative INFOBIONIC MOME - 02/01/2024 11:29 AM CDT [place] 1. The basic rhythm was sinus with [...] was noted during or around this time. Plastic Sewer: NISHA Flynn/ NISHA Powell Procedure Note Jack Wells M.D. - 02/01/2024 [place] 1. The basic rhythm was sinus with [...] was noted during or around this time. Plastic Sewer: NISHA Flynn/ NISHA Powell Ramesh Desai APRN, C.N.P., D.N.P. C V CARDIAC SERVICES PROCEDURES INFOBIONIC HECTOR NA documented in this encounter Visit Diagnoses Diagnosis Dyspnea On Exertion documented in this encounter Additional Health Concerns Assessment Noted Time PHQ-9 Depression Total Score: 5 11/15/19 24 11:23 AM CDT documented as of this encounter Care Teams Dental Laboratory Worker Relationship Specialty Start Date End Date Galina Brooks APRN, C.N.P., D.N.P. [address] [place] [phone] PCP - General Family Medicine 02/22/21 Dr Favian Doan- pt was not aware what the name of the dental group is. Dentistry 11/01/22 opthalmology [place] 11/01/22 documented as of this encounter
--- OUTSIDE RECORDS SUMMARY | 2024-03-09 09:10 | XMS_ITS | Encounter Summary ---
Author Organization [facility] Address [address] [place] [address] Care Team Providers Care Medical Office Representative Name Role Phone Galina Brooks APRN, C.N.P., D.N.P. Primary Ca re Provider Reason for Referral * Outpatient (Routine) - Authorized Specialty Diagnoses / Procedures Referred By Contmustapha t Referred To Contact Obstetrics and Gynecology Marbella Slaughter APRN, C.N.P. [address] [place] [phone] [facility] Referral ID Status Reason Start Date Expiration Date V isits Requested Visits Authorized [id number] Authorized 02/07/2024 08/08/2025 1 1 Scheduling Instructions 4-6 months is fine. Coordinate with other appointments Encounter Details Date Type Department Care Team (Late st Contact Info) Description 02/07/2024 Orders Only Department of Obstetrics and Gynecology, Division of Gynecologic Oncology in [place], [place] [address] [place] [phone] Marbella Slaughter APRN, C.N.P. [address] [place] [phone] Social History Tobacco Use Types Packs/Day Years [...] often do you attend chur ch or mosque services? Never 07/07/2022 Do you belong to [...] Answer Date Recorded PHQ-2 Score 2 11/15/2023 [facility] - Occupational Stress [...] your living situation today? I have a [facility] place to live 12/29/2023 Education Answer Date [...] PM CDT Clinical Communication Virtual Review in [place], [place] 200 [place] [phone] 04/01/2024 2:40 PM CDT Appointment Department of Laboratory Medicine and Pathology, [facility] in [place], [place] [address] [place] [phone] Adelina Arango APRN, C.N.P. [address] [place] [phone] 04/01/2024 4:00 PM CDT Appointment Department of Radiology, [facility] in [place], [place] [address] [place] [phone] Adelina Arango APRN, C.N.P. [address] [place] [phone] 04/02/2024 1:00 PM CDT Office Visit Department of Oncology in [address] [phone] Julia Gunn M.D., Ph.D. [address] [place] [phone] 05/20/2024 3:00 PM CDT Office Visit Department of Dermatology in [address] [phone] Pam Crain M.D. [address] [place] [phone] Discharge Disposition: Home or Self Care Scheduled Referrals Name Type Priority Associated Diagnoses Order Schedule Obstetrics and Gynecology office visit (clinic) Outpatient Referral Routine Expected: 06/08/2024, Expires: 05/09/2025 documented as of this encounter Visit Diagnoses Not on filedocumented in this encounter Additional Health Concerns Assessment Noted Time PHQ-9 Depression Total Score: 5 11/15/19 24 11:23 AM CDT documented as of this encounter Care Teams Medical Office Representative Relationship Specialty Start Date End Date Galina Brooks APRN, C.N.P., D.N.P. [address] [place] [phone] PCP - General Family Medicine 02/22/21 Dr Favian Doan- pt was not aware what the name of the dental group is. Dentistry 11/01/22 opthalmology [place] 11/01/22 documented as of this encounter
--- OUTSIDE RECORDS SUMMARY | 2024-03-09 09:10 | XMS_ITS | Encounter Summary ---
Author Organization [facility] Address [address] [place] [address] Care Team Providers Care Software Project Lead Name Role Phone Galina Brooks APRN, C.N.P., D.N.P. Primary Ca re Provider Reason for Referral * Outpatient (Routine) - Authorized Specialty Diagnoses / Procedures Referred By Patric t Referred To Contact Oncology Adelina Arango APRN, C.N.P. [address] [place] [phone] [facility] Referral ID Status Reason Start Date Expiration Date V isits Requested Visits Authorized [id number] Authorized 01/31/2024 08/01/2025 1 1 * MRI/CAT/PET Scan (Routine) - Authorized Specialty Diagnoses / Procedures Referred By Contmustapha t Referred To Contact Radiology Diagnoses Melanoma Leg Left (HCC) Secondary Malignant Neoplasm Lymph Node (HCC) Medication Therapy Pier Master Not Anticoagulant Procedures CT Abdomen Pelvis with IV Contrast Adelina Arango APRN, C.N.P. [address] [place] [phone] [facility] Referral ID Status Reason Start Date Expiration Date V isits Requested Visits Authorized [id number] Authorized 01/31/2024 01/30/2025 1 1 * MRI/CAT/PET Scan (Routine) - Authorized Specialty Diagnoses / Procedures Referred By Patric yeung Referred To Contact Radiology Diagnoses Melanoma Leg Left (HCC) Secondary Malignant Neoplasm Lymph Node (HCC) Medication Therapy Jail Not Anticoagulant Procedures CT Chest without IV Contrast Adelina Arango APRN, C.N.P. [address] [place] [phone] [facility] Referral ID Status Reason Start Date Expiration Date V isits Requested Visits Authorized [id number] Authorized 01/31/2024 01/30/2025 1 1 Encounter Details Date Type Department Care Team (Late st Contact Info) Description 01/31/2024 Orders Only Department of Oncology in [place], [place] [address] [place] [phone] Adelina Arango APRN, C.N.P. [address] [place] [phone] Melanoma Leg Left (HCC) (Primary Dx); Secondary Malignant Neoplasm Lymph Node (HCC); Medication Therapy Pier Master Not Anticoagulant Social History Tobacco Use Types Packs/Day Years Used Date Smoking Tobacco: Never Passive Smoke Exposure: Past Smokeless Tobacco: Never Alcohol Use Standard Drinks/Week Comments Yes 1 (1 standard drink = 0.6 oz pur e alcohol) [facility] Utilities Answer Date Recorded In the past 12 months has [facility] [employer], oil, or water [employer] threatened to shut off services in your [...] any clubs o r organizations such as anglican groups, unions, fraternal or athletic groups, or [...] 11/15/2023 [facility] of Occupat ional Health [...] your living situation today? I have a [facility] place to live 12/29/2023 Education Answer [...] PM CDT Clinical Communication Virtual Review in [place], [place] [address] [place] [phone] 04/01/2024 2:40 PM CDT Appointment Department of Laboratory Medicine and Pathology, [facility], in [place], [place] [address] [place] [phone] Adelina Arango APRN, C.N.P. [address] [place] [phone] 04/01/2024 4:00 PM CDT Appointment Department of Radiology, [facility], in [place], [place] [address] [place] [phone] Adelina Arango APRN, C.N.P. [address] [place] [phone] 04/02/2024 1:00 PM CDT Office Visit Department of Oncology in [place], [place] [address] [place] [phone] Julia Gunn M.D., Ph.D. [address] [place] [phone] 05/20/2024 3:00 PM CDT Office Visit Department of Dermatology in [address] [phone] Pam Crain M.D. [address] [place] [phone] Discharge Disposition: Home or Self Care Scheduled Orders Name Type Priority Associated Diagnoses Orde r Schedule CBC with Differential, Blood Lab Routine Melanoma Leg Left (HCC) Secondary Malignant Neoplasm Lymph Node (HCC) Medication Therapy Jail Not Anticoagulant Expected: 04/01/2024, Expires: 05/02/2025 Comprehensive Metabolic Panel Lab Routine Melanoma Leg Left (HCC) Secondary Malignant Neoplasm Lymph Node (HCC) Medication Therapy Pier Master Not Anticoagulant Expected: 04/01/2024, Expires: 05/02/2025 Thyroid Function [place] Lab Routine Melanoma Leg Left (HCC) Secondary Malignant Neoplasm Lymph Node (HCC) Medication Therapy Pier Master Not Anticoagulant Expected: 04/01/2024, Expires: 05/02/2025 LD (Lactate Dehydrogenase) Lab Routine Melanoma Leg Left (HCC) Secondary Malignant Neoplasm Lymph Node (HCC) Medication Therapy Jail Not Anticoagulant Expected: 04/01/2024, Expires: 05/02/2025 CT Chest without IV Contrast Imaging RAD - Routine (most inpatients and all outpatients) Melanoma Leg Left (HCC) Secondary Malignant Neoplasm Lymph Node (HCC) Medication Therapy Jail Not Anticoagulant Expected: 04/02/2024, Expires: 05/02/2025 CT Abdomen Pelvis with IV Contrast Imaging RAD - Routine (most inpatients and all outpatients) Melanoma Leg Left (HCC) Secondary Malignant Neoplasm Lymph Node (HCC) Medication Therapy Jail Not Anticoagulant Expected: 04/02/2024, Expires: 05/02/2025 Scheduled Referrals Name Type Priority Associated Diagnoses Orde r Schedule Oncology office visit (clinic) Outpatient Referral Routine Expected: 04/01/2024, Expires: 05/02/2025 documented as of this encounter Visit Diagnoses Diagnosis Melanoma Leg Left (HCC)- Primary Secondary Malignant Neoplasm Lymph Node (HCC) Medication Therapy Pier Master Not Anticoagulant documented in this encounter Additional Health Concerns Assessment Noted Time PHQ-9 Depression Total Score: 5 11/15/19 24 11:23 AM CDT documented as of this encounter Care Teams Software Project Lead Relationship Specialty Start Date End Date Galina Brooks APRN, C.N.P., D.N.P. [address] [place] [phone] PCP - General Family Medicine 02/22/21 Dr Favian Doan- pt was not aware what the name of the dental group is. Dentistry 11/01/22 opthalmology [place] 11/01/22 documented as of this encounter
--- OUTSIDE RECORDS SUMMARY | 2024-03-09 09:10 | XMS_ITS | Encounter Summary ---
Author Organization [facility] Address [address] [place] [address] Care Team Providers Care Driver Trainer Name Role Phone Galina Brooks APRN, C.N.P., D.N.P. Primary Ca re Provider Encounter Details Date Type Department Care Team (Late st Contact Info) Description 01/24/2024 2:30 PM CDT Diagnostic Division of Pulmonary Medicine in [place], [place] [address] [place] [phone] Andressa Desai APRN, C.N.P., M.S.N. [address] [place] [phone] Dyspnea On Exertion Social History Tobacco Use Types Packs/Day Years Used Date Smoking Tobacco: Never Passive Smoke Exposure: Past Smokeless Tobacco: Never Alcohol Use Standard Drinks/Week Comments Yes 1 (1 standard drink = 0.6 oz pur e alcohol) [facility] Utilities Answer Date Recorded In the past 12 months has [facility] [employer], gas, oil, or water [employer] threatened to shut off services in [...] often do you attend chur ch or uatsdin services? Never 07/07/2022 Do you belong to any clubs o r organizations such as pentecostal groups, unions, fraternal or athletic groups, or [...] 2 11/15/2023 [facility] of Occupat ionri Health - Occupational Stress Questionnaire Answer Date [...] your living situation today? I have a [facility] place to live 12/29/2023 Education Answer [...] PM CDT Clinical Communication Virtual Review in [place], [place] [address] [place] [address] 04/01/2024 2:40 PM CDT Appointment Department of Laboratory Medicine and Pathology, [facility], in [place], [place] [address] [place] [phone] Adelina Arango APRN, C.N.P. [address] [place] [phone] 04/01/2024 4:00 PM CDT Appointment Department of Radiology, [facility], in [place], [place] [address] [place] [phone] Adelina Arango APRN, Naima.N.P. [address] [place] [phone] 04/02/2024 1:00 PM CDT Office Visit Department of Oncology in [place], [place] [address] [place] [phone] Julia Gunn M.D., Ph.D. [address] [place] [phone] 05/20/2024 3:00 PM CDT Office Visit Department of Dermatology in [address] [phone] Pam Crain M.D. [address] [place] [phone] Discharge Disposition: Home or Self Care documented as of this encounter Procedures Procedure Name Priority Date/Time Associated Diagnosis Comments PUL HOME OVERNIGHT OXIMETRY Routine 01/25/2024 Dyspnea On Exertion documented in this encounter Results * Home Overnight Oximetry (01/25/2024) 01/25/2024 Impressions [place] [facility] - 01/26/2024 8:25 AM CDT This is [...] sleep-related breathing disorder. Physician: Mickey Verde M.D. [id number] Narrative Procedure Note Mickey Verde M.D., Ph.D. [...] sleep-related breathing disorder. Physician: Mickey Verde M.D. [id number] Andressa Desai APRN, C.N.P., M.S.N. PFT ORDERABLES Performing Organization Address City/State/[facility] Co de Phone Number [facility] documented in this encounter Visit Diagnoses Diagnosis Dyspnea On Exertion documented in this encounter Additional Health Concerns Assessment Noted Time PHQ-9 Depression Total Score: 5 11/15/19 24 11:23 AM CDT documented as of this encounter Care Teams Driver Trainer Relationship Specialty Start Date End Date Galina Brooks APRN, C.N.P., D.N.P. [id number] [phone] PCP - General Family Medicine 02/22/21 Dr Favian Doan- pt was not aware what the name of the dental group is. Dentistry 11/01/22 opthalmology [place] 11/01/22 documented as of this encounter
--- OUTSIDE RECORDS SUMMARY | 2024-03-09 09:11 | XMS_ITS | Encounter Summary ---
Author Organization [facility] Address [address] [place] [phone] Care Team Providers Care Grain Elevator Agent Name Role Phone Galina Brooks APRN, C.N.P., D.N.P. Primary Ca re Provider Encounter Details Date Type Department Care Team (Late st Contact Info) Description 01/23/2024 Orders Only Division of Pulmonary Medicine in [place], [place] [address] [place] [phone] Ramesh Desai APRN, C.N.P., D.N.P. [address] [place] [phone] Shortness Of Breath (Primary Dx) Social History Tobacco Use Types Packs/Day Years Used Date Smoking Tobacco: Never Passive Smoke Exposure: Past Smokeless Tobacco: Never Alcohol Use Standard Drinks/Week Comments Yes 1 (1 standard drink = 0.6 oz pur e alcohol) [facility] Utilities Answer Date Recorded In the past 12 months has [facility] [employer], gas, oil, or water [employer] threatened to shut off services in your [...] often do you attend chur ch or sabianism services? Never 07/07/2022 Do you belong to any clubs o r organizations such as congregation groups, unions, fraternal or athletic groups, or [...] Answer Date Recorded PHQ-2 Score 2 11/15/2023 [facility] of Occupat ional Health - Occupational [...] your living situation today? I have a [facility] place to live 12/29/2023 [...] PM CDT Clinical Communication Virtual Review in [place], [place] [address] [place] [phone] 04/01/2024 2:40 PM CDT Appointment Department of Laboratory Medicine and Pathology, [facility], in [place], [place] [address] [place] [phone] Adelina Arango APRN, C.N.P. [address] [place] [phone] 04/01/2024 4:00 PM CDT Appointment Department of Radiology, [facility], in [place], [place] [address] [place] [phone] Adelina Arango APRN, C.N.P. [address] [place] [phone] 04/02/2024 1:00 PM CDT Office Visit Department of Oncology in [place], [place] [address] [place] [phone] Julia Gunn M.D., Ph.D. [address] [place] [phone] 05/20/2024 3:00 PM CDT Office Visit Department of Dermatology in [address] [phone] Pam Crain M.D. [address] [place] [phone] Discharge Disposition: Home or Self Care documented as of this encounter Results * Arterial Blood Gas with Lactate (01/24/2024 [...] C.N.P., D.N.P. L AB BLOOD NON ADD-ON [facility] [address] [place] [address], [facility] [address] [place] [address] * (ABNORMAL) Arterial Blood Gas with Lactate [...] C.N.P., D.N.P. L AB BLOOD NON ADD-ON [facility] [address] [place] [address], [place] DTL [facility] er Main [place] [address] [place] [address] documented in this encounter Visit Diagnoses Diagnosis Shortness Of Breath- Primary documented in this encounter Additional Health Concerns Infection Onset Date Last Indicated Resolved Time COVID19 Pending 02/04/2024 02/04/2024 02/04/2024 9 :27 AM CDT Assessment Noted Time PHQ-9 Depression Total Score: 5 11/15/19 24 11:23 AM CDT documented as of this encounter Care Teams Grain Elevator Agent Relationship Specialty Start Date End Date Galina Brooks APRN, C.N.P., D.N.P. [address] [place] [phone] PCP - General Family Medicine 02/22/21 Dr Favian Doan- pt was not aware what the name of the dental group is. Dentistry 11/01/22 opthalmology [place] 11/01/22 documented as of this encounter
--- OUTSIDE RECORDS SUMMARY | 2024-03-09 09:11 | XMS_ITS | Encounter Summary ---
Author Organization [facility] Address [address] [place] [phone] Care Team Providers Care Matchbook Maker Name Role Phone Galina Brooks APRN, C.N.P., D.N.P. Primary Ca re Provider Encounter Details Date Type Department Care Team (Latest Contact Info) Description 01/10/2024 12:10 PM CDT - 01/10/2024 2:52 PM CDT Hospital Encounter Department of Laboratory Medicine and Pathology, [facility] in [place], [place] [address] [place] [phone] Adelina Arango APRN, C.N.P. [address] [place] [phone] Dyspnea On Exertion; Secondary Malignant Neoplasm Lymph Node (HCC); Medication Therapy [facility] Not Anticoagulant; Melanoma Leg Left (HCC) Discharge Disposition: Home or Self Care Social History Tobacco Use Types Packs/Day Years Used Date Smoking Tobacco: Never Passive Smoke Exposure: Past Smokeless Tobacco: Never Alcohol Use Standard Drinks/Week Comments Yes 1 (1 standard drink = 0.6 oz pur e alcohol) [facility] Utilities Answer Date Recorded In the past 12 months has e electric, gas, oil, or water [employer] threatened to shut off services in your [...] any clubs o r organizations such as scientology groups, unions, fraternal or athletic groups, or [...] your living situation today? I have a [facility] place to live 12/29/2023 Education Answer Date [...] Sig Dispensed Refills Start Date End Date clobetasoL (TEMOVATE) 0.05 % ointment Apply 1 [...] BY MOUTH DAILY. 90 tablet 3 10/12/2023 budesonide (ENTOCORT EC) 3 mg 24 hr capsule Take 3 capsules (9 mg total) by mouth daily. 90 capsule 1 12/11/2023 01/24/2024 famotidine (PEPCID) 20 mg tablet Take 1 tablet (20 mg total) by mouth 2 (two) times a day. 30 tablet 1 01/04/2024 02/04/2024 predniSONE (DELTASONE) 20 mg tablet Take 4 tablets (80 mg total) by mouth daily. Taper per oncology 01/10/2024 02/04/2024 sulfamethoxazole-trim ethoprim (BACTRIM) 400-80 mg per tablet Take 1 tablet by mouth daily. 30 tablet 01/04/2024 01/23/2024 documented as of this encounter Plan of Treatment Upcoming Encounters Date Type Department Care Team (Latest Contact Info) Description 03/29/2024 12:30 PM CDT Clinical Communication Virtual Review in [place], [place] 200 [place] [phone] 04/01/2024 2:40 PM CDT Appointment Department of Laboratory Medicine and Pathology, [place], [place] [address] [place] [phone] Adelina Arango APRN, C.N.P. [address] [place] [phone] 04/01/2024 4:00 PM CDT Appointment Department of Radiology, [facility] in [address] [phone] Adelina Arango APRN, C.N.P. [address] [place] [phone] 04/02/2024 1:00 PM CDT Office Visit Department of Oncology in [place], [place] [address] [place] [phone] Julia Gunn M.D., Ph.D. [address] [place] [phone] 05/20/2024 3:00 PM CDT Office Visit Department of Dermatology in [address] [phone] Pam Crain M.D. [address] [place] [phone] Discharge Disposition: Home or Self Care documented as of this encounter Procedures Procedure Name Priority Date/Time Associated Diagnosis Comments CBC WITH DIFFERENTIAL, B Routine 01/10/2024 12:38 PM CDT Dyspnea On Exertion Secondary Malignant Neoplasm Lymph Node (HCC) Medication Therapy [facility] Not Anticoagulant Melanoma Leg Left (HCC) documented in this encounter Results * (ABNORMAL) CBC with Differential, Blood (01/10/2024 12:38 PM CDT) Hemoglobin 12.6 11.6 - 15.0 g/dL 01/10/2024 1:43 PM CDT DTL Hematocrit 38.6 35.5 - 44.9 % 01/10/2024 1:43 PM CDT DTL Erythrocytes 4.24 3.92 - 5.13 x10(12)/L 01/10/2024 1:43 PM CDT DTL MCV 91.0 78.2 - 97.9 fL 01/10/2024 1:43 PM CDT DTL RBC Distrib Width 14.5 12.2 - 16.1 % 01/10/2024 1:43 PM CDT DTL Platelet Count 225 157 - 371 x10(9)/L 01/10/2024 1:43 PM CDT DTL Leukocytes 9.2 3.4 - 9.6 x10(9)/L 01/10/2024 1:43 PM CDT DTL Neutrophils 7.95(H) 1.56 - 6.45 x10(9)/L 01/10/2024 1:43 PM CDT DHPM Lymphocytes 1.01 0.95 - 3.07 x10(9)/L 01/10/2024 1:43 PM CDT DTL Monocytes 0.21(L) 0.26 - 0.81 x10(9)/L 01/10/2024 1:43 PM CDT DTL Eosinophils <0.03 0.03 - 0.48 x10(9)/L 01/10/2024 1:43 PM CDT DTL Basophils 0.03 0.01 - 0.08 x10(9)/L 01/10/2024 1:43 PM CDT DTL Blood (Blood, Venous) 01/10/2024 12:38 PM CDT 01/10/2024 1:31 PM CDT Adelina Arango APRN, C.N.P. LAB BLOOD ADD-ON Performing Organization Address City/State/[facility] Co de Phone Number [facility] [address] [place] [address], [facility] DTL [facility] [address] [place] [address] DHPM [facility] 200 [place] [address] documented in this encounter Visit Diagnoses Diagnosis Dyspnea On Exertion Secondary Malignant Neoplasm Lymph Node (HCC) Medication Therapy [facility] Not Anticoagulant Melanoma Leg Left (HCC) documented in this encounter Additional Health Concerns Assessment Noted Time PHQ-9 Depression Total Score: 5 11/15/19 24 11:23 AM CDT documented as of this encounter Care Teams Matchbook Maker Relationship Specialty Start Date End Date Galina Brooks APRN, C.N.P., D.N.P. [phone] [place] [phone] PCP - General Family Medicine 02/22/21 Dr Favian Doan- pt was not aware what the name of the dental group is. Dentistry 11/01/22 opthalmology [place] 11/01/22 documented as of this encounter
--- OUTSIDE RECORDS SUMMARY | 2024-03-09 09:11 | XMS_ITS | Encounter Summary ---
Author Organization [facility] Address [address] [place] [id number] Care Team Providers Care Installers Mechanical Name Role Phone Galina Brooks APRN, C.N.P., D.N.P. Primary Ca re Provider Reason for Referral * Outpatient (Routine) - Closed Specialty Diagnoses / Procedures Referred By Patric yeung Referred To Contact Oncology Adelina Arango APRN, C.N.P. [address] [place] [phone] [facility] Referral ID Status Reason Start Date Expiration Date Visits Re quested Visits Authorized [id number] Closed 01/06/2024 07/07/2025 1 1 Reason for Visit * Outpatient (Routine) - Closed Specialty Diagnoses / Procedures Referred By Patric yeung Referred To Contact Oncology Adelina Arango APRN, C.N.P. [address] [place] [phone] [facility] Referral ID Status Reason Start Date Expiration Date Visits Re quested Visits Authorized [id number] Closed 12/05/2023 06/05/2025 1 1 Encounter Details Date Type Department Care Team (Late st Contact Info) Description 01/04/2024 3:00 PM CDT Office Visit Department of Oncology in [place], [place] [address] [place] [phone] Adelina Arango, ADALGISA, C.N.P. [address] [place] [phone] Dyspnea On Exertion (Primary Dx) Social History Tobacco Use Types Packs/Day Years Used Date Smoking Tobacco: Never Passive Smoke Exposure: Past Smokeless Tobacco: Never Alcohol Use Standard Drinks/Week Comments Yes 1 (1 standard drink = 0.6 oz pur e alcohol) [facility] Utilities Answer Date Recorded In the past 12 months has e [employer], gas, oil, or water [employer] threatened to shut off services in your [...] often do you attend chur ch or rastafari services? Never 07/07/2022 Do you belong to any clubs o r organizations such as confucianism groups, unions, fraternal or athletic groups, or [...] Answer Date Recorded PHQ-2 Score 2 11/15/2023 [facility] - Occupational [...] Answer Date Recorded Dental: Regular Dentist Yes 02/22/20 21 Employment Answer Date Recorded Employment status [...] Sign Reading Time Taken Comments Blood Pressure 115/70 01/04/2024 2:54 PM CDT Pulse 69 01/04/2024 2:54 PM CDT Temperature 36.8 ??C (98.2 ??F) 01/04/2024 2:54 PM CD T Respiratory Rate 16 01/04/2024 2:54 PM CDT Oxygen Saturation 95% 01/04/2024 2:54 PM CDT Inhaled Oxygen Concentration - - Weight 86 kg (189 lb 9.5 oz) 01/04/2024 2:54 PM CDT Height 168.1 cm (5' 6.18) 01/04/2024 2:54 PM CD T Body Mass Index 30.43 01/04/2024 2:54 PM CDT documented in this encounter Progress Notes * Katelynn Oakley, Pharm.D., R.Ph. 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 She was referred by Adelina Arango APRN, C.N.P. Patient was at the visit with patient's significant other Gene. The patient does not appear cognitively impaired at this visit. Patient's purpose of visit today is assessment of radiologic, laboratory values and symptom assessment of her resected stage III melanoma. SUBJECTIVE CHIEF COMPLAINT/PURPOSE OF VISIT: 1. Resected stage III melanoma 2. Resected stage I endometrial cancer Collaborating provider today is Dr. Julia Gunn Primary collaborating provider is Dr. Julia Gunn HISTORY OF PRESENT ILLNESS: Oncology History Malignant Neoplasm Of Uterus Endometrial (HCC) 11/08/2022 Clinical Stage Staging form: Corpus Uteri - Carcinoma And Carcinosarcoma, AJCC 8th Edition - Clinical stage from 11/08/2022: FIGO Stage IA (cT1a, cN0(sn), cM0) Method of lymph node assessment: [place] lymph node biopsy Histologic grade (G): G3 Histologic grading system: 3 grade system Genetic Testing and Tumor Genotyping Negative germline genetic testing in 2022; Doshi Syndrome Analyses and CustomNext- Cancer + RNAinsight panel from [facility]. Melanoma Leg Left (HCC) 11/08/2022 Biopsy/Pathology While undergoing a NENA/BSO for endometrial cancer, 3 non-sentinel enlarged lymph nodes were noted in the left inguinal region and were resected and found to be metastatic melanoma. 11/08/2022 Initial Diagnosis Melanoma Leg Left (HCC) 11/08/2022 Pathologic Stage Staging form: Melanoma Of The Skin, AJCC 8th Edition - Pathologic: Stage IIIC (pT0, pN2b, cM0) Residual tumor (R): R0 - None 11/08/2022 Genetic Testing and Tumor Genotyping BRAF/KIT WT 12/14/2022 Surgery and Procedures Left inguinal LN dissection 0 of 8 Lymph nodes involved. WLE of dysplastic nevi on the left upper thigh. 01/02/2023 - Chemotherapy Nivolumab 480 mg every 4 weeks Start Date: 01/02/2023 Interval history: Ms. Duran returns for follow-up. She states she is doing well. 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 She states she is having approximately 1 stool per day. Herstools are more formed and no longer loose. She describes her bowel movements as ribbon like the width of a pencil. She denies other symptoms of immune related adverse events including headache, dizziness, lightheadedness, vision changes, shortness of breath, cough, difficulty swallowing, heart palpitations, chest pain, diarrhea, constipation, new rash, or new pain. ECOG performance status is 0. Past Medical/Surgical History: Past Medical History: Diagnosis Date Cataract Depressive Disorder 2014 Hyperlipidemia 09/14/2011 Hypertension NOS Hypothyroidism Keratosis Actinic 04/03/2015 Lichen Sclerosus 04/03/2015 Malignant Neoplasm Of Uterus Endometrial (HCC) Melanoma Skin (HCC) November 2022 Tremor Essential Past Surgical History: Procedure Laterality Date ARTHROSCOPY KNEE MENISCUS Left 01/13/2021 Procedure: ARTHROSCOPY KNEE MENISCUS, partial medial meniscectomy, chondroplasty of the medial femoral condyle, limited synovectomy; Surgeon: Carroll Desai M.D., Ph.D.; Location: [facility] OR BREAST SURGERY chip implant 2016 COLONOSCOPY N/A 09/30/2021 Procedure: COLONOSCOPY-p; Surgeon: Malcolm Strickland M.D.; Location: [facility] COLONOSCOPY N/A 10/01/2021 Procedure: COLONOSCOPY-p; Surgeon: Malcolm Strickland M.D.; Location: [facility] JOINT REPLACEMENT 02/17/2020 hip LYMPHADENECTOMY INGUINAL Left 11/08/2022 Procedure: LYMPHADENECTOMY INGUINAL; Surgeon: Kiley Lees M.D.; Location: [facility] OR LYMPHADENECTOMY INGUINAL Left 12/14/2022 Procedure: LEFT INGUINAL LYMPHADENECTOMY.; Surgeon: Marcial Bernstein M.D.; Location: [facility] OR LYMPHADENECTOMY SENTINEL PELVIC Bilateral 11/08/2022 Procedure: LYMPHADENECTOMY SENTINEL PELVIC.; Surgeon: Kiley Lees M.D.; Location: [facility] OR OMENTECTOMY N/A 11/08/2022 Procedure: OMENTAL BIOPSY.; Surgeon: Kiley Lees M.D.; Location: [facility] OR OOPHORECTOMY, PARTIAL OR TOTAL, UNILATERAL OR BILATERAL;.. 2022 OPERATIVE HYSTEROSCOPY N/A 10/21/2022 Procedure: OPERATIVE HYSTEROSCOPY, POLYPECTOMY; Surgeon: Aman Ferreira M.D.; Location: [facility] ROBOTIC-ASSISTED HYSTERECTOMY WITH BSO N/A 11/08/2022 Procedure: ROBOTIC-ASSISTED HYSTERECTOMY, BILATERAL SALPINGO - OOPHORECTOMY.; Surgeon: Kiley Lees M.D.; Location: [facility] OR SALPINGECTOMY 2022 WIDE LOCAL EXCISION Left 12/14/2022 Procedure: LEFT LATERAL THIGH WIDE LOCAL EXCISION MELANOMA.; Surgeon: Marcial Bernstein M.D.; Location: [facility] RO OR I reviewed the Medications, Allergies, Past Medical History, Social History, and Family History. OBJECTIVE VITAL SIGNS: Vitals: 01/04/24 1454 BP: 115/70 BP Location: Right arm Patient Position: Sitting Cuff Size: Regular Pulse: 69 Resp: 16 Temp: 36.8 ??C TempSrc: Tympanic SpO2: 95% Weight: 86 kg Height: 168.1 cm No data recorded ASSESSMENT / PLAN #1 Resected stage III melanoma It was a pleasure to see Mrs. Duran today in melanoma clinic. She continues to do well off all immunotherapy. Her PET/CT imaging today revealed no FDG avid melanoma and decreased FDG avidity throughout her colon indicative of improved inflammation. She is having one bowel movement each day and stools are more formed. She continues budesonide 9 mg once daily. #2 Resected Stage I endometrial cancer There was no evidence of recurrence of her endometrial cancer at this time. #3 New Dyspnea on Exertion In Adelina Arango's interview with Mrs. Duran, she states she got winded today while at her appointments and required the use of a wheelchair. Adelina walked with Mrs. Duran today and her oxygen saturations dropped into the mid 80's. Adelina started Mrs. Duran on prednisone 40 mg once daily and will check a chest CT and troponin. Follow-up with pharmacist was not scheduled at this time. Ivy expressed understanding of, and agreement with plan of care. She was provided a written summary of recommendations via patient online services. Total time spent was 15 minutes, with more than 50% of the time spent on counseling, coordination of care and patient education. Plan of care was communicated to the referring provider via an electronically routed chart and verbally. * Adelina Arango APRN, C.N.P. - 01/04/2024 3:00 PM CDT SUBJECTIVE CHIEF COMPLAINT/PURPOSE OF VISIT: Resected Stage III melanoma Resected stage I endometrial cancer Collaborating provider today is Dr. Julia Gunn Primary collaborating provider is Dr. Julia Gunn HISTORY OF PRESENT ILLNESS: Oncology History Malignant Neoplasm Of Uterus Endometrial (HCC) 11/08/2022 Clinical Stage Staging form: Corpus Uteri - Carcinoma And Carcinosarcoma, AJCC 8th Edition - Clinical stage from 11/08/2022: FIGO Stage IA (cT1a, cN0(sn), cM0) Method of lymph node assessment: [place] lymph node biopsy Histologic grade (G): G3 Histologic grading system: 3 grade system Genetic Testing and Tumor Genotyping Negative germline genetic testing in 2022; Doshi Syndrome Analyses and CustomNext- Cancer + RNAinsight panel from [facility]. Melanoma Leg Left (HCC) 11/08/2022 Biopsy/Pathology While undergoing a NENA/BSO for endometrial cancer, 3 non-sentinel enlarged lymph nodes were noted in the left inguinal region and were resected and found to be metastatic melanoma. 11/08/2022 Initial Diagnosis Melanoma Leg Left (HCC) 11/08/2022 Pathologic Stage Staging form: Melanoma Of The Skin, AJCC 8th Edition - Pathologic: Stage IIIC (pT0, pN2b, cM0) Residual tumor (R): R0 - None 11/08/2022 Genetic Testing and Tumor Genotyping BRAF/KIT WT 12/14/2022 Surgery and Procedures Left inguinal LN dissection 0 of 8 Lymph nodes involved. WLE of dysplastic nevi on the left upper thigh. 01/02/2023 - Chemotherapy Nivolumab 480 mg every 4 weeks Start Date: 01/02/2023 Interval history: Ms. Duran returns for follow-up. Overall she is doing fairly well. She is not experiencing diarrhea. However she shares with me that she is having more dyspnea on exertion and today actually required a wheelchair to get around, due to this. She is winded with one flight of stairs. ECOG performance status is 1. Past Medical/Surgical History: Past Medical History: Diagnosis Date Cataract Depressive Disorder 2014 Hyperlipidemia 09/14/2011 Hypertension NOS Hypothyroidism Keratosis Actinic 04/03/2015 Lichen Sclerosus 04/03/2015 Malignant Neoplasm Of Uterus Endometrial (HCC) Melanoma Skin (HCC) November 2022 Tremor Essential Past Surgical History: Procedure Laterality Date ARTHROSCOPY KNEE MENISCUS Left 01/13/2021 Procedure: ARTHROSCOPY KNEE MENISCUS, partial medial meniscectomy, chondroplasty of the medial femoral condyle, limited synovectomy; Surgeon: Carroll Desai M.D., Ph.D.; Location: [place] [id number] OR BREAST SURGERY chip implant 2016 COLONOSCOPY N/A 09/30/2021 Procedure: COLONOSCOPY-p; Surgeon: Malcolm Strickland M.D.; Location: [facility] COLONOSCOPY N/A 10/01/2021 Procedure: COLONOSCOPY-p; Surgeon: Malcolm Strickland M.D.; Location: [facility] JOINT REPLACEMENT 02/17/2020 hip LYMPHADENECTOMY INGUINAL Left 11/08/2022 Procedure: LYMPHADENECTOMY INGUINAL; Surgeon: Kiley Lees M.D.; Location: [facility] LYMPHADENECTOMY INGUINAL Left 12/14/2022 Procedure: LEFT INGUINAL LYMPHADENECTOMY.; Surgeon: Marcial Bernstein M.D.; Location: [facility] OR LYMPHADENECTOMY SENTINEL PELVIC Bilateral 11/08/2022 Procedure: LYMPHADENECTOMY SENTINEL PELVIC.; Surgeon: Kiley Lees M.D.; Location: [facility] OR OMENTECTOMY N/A 11/08/2022 Procedure: OMENTAL BIOPSY.; Surgeon: Kiley Lees M.D.; Location: [facility] OR OOPHORECTOMY, PARTIAL OR TOTAL, UNILATERAL OR BILATERAL;.. 2022 OPERATIVE HYSTEROSCOPY N/A 10/21/2022 Procedure: OPERATIVE HYSTEROSCOPY, POLYPECTOMY; Surgeon: Aman Ferreira M.D.; Location: [facility] ROBOTIC-ASSISTED HYSTERECTOMY WITH BSO N/A 11/08/2022 Procedure: ROBOTIC-ASSISTED HYSTERECTOMY, BILATERAL SALPINGO - OOPHORECTOMY.; Surgeon: Kiley Lees M.D.; Location: [facility] OR SALPINGECTOMY 2022 WIDE LOCAL EXCISION Left 12/14/2022 Procedure: LEFT LATERAL THIGH WIDE LOCAL EXCISION MELANOMA.; Surgeon: Marcial Bernstein M.D.; Location: [facility] ROS: As noted above otherwise negative and non-contributory I reviewed the Medications, Allergies, Past Medical History, Social History, and Family History. OBJECTIVE VITAL SIGNS: Vitals: 01/04/24 1454 BP: 115/70 BP Location: Right arm Patient Position: Sitting Cuff Size: Regular Pulse: 69 Resp: 16 Temp: 36.8 ??C TempSrc: Tympanic SpO2: 95% Weight: 86 kg Height: 168.1 cm No data recorded PHYSICAL EXAM: General: This is a well-appearing female who appears their stated age in no acute distress. Skin: Examined and significant only for previous surgical incisions. Lymph: No palpable lymphadenopathy. Heart: Examined and normal. Lungs: Examined and normal, except mild decreases in the bases bilaterally. O2 sats while ambulating started at 94% with a dip to 87% briefly recovery to >90% in <1 min.But patient was visibly dyspneic. ASSESSMENT / PLAN #1 Resected Stage III melanoma #2 Resected stage I endometrial cancer Mrs. Duran underwent full restaging today with no evidence of recurrent disease. She will continueon observation and repeat scans in 3 months time. 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 Given that her symptoms have steadily worsened over the last few weeks, I believe we should tryand treat at this point. We will plan to do 0.5 mg/kg at this point and see her back in 1 weeks time. If not improved, we will likely need to escalate steroids. Will provide PJP and GI prophylaxis. #4 ICI colitis This appears improved on her PET/CT and he symptoms are consistent with this. We will decrease her budesonide to 6 mg and continue to wean. PATIENT EDUCATION Ready to learn, no apparent learning barriers were identified; learning preferences include listening. Explained diagnosis and treatment plan; patient expressed understanding of the content. ADMINISTRATIVE BILLING I personally spent over half of a total 30 minutes face to face with the patient in counseling and discussion and/or coordination of care as described above. documented in this encounter Plan of Treatment Upcoming Encounters Date Type Department Care Team (Latest Contact Info) Description 03/29/2024 12:30 PM CDT Clinical Communication Virtual Review in [address] [phone] 04/01/2024 2:40 PM CDT Appointment Department of Laboratory Medicine and Pathology, [facility] in [address] [phone] Adelina Arango APRN, C.N.P. [address] [place] [phone] 04/01/2024 4:00 PM CDT Appointment Department of Radiology, [facility], in [address] [place] [phone] Adelina Arango APRN, C.N.P. [address] [place] [phone] 04/02/2024 1:00 PM CDT Office Visit Department of Oncology in [place], [place] [address] [place] [phone] Julia Gunn M.D., Ph.D. [address] [place] [phone] 05/20/2024 3:00 PM CDT Office Visit Department of Dermatology in [address] [phone] Pam Crain M.D. [address] [place] [phone] Discharge Disposition: Home or Self Care Scheduled Referrals Name Type Priority Associated Diagnoses Orde r Schedule Oncology office visit (clinic) Outpatient Referral Routine Expected: 01/11/2024, Expires: 04/07/2025 documented as of this encounter Procedures Procedure Name Priority Date/Time Associated Diagnosis Comments CREATINE KINASE (CK), S Routine 01/04/2024 8:23 AM CDT Dyspnea On Exertion documented in this encounter Results * CK (Creatine Kinase) (01/04/2024 8:23 AM CDT) Creatine Kinase (CK), S 57 26 - 192 U/L 01/04/2024 4:40 PM CDT DTL Blood (Blood, Venous) 01/04/2024 8:23 AM CDT 01/04/2024 4:10 PM CDT Jass Mann APRNN.P. LAB BLOOD ADD-ON [facility] [address] [place] [address], [facility] DTL [facility] [address] [place] [address] documented in this encounter Visit Diagnoses Diagnosis Dyspnea On Exertion- Primary documented in this encounter Additional Health Concerns Assessment Noted Time PHQ-9 Depression Total Score: 5 11/15/19 24 11:23 AM CDT documented as of this encounter Care Teams Installers Mechanical Relationship Specialty Start Date End Date Galina Brooks APRN, C.N.P., D.N.P. [address] [place] [phone] PCP - General Family Medicine 02/22/21 Dr Favian Doan- pt was not aware what the name of the dental group is. Dentistry 11/01/22 opthalmology [place] 11/01/22 documented as of this encounter
--- OUTSIDE RECORDS SUMMARY | 2024-03-09 09:11 | XMS_ITS | Encounter Summary ---
Author Organization [facility] Address [address] [place] [address] Care Team Providers Care Senior Functional Analyst Name Role Phone Galina Brooks APRN, C.N.P., D.N.P. Primary Ca re Provider Reason for Referral * Outpatient (Routine) - Closed Specialty Diagnoses / Procedures Referred By Contac t Referred To Contact Endocrinology Diagnoses Dyspnea On Exertion Procedures Endocrinology - Thyroid disease eConsult Ramesh Desai APRN, C.N.P., D.N.P. [address] [place] [phone] [facility] Referral ID Status Reason Start Date Expiration Date Visits Re quested Visits Authorized [id number] Closed 01/19/2024 01/18/2025 1 1 * Outpatient (Routine) - Closed Specialty Diagnoses / Procedures Referred By Contac t Referred To Contact Pulmonary Medicine Diagnoses Dyspnea On Exertion Ramesh Desai APRN, C.N.P., D.N.P. [address] [place] [phone] [facility] Referral ID Status Reason Start Date Expiration Date Visits Re quested Visits Authorized [id number] Closed 01/19/2024 07/20/2025 1 1 * Outpatient (Routine) - Authorized Specialty Diagnoses / Procedures Referred By Patric yeung Referred To Contact Diagnoses Dyspnea On Exertion Procedures ECG Heart rhythm monitor (Holter) Ramesh Desai APRN, C.N.Jan, Margo.N.P. [address] [place] [phone] [facility] Referral ID Status Reason Start Date Expiration Date V isits Requested Visits Authorized [id number] Authorized 01/19/2024 01/18/2025 1 1 Reason for Visit * Outpatient (Routine) - Closed Specialty Diagnoses / Procedures Referred By Patric yeung Referred To Contact Pulmonary Medicine Diagnoses Dyspnea On Exertion Andressa Desai APRN, C.N.Jan, M.S.N. [address] [place] [phone] [facility] Referral ID Status Reason Start Date Expiration Date Visits Re quested Visits Authorized [id number] Closed 01/17/2024 07/18/2025 1 1 Encounter Details Date Type Department Care Team (Latest Contact Info) Description 01/19/2024 8:30 AM CDT Comprehensive Visit Division of Pulmonary Medicine in [place], [place] [address] [place] [phone] Ramesh Desai APRN, C.N.Jan, D.N.P. [address] [place] [phone] Melanoma Leg Left (HCC) (Primary Dx); Dyspnea On Exertion; Cancer Endometrium Personal History Social History Tobacco Use Types Packs/Day Years Used Date Smoking Tobacco: Never Passive Smoke Exposure: Past Smokeless Tobacco: Never Alcohol Use Standard Drinks/Week Comments Yes 1 (1 standard drink = 0.6 oz pur e alcohol) [facility] Utilities Answer Date Recorded In the past 12 months has [employer], gas, oil, or water [employer] threatened to shut off services in your [...] week 07/07/2022 How often do you attend [facility] or taoism services? Never 07/07/2022 Do you belong to any clubs o r organizations such as nondenominational groups, unions, fraternal or athletic groups, or [...] Answer Date Recorded PHQ-2 Score 2 11/15/2023 [facility] - Occupational [...] your living situation today? I have a [facility] place to live 12/29/2023 Education Answer [...] Sign Reading Time Taken Comments Blood Pressure - - Pulse - - Temperature - - Respiratory Rate - - Oxygen Saturation 95% 01/19/2024 8:23 AM CDT Inhaled Oxygen Concentration - - Weight - - Height - - Body Mass Index - - documented in this encounter Consult Notes * Ramesh Desai APRN, C.N.P., D.N.P. 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 HISTORY OF PRESENT ILLNESS Ms. Duran is a 74 y.o. female, never smoker with a past medical [...] to 60 mg prednisone as of 01/17/2024. Most recent chest CT scan from 12/26/2023 demonstrates no significant bilateral infiltrate, PE negative. Echocardiogram 01/17/2024: LVEF 60%; RVSP 24 with normal size. PFT 01/19/2024: FEV1 1.98 (88%), bronchodilator response not assessed; DLCO 86%. Hemoglobin 12.6. Left lower extremity ultrasound 01/10/2024: Negative for DVT on the left. She denies any cough or infectious symptoms. Her only symptom at this time from a pulmonary perspective is shortness of breath. She has noticed about a 10 lb weight gain over the past few months, appetite is stable. She has been found to have an elevated TSH however T4 is on the low end of normal; not on replacement. She did self titrate off antidepressant medications within the past few months. During our visit today, we did ambulate around [place]onda 18, she did have increase in heart rate from the mid 70s to the mid 90s and transiently oxygenation did dip to 89%. She was subjectively short of breath. She did recover quite quickly. She presents today for evaluation of dyspnea on exertion. REVIEW OF SYSTEMS Per HPI above. OBJECTIVE PHYSICAL EXAM General: Awake and alert in no acute distress, accompanied by her . Neuro: Alert and orient, no focal deficits. Cardiac: Normal rate on auscultation, mild lower extremity edema. Bilateral carotid without bruit on exam. Pulmonary: Clear bilaterally, oxygenating on room air at rest at 95%. GI: Mildly obese, hypoactive bowel sounds. ASSESSMENT / PLAN #1 Indeterminate dyspnea on exertion #2 Endometrial cancer 2022 #3 Melanoma of the left leg post resection (2022), most recently treated with nivolumab last dose November 2023 I personally reviewed the patient's diagnostics with the patient and her today in clinic. Despite all of the diagnostics thus far, there does not appear to be a definite etiology of her dyspnea on exertion, though her symptoms are real. Radiographically this is not definitely consistent with drug-induced pneumonitis, she has also not noted any improvement with high-dose prednisone. Cardiac function and basic pulmonary function independently appears normal as well. We did discuss common etiologies of dyspnea including primary pulmonary your dysfunction, primary cardiac dysfunction, dysfunction of cardiopulmonary function collectively, anemia, deconditioning, depression/anxiety, weight gain, other. Given that the dyspnea is still indeterminate, and that it is primarily noted on exertion, I think that it would be appropriate to proceed with a cardiopulmonary exercise test and Holter monitor. I will also reach out to our endocrinology team via eConsult to see if there is any role for thyroid rep lacement. From a steroid perspective, I would favor continued down titration of prednisone from a pulmonary perspective given that it does not seem as though it is giving any benefit symptomatically. She is currently on 60 mg prednisone, I would recommend down titration to 40 mg for one week, 20 mg for one week, and then could consider discontinuing or down to 10 mg for an additional week. Lower dose down titration would also be dependent on any recurrence of colitis symptoms. I defer that to the primaryteam. Appropriate prophylaxis should continue. I will plan to follow-up with her after testing to review results and discuss next steps. The patient is agreeable to proceed with the plan as outlined above, all questions have been answered. This case was discussed with and staffed by my physician colleague, Dr. Brush. Total time of 70 minutes includes Znvj-ui-Cupf and kns-Gkbr-lj-Face pre and post visit tasks performed on the day of patient visit. documented in this encounter Plan of Treatment Upcoming Encounters Date Type Department Care Team (Latest Contact Info) Description 03/29/2024 12:30 PM CDT Clinical Communication Virtual Review in [place], [place] [address] [place] [phone] 04/01/2024 2:40 PM CDT Appointment Department of Laboratory Medicine and Pathology, [facility] in [address] [phone] Adelina Arango APRN, C.N.P. [address] [place] [phone] 04/01/2024 4:00 PM CDT Appointment Department of Radiology, [facility] in [place], [place] [address] [place] [phone] Adelina Arango APRN, C.N.P. [address] [place] [phone] 04/02/2024 1:00 PM CDT Office Visit Department of Oncology in [address] [phone] Julia Gunn M.D., Ph.D. [address] [place] [phone] 05/20/2024 3:00 PM CDT Office Visit Department of Dermatology in [address] [phone] Pam Crain M.D. [address] [place] [phone] Discharge Disposition: Home or Self Care Scheduled Referrals Name Type Priority Associated Diagnoses Order Schedule Pulmonary Medicine office visit (clinic) Outpatient Referral Routine Dyspnea On Exertion 1 Occurrences starting 01/19/2024 until 04/20/2025 documented as of this encounter Results * CARDIOPULMONARY (VO2) EXERCISE TEST (03/06/2024 10:44 AM CDT) RER-VO2Max 1.49 ANTON ARIC ZE SUITE [id number] 11 mL/beat ANTON BR EEZE SUITE Work Asif-AT 61 Asif ANTON B REEZE SUITE Work Asif-VO2Max 122 Asfi AN[address] BREEZE SUITE METS-VO2Max 4.6 ANTON JOCELYN SHANKAR SUITE Time min-VO2Max 10:26 min AN[address] BREEZE SUITE VE BTPS-VO2Max 74.2 L/min ANTON BREEZE SUITE VO2 kg-AT 10.4 mL/kg/min ANTON BREEZ E SUITE VO2 kg-VO2Max 16.0 mL/kg/min [place] B REEZE SUITE VEVCO2-AT 31 ANTON BREEZ E SUITE VEVCO2-VO2Max 35 ANTON B REEZE SUITE HR-VO2Max 123 BPM ANTON BREEZ E SUITE SpO2-VO2Max 100 % ANTON JOCELYN SHANKAR SUITE RR-VO2Max 51 br/min ANTON BREEZ E SUITE 01/24/2024 10:3 3 AM CDT Ramesh Desai APRN, C.N.P., D.N.P. P FT ORDERABLES ANTON BREEZE SUITE NA * HOLTER MONITOR - IN CLINIC OPERATING SYSTEM PROGRAMMER (01/25/2024 12:28 PM CDT) Min Heart Rate [...] Duration 0 duration INFOBION IC MOME AF [place] 0 percent INFOBIONIC MOME Symptom Count 1 count INFOBI ONIC MOME 01/24/2024 9:51 AM CDT Narrative INFOBIONIC MOME - 02/01/2024 11:29 AM CDT [place] 1. The basic rhythm was sinus with [...] was noted during or around this time. Sheriff: NISHA Flynn/ NISHA Powell Procedure Note Jack Wells M.D. - 02/01/2024 [place] 1. The basic rhythm was sinus with [...] was noted during or around this time. Sheriff: NISHA Flynn/ NISHA Powell Ramesh Desai APRN, C.N.P., D.N.P. C V CARDIAC SERVICES PROCEDURES INFOBIONIC HECTOR NA * CPET Spirometry (01/24/2024 10:16 AM CDT) CHALFVC 2.82 L 01/24/2024 4:51 PM CDT [facility] CHALFEV1 2.01 L 01/24/2024 4:51 PM CDT [facility] FEV1/FVC PROVOCATION 71.12 % 01/24/2024 4:51 PM CDT [facility] FEF 25-75% PROVOCATION 1.30 L/s 01/24/2024 4:51 PM CDT [facility] PEF PROVOCATION 6.26 L/s 4:51 PM CDT [facility] FET PROVOCATION 10.68 sec 4:51 PM CDT [facility] FVC PROVBASE 2.72 L 01/24/2024 4:51 PM CDT [facility] FEV 1 PROVBASE 1.98 L 01/24/2024 4:51 PM CDT [facility] FEV1/FVC PROVBASE 72.65 % 01/24/2024 4:51 PM CDT [facility] FEF 25-75% PROVBASE 1.39 L/s 01/24/2024 4:51 PM CDT [facility] PEF PROVBASE 6.14 L/s 01/24/2024 4:51 PM CDT [facility] FET PROVBASE 11.49 sec 01/24/2024 4:51 PM CDT [facility] MVV PROVBASE 89.84 L/min 01/24/2024 4:51 PM CDT [facility] SUBSTANCE PROVOCATION Post-Exerc ise 01/24/2024 4:51 PM CDT [facility] 01/24/2024 10:1 6 AM CDT Impressions [facility] - 01/24/2024 4:51 PM CDT Negative [...] w while breathing room air. Ramesh Desai APRN, C.N.P., Margo.N.P. P ORDERABLES Performing Organization Address City/State/ZIP Co ga Phone Number [facility] documented in this encounter Visit Diagnoses Diagnosis Melanoma Leg Left (HCC)- Primary Dyspnea On Exertion Cancer Endometrium Personal History Dyspnea On Exertion documented in this encounter Additional Health Concerns Assessment Noted Time PHQ-9 Depression Total Score: 5 11/15/19 24 11:23 AM CDT documented as of this encounter Care Teams Senior Functional Analyst Relationship Specialty Start Date End Date Galina Brooks APRN, C.N.Manasa., D.N.P. [address] [place] [phone] PCP - General Family Medicine 02/22/21 Dr Favian Doan- pt was not aware what the name of the dental group is. Dentistry 11/01/22 opthalmology [place] 11/01/22 documented as of this encounter
--- OUTSIDE RECORDS SUMMARY | 2024-03-09 09:11 | XMS_ITS | Encounter Summary ---
Author Organization [facility] Address [address] [place] [phone] Care Team Providers Care Mortgage Assistant Name Role Phone Galina Brooks APRN, C.N.PMarixa, D.N.P. Primary Ca re Provider Reason for Referral * Outpatient (Routine) - Closed Specialty Diagnoses / Procedures Referred By Contac t Referred To Contact Pulmonary Medicine Diagnoses Dyspnea On Exertion Andressa Desai APRN, C.N.Jan, M.S.N. [address] [place] [phone] [facility] Referral ID Status Reason Start Date Expiration Date Visits Re quested Visits Authorized [id number] Closed 01/17/2024 07/18/2025 1 1 * Outpatient (Routine) - Authorized Specialty Diagnoses / Procedures Referred By Contac t Referred To Contact Diagnoses Dyspnea On Exertion Procedures Arterial Blood Gas Andressa Desai APRN, C.N.Jan, M.S.N. [address] [place] [phone] [facility] Referral ID Status Reason Start Date Expiration Date V isits Requested Visits Authorized [id number] Authorized 01/17/2024 01/16/2025 1 1 * Outpatient (Routine) - Closed Specialty Diagnoses / Procedures Referred By Patric yeung Referred To Contact Oncology Andressa Desai APRN, C.N.P., M.S.N. [address] [place] [phone] [facility] Referral ID Status Reason Start Date Expiration Date Visits Re quested Visits Authorized [id number] Closed 01/17/2024 07/18/2025 1 1 Reason for Visit * Outpatient (Routine) - Closed Specialty Diagnoses / Procedures Referred By Patric yeung Referred To Contact Oncology Andressa Desai APRN, C.N.P., M.S.N. [address] [place] [phone] [facility] Referral ID Status Reason Start Date Expiration Date Visits Re quested Visits Authorized [id number] Closed 01/10/2024 07/11/2025 1 1 Encounter Details Date Type Department Care Team (Late st Contact Info) Description 01/17/2024 2:40 PM CDT Office Visit Department of Oncology in [place], [place] [address] [place] [phone] Andressa Desai APRN, C.N.P., M.S.N. [address] [place] [phone] Dyspnea On Exertion (Primary Dx) Social History Tobacco Use Types Packs/Day Years Used Date Smoking Tobacco: Never Passive Smoke Exposure: Past Smokeless Tobacco: Never Alcohol Use Standard Drinks/Week Comments Yes 1 (1 standard drink = 0.6 oz pur e alcohol) [facility] Utilities Answer Date Recorded In the past 12 months has e [email or web address], gas, oil, or water [employer] threatened to shut off services in your [...] Date Recorded PHQ-2 Score 2 11/15/2023 [facility] - Occupational [...] your living situation today? I have a [facility] place to live 12/29/2023 Education Answer Date [...] Sign Reading Time Taken Comments Blood Pressure 125/74 01/17/2024 2:35 PM CDT Pulse 65 01/17/2024 2:35 PM CDT Temperature 37.4 ??C (99.3 ??F) 01/17/2024 2:35 PM CD T Respiratory Rate 16 01/17/2024 2:35 PM CDT Oxygen Saturation 94% 01/17/2024 2:35 PM CDT Inhaled Oxygen Concentration - - Weight 86.9 kg (191 lb 9.3 oz) 01/17/2024 2:35 P M CDT Height 166.7 cm (5' 5.63) 01/17/2024 2:35 PM CD T Body Mass Index 31.27 01/17/2024 2:35 PM CDT documented in this encounter Progress Notes * Andressa Desai APRN, C.N.P., M.S.N. - 01/17/2024 2:40 PM CDT ICI PROGRESS NOTE SUBJECTIVE CHIEF COMPLAINT/PURPOSE OF VISIT: - Follow-up from last week for suspected grade 2 ICI pneumonitis CHIEF COMPLAINT/PURPOSE OF VISIT: Resected Stage III [...] cN0(sn), cM0) Method of lymph node assessment: [place] lymph node biopsy Histologic grade (G): G3 Histologic grading system: 3 grade system Genetic Testing and Tumor Genotyping Negative germline genetic testing in 2022; [employer] and [employer]- Cancer + RNAinsight panel from [employer]. Melanoma Leg Left (HCC) 11/08/2022 Biopsy/Pathology While [...] history: Ms. Duran returns for follow-up. She shares that she feels like her dyspnea has not improved. She notes her dyspnea mostly with daily household activities, such as getting ready in the morning, cleaning up with the kitchen, or doing laundry. Her echo is within normal limits. Her lower extremity ultrasound was negative. She does state that she feels that some of the wheezing has very slightly improved. However, she does feel quite bloated, she feels like her face is swollen and she is retainingfluids from steroids. Her other significant complaint is fatigue. She did have her right knee swell the other day associated with some pain, similar to the way her left knee has swollen for many years. She did place some compression hose on it and the pain has resolved and the swelling has improved. Patient denies any diarrhea currently, and finishing budesonide two days ago. ECOG performance status is 1. ROS: As noted above otherwise negative and non-contributory I reviewed the Medications, Allergies, Past Medical History, Social History, and Family History. OBJECTIVE VITAL SIGNS: Vitals: 01/17/24 1435 BP: 125/74 BP Location: Left arm Patient Position: Sitting Cuff Size: Regular Pulse: 65 Resp: 16 Temp: 37.4 ??C TempSrc: Tympanic SpO2: 94% Weight: 86.9 kg Height: 166.7 cm Rate your distress: 1 PHYSICAL EXAM: General: This is a well-appearing female who appears their stated age in no acute distress. Skin: Examined and significant only for previous surgical incisions. Lymph: No palpable lymphadenopathy. Heart: Examined and normal. Lungs: Examined and normal, except mild decreases in the bases bilaterally. O2 sats while ambulating started at 94% with a dip to 92% briefly recovery. Patient felt dyspneic but was not clearly tachypneic. Steroid History: 01/04/2024-prednisone 40 mg p.o. daily 01/10/2024-prednisone 80 mg p.o. daily ASSESSMENT / PLAN #1 Query Grade 2 ICI pneumonitis Patient has not had any noticeable difference in her dyspnea. However, she has had some side effects from the prednisone. It remains unclear to me if this is related to her immunotherapy. I would have suspected that she would have felt better with high-dose steroids in the setting of ICI pneumonitis. Therefore, I do wonder if there is another process ongoing. As such, I am recommending pulmonary function testing with ABG. In addition, I do think that we may have her see Pulmonary for further thoughts on her dyspnea. Finally, it may be worth doing iron studies on her as well to determine if this is impacting her feeling a dyspnea. Given that she has not had much improvement on higher dose of steroids and she is having side effects a think it is reasonable to decrease her to 60 mg p.o. daily to see if this eases her side effects. . 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 Patient has finished her budesonide. She continues to have to formed bowel movements daily. Since she is still on high- dose steroids I think it is reasonable to keepher off the budesonide at this time. Though, I would have a low threshold to restart if her diarrhea worsens or she has more frequent bowel movements. Steroid recommendation: Decrease prednisone to 60 mg p.o. daily PCP prophylaxis: Bactrim single strength PO daily GI prophylaxis: Pepcid 20 mg p.o. daily Follow up: Follow up in one week in the [facility] PATIENT EDUCATION Ready to learn, no apparent [...] PM CDT Clinical Communication Virtual Review in [place], [place] 200 [place] [phone] 04/01/2024 2:40 PM CDT Appointment Department of Laboratory Medicine and Pathology, [facility], in [place], [place] [address] [place] [phone] Adelina Arango APRN, C.N.P. [address] [place] [phone] 04/01/2024 4:00 PM CDT Appointment Department of Radiology, [facility], in [place], [place] [address] [place] [phone] Adelina Arango APRN, C.N.P. [address] [place] [phone] 04/02/2024 1:00 PM CDT Office Visit Department of Oncology in [place], [place] [address] [place] [phone] Julia Gunn M.D., Ph.D. [address] [place] [phone] 05/20/2024 3:00 PM CDT Office Visit Department of Dermatology in [address] [phone] Pam Crain M.D. [address] [place] [phone] Discharge Disposition: Home or Self Care Scheduled Orders Name Type Priority Associated Diagnoses Orde r Schedule Arterial Blood Gas Procedures Routine Dyspnea On Exertion Expected: 01/17/2024, Expires: 04/18/2025 Scheduled Referrals Name Type Priority Associated Diagnoses Orde r Schedule Oncology office visit (clinic) Outpatient Referral Routine Expected: 01/24/2024, Expires: 04/18/2025 Pulmonary Medicine ? Oncologic toxicity consult (clinic) Outpatient Referral Routine Dyspnea On Exertion Expected: 01/17/2024 (Approximate), Expires: 04/18/2025 documented as of this encounter Results * Home Overnight Oximetry (01/25/2024) 01/25/2024 Impressions [facility] - 01/26/2024 8:25 AM CDT [...] sleep-related breathing disorder. Physician: Mickey Verde M.D. [id number] Narrative Procedure Note Mickey eVrde M.D., Ph.D. - 01/26/2024 IMPRESSION: This is [...] sleep-related breathing disorder. Physician: Mickey Verde M.D. [id number] Andressa Desai APRN C.N.P., M.S.N. PFT ORDERABLES [facility] EAP * Pulmonary Function Tests (01/19/2024 6:58 AM CDT) [facility] FVC 2.60 L 01/19/2024 11:12 AM CDT [facility] FEV1 1.98 L 01/19/2024 11:12 AM CDT [facility] FEV1/FVC 76.26 % 01/19/2024 11:12 AM CDT [facility] JAK09-18% 1.59 L/s 01/19/2024 11:12 AM CDT [facility] PEF PRE 6.23 L/s 01/19/2024 11:12 AM CDT [facility] PIF PRE 5.35 L/s 01/19/2024 11:12 AM CDT [facility] FEF 50 % FIF 50 PRE 33.63 % 01/19/2024 11:12 AM CDT [facility] FET PRE 11.84 sec 01/19/2024 11:12 AM CDT [facility] DLCO 16.55 ml/(min*mm Hg) 01/19/2024 11:12 AM CDT [facility] DLCOc 16.98 ml/(min*mm Hg) 01/19/2024 11:12 AM CDT [facility] HB 12.60 g(Hb)/dL 01/19/2024 11:12 AM CDT [facility] VA 4.34 L 01/19/2024 11:12 AM CDT [facility] 01/19/2024 6:58 AM CDT Impressions [facility] - 01/19/2024 11:12 AM CDT Normal study. Narrative Procedure Note Henrry Martin M.D. - 01/19/2024 IMPRESSION: Normal study. Andressa Desai APRN C.N.P., M.S.N. PFT ORDERABLES [facility] NA documented in this encounter Visit Diagnoses Diagnosis Dyspnea On Exertion- Primary Dyspnea On Exertion documented in this encounter Additional Health Concerns Assessment Noted Time PHQ-9 Depression Total Score: 5 11/15/19 24 11:23 AM CDT documented as of this encounter Care Teams Mortgage Assistant Relationship Specialty Start Date End Date Galina Brooks APRN, C.N.P., D.N.P. [address] [phone] PCP - General Family Medicine 02/22/21 Dr Favian Doan- pt was not aware what the name of the dental group is. Dentistry 11/01/22 opthalmology [place] 11/01/22 documented as of this encounter
--- OUTSIDE RECORDS SUMMARY | 2024-03-09 09:11 | XMS_ITS | Encounter Summary ---
Author Organization [facility] Address [address] [place] [address] Care Team Providers Care Press Operator [employer] Name Role Phone Galina Brooks APRN, C.N.P., D.N.P. Primary Ca re Provider Reason for Referral * MRI/CAT/PET Scan (Routine) - Closed Specialty Diagnoses / Procedures Referred By Patric yeung Referred To Contact Diagnoses Secondary Malignant Neoplasm Lymph Node (HCC) Medication Therapy Mcc Not Anticoagulant Melanoma Leg Left (HCC) Procedures PET CT Whole Body FDG PET CT Skull to Thigh FDG Adelina Arango APRN, C.N.P. 200 [place] [phone] [facility] Referral ID Status Reason Start Date Expiration Date Visits Re quested Visits Authorized [id number] Closed 12/05/2023 12/04/2024 1 1 Reason for Visit * MRI/CAT/PET Scan (Routine) - Closed Specialty Diagnoses / Procedures Referred By Patric yeung Referred To Contact Diagnoses Secondary Malignant Neoplasm Lymph Node (HCC) Medication Therapy Emergency Doctor Not Anticoagulant Melanoma Leg Left (HCC) Procedures PET CT Whole Body FDG PET CT Skull to Thigh FDG Adelina Arango APRN, C.N.P. [address] [place] [address] [facility] Referral ID Status Reason Start Date Expiration Date Visits Re quested Visits Authorized [id number] Closed 12/05/2023 12/04/2024 1 1 Encounter Details Date Type Department Care Team (Latest Contact Info) Description 01/04/2024 6:03 AM CDT - 01/04/2024 11:59 PM CDT Hospital Encounter Department of Radiology, [facility], in [place], [place] [address] [place] [address] Adelina Arango APRN, C.N.P. [address] [place] [address] Secondary Malignant Neoplasm Lymph Node (HCC); Medication Therapy Mcc Not Anticoagulant; Melanoma Leg Left (HCC) Discharge Disposition: Home or Self Care Social History Tobacco Use Types Packs/Day Years Used Date Smoking Tobacco: Never Passive Smoke Exposure: Past Smokeless Tobacco: Never Alcohol Use Standard Drinks/Week Comments Yes 1 (1 standard drink = 0.6 oz pur e alcohol) [facility] [employer] Answer Date Recorded In the past 12 months has e [employer], oil, or water [employer] threatened to shut off services in your [...] How often do you attend [facility] or spiritism services? Never 07/07/2022 Do you belong to any clubs o r organizations such as restoration groups, unions, fraternal or athletic groups, or [...] Answer Date Recorded PHQ-2 Score 2 11/15/2023 [facility] - Occupational [...] living situation today? I have a [facility] place to live 12/29/2023 Education Answer [...] BY MOUTH DAILY. 90 tablet 3 10/12/2023 nystatin (MYCOSTATIN) 100,000 unit/gram cream Apply 1 Application topically 2 (two) times a day for 14 days. Apply to under breasts. 30 g 12/26/2023 01/09/2024 budesonide (ENTOCORT EC) 3 mg 24 hr capsule Take 3 capsules (9 mg total) by mouth daily. 90 capsule 1 12/11/2023 01/24/2024 famotidine (PEPCID) 20 mg tablet Take 1 tablet (20 mg total) by mouth 2 (two) times a day. 30 tablet 1 01/04/2024 02/04/2024 predniSONE (DELTASONE) 20 mg tablet Take 2 tablets (40 mg total) by mouth daily. Taper per oncology 60 tablet 1 01/04/2024 01/10/2024 sulfamethoxazole-trim ethoprim (BACTRIM) 400-80 mg per tablet Take 1 tablet by mouth daily. 30 tablet 01/04/2024 01/23/2024 documented as of this encounter Plan of Treatment Upcoming Encounters Date Type Department Care Team (Latest Contact Info) Description 03/29/2024 12:30 PM CDT Clinical Communication Virtual Review in [place], [place] [address] [place] [address] 04/01/2024 2:40 PM CDT Appointment Department of Laboratory Medicine and Pathology, [facility] in [place], [place] [address] [place] [phone] Adelina Arango APRN, C.N.P. [address] [place] [phone] 04/01/2024 4:00 PM CDT Appointment Department of Radiology, [facility] in [place], [place] [address] [place] [phone] Adelina Arango APRN, C.N.P. [address] [place] [phone] 04/02/2024 1:00 PM CDT Office Visit Department of Oncology in [address] [phone] Julia Gunn M.D., Ph.D. [address] [place] [phone] 05/20/2024 3:00 PM CDT Office Visit Department of Dermatology in [address] [phone] Pam Crain M.D. [address] [place] [address] Discharge Disposition: Home or Self Care documented as of this encounter Procedures Procedure Name Priority Date/Time Associated Diagnosis Comments PET CT WHOLE BODY RAD - Routine (most inpatients and all outpatients) 01/04/2024 8:34 AM CDT Secondary Malignant Neoplasm Lymph Node (HCC) Medication Therapy Emergency Doctor Not Anticoagulant Melanoma Leg Left (HCC) documented in this encounter Results * PET CT Whole Body FDG (01/04/2024 [...] RADIOPHARMACEUTICAL/MEDS: Route: intravenous fludeoxyglucose F 18 injection [facility] (FDG F-18),10.01 millicurie TECHNIQUE: ??F-18 FDG PET/CT [...] RADIOPHARMACEUTICAL/MEDS: Route: intravenous fludeoxyglucose F 18 injection [facility] (FDG F-18),10.01 millicurie TECHNIQUE: F-18 FDG PET/CT [...] improvedinflammation. Adelina Arango APRN, C.N.P. IMG NM MA OCEDURES documented in this encounter Visit Diagnoses Diagnosis Secondary Malignant Neoplasm Lymph Node (HCC) Medication Therapy Mcc Not Anticoagulant Melanoma Leg Left (HCC) documented in this encounter Administered Medications Inactive Administered Medications - up to 3 most recent administrations Medication Order MAR Action Action Date Dose Rate Site fludeoxyglucose F 18 injection [facility] (FDG F-18) 4.5-16.5 millicurie, intravenous, Once, On Kayla 01/04/24 at 0645, For 1 dose, Imaging Protocol Orders Given 01/04/2024 6:18 AM CDT 10.01 millicuries documented in this encounter Additional Health Concerns Assessment Noted Time PHQ-9 Depression Total Score: 5 11/15/19 24 11:23 AM CDT documented as of this encounter Care Teams Press Operator [employer] Relationship Specialty Start Date End Date Galina Brooks APRN, C.N.P., D.N.P. [address] [phone] PCP - General Family Medicine 02/22/21 Dr Favian Doan- pt was not aware what the name of the dental group is. Dentistry 11/01/22 opthalmology [place] 11/01/22 documented as of this encounter
--- OUTSIDE RECORDS SUMMARY | 2024-03-09 09:11 | XMS_ITS | Encounter Summary ---
Author Organization [facility] Address [address] [place] [address] Care Team Providers Care Media Relations Manager Name Role Phone Galina Brooks APRN, C.N.P., D.N.P. Primary Ca re Provider Reason for Visit * Outpatient (Routine) - Closed Specialty Diagnoses / Procedures Referred By Patric yeung Referred To Contact Endocrinology Diagnoses Dyspnea On Exertion Procedures Endocrinology - Thyroid disease eConsult Carson Desai APRN, C.N.P., D.N.P. [address] [place] [address] [facility] Referral ID Status Reason Start Date Expiration Date Visits Re quested Visits Authorized [id number] Closed 01/19/2024 01/18/2025 1 1 Encounter Details Date Type Department Care Team (Latest Contact Info) Description 01/22/2024 11:30 AM CDT Internal E-Consult Division of Endocrinology in [place], [place] [address] [place] [phone] Rola Mia M.D. [address] [place] [phone] Dyspnea On Exertion Social History Tobacco Use Types Packs/Day Years Used Date Smoking Tobacco: Never Passive Smoke Exposure: Past Smokeless Tobacco: Never Alcohol Use Standard Drinks/Week Comments Yes 1 (1 standard drink = 0.6 oz pur e alcohol) [facility] Utilities Answer Date Recorded In the past 12 months has [employer], oil, or [employer] threatened to shut off services in your [...] often do you attend chur ch or bahai services? Never 07/07/2022 Do you belong to [...] Answer Date Recorded PHQ-2 Score 2 11/15/[facility] - [facility]ational Stress Questionnaire Answer Date [...] your living situation today? I have a [facility] place to live 12/29/2023 Education [...] PM CDT documented as of this encounter Consult Notes * Rola aMi M.D. - 01/22/2024 11:30 AM CDT The patient was not personally interviewed or examined. The history and examination findings are based on the clinical documentation provided and/or discussed with a physician or provider who had personally interviewed and examined the patient. Referring Physician: Carson Desai APRN, Amy, D.N.P. 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 Specific clinical question: Clinical question to be answered Elevated TSH with borderline T4 in setting of dyspnea; role for replacement? Electric Freight Car Operator: CARSON DESAI Signed By: Carson Desai APRN, C.N.Manasa., D.N.P. Date/Time: 01/22/24718 HISTORY OF PRESENT ILLNESS Lab Results Component Value Date/Time TSH, Sensitive 7.7 (H) 01/04/2024 08:26 AM TSH, Sensitive 3.3 12/05/2023 12:02 PM TSH, Sensitive 5.0 (H) 11/06/2023 11:57 AM TSH, Sensitive 3.9 10/10/2023 09:14 AM TSH, Sensitive 3.0 08/30/2023 10:58 AM TSH, Sensitive 4.1 08/02/2023 11:31 AM TSH, Sensitive 7.1 (H) 06/29/2023 07:49 AM TSH, Sensitive 4.7 (H) 05/22/2023 01:28 PM TSH, Sensitive 3.1 04/24/2023 11:46 AM TSH, Sensitive 4.8 (H) 03/27/2023 07:47 AM T4 (Thyroxine), Free, S 1.1 01/04/2024 08:26 AM T4 (Thyroxine), Free, S 1.3 11/06/2023 11:57 AM T4 (Thyroxine), Free, S 1.3 06/29/2023 07:49 AM T4 (Thyroxine), Free, S 1.1 05/22/2023 01:28 PM T4 (Thyroxine), Free, S 1.3 03/27/2023 07:47 AM T4 (Thyroxine), Free, S 1.3 02/27/2023 09:21 AM T4 (Thyroxine), Free, S 1.2 02/01/2023 12:01 PM T4 (Thyroxine), Free, S 1.3 01/02/2023 08:49 AM Current Outpatient Medications: albuterol 90 mcg/actuation inhaler, Inhale 1 puff every 6 (six) hours as needed for shortness of breath., Disp: 8 g, Rfl: 3 budesonide (ENTOCORT EC) 3 mg 24 hr capsule, Take 3 capsules (9 mg total) by mouth daily. (Patient not taking: Reported on 01/17/2024), Disp: 90 capsule, Rfl: 1 clobetasoL (TEMOVATE) 0.05 % ointment, Apply 1 application topically 2 (two) times a week. Apply toaffected area, Disp: 30 g, Rfl: 2 diphenhydrAMINE-acetaminophen (TYLENOL PM) 25-500 mg per tablet, Take 2 tablets by mouth at bedtime., Disp: , Rfl: estradioL (ESTRACE) 0.1 mg/g (0.01%) vaginal cream, INSERT 1 GRAM VAGINALLY 2 TIMES PER WEEK, Disp:42.5 g, Rfl: 2 famotidine (PEPCID) 20 mg tablet, Take 1 tablet (20 mg total) by mouth 2 (two) times a day., Disp: 30 tablet, Rfl: 1 losartan (COZAAR) 25 mg tablet, Take 1 tablet (25 mg total) by mouth daily., Disp: 90 tablet, Rfl: 3 predniSONE (DELTASONE) 20 mg tablet, Take 4 tablets (80 mg total) by mouth daily. 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 TSH has fluctuated prior, as high as 7s but improves. Thus surveillance alone could be done. If TSH becomses consistently above 7s, then replacement with levothyroxine 50-75 mcg can be considered. General strategies in hypothyroidism are initiation of levothyroxine for TSH of 7-10 or above. For subclinical hypothyroidism alone, multiple large studies, followed by meta-analysis and systematic review (below), show no clear benefit in QoL, mood, blood pressure or BMI with thyroid replacement. There is a risk of overreplacement with therapy, particularly in older patients. Thus, levothyroxine therapy is generally not recommended in most patients with subclinical hypothyroidism with TSH levels mildly elevated and under 7-10s. Treatment however may be individualized and if initiated, suggest replacement doses with a goal of keeping the TSH in the normal reference rangeor age appropriate range (1-6s). TSH may be monitored 6-12 monthly, or sooner if clinically indicated. I suggest the link below, a short educational video, for providers and patients re: hypothyroidism evalautionh and management. Insert this link into the patient message: [email or web address]-[email or web address] Review JARRETT. 2018 Jun 2;320(13):6915-6552. doi: [email or web address]/jarrett.[email or web address]. Association of Thyroid Hormone Therapy With Quality of Life and Thyroid-Related Symptoms in Patients With Subclinical Hypothyroidism: A Systematic Review and Bosque-analysis David Krishnan 1 2 3 , Nela Carrera 3 , Son Liu 1 2 , Brian Downing 4 , Liset Antunez 1 2 , Magalis Pope 1 , Leandro Aldana 5 , Mary Nicholas 3 6 , Pamela Heller 7 , Fadi Marinelli 3 8 , Kevin Henley 9 , Adan Chacon 9 , Arnold Fairchild 10 , Margarito Davis 1 2 , Bj Tafoya 3 11 12 documented in this encounter Plan of Treatment Upcoming Encounters Date Type Department Care Team (Latest Contact Info) Description 03/29/2024 12:30 PM CDT Clinical Communication Virtual Review in [address] [phone] 04/01/2024 2:40 PM CDT Appointment Department of Laboratory Medicine and Pathology, [facility] in [place], [place] [address] [place] [phone] Adelina Arango APRN, C.N.P. [address] [place] [phone] 04/01/2024 4:00 PM CDT Appointment Department of Radiology, [facility] in [place], [place] [address] [place] [phone] Adelina Arango APRN, C.N.P. [address] [place] [phone] 04/02/2024 1:00 PM CDT Office Visit Department of Oncology in [address] [phone] Julia Gunn M.D., Ph.D. [address] [place] [phone] 05/20/2024 3:00 PM CDT Office Visit Department of Dermatology in [address] [phone] Pam Crain M.D. [address] [place] [phone] Discharge Disposition: Home or Self Care documented as of this encounter Visit Diagnoses Diagnosis Dyspnea On Exertion documented in this encounter Additional Health Concerns Assessment Noted Time PHQ-9 Depression Total Score: 5 11/15/19 24 11:23 AM CDT documented as of this encounter Care Teams Media Relations Manager Relationship Specialty Start Date End Date Galina Brooks APRN, C.N.P., D.N.P. [address] [place] [phone] PCP - General Family Medicine 02/22/21 Dr Favian Doan- pt was not aware what the name of the dental group is. Dentistry 11/01/22 opthalmology [employer] 11/01/22 documented as of this encounter
--- OUTSIDE RECORDS SUMMARY | 2024-03-09 09:11 | XMS_ITS | Encounter Summary ---
Author Organization [facility] Address [address] [place] [address] Care Team Providers Care [employer] Name Role Phone Galina Brooks APRN, C.N.Jan, D.N.P. Primary Ca re Provider Reason for Referral * Outpatient (Routine) - Closed Specialty Diagnoses / Procedures Referred By Patric yeung Referred To Contact Oncology Andressa Desai APRN, C.NZarina, M.S.N. [address] [place] [phone] [facility] Referral ID Status Reason Start Date Expiration Date Visits Re quested Visits Authorized [id number] Closed 01/24/2024 07/25/2025 1 1 Scheduling Instructions RN phone visit Reason for Visit * Outpatient (Routine) - Closed Specialty Diagnoses / Procedures Referred By Contmustapha yeung Referred To Contact Oncology Andressa Desai APRN, C.NZarina, M.S.N. [address] [place] [phone] [facility] Referral ID Status Reason Start Date Expiration Date Visits Re quested Visits Authorized [id number] Closed 01/17/2024 07/18/2025 1 1 Encounter Details Date Type Department Care Team ([facility] st Contact Info) Description 01/24/2024 8:40 AM CDT Office Visit Department of Oncology in [place], [place] 200 [place] [address] Andressa Desai APRN, C.N.P., M.S.N. 200 [place] [address] Shortness Of Breath (Primary Dx) Social History Tobacco Use Types Packs/Day Years Used Date Smoking Tobacco: Never Passive Smoke Exposure: Past Smokeless Tobacco: Never Alcohol Use Standard Drinks/Week Comments Yes 1 (1 standard drink = 0.6 oz pur e alcohol) [facility] Privloities Answer Date Recorded In the past 12 months has e [employer], gas, oil, or water company threatened to [...] often do you attend chur ch or islam services? Never 07/07/2022 Do you belong to [...] Date Recorded PHQ-2 Score 2 11/15/2023 [facility] Occupat ional Health - [...] your living situation today? I [facility] a [facility] place to live 12/29/2023 Education Answer [...] Sign Reading Time Taken Comments Blood Pressure 158/92 01/24/2024 9:01 AM CDT Pulse 64 01/24/2024 9:01 AM CDT Temperature 36.4 ??C (97.5 ??F) 01/24/2024 9:01 AM CD T Respiratory Rate - - Oxygen Saturation 94% 01/24/2024 9:01 AM CDT Inhaled Oxygen Concentration - - Weight 88.5 kg (195 lb 1.7 oz) 01/24/2024 9:01 A M CDT Height 167 cm (5' 5.75) 01/24/2024 9:01 AM CDT Body Mass Index 31.73 01/24/2024 9:01 AM CDT documented in this encounter Progress Notes * Andressa Desai APRN, C.N.P., M.S.N. - 01/24/2024 8:40 AM CDT ICI PROGRESS NOTE SUBJECTIVE CHIEF COMPLAINT/PURPOSE [...] cN0(sn), cM0) Method of lymph node assessment: [place] lymph node biopsy Histologic grade (G): G3 Histologic grading system: 3 grade system Genetic Testing and Tumor Genotyping Negative germline genetic testing in 2022; Doshi Syndrome Analyses and [employer]- Cancer + RNAinsight panel from [employer]. Melanoma Leg Left (HCC) 11/08/2022 Biopsy/Pathology While [...] she feels like her dyspnea has not improved, and in fact, states that her activity has decreased. Since she saw me last week, she did see Pulmonary who agrees with me that this is likely not related to ICI toxicity. Her pulmonary workup was essentially negative. It will be interesting to see what her cardiac stress test shows as certainly this could be cardiac related as well. She did have one loose bowel movement a few days ago and has since had formed bowel movements. She is on a quick taper of her steroids as she wants to be off of them as soon as possible. She has three more days left at 20 mg and then will discontinue steroids. Her other significant complaint is fatigue. [...] and Family History. 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 Therefore, it is reasonable to taperher steroids to off, however I do worry about the speed at which she is tapering. She did have symptomatic colitis which was quite bothersome to her and this will likely rebound if she comes off her steroids too quickly. Therefore, I have asked her to start budesonide 9 mg daily to act in her GI tract as she comes off her systemic prednisone. She is in agreement with this. . We will continue to monitor for diarrhea. We can schedule a phone/video visit with her next week with our nurses. I do want her to monitor her energy as I worry that tapering off the high-dose steroids as quickly may impact her adrenals and cause her diarrhea to rebound. Hopefully the with the addition of budesonide she will not have any diarrheal symptoms. Steroid recommendation: Taper per pulmonology PCP prophylaxis: Bactrim can be discontinued once prednisone is discontinued GI prophylaxis: Pepcid 20 mg p.o. daily Follow up: Follow up in one week via video/phone visit PATIENT EDUCATION Ready to learn, no apparent [...] PM CDT Clinical Communication Virtual Review in [place], [place] 200 [place] [phone] 04/01/2024 2:40 PM CDT Appointment Department of Laboratory Medicine and Pathology, [facility] in [address] [phone] Adelina Arango APRN, C.N.P. [address] [place] [phone] 04/01/2024 4:00 PM CDT Appointment Department of Radiology, [facility] in [address] [phone] Adelina Arango APRN, C.N.P. [address] [place] [phone] 04/02/2024 1:00 PM CDT Office Visit Department of Oncology in [address] [phone] Julia Gunn M.D., Ph.D. [address] [place] [phone] 05/20/2024 3:00 PM CDT Office Visit Department of Dermatology in [address] [phone] Pam Crain M.D. [address] [place] [phone] Discharge Disposition: Home or Self Care Scheduled Referrals Name Type Priority Associated Diagnoses Orde r Schedule Oncology office visit (clinic) Outpatient Referral Routine Expected: 01/31/2024, Expires: 04/25/2025 documented as of this encounter Visit Diagnoses Diagnosis Shortness Of Breath- Primary documented in this encounter Additional Health Concerns Assessment Noted Time PHQ-9 Depression Total Score: 5 11/15/19 24 11:23 AM CDT documented as of this encounter Care Teams [employer] Relationship Specialty Start Date End Date Galina Brooks APRN, C.N.P., D.N.P. [address] [phone] PCP - General Family Medicine 02/22/21 Dr Favian Doan- pt was not aware what the name of the dental group is. Dentistry 11/01/22 opthalmology [place] 11/01/22 documented as of this encounter
--- OUTSIDE RECORDS SUMMARY | 2024-03-09 09:11 | XMS_ITS | Encounter Summary ---
Author Organization [facility] Address [address] [place] [address] Care Team Providers Care Plasma Center Technician Name Role Phone Galina Brooks APRN, C.N.P., D.N.P. Primary Ca re Provider Reason for Referral * Outpatient (Routine) - Closed Specialty Diagnoses / Procedures Referred By Patric yeung Referred To Contact Diagnoses Dyspnea On Exertion Secondary Malignant Neoplasm Lymph Node (HCC) Medication Therapy Fpc Not Anticoagulant Melanoma Leg Left (HCC) Shortness Of Breath Procedures US Lower Extremity Veins Left Adelina Arango APRN, C.N.P. [address] [place] [phone] [facility] Referral ID Status Reason Start Date Expiration Date Visits Re quested Visits Authorized [id number] Closed 01/09/2024 01/08/2025 1 1 Reason for Visit * Outpatient (Routine) - Closed Specialty Diagnoses / Procedures Referred By Patric yeung Referred To Contact Diagnoses Dyspnea On Exertion Secondary Malignant Neoplasm Lymph Node (HCC) Medication Therapy Literacy Consultant Not Anticoagulant Melanoma Leg Left (HCC) Shortness Of Breath Procedures US Lower Extremity Veins Left Adelina Arango APRN, C.N.P. [address] [place] [phone] [facility] Referral ID Status Reason Start Date Expiration Date Visits Re quested Visits Authorized [id number] Closed 01/09/2024 01/08/2025 1 1 Encounter Details Date Type Department Care Team (Latest Contact Info) Description 01/10/2024 2:53 PM CDT - 01/10/2024 11:59 PM CDT Hospital Encounter Department of Radiology, [facility], in [place], [place] [address] [place] [phone] Adelina Arango APRN, C.N.P. [address] [place] [phone] Dyspnea On Exertion; Secondary Malignant Neoplasm Lymph Node (HCC); Medication Therapy Literacy Consultant Not Anticoagulant; Melanoma Leg Left (HCC); Shortness Of Breath Discharge Disposition: Home or Self Care Social History Tobacco Use Types Packs/Day Years Used Date Smoking Tobacco: Never Passive Smoke Exposure: Past Smokeless Tobacco: Never Alcohol Use Standard Drinks/Week Comments Yes 1 (1 standard drink = 0.6 oz pur e alcohol) [facility] [employer] Answer Date Recorded In the past 12 months has [employer] gas, oil, or water [employer] threatened to shut off services in your [...] week 07/07/2022 How often do you attend [facility] or jainism services? Never 07/07/2022 Do you belong to any clubs o r organizations such as rastafarian groups, unions, fraternal or athletic groups, or [...] Answer Date Recorded PHQ-2 Score 2 11/15/2023 [facility] of Occupat ional Health - [...] PM CDT Clinical Communication Virtual Review in [place], [place] [address] [place] [address] 04/01/2024 2:40 PM CDT Appointment Department of Laboratory Medicine and Pathology, [facility] in [address] [phone] Adelina Arango APRN, C.N.P. [address] [place] [phone] 04/01/2024 4:00 PM CDT Appointment Department of Radiology, [address] [phone] Adelina Arango APRN, C.N.P. [address] [place] [phone] 04/02/2024 1:00 PM CDT Office Visit Department of Oncology in [address] [phone] Julia Gunn M.D., Ph.D. [address] [place] [phone] 05/20/2024 3:00 PM CDT Office Visit Department of Dermatology in [address] [phone] Pam Crain M.D. [address] [place] [address] Discharge Disposition: Home or Self Care documented as of this encounter Procedures Procedure Name Priority Date/Time Associated Diagnosis Comments US LOWER EXTREMITY VEINS LEFT RAD - Routine (most inpatients and all outpatients) 01/10/2024 3:22 PM CDT Dyspnea On Exertion Secondary Malignant Neoplasm Lymph Node (HCC) Medication Therapy Fpc Not Anticoagulant Melanoma Leg Left (HCC) Shortness Of Breath documented in this encounter Results * US Lower Extremity Veins Left (01/10/2024 [...] and management can be found on the Attunityyo[employer]pert site. Link [email or web address]/topic/[email or web address]/[email or web address] [email or web address] Procedure Note Rigoberto Koo M.D. - 01/10/2024 [...] thrombosis and management can be found on theAskMayoExpert site. [email or web address] -[email or web address] 1725 IMPRESSION: Negative for acute DVT. Adelina Arango APRN, C.N.P. IMG MO OCEDURES documented in this encounter Visit Diagnoses Diagnosis Dyspnea On Exertion Secondary Malignant Neoplasm Lymph Node (HCC) Medication Therapy Literacy Consultant Not Anticoagulant Melanoma Leg Left (HCC) Shortness Of Breath documented in this encounter Additional Health Concerns Assessment Noted Time PHQ-9 Depression Total Score: 5 11/15/19 24 11:23 AM CDT documented as of this encounter Care Teams Plasma Center Technician Relationship Specialty Start Date End Date Galina Brooks APRN, C.N.P., D.N.P. [address] [phone] PCP - General Family Medicine 02/22/21 Dr Favian Doan- pt was not aware what the name of the dental group is. Dentistry 11/01/22 opthalmology [place] 11/01/22 documented as of this encounter
--- OUTSIDE RECORDS SUMMARY | 2024-03-09 09:11 | XMS_ITS | Encounter Summary ---
Author Organization [facility] Address [address] [place] [address] Care Team Providers Care Polish Compounder Name Role Phone Galina Brooks APRN, C.N.P., D.N.P. Primary Ca re Provider Reason for Referral * Outpatient (Routine) - Authorized Specialty Diagnoses / Procedures Referred By Patric yeung Referred To Contact Diagnoses Viral Wart Unspecified Procedures Lesion Destruction Galina Brooks APRN C.N.P., D.N.P. [address] [place] [phone] [facility] Region Referral ID Status Reason Start Date Expiration Date V isits Requested Visits Authorized [id number] Authorized 01/23/2024 01/22/2025 1 1 Reason for Visit * Reason Comments Wart Patient has some war ts on her leg that she would like looked at * Outpatient (Routine) - Closed Specialty Diagnoses / Procedures Referred By Patric yeung Referred To Contact Family Medicine Galina Brooks APRN C.N.P., D.N.P. [address] [place] [phone] Arabella Whitmore M.D. [address] [place] [phone] Referral ID Status Reason Start Date Expiration Date Visits Re quested Visits Authorized [id number] Closed 07/03/2023 07/02/2026 1 1 Encounter Details Date Type Department Care Team (Late st Contact Info) Description 01/23/2024 1:00 PM CDT Office Visit Department of Family Medicine, [facility], in [address] [phone] Galina Brooks APRN, C.N.P., D.N.P. [address] [place] [phone] Viral Wart Unspecified (Primary Dx) Discharge Disposition: Home or Self Care Social History Tobacco Use Types Packs/Day Years Used Date Smoking Tobacco: Never Passive Smoke Exposure: Past Smokeless Tobacco: Never Tobacco Cessation:Counseling Given: Not Answered Alcohol Use Standard Drinks/Week Comments Yes 1 (1 standard drink = 0.6 oz pur e alcohol) [facility] Utilities Answer Date Recorded In the past 12 months has e electric, gas, oil, or water [employer] threatened to shut off services in your [...] often do you attend chur ch or muslim services? Never 07/07/2022 Do you belong to any clubs o r organizations such as mormonism groups, unions, fraternal or athletic groups, or [...] Answer Date Recorded PHQ-2 Score 2 11/15/2023 [facility] of Occupat ional Health - Occupational Stress [...] your living situation today? I have a [facility] place to live 12/29/2023 Education [...] Sign Reading Time Taken Comments Blood Pressure 138/81 01/23/2024 12:47 PM CDT Pulse 79 01/23/2024 12:47 PM CDT Temperature 36.8 ??C (98.2 ??F) 01/23/2024 1 2:47 PM CDT Respiratory Rate 18 01/23/2024 12:4 7 PM CDT Oxygen Saturation 96% 01/23/2024 12: 47 PM CDT Inhaled Oxygen Concentration - - Weight 88.4 kg (194 lb 14.2 oz) 024 12:47 PM CDT Height - - Body Mass Index 31.81 01/17/2024 2:35 PM CDT documented in this encounter Procedure Notes * Galina Brooks APRN, C.N.P., D.N.P. - 01/23/2024 1:00 PM CDTAssociated Order(s): Lesion Destruction Post-Procedure Diagnose(s): Viral Wart Unspecified Lesion Destruction Performed by: Galina Brooks APRN, C.N.PMarixa, D.N.P. Authorized by: Galina Brooks APRN, C.N.PMarixa, D.N.P. PROCEDURE DETAILS Number of body areas treated: [...] verbal Consent given by: patient PRE-PROCEDURE DETAILS Procedure purpose: therapeutic Appropriate hand hygiene, gown, cap, mask, protective eyewear, sterile gloves, skin preparation, sterile drape, and strict aseptic technique were utilized as applicable for the procedure.: yes Site preparation: alcohol Pre-procedural diagnosis: wart POST-PROCEDURE DETAILS Total lesions destroyed: 2 Total lesions destroyed by chemical injection: 0 Estimated blood loss: minimal Procedure completed successfully: yes Complications: no apparent complications Tolerance: well tolerated Follow up: no follow up planned unless complications COMMENTS Recommend dermatology visit if not resolving after 1-3 cryotherapy cycles due to history of melanoma. documented in this encounter Plan of Treatment Upcoming Encounters Date Type Department Care Team (Latest Contact Info) Description 03/29/2024 12:30 PM CDT Clinical Communication Virtual Review in [place], [place] 200 [place] [address] 04/01/2024 2:40 PM CDT Appointment Department of Laboratory Medicine and Pathology, [address] [phone] Adelina Arango APRN, C.N.PMarixa [address] [place] [phone] 04/01/2024 4:00 PM CDT Appointment Department of Radiology, [facility] in [address] [phone] Adelina Arango APRN, C.N.P. [address] [place] [phone] 04/02/2024 1:00 PM CDT Office Visit Department of Oncology in [place], [place] [address] [place] [phone] Julia Gunn M.D., Ph.D. [address] [place] [phone] 05/20/2024 3:00 PM CDT Office Visit Department of Dermatology in [address] [phone] Pam Crain M.D. [address] [place] [phone] Discharge Disposition: Home or Self Care documented as of this encounter Procedures Procedure Name Priority Date/Time Associated Diagnosis Comments [place] DEST BENIGN LESN OTHR<=14 Routine 01/23/2024 1:00 PM CDT Viral Wart Unspecified documented in this encounter Results * W[place] DEST BENIGN LESN OTHR<=14 (01/23/2024 1:00 PM CDT) Narrative MMODAL - 01/23/2024 1:00 PM CDT Galina Brooks APRN, C.N.P., D.N.P. ? 01/23/2024 ??1:23 [...] due to history of melanoma. Jass Carrillo APRNN.Jan, D.N.P. PRO CEDURE/MINOR SURGICAL ORDERABLES MMODAL NA documented in this encounter Visit Diagnoses Diagnosis Viral Wart Unspecified- Primary documented in this encounter Additional Health Concerns Assessment Noted Time PHQ-9 Depression Total Score: 5 11/15/19 24 11:23 AM CDT documented as of this encounter Care Teams Polish Compounder Relationship Specialty Start Date End Date Galina Brooks APRN, C.N.P., D.N.P. [address] [phone] PCP - General Family Medicine 02/22/21 Dr Favian Doan- pt was not aware what the name of the dental group is. Dentistry 11/01/22 opthalmology [place] 11/01/22 documented as of this encounter
--- OUTSIDE RECORDS SUMMARY | 2024-03-09 09:11 | XMS_ITS | Encounter Summary ---
Author Organization [facility] Address [address] [place] [address] Care Team Providers Care Ammunition Assembly Laborer Name Role Phone Galina Brooks APRN, C.N.P., D.N.P. Primary Ca re Provider Reason for Visit * Reason Comments Return Visit * Outpatient (Routine) - Closed Specialty Diagnoses / Procedures Referred By Patric yeung Referred To Contact Obstetrics and Gynecology Marbella Slaughter APRN, C.N.P. [address] [place] [phone] [facility] Referral ID Status Reason Start Date Expiration Date Visits Re quested Visits Authorized [id number] Closed 08/30/2023 08/29/2026 1 1 Encounter Details Date Type Department Care Team (Late st Contact Info) Description 01/05/2024 1:30 PM CDT Office Visit Department of Obstetrics and Gynecology, Division of Gynecologic Oncology in [place], [place] [address] [place] [phone] Marbella Slaughter APRN, C.N.P. [address] [place] [phone] Cancer Endometrium Personal History (Primary Dx) Social History Tobacco Use Types Packs/Day Years Used Date Smoking Tobacco: Never Passive Smoke Exposure: Past Smokeless Tobacco: Never Alcohol Use Standard Drinks/Week Comments Yes 1 (1 standard drink = 0.6 oz pur e alcohol) [facility] Utilities Answer Date Recorded In the past 12 months has th e electric, gas, oil, or water [employer] threatened to shut off services in your [...] often do you attend chur ch or episcopalian services? Never 07/07/2022 Do you belong to any clubs o r organizations such as faith groups, unions, fraternal or athletic groups, or [...] Answer Date Recorded PHQ-2 Score 2 11/15/2023 [facility] of Occupat ional Health - Occupational Stress [...] your living situation today? I have a [facility] place to live 12/29/2023 Education Answer [...] as of this encounter Progress Notes * Marbella Slaughter APRN, C.N.P. - 01/05/2024 1:30 PM CDT SUBJECTIVE CHIEF COMPLAINT/REASON FOR VISIT Cancer Surveillance HISTORY OF PRESENT ILLNESS Ms. Duran is a 73 y.o. who returns for a cancer surveillance visit. 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 Melanoma Leg Left (HCC) 11/08/2022 Biopsy/Pathology While [...] mg every 4 weeks Start Date: 01/02/2023 INTERVAL HISTORY: Patient states that from a gynecologic standpoint she is doing very well today. She denies any vaginal bleeding or abnormal discharge. She denies any bladder changes. She has been dealing with some loose stools due to bowel inflammation from nivolumab. She ended up not getting the last dose due to side effects. She does note that her bowels symptoms are improving. She had a PET scan yesterday which was negative for recurrent disease. She will be following up with Oncology again next week as sheis currently on steroids due to some shortness of breath side effects as well. She denies any abdominal pain or bloating. She has no new leg edema. Mammogram was done in October. REVIEW OF SYSTEMS Negative other than noted in the HPI The following portions of the patient's history were reviewed and updated as appropriate: allergies, current medications, family history, medical history, social history, surgical history. OBJECTIVE PHYSICAL EXAMINATION General: Pleasant female in no acute distress Lymph: No palpable lymphadenopathy of the cervical, supraclavicular, or inguinal areas. Abdomen: Abdomen is soft, nontender, and nondistended. There were no palpable masses. No organomegaly. Pelvis: External genitalia was normal appearance. No lesions of concern. Speculum was placed, vagina without lesions of concern. Bimanual exam is without palpable nodularity or masses. This was confirmed on rectovaginal exam. Ext: No lower extremity edema ASSESSMENT / PLAN #1 Cancer Endometrium Personal History The patient seems to be doing very well. I reassured the patient that there were no concerning findings on review of system or exam for recurrence. I will follow-up next week to see when medical oncology we will have the patient return in trying coordinate visits to save her trips, but would like to see her sometime in the next 4-6 months for her next surveillance visit. Possible warning signs ofrecurrence were reviewed. She will contact us in the meantime with any questions or concerns. documented in this encounter Plan of Treatment Upcoming Encounters Date Type Department Care Team (Latest Contact Info) Description 03/29/2024 12:30 PM CDT Clinical Communication Virtual Review in [address] [phone] 04/01/2024 2:40 PM CDT Appointment Department of Laboratory Medicine and Pathology, [facility] in [address] [phone] Adelina Arango APRN, C.N.P. [address] [place] [phone] 04/01/2024 4:00 PM CDT Appointment Department of Radiology, [facility], in [address] [phone] Adelina Arango APRN, C.N.P. [address] [place] [phone] 04/02/2024 1:00 PM CDT Office Visit Department of Oncology in [place], [place] [address] [place] [phone] Julia Gunn M.D., Ph.D. [address] [place] [phone] 05/20/2024 3:00 PM CDT Office Visit Department of Dermatology in [address] [phone] Pam Crain M.D. [address] [place] [phone] Discharge Disposition: Home or Self Care documented as of this encounter Visit Diagnoses Diagnosis Cancer Endometrium Personal History- Primary documented in this encounter Additional Health Concerns Assessment Noted Time PHQ-9 Depression Total Score: 5 11/15/19 24 11:23 AM CDT documented as of this encounter Care Teams Ammunition Assembly Laborer Relationship Specialty Start Date End Date Galina Brooks APRN, C.N.P., D.N.P. [address] [place] [phone] PCP - General Family Medicine 02/22/21 Dr Favian Doan- pt was not aware what the name of the dental group is. Dentistry 11/01/22 opthalmology [place] 11/01/22 documented as of this encounter
--- OUTSIDE RECORDS SUMMARY | 2024-03-09 09:11 | XMS_ITS | Encounter Summary ---
Author Organization [facility] Address [address] [place] [address] Care Team Providers Care Web Application Dev Specialist Name Role Phone Galina Brooks APRN C.N.PMarixa, D.N.P. Primary Ca re Provider Reason for Referral * Cardiovascular-Diagnostic (Routine) - Closed Specialty Diagnoses / Procedures Referred By Contac t Referred To Contact Diagnoses Dyspnea On Exertion Procedures Echo Transthoracic (TTE) Andressa Desai APRN, C.N.Manasa., M.S.N. [address] [place] [phone] [facility] Referral ID Status Reason Start Date Expiration Date Visits Re quested Visits Authorized [id number] Closed 01/10/2024 01/09/2025 1 1 Reason for Visit * Cardiovascular-Diagnostic (Routine) - Closed Specialty Diagnoses / Procedures Referred By Contac t Referred To Contact Diagnoses Dyspnea On Exertion Procedures Echo Transthoracic (TTE) Andressa Desai APRN, C.N.P., M.S.N. [address] [place] [phone] [facility] Referral ID Status Reason Start Date Expiration Date Visits Re quested Visits Authorized [id number] Closed 01/10/2024 01/09/2025 1 1 Encounter Details Date Type Department Care Team (Latest Contact Info) Description 01/17/2024 8:26 AM CDT - 01/17/2024 11:59 PM CDT Hospital Encounter Department of Cardiovascular Diseases in [place], [place] 200 [place] [phone] Andressa Desai APRN, C.N.P., M.S.N. [address] [place] [phone] Dyspnea On Exertion Discharge Disposition: Home or Self Care Social History Tobacco Use Types Packs/Day Years Used Date Smoking Tobacco: Never Passive Smoke Exposure: Past Smokeless Tobacco: Never Alcohol Use Standard Drinks/Week Comments Yes 1 (1 standard drink = 0.6 oz pur e alcohol) [facility] Utilities Answer Date Recorded In the past 12 months has e electric, gas, oil, or water [employer] threatened to shut off services in your [...] often do you attend chur ch or oriental orthodox services? Never 07/07/2022 Do you belong to any clubs o r organizations such as islam groups, unions, fraternal or athletic groups, or [...] Answer Date Recorded PHQ-2 Score 2 11/15/2023 [employer] [facility] - Occupational Stress [...] living situation today? [facility] 12/29/2023 Education Answer Date [...] PM CDT Clinical Communication Virtual Review in [place], [place] 200 [place] [phone] 04/01/2024 2:40 PM CDT Appointment Department of Laboratory Medicine and Pathology, [facility] in [place], [place] [address] [place] [phone] Adelina Arango APRN, C.N.P. [address] [place] [phone] 04/01/2024 4:00 PM CDT Appointment Department of Radiology, [facility] in [place], [place] [address] [place] [phone] Adelina Arango APRN, C.N.P. [address] [place] [phone] 04/02/2024 1:00 PM CDT Office Visit Department of Oncology in [address] [phone] Julia Gunn M.D., Ph.D. [address] [place] [phone] 05/20/2024 3:00 PM CDT Office Visit Department of Dermatology in [address] [phone] Pam Crain M.D. [address] [place] [phone] Discharge Disposition: Home or Self Care documented as of this encounter Procedures Procedure Name Priority Date/Time Associated Diagnosis Comments (TTE) 2D ECHO DOPPLER COLOR Routine 01/17/2024 11:00 AM CDT Dyspnea On Exertion documented in this encounter Results * (TTE) 2D ECHO DOPPLER COLOR (01/17/2024 [...] CDT There are no previous [facility] echocardiograms available for comparison. LEFT VENTRICLE:Normal left ventricular chamber size. Normal left ventricular geometry. Calculated 2-D biplane volumetric left ventricular ejection fraction of 60%. Left ventricular stroke volume index 37 ml/m2. Left ventricular cardiac index 2.05 l/min/m2. No regional wall motion abnormalities. Normal left ventricular filling pressure. Left ventricular strain assessment was performed but not reported based on chainstitch felled seam operator's judgment. RIGHT VENTRICLE:Normal right ventricular chamber size. [...] was performed but not reported based on chainstitch felled seam operator's judgment. 3. Normal left ventricular geometry, normal [...] assessment was performed but not reported basedon chainstitch felled seam operator's judgment. 3. Normal left ventricular geometry, normal filling pressure. 4. Normal right ventricular chamber size, normal systolic function,estimated right ventricular systolic pressure 24 mmHg (right atrialpressure of 5 mmHg). 5. No significant valvular heart disease. 6. No pericardial effusion. Findings There are no previous [facility] echocardiograms available forcomparison. LEFT VENTRICLE:Normal left ventricular chamber size. Normal leftventricular geometry. Calculated 2-D biplane volumetric left ventricularejection fraction of 60%. Left ventricular stroke volume index 37 ml/m2.Left ventricular cardiac index 2.05 l/min/m2. No regional wall motionabnormalities. Normal left ventricular filling pressure. Left ventricularstrain assessment was performed but not reported based on chainstitch felled seam operator'sjudgment. RIGHT VENTRICLE:Normal right ventricular chamber size. Normal [...] the complete report, see the Order-Level Documents. Naima Wolff APRN.N.P., M.S.N. CV ECHO PROCEDURES documented in this encounter Visit Diagnoses Diagnosis Dyspnea On Exertion documented in this encounter Additional Health Concerns Assessment Noted Time PHQ-9 Depression Total Score: 5 11/15/19 24 11:23 AM CDT documented as of this encounter Care Teams Web Application Dev Specialist Relationship Specialty Start Date End Date Galina Brooks APRN C.N.P., D.N.P. [address] [place] [phone] PCP - General Family Medicine 02/22/21 Dr Favian Doan- pt was not aware what the name of the dental group is. Dentistry 11/01/22 opthalmology [place] 11/01/22 documented as of this encounter
--- OUTSIDE RECORDS SUMMARY | 2024-03-09 09:11 | XMS_ITS | Encounter Summary ---
Author Organization [facility] Address [address] [place] [address] Care Team Providers Care Insurance Marketing Rep Name Role Phone Galina Brooks APRN, C.N.Jan, D.N.P. Primary Ca re Provider Reason for Referral * Outpatient (Routine) - Closed Specialty Diagnoses / Procedures Referred By Patric t Referred To Contact Oncology Andressa Desai APRN, C.NZarina, M.S.N. [address] [place] [phone] [facility] Referral ID Status Reason Start Date Expiration Date Visits Re quested Visits Authorized [id number] Closed 01/10/2024 07/11/2025 1 1 * Cardiovascular-Diagnostic (Routine) - Closed Specialty Diagnoses / Procedures Referred By Contmustapha t Referred To Contact Diagnoses Dyspnea On Exertion Procedures Echo Transthoracic (TTE) Andressa Desai APRN, C.N.Jan, M.S.N. [address] [place] [phone] [facility] Referral ID Status Reason Start Date Expiration Date Visits Re quested Visits Authorized [id number] Closed 01/10/2024 01/09/2025 1 1 Reason for Visit * Outpatient (Routine) - Closed Specialty Diagnoses / Procedures Referred By Patric yeung Referred To Contact Oncology Adelina Arango APRN, C.N.P. [address] [place] [phone] [facility] Referral ID Status Reason Start Date Expiration Date Visits Re quested Visits Authorized [id number] Closed 01/06/2024 07/07/2025 1 1 Encounter Details Date Type Department Care Team (Late st Contact Info) Description 01/10/2024 2:00 PM CDT Office Visit Department of Oncology in [place], [place] [address] [place] [phone] Andressa Desai APRN, C.N.P., M.S.N. [address] [place] [phone] Dyspnea On Exertion (Primary Dx) Social History Tobacco Use Types Packs/Day Years Used Date Smoking Tobacco: Never Passive Smoke Exposure: Past Smokeless Tobacco: Never Alcohol Use Standard Drinks/Week Comments Yes 1 (1 standard drink = 0.6 oz pur e alcohol) [facility] Utilities Answer Date Recorded In the past 12 months has e [employer], gas, oil, or water [employer] threatened to shut off services in your [...] Answer Date Recorded PHQ-2 Score 2 11/15/2023 [facility] ional [facility] - [...] your living situation today? I have a [facility] place to live 12/29/2023 Education Answer [...] Sign Reading Time Taken Comments Blood Pressure 121/68 01/10/2024 1:49 PM CDT Pulse 76 01/10/2024 1:49 PM CDT Temperature 36.4 ??C (97.5 ??F) 01/10/2024 1:49 PM CD T Respiratory Rate 20 01/10/2024 1:49 PM CDT Oxygen Saturation 94% 01/10/2024 1:49 PM CDT Inhaled Oxygen Concentration - - Weight 87.4 kg (192 lb 9.2 oz) 01/10/2024 1:49 P M CDT Height 166.8 cm (5' 5.67) 01/10/2024 1:49 PM CD T Body Mass Index 31.4 01/10/2024 1:49 PM CDT documented in this encounter Patient Instructions * Patient Instructions* Andressa Desai APRN, C.N.P., M.S.N. - 01/10/2024 2:00 PM CDT Increase prednisone to 4 (20 mg) tablets for a total of 80 mg per day. Appointment next week in [facility] clinic in person documented in this encounter Progress Notes * Andressa Desai APRN, C.N.P., Nova.SMayte. - 01/10/2024 2:00 PM CDT [facility] PROGRESS NOTE SUBJECTIVE CHIEF COMPLAINT/PURPOSE OF VISIT: - Follow-up from last week for suspected grade 2 [facility] pneumonitis Interval history: Ms. Duran returns for follow-up. She shares that she feels like her dyspnea has not improved. She feels as if there is fluid in her lungs and abdomen. She states that she does get quite dyspneic when going upstairs or up hill. She did not use a wheelchair today. When she does have dyspnea she feels like she hears wheezing in her chest. Today we were able to ambulate two hallways at a decent pacewithout desaturation. ECOG performance status is 1. ROS: As noted above otherwise negative and non-contributory I reviewed the Medications, Allergies, Past Medical History, Social History, and Family History. OBJECTIVE VITAL SIGNS: Vitals: 01/10/24 1349 BP: 121/68 BP Location: Right arm Patient Position: Sitting Cuff Size: Regular Pulse: 76 Resp: 20 Temp: 36.4 ??C TempSrc: Tympanic SpO2: 94% Weight: 87.4 kg Height: 166.8 cm Rate your distress: 1 PHYSICAL EXAM: [...] felt dyspneic but was not clearly tachypneic. ASSESSMENT / PLAN #1 Likely Grade 2 [facility]CI pneumonitis While not commented on in the PET, there does appear to be GGO bilaterally consistent with pneumonitis. Given that her symptoms have steadily worsened over the last few weeks despite being treated with 0.5 mg/kg (40 mg) of prednisone. We will plan on increasing her to 1 mg/kg (80 mg) po daily. We will plan on seeing her again in one week to assess her symptoms. She is also getting a LE ultrasound to evaluate for DVT given her worsening swelling. Finally, if her dyspnea still does not improve and she continues to have LE edema an echo can also be considered. 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 For now we can continue to keep her on the budesonide for now. PATIENT EDUCATION Ready to learn, no apparent [...] PM CDT Clinical Communication Virtual Review in [address] [phone] 04/01/2024 2:40 PM CDT Appointment Department of Laboratory Medicine and Pathology, [address] [phone] Adelina Arango APRN, C.N.P. [address] [place] [phone] 04/01/2024 4:00 PM CDT Appointment Department of Radiology, [facility] in [address] [phone] Adelina Arango APRN, C.N.P. [address] [place] [phone] 04/02/2024 1:00 PM CDT Office Visit Department of Oncology in [place], [place] [address] [place] [address] Julia Gunn M.D., Ph.D. 200 [place] [phone] 05/20/2024 3:00 PM CDT Office Visit Department of Dermatology in [address] [phone] Pam Crain M.D. 200 [place] [phone] Discharge Disposition: Home or Self Care Scheduled Referrals Name Type Priority Associated Diagnoses Orde r Schedule Oncology office visit (clinic) Outpatient Referral Routine Expected: 01/17/2024, Expires: 04/11/2025 documented as of this encounter Results * (TTE) 2D ECHO [...] 10:05 AM CDT There are no previous [facility] echocardiograms available for comparison. LEFT VENTRICLE:Normal left ventricular chamber size. Normal left ventricular geometry. Calculated 2-D biplane volumetric left ventricular ejection fraction of 60%. Left ventricular stroke volume index 37 ml/m2. Left ventricular cardiac index 2.05 l/min/m2. No regional wall motion abnormalities. Normal left ventricular filling pressure. Left ventricular strain assessment was performed but not reported based on coding assistant's judgment. RIGHT VENTRICLE:Normal right ventricular chamber size. [...] was performed but not reported based on coding assistant's judgment. 3. Normal left ventricular geometry, normal [...] assessment was performed but not reported basedon coding assistant's judgment. 3. Normal left ventricular geometry, normal filling pressure. 4. Normal right ventricular chamber size, normal systolic function,estimated right ventricular systolic pressure 24 mmHg (right atrialpressure of 5 mmHg). 5. No significant valvular heart disease. 6. No pericardial effusion. Findings There are no previous [facility] echocardiograms available forcomparison. LEFT VENTRICLE:Normal left ventricular chamber size. Normal leftventricular geometry. Calculated 2-D biplane volumetric left ventricularejection fraction of 60%. Left ventricular stroke volume index 37 ml/m2.Left ventricular cardiac index 2.05 l/min/m2. No regional wall motionabnormalities. Normal left ventricular filling pressure. Left ventricularstrain assessment was performed but not reported based on coding assistant'sjudgment. RIGHT VENTRICLE:Normal right ventricular chamber size. Normal [...] see the Order-Level Documents. Andressa Desai APRN C.N.P., M.S.N. CV ECHO PROCEDURES documented in this encounter Visit Diagnoses Diagnosis Dyspnea On Exertion- Primary Dyspnea On Exertion documented in this encounter Additional Health Concerns Assessment Noted Time PHQ-9 Depression Total Score: 5 11/15/19 24 11:23 AM CDT documented as of this encounter Care Teams Insurance Marketing Rep Relationship Specialty Start Date End Date Galina Brooks APRN C.N.P., D.N.P. [address] [phone] PCP - General Family Medicine 02/22/21 Dr Favian Doan- pt was not aware what the name of the dental group is. Dentistry 11/01/22 opthalmology [place] 11/01/22 documented as of this encounter
--- OUTSIDE RECORDS SUMMARY | 2024-03-09 09:12 | XMS_ITS | Encounter Summary ---
Author Organization [facility] Address [address] [place] [address] Care Team Providers Care Tiger Machine Operator Name Role Phone Galina Brooks APRN, C.N.P., D.N.P. Primary Ca re Provider Reason for Referral * Outpatient (Routine) - Closed Specialty Diagnoses / Procedures Referred By Patric t Referred To Contact Galina Brooks APRN, C.N.P., D.N.P. [address] [place] [phone] [facility] Region Referral ID Status Reason Start Date Expiration Date Visits Re quested Visits Authorized [id number] Closed 12/05/2023 06/05/2025 1 1 Scheduling Instructions Nurse AWV Do not schedule prior to due date to ensure insurance coverage Visit: Medicare Annual Wellness due on 11/02/2023. Encounter Details Date Type Department Care Team (Late st Contact Info) Description 12/05/2023 Orders Only [facility] Galina Brooks APRN, C.N.P., D.N.P. [address] [place] [phone] Social History Tobacco Use Types Packs/Day Years Used Date Smoking Tobacco: Never Passive Smoke Exposure: Past Smokeless Tobacco: Never Alcohol Use Standard Drinks/Week Comments Yes 1 (1 standard drink = 0.6 oz pur e alcohol) Humiliation, Afraid, Rape, and Kick questionnair e [...] any clubs o r organizations such as mandaeism groups, unions, fraternal or athletic groups, or [...] Answer Date Recorded PHQ-2 Score 2 11/15/2023 [facility] - Occupational Stress Questionnaire Answer Date [...] to strenuous exercise (like a brisk walk)? 4 days 07/07/2022 On average, how many minutes do you engage in exercise at this level? 30 min 07/07/2022 Hunger Vital Sign Answer Date Recorded Within the past 12 months, y ou worried that your food would run out before you got the money to buy more. Never true 07/07/20 Within the past 12 months, t he food you bought just didn't last and you didn't have money to get more. Never true 07/07/2022 PRAPARE - Transportation Answer Date Re corded In the past 12 months, has l ack of transportation kept you from medical appointments or from getting medications? No 11/2021 In the past 12 months, has l ack of transportation kept you from meetings, work, or from getting things needed for daily living? No 07/07/2022 Housing Stability Vital Sign Answer Rogers e Recorded In the last 12 months, was t here a time when you were not able to pay the mortgage or rent on time? No 07/07/2022 In the last 12 months, how many places have you lived? 1 07/07/2022 In the last 12 months, was t here a time when you did not have a steady place to sleep or slept in a residential (including now)? No 07/07/2022 Depression Answer Date Recor ded PHQ-9 Total Score (max 27) 5 11/14 Nutrition Answer Date Recorded Nutrition: EVOO Fat Source No 07/07 On average, how many serving s of fruits and vegetables do you eat per day (serving size is equal to 1 cup or approximately the size of a tennis ball)? 2-3 07/07/2022 Dental Answer Date Recorded Dental: Regular Dentist Yes 10/26/19 Employment Answer Date Recorded Employment status Retired 07/07/2022 Education Answer Date Recorded What is the [...] PM CDT Clinical Communication Virtual Review in [place], [place] 200 [place] [phone] 04/01/2024 2:40 PM CDT Appointment Department of Laboratory Medicine and Pathology, [facility] in [place], [place] [address] [place] [phone] Adelina Arango APRN, C.N.P. [address] [place] [phone] 04/01/2024 4:00 PM CDT Appointment Department of Radiology, [facility] in [place], [place] [address] [place] [phone] Adelina Arango APRN, C.N.P. [address] [place] [phone] 04/02/2024 1:00 PM CDT Office Visit Department of Oncology in [place], [place] [address] [place] [phone] Julia Gunn M.D., Ph.D. [address] [place] [phone] 05/20/2024 3:00 PM CDT Office Visit Department of Dermatology in [address] [phone] Pam Crain M.D. [address] [place] [phone] Discharge Disposition: Home or Self Care Scheduled Referrals Name Type Priority Associated Diagnoses Orde r Schedule Primary Care nurse visit (clinic) - [facility] Region; Medicare Annual Wellness Outpatient Referral Routine Expected: 01/02/2024, Expires: 06/02/2024 documented as of this encounter Visit Diagnoses Not on filedocumented in this encounter Additional Health Concerns Assessment Noted Time PHQ-9 Depression Total Score: 5 11/15/19 24 11:23 AM CDT documented as of this encounter Care Teams Tiger Machine Operator Relationship Specialty Start Date End Date Galina Brooks APRN, C.N.P., D.N.P. [address] [place] [phone] PCP - General Family Medicine 02/22/21 Dr Favian Doan- pt was not aware what the name of the dental group is. Dentistry 11/01/22 opthalmology [place] 11/01/22 documented as of this encounter
--- OUTSIDE RECORDS SUMMARY | 2024-03-09 09:12 | XMS_ITS | Encounter Summary ---
Author Organization [facility] Address [address] [place] [address] Care Team Providers Care Associate Genetics Professor Name Role Phone Galina Brooks APRN, C.N.P., D.N.P. Primary Ca re Provider Encounter Details Date Type Department Care Team (Late st Contact Info) Description 12/27/2023 Orders Only Department of Oncology in [place], [place] [address] [place] [phone] Adelina Arango APRN, C.N.P. [address] [place] [phone] Social History Tobacco Use Types Packs/Day Years Used Date Smoking Tobacco: Never Passive Smoke Exposure: Past Smokeless Tobacco: Never Alcohol Use Standard Drinks/Week Comments Yes 1 (1 standard drink = 0.6 oz pur e alcohol) [facility] Utilities Answer Date Recorded In the past 12 months has [employer], gas, oil, or water [employer] threatened to shut off services in your home? No 12/26/2023 Humiliation, Afraid, Rape, and Kick questionnair e [...] often do you attend chur ch or quaker services? Never 07/07/2022 Do you belong to any clubs o r organizations such as adventism groups, unions, fraternal or athletic groups, or [...] Date Recorded PHQ-2 Score 2 11/15/2023 [facility] Occupat ional Health - Occupational [...] the money to buy more. Never true 12/26/19 24 Within the past 12 months, t he food you bought just didn't last and you didn't have money to get more. Never true 12/26/2023 PRAPARE - Transportation Answer Date Re corded In the past 12 months, has l ack of transportation kept you from medical appointments or from getting medications? No 12/04 In the past 12 months, has l ack of transportation kept you from meetings, work, or from getting things needed for daily living? No 12/26/2023 Depression Answer Date Recor ded PHQ-9 Total [...] your living situation today? I have a [facility] place to live 12/26/2023 Education Answer Date Recorded What is the [...] PM CDT Clinical Communication Virtual Review in [place], [place] 200 [place] [phone] 04/01/2024 2:40 PM CDT Appointment Department of Laboratory Medicine and Pathology, [facility], in [place], [place] [address] [place] [phone] Adelina Arango APRN, C.N.P. [address] [place] [phone] 04/01/2024 4:00 PM CDT Appointment Department of Radiology, [facility], in [place], [place] [address] [place] [phone] Adelina Arango APRN, C.N.P. [address] [place] [phone] 04/02/2024 1:00 PM CDT Office Visit Department of Oncology in [place], [place] [address] [place] [phone] Julia Gunn M.D., Ph.D. [address] [place] [phone] 05/20/2024 3:00 PM CDT Office Visit Department of Dermatology in [address] [phone] Pam Crain M.D. [address] [place] [phone] Discharge Disposition: Home or Self Care documented as of this encounter Visit Diagnoses Not on filedocumented in this encounter Additional Health Concerns Assessment Noted Time PHQ-9 Depression Total Score: 5 11/15/19 24 11:23 AM CDT documented as of this encounter Care Teams Associate Genetics Professor Relationship Specialty Start Date End Date Galina Brooks APRN, C.N.P., D.N.P. [address] [place] [phone] PCP - General Family Medicine 02/22/21 Dr Favian Doan- pt was not aware what the name of the dental group is. Dentistry 11/01/22 opthalmology [place] 11/01/22 documented as of this encounter
--- OUTSIDE RECORDS SUMMARY | 2024-03-09 09:12 | XMS_ITS | Clinical Summary ---
Author Organization [facility] Address [place], [place] [address] Care Team Providers Care Multicultural Services Librarian Name Role Phone None Primary Care Provider Unavailabl e Immunizations Name Administration Dates Next Due COVID-19 vaccine ([employer] 30mcg/0.3mL) JAYLA Wakefield 11/11/2020,10/21/2020 Social History Tobacco Use Types Packs/Day Years Used Date Smoking Tobacco: Never Assessed Sex and Gender Information Value Date Recorded Sex Assigned at Not on file Gender Identity Not on file Sexual Orientation Not on file Plan of Treatment Health Maintenance Due Date Last Done Comments Tdap 1962 Depression screening for age 12+ 1963 BMI (ht and wt on same day) for age 18+ 1969 Hepatitis C screening for age 18-79 1969 Tetanus booster 1971 Colonoscopy through age 75 01/08/1996 Lipids for age 45-75 01/08/1996 Mammogram for age 45-75 01/08/1996 Zoster (shingles) series for age 50+ (1 of 2) 2001 DEXA/DXA scan for age 65+ 01/08/2016 Pneumococcal series for age 65+ (1 of 1 - PCV) 01/08/2016 COVID-19 vaccine series (3 2022- season) 2023 11/11/2020, 10/21/2020 Influenza for age 65+ 05/05/2024 Care Teams Multicultural Services Librarian Relationship Specialty Start Date End Date None . PCP - General 10/16/20
--- OUTSIDE RECORDS SUMMARY | 2024-03-09 09:12 | XMS_ITS | Encounter Summary ---
Author Organization [facility] Address [address] [place] [address] Care Team Providers Care Hides Soaker Name Role Phone Galina Brooks APRN, C.N.P., D.N.P. Primary Ca re Provider Reason for Visit * Reason Onset Date Comments Pre-visit Intake 01/03/2024 Encounter Details Date Type Department Care Team (Latest Contact Info) Description 01/03/2024 10:30 AM CDT Clinical Communication Virtual Review in [place], [place] [address] [place] [phone] Pre-visit Intake Social History Tobacco Use Types Packs/Day Years Used Date Smoking Tobacco: Never Passive Smoke Exposure: Past Smokeless Tobacco: Never Alcohol Use Standard Drinks/Week Comments Yes 1 (1 standard drink = 0.6 oz pur e alcohol) [facility] Utilities Answer Date Recorded In the past 12 months has [facility] [employer], gas, oil, or water [employer] threatened to shut off services in your [...] How often do you attend chur or gnosticist services? Never 07/07/2022 Do you belong to any clubs o r organizations such as worship groups, unions, fraternal or athletic groups, or [...] [facility] Occupat ional [facility] - Occupational Stress [...] your living situation today? I have a [facility] place to live 12/29/2023 Education Answer [...] PM CDT Clinical Communication Virtual Review in [place], [place] [address] [place] [phone] 04/01/2024 2:40 PM CDT Appointment Department of Laboratory Medicine and Pathology, [facility], in [place], [place] [address] [place] [phone] Adelina Arango APRN, C.N.P. [address] [place] [phone] 04/01/2024 4:00 PM CDT Appointment Department of Radiology, [facility], in [place], [place] [address] [place] [phone] Adelina Arango APRN, C.N.P. [address] [place] [phone] 04/02/2024 1:00 PM CDT Office Visit Department of Oncology in [place], [place] [address] [place] [phone] Julia Gunn M.D., Ph.D. [address] [place] [phone] 05/20/2024 3:00 PM CDT Office Visit Department of Dermatology in [address] [phone] Pam Crain M.D. [address] [place] [phone] Discharge Disposition: Home or Self Care documented as of this encounter Visit Diagnoses Not on filedocumented in this encounter Additional Health Concerns Assessment Noted Time PHQ-9 Depression Total Score: 5 11/15/19 24 11:23 AM CDT documented as of this encounter Care Teams Hides Soaker Relationship Specialty Start Date End Date Galina Brooks APRN, C.N.P., D.N.P. [address] [place] [phone] PCP - General Family Medicine 02/22/21 Dr Favian Doan- pt was not aware what the name of the dental group is. Dentistry 11/01/22 opthalmology [place] 11/01/22 documented as of this encounter
--- OUTSIDE RECORDS SUMMARY | 2024-03-09 09:12 | XMS_ITS | Encounter Summary ---
Author Organization [facility] Address [address] [place] [address] Care Team Providers Care Fire Alarm Inspector Name Role Phone Galina Brooks APRN, C.N.P., D.N.P. Primary Ca re Provider Reason for Visit * Reason Comments Med Refill Encounter Details Date Type Department Care Team (Late st Contact Info) Description 12/08/2023 Refill Department of Oncology in [place], [place] [address] [place] [phone] Adelina Arango APRN, C.N.P. [address] [place] [phone] Med Refill Social History Tobacco Use Types Packs/Day Years Used Date Smoking Tobacco: Never Passive Smoke Exposure: Past Smokeless Tobacco: Never Alcohol Use Standard Drinks/Week Comments Yes 1 (1 standard drink = 0.6 oz pur e alcohol) [facility] Utilities Answer Date Recorded In the past 12 months has [facility] [employer], gas, oil, or water [employer] threatened to shut off services in your [...] often do you attend chur ch or jain services? Never 07/07/2022 Do you belong to [...] 11/15/2023 [facility] Occupat ional Health - [...] your living situation today? I have a [facility] place to live 12/29/2023 Education Answer [...] PM CDT Clinical Communication Virtual Review in [place], [place] [address] [place] [phone] 04/01/2024 2:40 PM CDT Appointment Department of Laboratory Medicine and Pathology, [facility], in [place], [place] [address] [place] [phone] Adelina Arango APRN, C.N.P. [address] [place] [phone] 04/01/2024 4:00 PM CDT Appointment Department of Radiology, [facility], in [place], [place] [address] [place] [phone] Adelina Arango APRN, C.N.P. [address] [place] [phone] 04/02/2024 1:00 PM CDT Office Visit Department of Oncology in [place], [place] [address] [place] [phone] Julia Gunn M.D., Ph.D. [address] [place] [phone] 05/20/2024 3:00 PM CDT Office Visit Department of Dermatology in [address] [phone] Pam Crain M.D. [address] [place] [phone] Discharge Disposition: Home or Self Care documented as of this encounter Visit Diagnoses Not on filedocumented in this encounter Additional Health Concerns Assessment Noted Time PHQ-9 Depression Total Score: 5 11/15/19 24 11:23 AM CDT documented as of this encounter Care Teams Fire Alarm Inspector Relationship Specialty Start Date End Date Galina Brooks APRN, C.N.P., D.N.P. [address] [place] [phone] PCP - General Family Medicine 02/22/21 Dr Favian Doan- pt was not aware what the name of the dental group is. Dentistry 11/01/22 opthalmology [place] 11/01/22 documented as of this encounter
--- OUTSIDE RECORDS SUMMARY | 2024-03-09 09:12 | XMS_ITS | Encounter Summary ---
Author Organization [facility] Address [address] [place] [address] Care Team Providers Care [employer] Medic Name Role Phone Galina Brooks APRN, C.N.P., D.N.P. 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 200 [place] [phone] [facility] Referral ID Status Reason Start Date Expiration Date Visits Re quested Visits Authorized [id number] Closed 12/26/2023 12/25/2024 1 1 Encounter Details Date Type Department Care Team (Latest Contact Info) Description 12/26/2023 1:10 PM CDT - 12/26/2023 11:59 PM CDT Hospital Encounter Department of Radiology, [facility], in [place], [place] [address] [place] [phone] Vy Granger P.A.-C., M.S. [address] [place] [phone] Other [facility] Current Drug Therapy; Melanoma Leg Left (HCC); Secondary Malignant Neoplasm Lymph Node (HCC); Shortness Of Breath Discharge Disposition: Home or Self Care Social History Tobacco Use Types Packs/Day Years Used Date Smoking Tobacco: Never Passive Smoke Exposure: Past Smokeless Tobacco: Never Alcohol Use Standard Drinks/Week Comments Yes 1 (1 standard drink = 0.6 oz pur e alcohol) [facility] Utilities Answer Date Recorded In the past 12 months has e electric, gas, oil, or water [employer] threatened to shut off services in your [...] often do you attend chur ch or congregational services? Never 07/07/2022 Do you belong to [...] Answer Date Recorded PHQ-2 Score 2 11/15/2023 [facility] of Occupat ional [facility] - Occupational Stress Questionnaire Answer [...] a [facility] place to live 12/26/2023 Education Answer Date [...] - Respiratory Rate - - Oxygen Saturation - - Inhaled Oxygen Concentration - - Weight 84.3 kg (185 lb 13.6 oz) 12/26/2023 1:00 PM CDT Height - - Body Mass Index 30.37 12/05/2023 1:33 PM CDT documented in this encounter Medications at Time of Discharge Medication Sig Dispensed Refills Start Date End Date clobetasoL (TEMOVATE) 0.05 % ointment Apply 1 application topically 2 (two) times a week. Apply to affected area 30 g 2 09/13/2021 diphenhydrAMINE-acet aminophen (TYLENOL PM) 25-500 mg per tablet Take [...] mouth daily. 90 capsule 1 12/11/2023 01/24/2024 buPROPion XL (WELLBUTRIN XL) 300 mg 24 hr tablet TAKE ONE TABLET(300MG) BY MOUTH EVERY MORNING. 90 tablet 3 05/02/2023 01/02/2024 FLUoxetine (PROzac) 20 mg capsule Take 3 capsules (60 mg total) by mouth daily. 270 capsule 3 11/11/2022 01/02/2024 documented as of this encounter Plan of Treatment Upcoming Encounters Date Type Department Care Team (Latest Contact Info) Description 03/29/2024 12:30 PM CDT Clinical Communication Virtual Review in [place], [place] 200 [place] [phone] 04/01/2024 2:40 PM CDT Appointment Department of Laboratory Medicine and Pathology, [place], [place] [address] [place] [phone] Adelina Arango APRN, C.N.P. [address] [place] [phone] 04/01/2024 4:00 PM CDT Appointment Department of Radiology, [place], [place] [address] [place] [phone] Adelina Arango APRN, C.N.P. [address] [place] [phone] 04/02/2024 1:00 PM CDT Office Visit Department of Oncology in [place], [place] [address] [place] [phone] Julia Gunn M.D., Ph.D. [address] [place] [phone] 05/20/2024 3:00 PM CDT Office Visit Department of Dermatology in [address] [phone] Pam Crain M.D. [address] [place] [phone] Discharge Disposition: Home or Self Care documented as of this encounter Procedures Procedure Name Priority Date/Time Associated Diagnosis Comments CT CHEST ANGIOGRAM AND PULMONARY ARTERIES WITH IV CONTRAST RAD - Routine (most inpatients and all outpatients) 12/26/2023 2:33 PM CDT Other [facility] Current Drug Therapy Melanoma Leg Left (HCC) Secondary Malignant Neoplasm Lymph Node (HCC) Shortness Of Breath documented in this encounter Results * CT Chest Angiogram and Pulmonary Arteries with IV Contrast (12/26/2023 2:33 PM CDT) Anatomical Region Laterality Modality Chest, Cardiovascular RST LO S, Thoracic ARZ LOS, Thoracic FLA LOS N/A Computed Tomography, Compute d Tomography 12/26/2023 2:30 PM CDT Impressions 12/26/2023 3:10 PM CDT 1. Negative for acute pulmonary embolism. 2. New clustered micronodularity in the left lower lobe is likely infectious/inflammatory. Narrative 12/26/2023 3:10 PM CDT EXAM: CT CHEST ANGIOGRAM AND PULMONARY ARTERIES WITH IV CONTRAST Including 3D image postprocessing with or without AI assistance. COMPARISON: [facility]G PET/CT 10/10/23. FINDINGS: No evidence of acute pulmonary embolism. Tracheal and central bronchi diverticula. Mild atelectasis in the dependent lungs bilaterally. Calcified pulmonary granulomas. Small area of clustered micronodularity in the left lower lobe posteriorly (series 7, images [id number]) was not definitely present previously. Few bilateral discrete pulmonary micronodules are unchanged. Mild atherosclerotic aortic calcifications. No thoracic lymphadenopathy by size criteria. Hepatic cysts. Benign-appearing calcification left breast. Old right rib fractures. No suspicious osseous lesion. Procedure Note Sandeep Potts M.D. - 12/26/2023 EXAM: CT CHEST ANGIOGRAM AND PULMONARY ARTERIES WITH IV CONTRAST Including 3D image postprocessing with or without AI assistance. COMPARISON: FDG PET/CT 10/10/23. FINDINGS: No evidence of acute pulmonary embolism. Tracheal and central bronchi diverticula. Mild atelectasis in thedependent lungs bilaterally. Calcified pulmonary granulomas. Small area ofclustered micronodularity in the left lower lobe posteriorly (series 7,images [id number]) was not definitely present previously. Few bilateral discrete pulmonary micronodules areunchanged. Mild atherosclerotic aortic calcifications. No thoracic lymphadenopathy bysize criteria. Hepatic cysts. Benign-appearing calcification left breast. Old right ribfractures. No suspicious osseous lesion. IMPRESSION: 1. Negative for acute pulmonary embolism. 2. New clustered micronodularity in the left lower lobe is likelyinfectious/inflammatory. Vy Granger P.A.-C., M.S. 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) Shortness Of Breath documented in this encounter Administered Medications Inactive Administered Medications - up to 3 most recent administrations Medication Order MAR Action Action Date Dose Rate Site iopromide 370 mg iodine/mL injection 1-162 mL (ULTRAVIST) 1-162 mL, intravenous, Once in imaging, contrast, Starting on Mon12/26/23 at 1336, For 1 dose, Imaging Protocol Orders, Dose per Radiant Medication Guidelines Given 12/26/2023 2:21 PM CDT 100 mL sodium chloride (PF) 0.9 % injection 1-100 mL 1-100 mL, intravenous, Once, On Mon12/26/23 at 1400, For 1 dose, Imaging Protocol Orders, Dose per Radiant Medication Guidelines Given 12/26/2023 2:22 PM CDT 30 mL documented in this encounter Additional Health Concerns Assessment Noted Time PHQ-9 Depression Total Score: 5 11/15/19 24 11:23 AM CDT documented as of this encounter Care Teams [employer] Medic Relationship Specialty Start Date End Date Galina Brooks APRN, C.N.P., D.N.P. [address] [phone] PCP - General Family Medicine 02/22/21 Dr Favian Doan- pt was not aware what the name of the dental group is. Dentistry 11/01/22 opthalmology [place] 11/01/22 documented as of this encounter
--- OUTSIDE RECORDS SUMMARY | 2024-03-09 09:12 | XMS_ITS | Encounter Summary ---
Author Organization [facility] Address [address] [place] [address] Care Team Providers Care Forestry Workers Name Role Phone Galina Brooks APRN, C.N.P., D.N.P. 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 [address] [place] [phone] [facility] Referral ID Status Reason Start Date Expiration Date Visits Re quested Visits Authorized [id number] Closed 12/26/2023 06/26/2025 1 1 Encounter Details Date Type Department Care Team (Late st Contact Info) Description 12/26/2023 2:40 PM CDT Office Visit Department of Oncology in [place], [place] [address] [place] [phone] Vy Granger P.A.-C., M.S. [address] [place] [phone] Cami Contreras APRN, C.N.P., M.S. [address] [place] [phone] Candidiasis Intertrigo (Primary Dx); Melanoma Leg Left (HCC); Dyspnea On Exertion Social History Tobacco Use Types Packs/Day Years Used Date Smoking Tobacco: Never Passive Smoke Exposure: Past Smokeless Tobacco: Never Alcohol Use Standard Drinks/Week Comments Yes 1 (1 standard drink = 0.6 oz pur e alcohol) [facility] Utilities Answer Date Recorded In the [...] How often do you attend chur or yarsanism services? Never 07/07/2022 Do you belong to [...] Answer Date Recorded PHQ-2 Score 2 11/15/2023 [facility] - Occupational Stress Questionnaire Answer Date [...] have a [facility] place to live 12/26/2023 Education Answer Date [...] Sign Reading Time Taken Comments Blood Pressure 145/83 12/26/2023 2:49 PM CDT Pulse 66 12/26/2023 2:49 PM CDT Temperature 37.3 ??C (99.1 ??F) 12/26/2023 2:49 PM CD T Respiratory Rate 14 12/26/2023 2:49 PM CDT Oxygen Saturation 94% 12/26/2023 2:49 PM CDT Inhaled Oxygen Concentration - - Weight 85.7 kg (188 lb 15 oz) 12/26/2023 2:49 PM CDT Height - - Body Mass Index 30.88 12/05/2023 1:33 PM CDT documented in this encounter Progress Notes * Cami Contreras APRN, C.N.P., M.S. - 12/26/2023 2:40 PM CDT SUBJECTIVE CHIEF COMPLAINT/PURPOSE OF VISIT Seen in [facility] Acute Clinic for: Dyspnea on exertion, rash PRIMARY CARE TEAM: Cutaneous Oncology PRIMARY ONCOLOGIST: Adelina Arango APRN, C.N.PJulia King M.D., Ph.D. Vy Granger P.A.Corry, M.S. ONCOLOGIC DIAGNOSIS: Melanoma ONCOLOGIC TREATMENT: Nivolumab 480 mg every 4 weeks Start Date: 01/02/2023 REFERRAL SOURCE Primary Oncology Team HISTORY OF PRESENT ILLNESS Ms. Duran is a very pleasant 73 y.o. female who presents today with complaints of mild dyspnea on exertion. Patient's , Velasquez, is present during the evaluation. Additional information is gathered from family member. Ms. Duran notes dyspnea and ???reduced stamina following approximately 5-10 minutes of activity that requires her to stop to catch her breath. On her home pulse ox, she has noted oxygen saturations into the 80s. She has noticed some nasal congestion, however denies cough, shortness of breath at rest, chest pain, palpitations, and rhinorrhea. Her has recently had rhinorrhea, nasal congestion, and a mild cough that is indicative of his typical seasonal allergies. Neither of them have experienced significant productive cough or fever/chills. She also denies new lower extremity edema and orthopnea. 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 She reports anywhere from 1-3 loose stools per day and denies black or bloody stools and abdominal pain. During our evaluation, patient was ambulated > 200 ft at a brisk pace and maintain oxygen saturations 94-96% while ambulating. Oxygen saturations briefly decreased to 91-92% immediately following the ambulatory period, however quickly recovered. REVIEW OF SYSTEMS Pertinent items are noted in HPI; otherwise a 10-point review of systems was completed and negative. OBJECTIVE VITAL SIGNS Temperature: 37.3 ??C Resp Rate: 14 Blood Pressure: 145/83 SpO2: 94 % Weight: 85.7 kg BMI (Calculated): 30.9 kg/m?? PHYSICAL EXAMINATION General: Alert female in no distress, nontoxic. Cardiovascular: S1/S2 without murmur, gallops, clicks or rubs; no cyanosis, regular rate and rhythm. No cyanosis, clubbing, or edema noted in extremities. Respiratory: CTA bilaterally; no wheezes, rhonchi or rales. No cough, no tachypnea, respirations regular and unlabored. Abdomen: Soft, nontender, bowel sounds present throughout four quadrants. Integumentary: Skin is warm, dry, intact; small amount of dry, red scaly rash noted on the underside of breasts bilaterally. No spreading erythema, induration, fluctuance, or purulence noted. ENT: Mucous membranes pink, moist and without lesions. Dentition intact. No oral petechiae noted. No gingival bleeding noted. Neuro: Neurovascular bundle intact. No focal sensory or motor deficits are appreciated. Mental: Oriented to person, place, time and situation. Responds appropriately to questions. DIAGNOSTICS I reviewed the imaging studies and agree with the interpretation as recorded. I reviewed the pertinent laboratory and diagnostic data. ASSESSMENT / PLAN #1 Melanoma Leg Left (HCC) #2 Dyspnea On Exertion Fortunately, CT of the chest is negative for PE. It does show a small area of clustered micronodularity in the left lower lobe posteriorly, although no overt ground-glass opacities. Patient is not hypoxic with ambulation, although did experience a very mild decrease in oxygen saturation with significant ambulation-maintaining oxygen saturations > 90%. At this time, I do not believe this is truck sales representative of ICI-pneumonitis. No symptoms to suggest infection or cardiac etiology. Patient will continue to monitor symptoms and notify team if she develops any new or worsening symptoms. Would have a low threshold to see her back in Acute Care. #3 Candidiasis Intertrigo Small amount candidiasis intertrigo underneath breasts bilaterally. Recommend nystatin cream b.i.d.x14 days. ORDERS PLACED THIS ENCOUNTER: Orders Placed This Encounter nystatin (MYCOSTATIN) 100,000 unit/gram cream Sig: Apply 1 Application topically 2 (two) times a day for 14 days. Apply to under breasts. Dispense: 30 g Refill: 0 FOLLOW-UP: Ms. Duran will follow-up with their oncology care team on 01/04/2024 and has been instructed to contact their oncology care team anytime with further questions or concerns. Acuity level: Grade 3 documented in this encounter Plan of Treatment Upcoming Encounters Date Type Department Care Team (Latest Contact Info) Description 03/29/2024 12:30 PM CDT Clinical Communication Virtual Review in [address] [phone] 04/01/2024 2:40 PM CDT Appointment Department of Laboratory Medicine and Pathology, [facility] in [address] [phone] Adelina Arango APRN, C.N.P. [address] [place] [phone] 04/01/2024 4:00 PM CDT Appointment Department of Radiology, [address] [phone] Adelina Arango APRN, C.N.P. [address] [place] [phone] 04/02/2024 1:00 PM CDT Office Visit Department of Oncology in [place], [place] [address] [place] [phone] Julia Gunn M.D., Ph.D. [address] [place] [phone] 05/20/2024 3:00 PM CDT Office Visit Department of Dermatology in [address] [phone] Pam Crain M.D. [address] [place] [phone] Discharge Disposition: Home or Self Care documented as of this encounter Visit Diagnoses Diagnosis Candidiasis Intertrigo- Primary Melanoma Leg Left (HCC) Dyspnea On Exertion documented in this encounter Additional Health Concerns Assessment Noted Time PHQ-9 Depression Total Score: 5 11/15/19 24 11:23 AM CDT documented as of this encounter Care Teams Forestry Workers Relationship Specialty Start Date End Date Galina Brooks APRN, C.N.P., D.N.P. [address] [place] [phone] PCP - General Family Medicine 02/22/21 Dr Favian Doan- pt was not aware what the name of the dental group is. Dentistry 11/01/22 opthalmology [place] 11/01/22 documented as of this encounter
--- OUTSIDE RECORDS SUMMARY | 2024-03-09 09:12 | XMS_ITS | Encounter Summary ---
Author Organization [facility] Address [address] [place] [address] Care Team Providers Care Film Critic Name Role Phone Galina Brooks APRN, C.N.P., D.N.P. Primary Ca re Provider Encounter Details Date Type Department Care Team (Late st Contact Info) Description 12/12/2023 Orders Only Department of Oncology in [place], [place] [address] [place] [phone] Adelina Arango APRN, C.N.P. [address] [place] [phone] Social History Tobacco Use Types Packs/Day Years [...] often do you attend chur ch or latter-day services? Never 07/07/2022 Do you belong to any clubs o r organizations such as adventist groups, unions, fraternal or athletic groups, or [...] Answer Date Recorded PHQ-2 Score 2 11/15/2023 [facility] - Occupational Stress Questionnaire Answer Date [...] the money to buy more. Never true 11/03/20 22 Within the past 12 months, t he [...] place to sleep or slept in a care home (including now)? No 07/07/2022 Depression Answer Date [...] PM CDT Clinical Communication Virtual Review in [place], [place] 200 [place] [phone] 04/01/2024 2:40 PM CDT Appointment Department of Laboratory Medicine and Pathology, [facility], in [place], [place] [address] [place] [phone] Adelina Arango APRN, C.N.P. [address] [place] [phone] 04/01/2024 4:00 PM CDT Appointment Department of Radiology, [facility], in [place], [place] [address] [place] [phone] Adelina Arango APRN, C.N.P. [address] [place] [phone] 04/02/2024 1:00 PM CDT Office Visit Department of Oncology in [address] [phone] Julia Gunn M.D., Ph.D. [address] [place] [phone] 05/20/2024 3:00 PM CDT Office Visit Department of Dermatology in [address] [phone] Pam Crain M.D. [address] [place] [phone] Discharge Disposition: Home or Self Care documented as of this encounter Visit Diagnoses Not on filedocumented in this encounter Additional Health Concerns Assessment Noted Time PHQ-9 Depression Total Score: 5 11/15/19 24 11:23 AM CDT documented as of this encounter Care Teams Film Critic Relationship Specialty Start Date End Date Galina Brooks APRN, C.N.P., D.N.P. [address] [place] [phone] PCP - General Family Medicine 02/22/21 Dr Favian Doan- pt was not aware what the name of the dental group is. Dentistry 11/01/22 opthalmology [place] 11/01/22 documented as of this encounter
--- OUTSIDE RECORDS SUMMARY | 2024-03-09 09:12 | XMS_ITS | Encounter Summary ---
Author Organization [facility] Address [address] [place] [address] Care Team Providers Care Fabricating Machine Operator Name Role Phone Galina Brooks APRN, C.N.P., D.N.P. Primary Ca re Provider Encounter Details Date Type Department Care Team (Latest Contact Info) Description 12/04/2023 10:30 AM CDT Clinical Communication Virtual Review in [place], [place] 200 [place] [phone] Social History Tobacco Use Types Packs/Day Years [...] often do you attend chur ch or hoahaoism services? Never 07/07/2022 Do you [...] Answer Date Recorded PHQ-2 Score 2 11/15/2023 [facility] - Occupational [...] money to buy more. Never true 07/07/20 22 Within the past 12 months, t [...] place to sleep or slept in a custodial (including now)? No 07/07/2022 Depression Answer Date [...] PM CDT Clinical Communication Virtual Review in [place], [place] 200 [place] [phone] 04/01/2024 2:40 PM CDT Appointment Department of Laboratory Medicine and Pathology, [facility], in [place], [place] [address] [place] [phone] Adelina Arango APRN, C.N.P. [address] [place] [phone] 04/01/2024 4:00 PM CDT Appointment Department of Radiology, [facility], in [place], [place] [address] [place] [phone] Adelina Arango APRN, C.N.P. [address] [place] [phone] 04/02/2024 1:00 PM CDT Office Visit Department of Oncology in [place], [place] [address] [place] [phone] Julia Gunn M.D., Ph.D. [address] [place] [phone] 05/20/2024 3:00 PM CDT Office Visit Department of Dermatology in [address] [phone] Pam Crain M.D. [address] [place] [phone] Discharge Disposition: Home or Self Care documented as of this encounter Visit Diagnoses Not on filedocumented in this encounter Additional Health Concerns Assessment Noted Time PHQ-9 Depression Total Score: 5 11/15/19 24 11:23 AM CDT documented as of this encounter Care Teams Fabricating Machine Operator Relationship Specialty Start Date End Date Galina Brooks APRN, C.N.P., D.N.P. [address] [place] [phone] PCP - General Family Medicine 02/22/21 Dr Favian Doan- pt was not aware what the name of the dental group is. Dentistry 11/01/22 opthalmology [place] 11/01/22 documented as of this encounter
--- OUTSIDE RECORDS SUMMARY | 2024-03-09 09:12 | XMS_ITS | Encounter Summary ---
Author Organization [facility] Address [address] [place] [address] Care Team Providers Care Systems Developer Name Role Phone Galina Brooks APRN, C.N.P., D.N.P. Primary Ca re Provider Reason for Referral * Outpatient (Routine) - Authorized Specialty Diagnoses / Procedures Referred By Patric yeung Referred To Contact Arabella Whitmore M.D. [address] [place] [phone] [facility] Referral ID Status Reason Start Date Expiration Date V isits Requested Visits Authorized [id number] Authorized 01/02/2024 07/03/2025 1 1 Scheduling Instructions 12-Month Medicare Visit Reason for Visit * Reason Comments Nurse Visit Medicare Annual Wellness Visit Subsequen t * Outpatient (Routine) - Closed Specialty Diagnoses / Procedures Referred By Patric yeung Referred To Contact Galina Brooks APRN, C.N.P., D.N.P. [address] [place] [phone] [facility] Referral ID Status Reason Start Date Expiration Date Visits Re quested Visits Authorized [id number] Closed 12/05/2023 06/05/2025 1 1 Encounter Details Date Type Department Care Team (Late st Contact Info) Description 01/02/2024 11:00 AM CDT Office Visit Department of Family Medicine, [facility], in [address] [phone] Galina Brooks APRN, JassN.P., D.N.P. [address] [place] [phone] Juana Page R.N. [address] [place] [phone] Annual Medicare Examination Return (Primary Dx); Screening Test Laboratory Discharge Disposition: Home or Self Care Social History Tobacco Use Types Packs/Day Years Used Date Smoking Tobacco: Never Passive Smoke Exposure: Past Smokeless Tobacco: Never Tobacco Cessation:Counseling Given: Not Answered Alcohol Use Standard Drinks/Week Comments Yes 1 (1 standard drink = 0.6 oz pur e alcohol) [facility] [employer]ities Answer Date Recorded In the past 12 months has e [employer], gas, oil, or water [employer] threatened to shut off services in your [...] week 07/07/2022 How often do you attend [facility] or faith services? Never 07/07/2022 Do you belong to any clubs o r organizations such as druze groups, unions, fraternal or athletic groups, or [...] Answer Date Recorded PHQ-2 Score 2 11/15/2023 [facility] - Occupational [...] your living situation today? I have a [facility] place to live 12/29/2023 Education Answer [...] Sign Reading Time Taken Comments Blood Pressure 115/72 01/02/2024 10:56 AM CDT Pulse 66 01/02/2024 10:56 AM CDT Temperature 36.5 ??C (97.7 ??F) 01/02/2024 10:56 AM C DT Respiratory Rate 16 01/02/2024 10:56 AM CDT Oxygen Saturation 95% 01/02/2024 10:56 AM CDT Inhaled Oxygen Concentration - - Weight 85.8 kg (189 lb 2.5 oz) 01/02/2024 10:56 AM CDT Height 167.8 cm (5' 6.06) 01/02/2024 10:56 AM C DT Body Mass Index 30.47 01/02/2024 10:56 AM CDT documented in this encounter Progress Notes * Juana Page R.N. - 01/02/2024 11:00 AM CDT HEALTH ASSESSMENT Reason For Visit Patient presents with Nurse Visit Medicare Annual Wellness Visit Subsequent The following portions of the patient's history were reviewed and updated as appropriate: allergies, medications, family history, social history, surgical history and care team/suppliers. VITALS Blood Pressure: 115/72 (01/02/2024 10:56 AM) Temperature: 36.5 ??C (01/02/2024 10:56 AM) Temp Source: Temporal (01/02/2024 10:56 AM) Pulse Rate: 66 (01/02/2024 10:56 AM) Resp Rate: 16 (01/02/2024 10:56 AM) BMI (Calculated): 30.5 kg/m?? (01/02/2024 10:56 AM) SpO2: 95 % (01/02/2024 10:56 AM) Height: 167.8 cm (01/02/2024 10:56 AM) Weight: 85.8 kg (01/02/2024 10:56 AM) Health Risk Assessment (HRA) completed and reviewed: Yes Social Determinants of Health (SDOH) questionnaires were reviewed and the following concerns were prioritized to be addressed during this visit: No concerns identified. Depression Screening PHQ-2 Score: 2 PHQ-9 Total Score (max 27): 5 Cognitive Assessment Cognitive function assessed by direct observation without concerns. Current Opioid Use None Outpatient Pain Assessment Pain Score: 0-No pain FUNCTIONAL/HOME ENVIRONMENT History of falls: Have you fallen within the last year or do you fear you might fall?: Yes (01/02/2024 10:43 AM) Do you use an assisted device to walk? (Walker, cane, wheelchair, crutch): No (sometimes walking stick( sore knee)) (01/02/2024 10:43 AM) Today, do you feel any of the following? Weak, dizzy, shaky, or unsteady?: No (01/02/2024 10:43 AM) Have you taken any medication within the last 6 hours which may make you feel drowsy? Such as sleep, pain, or anxiety medication: No (01/02/2024 10:43 AM) Home Safety Does your home have throw rugs, poor lighting or slippery bathtub/shower? No Does your home have grab bars in the bathroom, handrails on the stairs and steps? Yes Does your home have functional smoke and carbon monoxide alarms? Yes Advance Directive Advance Directives: Not Received Patient has advance directive on file and indicates it is current and in effect. Preventive Services Schedule Health Maintenance Topic Date Due Hepatitis C Screening Never done COVID-19 Vaccine ( season) 2023 Visit: Chronic Disease, age 18+ 11/01/2023 Office Visit for Blood Pressure Check / Re-check 03/26/2024 Depression Monitoring (PHQ-9) 03/16/2024 Colorectal Cancer Surveillance 10/01/2024 Mammogram 10/24/2024 Creatinine Level (Kidney Function Test) 12/04/2024 Potassium Level 12/04/2024 Sodium Level 12/04/2024 Visit: Medicare Annual Wellness 01/02/2025 Fasting Glucose for Diabetes Screening 12/04/2026 Lipid (Cholesterol) Screening 07/13/2027 DTaP,Tdap,and Td Vaccines (3 - Td or Tdap) 07/18/2032 Fall Risk Screen (Annual) Completed RSV vaccine - (32-36 weeks) or 60+ years Completed Pneumococcal vaccine (65+ years) Completed Influenza Vaccine Completed Zoster Vaccines Completed HPV Vaccines Aged Out Hepatitis C screening ordered at this visit. Pt was advised to check with her insurance for coverage for Covid vaccination. After Visit Summary (AVS) reviewed and patient will access via patient online services documented in this encounter Plan of Treatment Upcoming Encounters Date Type Department Care Team (Latest Contact Info) Description 03/29/2024 12:30 PM CDT Clinical Communication Virtual Review in [place], [place] 200 [place] [phone] 04/01/2024 2:40 PM CDT Appointment Department of Laboratory Medicine and Pathology, [facility] in [place], [place] [address] [place] [phone] Adelina Arango APRN, C.N.P. [address] [place] [phone] 04/01/2024 4:00 PM CDT Appointment Department of Radiology, [place], [place] [address] [place] [phone] Adelina Arango APRN, C.N.P. [address] [place] [phone] 04/02/2024 1:00 PM CDT Office Visit Department of Oncology in [place], [place] [address] [place] [phone] Julia Gunn M.D., Ph.D. [address] [place] [phone] 05/20/2024 3:00 PM CDT Office Visit Department of Dermatology in [address] [phone] Pam Crain M.D. 200 [place] [phone] Discharge Disposition: Home or Self Care Scheduled Referrals Name Type Priority Associated Diagnoses Orde r Schedule Primary Care nurse visit (clinic) - [facility]; Medicare Annual Wellness Outpatient Referral Routine Expected: 01/01/2025 (Approximate), Expires: 04/02/2025 documented as of this encounter Procedures Procedure Name Priority Date/Time Associated Diagnosis Comments HCV AB SCRN W/REFLEX TO HCV PCR, S Routine 01/02/2024 11:26 AM CDT Screening Test Laboratory documented in this encounter Results * HCV Ab Scrn w/Reflex to HCV PCR, Serum (01/02/2024 11:26 AM CDT) [facility] HCV Ab Screen, S Negative Negative 01/03/2024 3:05 AM CDT ECLR Blood (Blood, Venous) 01/02/2024 11:26 AM CDT 01/02/2024 8:44 PM CDT Narrative [facility] - 01/03/2024 3:05 AM CDT Specimen Information: Specimen ID: [id number] Specimen Type: Blood Specimen Collection Start Date: 01/02/2024 11:26 AM Specimen Received Date: 01/02/2024 ??8:44 PM Specimen ID: [id number] Specimen Type: Blood Specimen Collection Start Date: 01/02/2024 11:26 AM Specimen Received Date: 01/02/2024 ??8:42 PM Galina Brooks APRN, C.N.P., D.N.P. LAB MICROBIOLOGY - BLOOD ORDERABLES [facility] [address] [place] [address], [facility] ECLR [facility] in [place] [address] [place] [address] documented in this encounter Visit Diagnoses Diagnosis Annual Medicare Examination Return- Primary Screening Test Laboratory documented in this encounter Additional Health Concerns Assessment Noted Time PHQ-9 Depression Total Score: 5 11/15/19 24 11:23 AM CDT documented as of this encounter Care Teams Systems Developer Relationship Specialty Start Date End Date Galina Brooks APRN, C.N.Manasa., D.N.P. [address] [place] [phone] PCP - General Family Medicine 02/22/21 Dr Favian Doan- pt was not aware what the name of the dental group is. Dentistry 11/01/22 opthalmology [place] 11/01/22 documented as of this encounter
--- OUTSIDE RECORDS SUMMARY | 2024-03-09 09:12 | XMS_ITS | Encounter Summary ---
Author Organization [facility] Address [address] [place] [address] Care Team Providers Care Conveyor Installer Name Role Phone Galina Brooks APRN, C.N.P., D.N.P. Primary Ca re Provider Reason for Referral * MRI/CAT/PET Scan (Routine) - Closed Specialty Diagnoses / Procedures Referred By Contac t Referred To Contact Diagnoses Secondary Malignant Neoplasm Lymph Node (HCC) Medication Therapy Group Home Not Anticoagulant Melanoma Leg Left (HCC) Procedures PET CT Whole Body FDG PET CT Skull to Thigh FDG Adelina Arango APRN, C.N.P. [address] [place] [phone] [facility] Referral ID Status Reason Start Date Expiration Date Visits Re quested Visits Authorized [id number] Closed 12/05/2023 12/04/2024 1 1 * Outpatient (Routine) - Closed Specialty Diagnoses / Procedures Referred By Contac t Referred To Contact Oncology Adelina Arango APRN, C.N.P. 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 [address] [place] [phone] [facility] [address] [place] [phone] Referral ID Status Reason Start Date Expiration Date Visits Re quested Visits Authorized [id number] Closed 12/29/2022 12/28/2024 99 99 Encounter Details Date Type Department Care Team (Late st Contact Info) Description 12/05/2023 1:40 PM CDT Office Visit Department of Oncology in [place], [place] [address] [place] [phone] Adelina Arango APRN, C.N.P. 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 No 07/07/2022 Depression Answer Date [...] Sign Reading Time Taken Comments Blood Pressure 117/74 12/05/2023 1:33 PM CDT Pulse 76 12/05/2023 1:33 PM CDT Temperature 36.8 ??C (98.2 ??F) 12/05/2023 1:33 PM CD T Respiratory Rate 16 12/05/2023 1:33 PM CDT Oxygen Saturation 95% 12/05/2023 1:33 PM CDT Inhaled Oxygen Concentration - - Weight 84.3 kg (185 lb 13.6 oz) 12/05/2023 1:33 PM CDT Height 166.6 cm (5' 5.59) 12/05/2023 1:33 PM CD T Body Mass Index 30.37 12/05/2023 1:33 PM CDT documented in this encounter Progress Notes * Adelina Arango APRN, C.N.P. - 12/05/2023 1:40 PM CDT SUBJECTIVE CHIEF COMPLAINT/PURPOSE OF VISIT: 1. Resected stage III melanoma 2. Resected stage I endometrial cancer Collaborating provider today is Dr. Roman Acuna Primary collaborating provider is Dr. Julia Gunn HISTORY OF PRESENT ILLNESS: Oncology History Malignant Neoplasm Of Uterus Endometrial (HCC) 11/08/2022 Clinical Stage Staging form: Corpus Uteri - Carcinoma And Carcinosarcoma, AJCC 8th Edition - Clinical stage from 11/08/2022: FIGO Stage IA (cT1a, cN0(sn), cM0) Method of lymph node assessment: [place] lymph node biopsy Histologic grade (G): G3 Histologic grading system: 3 grade system Genetic Testing and Tumor Genotyping Negative germline genetic testing in 2022; Doshi Syndrome Analyses and [employer]- Cancer + RNAinsight panel from [facility]. Melanoma Leg Left (HCC) 11/08/2022 Biopsy/Pathology [...] Ms. Duran returns for follow-up. Overall she has been doing okay. She reports she ran out of her budesonide a week ago, and continues to have 3-4 stools a day which are fairly loose. She does reporta bit of increase in her fatigue as well. ECOG performance status is 0. Past Medical/Surgical [...] synovectomy; Surgeon: Carroll Desai M.D., Ph.D.; Location: [place] [address] OR BREAST SURGERY chip implant 2016 COLONOSCOPY N/A 09/30/2021 Procedure: COLONOSCOPY-p; Surgeon: Malcolm Strickland M.D.; Location: [facility] COLONOSCOPY N/A 10/01/2021 Procedure: COLONOSCOPY-p; Surgeon: Malcolm Strickland M.D.; Location: [facility] JOINT REPLACEMENT 02/17/2020 hip [...] HYSTEROSCOPY, POLYPECTOMY; Surgeon: Aman Ferreira M.D.; Location: [facility] 15 OR ROBOTIC-ASSISTED HYSTERECTOMY WITH BSO N/A 11/08/2022 Procedure: ROBOTIC-ASSISTED HYSTERECTOMY, BILATERAL SALPINGO - OOPHORECTOMY.; Surgeon: Kiley Lees M.D.; Location: [facility] OR SALPINGECTOMY 2022 WIDE LOCAL EXCISION Left 12/14/2022 Procedure: LEFT LATERAL THIGH WIDE LOCAL EXCISION MELANOMA.; Surgeon: Marcial Bernstein M.D.; Location: [facility] OR ROS: As noted above otherwise negative noncontributory I reviewed the Medications, Allergies, Past Medical History, Social History, and Family History. OBJECTIVE VITAL SIGNS: Vitals: 12/05/23 1333 BP: 117/74 BP Location: Left arm Patient Position: Sitting Cuff Size: Regular Pulse: 76 Resp: 16 Temp: 36.8 ??C TempSrc: Tympanic SpO2: 95% Weight: 84.3 kg Height: 166.6 cm Rate your distress: 1 PHYSICAL EXAM: General: This is a well-appearing female who appears their stated age in no acute distress. Skin: Examined and significant only for previous surgical incisions. Lymph: No palpable lymphadenopathy. Heart: Examined and normal. Lungs: Examined and normal. ASSESSMENT / PLAN #1 Resected stage III melanoma Mrs. Duran was here today in anticipation of her last cycle of adjuvant therapy. Given some of theincrease in her symptoms, we discussed eliminating the last dose of adjuvant therapy. She is in favor of this and will not get treated today. She will be due for full restaging next month. #2 Resected stage I endometrial cancer No clinical evidence of recurrence of this malignancy as well. PATIENT EDUCATION Ready to learn, no apparent [...] PM CDT Clinical Communication Virtual Review in [address] [phone] 04/01/2024 2:40 PM CDT Appointment Department of Laboratory Medicine and Pathology, [facility] in [place], [place] [address] [place] [phone] Adelina Arango APRN, C.N.P. [address] [place] [phone] 04/01/2024 4:00 PM CDT Appointment Department of Radiology, [facility] in [place], [place] [address] [place] [phone] Adelina Arango APRN, C.N.P. [address] [place] [phone] 04/02/2024 1:00 PM CDT Office Visit Department of Oncology in [place], [place] [address] [place] [phone] Julia Gunn M.D., Ph.D. [address] [place] [phone] 05/20/2024 3:00 PM CDT Office Visit Department of Dermatology in [address] [phone] Pam Crain M.D. [address] [place] [phone] Discharge Disposition: Home or Self Care Scheduled Referrals Name Type Priority Associated Diagnoses Orde r Schedule Oncology office visit (clinic) Outpatient Referral Routine Expected: 01/04/2024, Expires: 03/05/2025 documented as of this encounter Results * PET CT Whole [...] RADIOPHARMACEUTICAL/MEDS: Route: intravenous fludeoxyglucose F 18 injection ASSISTED (FDG F-18),10.01 millicurie TECHNIQUE: ??F-18 FDG PET/CT [...] RADIOPHARMACEUTICAL/MEDS: Route: intravenous fludeoxyglucose F 18 injection ASSISTED (FDG F-18),10.01 millicurie TECHNIQUE: F-18 FDG PET/CT [...] improvedinflammation. Adelina Arango APRN, C.N.P. IMG [place] OCEDURES * (ABNORMAL) Thyroid Function [place] (01/04/2024 8:26 AM CDT) TSH, Sensitive 7.7(H) 0.3 - 4.2 mIU/L 01/04/2024 9:18 AM CDT DTL Blood (Blood, Venous) 01/04/2024 8:26 AM CDT 01/04/2024 8:52 AM CDT Jass Mann APRNNZarina LAB BLOOD ADD-ON [facility] [address] [place] [address], [facility] DTL [facility] [address] [place] [address] * (ABNORMAL) Comprehensive Metabolic Panel (01/04/2024 8:26 AM CDT) Pathologist [facility] [place] Potassium, S 3.9 3.6 - 5.2 mmol/L 01/04/2024 9:18 AM CDT DTL Sodium, S 136 135 - 145 mmol/L 01/04/2024 9:18 AM CDT DTL Chloride, S 101 98 - 107 mmol/L 01/04/2024 9:18 AM CDT DTL Bicarbonate, S 29 22 - 29 mmol/L 01/04/2024 9:18 AM CDT DTL Anion Gap 6(L) 7 - 15 01/04/2024 9:18 AM CDT DTL BUN (Blood Urea Nitrogen), S 23(H) 6 - 21 mg/dL 01/04/2024 9:18 AM CDT DTL Creatinine 0.97 0.59 - 1.04 mg/dL 01/04/2024 9:18 AM CDT DTL Estimated GFR (eGFR) 62 >=60 mL/min/BS A 01/04/2024 9:18 AM CDT DTL Comment: Estimated GFR calculated using the 2020 CKD_EPI creatinine equation. Calcium, Total, S 9.4 8.8 - 10.2 mg/dL 01/04/2024 9:18 AM CDT DTL Glucose, S 81 70 - 140 mg/dL 01/04/2024 9:18 AM CDT DTL Protein, Total, S 6.7 6.3 - 7.9 g/dL 01/04/2024 9:18 AM CDT DTL Albumin, S 4.1 3.5 - 5.0 g/dL 01/04/2024 9:18 AM CDT DTL Aspartate Aminotransferase (AST), S 23 8 - 43 U/L 01/04/2024 9:18 AM CDT DTL Alkaline Phosphatase, S 96 35 - 104 U/L 01/04/2024 9:18 AM CDT DTL Alanine Aminotransferase (ALT), S 33 7 - 45 U/L 01/04/2024 9:18 AM CDT DTL Bilirubin, Total, S 0.3 0.0 - 1.2 mg/dL 01/04/2024 9:18 AM CDT DTL Blood (Blood, Venous) 01/04/2024 8:26 AM CDT 01/04/2024 8:52 AM CDT Adelina Arango APRN C.N.P. LAB BLOOD ADD-ON [facility] [place] [facility] [address] [place] [address], [facility] [place] [address] [place] [address] * CBC with Differential, Blood (01/04/2024 8:26 AM CDT) Hemoglobin 13.3 11.6 - 15.0 g/dL 01/04/2024 8:56 AM CDT DTL Hematocrit 40.9 35.5 - 44.9 % 01/04/2024 8:56 AM CDT DTL Erythrocytes 4.52 3.92 - 5.13 x10(12)/L 01/04/2024 8:56 AM CDT DTL MCV 90.5 78.2 - 97.9 fL 01/04/2024 8:56 AM CDT DTL RBC Distrib Width 14.1 12.2 - 16.1 % 01/04/2024 8:56 AM CDT DTL Platelet Count 226 157 - 371 x10(9)/L 01/04/2024 8:56 AM CDT DTL Leukocytes 7.5 3.4 - 9.6 x10(9)/L 01/04/2024 8:56 AM CDT DTL Neutrophils 4.00 1.56 - 6.45 x10(9)/L 01/04/2024 8:56 AM CDT DHPM Lymphocytes 2.48 0.95 - 3.07 x10(9)/L 01/04/2024 8:56 AM CDT DTL Monocytes 0.77 0.26 - 0.81 x10(9)/L 01/04/2024 8:56 AM CDT DTL Eosinophils 0.17 0.03 - 0.48 x10(9)/L 01/04/2024 8:56 AM CDT DTL Basophils 0.05 0.01 - 0.08 x10(9)/L 01/04/2024 8:56 AM CDT DTL Blood (Blood, Venous) 01/04/2024 8:26 AM CDT 01/04/2024 8:39 AM CDT Adelina Arango APRN, C.N.P. 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 [address] [place] [phone] PCP - General Family Medicine 02/22/21 Dr Favina Doan- pt was not aware what the name of the dental group is. Dentistry 11/01/22 opthalmology [place] 11/01/22 documented as of this encounter
== END 2024-03-09 09:39 | disposition home or self-care (01) ==
PROVIDERS: Emergency Provider Emergency Medicine
DX: M79.604 Pain in right leg (principal)
CPT/HCPCS: 93971; 99284

== ENCOUNTER 2024-10-25 09:30 | Emergency (ER) | payer MEDICARE, BC, SELFPAY ==
[2024-10-25] VITALS (8 sets, daily range): BP systolic 95–139; BP diastolic 54–78; PULSE 67–80; RESP 14–18; TEMP 36.5–37.2; O2SAT 67–94; BMI 29.0
--- OUTSIDE RECORDS SUMMARY | 2024-10-25 09:32 | XMS_ITS | Clinical Summary ---
Author Organization [facility] Address [address] [place] [address] Care Team Providers Care Cistern Room Working Supervisor Name Role Phone None Primary Care Provider Unavailabl e Immunizations Name Administration Dates Next Due COVID-19 vaccine ([employer] 30mcg/0.3mL) JAYLA [place] 11/11/2020,10/21/2020 Social History Tobacco Use Types Packs/Day Years Used Date Smoking Tobacco: Never Assessed Comments Unknown Sex and Gender Information Value Date Recorded Sex Assigned at Not on file Legal 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 PCP - General 10/16/20
--- NOTE | 2024-10-25 09:56 | ED.ABDPAIN ---
HPI - Abdominal Pain General Chief Complaint: Abdominal Pain Stated Complaint: Right side abdominal pain Time Seen by Provider: 10/25/24 09:52 History of Present Illness HPI narrative: Patient is a 74-year-old woman with history of colitis who awoke this morning with right-sided abdominal pain. This is not typical for her colitis for which he takes budesonide chronically. She tried eating and that seemed to make it worse. The pain is localized to the right mid and lower abdomen and she has significant peritonitis with painful right in in the car. She has had no nausea no vomiting no fevers no chills no blood in her stool. She has had no similar symptoms previously and previously had been her usual good state of health. She has had no other medication changes. She has had a total abdominal hysterectomy for uterine cancer. She has not had a cholecystectomy or appendectomy. Related Data Home Medications ?Medication ?Instructions ?Recorded ?Confirmed rosuvastatin 10 mg tablet 10 mg PO 07/15/22 05/30/24 budesonide 3 mg 9 mg PO DAILY 03/09/24 10/25/24 capsule,delayed,extended release potassium chloride 10 mEq 10 meq PO DAILY 03/09/24 05/30/24 tablet,extended release propranolol 40 mg tablet 40 mg PO Q12H 03/09/24 10/25/24 torsemide 20 mg tablet 20 mg PO DAILY 03/09/24 05/30/24 famotidine 40 mg tablet 40 mg PO BID 05/30/24 05/30/24 losartan 25 mg tablet 25 mg PO DAILY 05/30/24 10/25/24 sertraline 100 mg tablet 100 mg PO DAILY 05/30/24 10/25/24 sulfamethoxazole 800 1 tab PO BID 05/30/24 05/30/24 mg-trimethoprim 160 mg tablet (Bactrim DS) vedolizumab 300 mg intravenous 300 mg IV Q2W 05/30/24 05/30/24 solution (Entyvio) Allergies Allergy/AdvReac Type Severity Reaction Status Date / Time No Known Drug Allergies Allergy Verified 10/25/24 11:05 Review of Systems Status of ROS Reports: 10 or more systems reviewed and unremarkable except as noted in History and below [facility] Medical History Lichen sclerosus ?L90.0 - Lichen sclerosus et atrophicus (ICD-10) Surgical History H/O breast surgery (2016) ?Z98.890 - Other specified postprocedural states (ICD-10) 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 EYES: No scleral icterus. LYMPH: No supraclavicular or cervical lymphadenopathy. SKIN: Visible skin seen during exam normal or with benign process only. EXT: No dependent lower extremity pedal edema. HEART: Regular rate and rhythm with no murmurs, rubs, or gallops. LUNGS: Clear to auscultation bilaterally with no crackles or wheezes. ABD: Tender to palpation with rebound in the right hemiabdomen. PSYCH: Good eye contact, speech is not pressured. Const: Vital Signs, click to edit/add: Vital Signs - 24 hr 10/25/24 09:34 10/25/24 11:45 10/25/24 13:01 Temperature 97.7 F Pulse Rate 67 69 Pulse Rate [Pulse Oximeter] 80 Respiratory Rate 18 18 16 Blood Pressure 139/75 113/54 L Blood Pressure [Ri ght Upper Arm] 133/78 Pulse Oximetry 94 92 93 Oxygen Delivery Me thod Room Air Room Air Oxygen Flow Rate 10/25/24 13:36 10/25/24 14:43 10/25/24 15:31 Temperature Pulse Rate 69 Pulse Rate [Pulse Oximeter] 70 Respiratory Rate 14 14 Blood Pressure 95/55 L Blood Pressure [Ri ght Upper Arm] 126/73 Pulse Oximetry 67 L 94 93 Oxygen Delivery Me thod Room Air Nasal Cannula Oxygen Flow Rate 2 Course Course ED Course: Will begin evaluation with CT abdomen pelvis CBC comprehensive metabolic panel lactate lipase UA. Reevaluation(s) Reevaluation #1: Patient CT scan shows caking of the omentum consistent with malignancy. She also has what appears to be an abscess 4.5 cm. I did review the case with General surgery and confirmed that the patient had a hysterectomy approximately year ago. This time we are contacting [facility] to try to arrange transfer. 1 mg of IV Dilaudid given. Vital Signs Vital signs: Initial Vital Signs Temperature 97.7 F 10/25/24 09:34 Temperature Source Temporal Artery Scan 10/25/24 09:34 Pulse Rate 80 10/25/24 09:34 Respiratory Rate 18 10/25/24 09:34 Blood Pressure 133/78 10/25/24 09:34 Blood Pressure Mean 96 10/25/24 09:34 Blood Pressure Position Sitting 10/25/24 09:34 Pulse Oximetry 94 10/25/24 09:34 Oxygen Delivery Method Room Air 10/25/24 09:34 Vital Signs Temperature 97.7 F 10/25/24 09:34 Pulse Rate 80 10/25/24 09:34 Respiratory Rate 18 10/25/24 09:34 Blood Pressure 133/78 10/25/24 09:34 Pulse Oximetry 94 10/25/24 09:34 Oxygen Delivery Method Room Air 10/25/24 09:34 Temperature 97.7 F 10/25/24 09:34 Pulse Rate 70 10/25/24 15:31 Respiratory Rate 14 10/25/24 15:31 Blood Pressure 126/73 10/25/24 15:31 Pulse Oximetry 93 10/25/24 15:31 Oxygen Delivery Method Nasal Cannula 10/25/24 15:31 Oxygen Flow Rate 2 10/25/24 15:31 Medications Administered Medications: Discontinued Medications Generic Name Dose Route Start Last Admin Trade Name Freq PRN Reason Stop Dose Admin Hydromorphone HCl 0.5 mg 10/25/24 11:51 10/25/24 12:03 Hydromorphone 0.5 Mg/0.5 Ml Inj IVP 10/25/24 11:52 0.5 mg ONCE ONE Administration Hydromorphone HCl 0.25 mg 10/25/24 15:23 10/25/24 15:28 Hydromorphone 0.5 Mg/0.5 Ml Inj IVP 10/25/24 15:24 0.25 mg ONCE ONE Administration MDM - Abdominal Pain MDM Narrative Medical decision making narrative: Patient presents with the lower abdominal pain as noted above. Evaluation shows likely metastatic uterine cancer with a questionable abscess. I did visit with General surgery and they do recommend transfer to tertiary care for consultation with the interventional radiology. Patient was given IAV Dilaudid twice. She remained stable her vital signs are stable and her laboratory workup is largely unremarkable. She is [facility] to [facility] via [facility] ambulance. Lab Data Labs: Lab Results 10/25/24 10/25/24 Range/Units 10:20 11:59 WBC 8.82 (4.50-11.00) K/uL RBC 4.59 (4.00-5.20) m/uL Hgb 12.5 (12.0-16.0) gm/dL Hct 40.7 (33.0-51.0) % MCV 89 (80-100) fL MCH 27 (26-34) pg MCHC 31 L (32-36) gm/dL RDW Coeff of Sendy 12.9 (11.5-15.5) % Plt Count 186 (140-440) K/uL Neut % (Auto) 71.5 (42.0-72.0) % Lymph % (Auto) 15.8 L (20-44) % [place] % (Auto) 11.2 H (0.0-11.0) % Eos % (Auto) 1.2 (0.0-7.0) % Baso % (Auto) 0.1 (0.0-3.0) % Neut # (Auto) 6.30 (1.7-7.0) K/uL Lymph # (Auto) 1.40 (0.90-2.90) K/uL [place] # (Auto) 1.00 H (0.00-0.90) K/UL Eos # (Auto) 0.11 (0.00-0.50) K/uL Baso # (Auto) 0.01 (0.00-0.30) K/uL Abs Immat Gran (auto) 0.02 (0.00-0.30) K/uL Imm/Tot Granulo (auto) 0.2 % Sodium 137 (135-149) mmol/L Potassium 4.8 (3.6-5.1) mmol/L Chloride 100 (96-114) mmol/L Carbon Dioxide 30 (20-32) mmol/L Anion Gap 7 (7-15) mEq/L BUN 20 (7-30) mg/dL Creatinine 0.7 (0.5-1.5) mg/dL Estimated Creat Clear 48.72 Estimated GFR 91 ml/min Glucose 96 (60-115) mg/dL Lactate 0.9 (0.5-1.9) mmol/L Calcium 9.2 (8.4-10.6) mg/dL Total Bilirubin 0.6 (0.1-1.5) mg/dL AST 30 (12-35) U/L ALT 23 (4-35) U/L Alkaline Phosphatase 87 (40-150) U/L Total Protein 7.0 (6.0-8.3) g/dL Albumin 4.2 (3.3-5.0) g/dL Lipase 128 (23-300) U/L Urine Color Yellow (Yellow) Urine Appearance Clear (Clear) Urine pH 7.0 (5.0-8.5) Ur Specific [place] 1.010 (1.000-1.030) Urine Protein Negative (Negative) Urine Glucose (UA) Negative (Negative) Urine Ketones Negative (Negative) Urine Blood Negative (Negative) Urine Nitrite Negative (Negative) Urine Bilirubin Negative (Negative) Urine Urobilinogen 0.2 (0.2-1.0) Ur Leukocyte Esterase Negative (Negative) Discharge Plan Discharge Clinical Impression: Abdominal pain Patient Disposition: [facility] Condition: Stable Instructions: Abdominal Pain (ED) Prescriptions: No Action rosuvastatin 10 mg tablet 10 mg PO Patient Comments: TAKE 1 TABLET (10 MG TOTAL) BY MOUTH DAILY. sertraline 100 mg tablet 100 mg PO DAILY losartan 25 mg tablet 25 mg PO DAILY famotidine 40 mg tablet 40 mg PO BID sulfamethoxazole-trimethoprim [Bactrim DS] 800-160 mg tablet 1 tab PO BID Entyvio 300 mg recon soln 300 mg IV Q2W Rx Instructions: administer 2nd dose 2 weeks after first dose; administer over 30 minutes torsemide 20 mg tablet 20 mg PO DAILY potassium chloride 10 mEq tablet extended release 10 meq PO DAILY propranolol 40 mg tablet 40 mg PO Q12H budesonide 3 mg capsule,delayed,extend.release 9 mg PO DAILY Follow Up/Referrals: Provider,Not a Local [Non-Staff] - Stand Alone [facility]
--- OUTSIDE RECORDS SUMMARY | 2024-10-25 10:04 | XMS_ITS | Encounter Summary ---
Author Organization [facility] Address [address] [place] [address] Care Team Providers Care Windows Desktop Support Name Role Phone Galina Brooks APRN, C.N.P., D.N.P. Primary Ca re Provider Unavailable Reason for Visit * Reason Onset Date Comments Med Refill 09/18/2024 Encounter Details Date Type Department Care Team (Late st Contact Info) Description 09/18/2024 Refill Department of Family Medicine, [facility], in [address] [phone] Galina Brooks APRN, C.N.P., D.N.P. Med Refill Social History Tobacco Use Types Packs/Day Years Used Date Smoking Tobacco: Never Passive Smoke Exposure: Past Smokeless Tobacco: Never Alcohol Use Standard Drinks/Week Comments Yes 1 (1 standard drink = 0.6 oz pur e alcohol) [facility] Utilities Answer Date Recorded In the past 12 months has [employer] gas, oil, or water [employer] threatened to shut off services in your home? No 05/13/2024 Humiliation, Afraid, Rape, and Kick questionnair e [...] often do you attend chur ch or methodist services? Never 07/07/2022 Do you belong to [...] 07/07/2022 PHQ-2 Answer Date Recorded PHQ-2 Score 4 05/16/2024 [employer] [facility] - Occupational Stress Questionnaire Answer Date [...] the money to buy more. Never true 05/13/20 24 Within the past 12 months, t he food you bought just didn't last and you didn't have money to get more. Never true 05/13/2024 PRAPARE - Transportation Answer Date Re corded In the past 12 months, has l ack of transportation kept you from medical appointments or from getting medications? No 05/2024 In the past 12 months, has l ack of transportation kept you from meetings, work, or from getting things needed for daily living? No 05/13/2024 Depression Answer Date Recor ded PHQ-9 Total Score (max 27) 11 05/16 Nutrition Answer Date Recorded On average, how [...] your living situation today? I have a [facility] place to live 05/13/2024 Education Answer Date Recorded What is the highest level of school you have completed or the highest degree you have received? Associate degree: academic program 12/31/2020 Comments No Sex and Gender Information Value Date Recorded Sex Assigned at Female 06/04/2018 9:58 PM CDT Legal Sex Female 1:40 PM DIRECTOR OF QUANTITATIVE RESEARCH Gender Identity Female 06/04/2018 9:58 PM CDT Sexual Orientation Straight 06/04/2018 9: 58 PM CDT documented as of this encounter Miscellaneous Notes * Telephone Encounter - Wendy Martinez M.D. - 09/18/2024 1:38 PM DIRECTOR OF QUANTITATIVE RESEARCH Prescription approved. CTOR OF QUANTITATIVE RESEARCH documented in this encounter Plan of Treatment Upcoming Encounters Date Type Department Care Team (Latest Contact Info) Description 11/19/2024 1:30 PM CDT Appointment Department of Radiology in [address] [place] [phone] Marbella Slaughter APRN, C.N.P. [address] [place] [phone] Discharge Disposition: Home or Self Care 11/19/2024 2:30 PM CDT Office Visit Department of Dermatology in [address] [phone] Pam Crain M.D. [address] [place] [phone] Discharge Disposition: Home or Self Care 12/10/2024 10:00 AM CDT Clinical Communication Virtual Review in [place], [place] 200 [place] [address] 12/12/2024 8:00 AM CDT Appointment Department of Laboratory Medicine and Pathology, [facility] in [address] [phone] Julia Gunn M.D., Ph.D. [address] [place] [phone] 12/12/2024 9:00 AM CDT Appointment Department of Radiology, [facility] in [address] [phone] Julia Gunn M.D., Ph.D. [address] [place] [phone] 12/12/2024 3:40 PM CDT Office Visit Department of Oncology in [address] [phone] Adelina Arango APRN, C.N.P. [address] [place] [phone] 01/01/2025 1:45 PM CDT Office Visit Department of Family Medicine, [facility], in [address] [phone] Arabella Whitmore M.D. [address] [place] [phone] documented as of this encounter Visit Diagnoses Not on filedocumented in this encounter Additional Health Concerns Assessment Noted Time PHQ-9 Depression Total Score: 11 024 11:53 AM CDT documented as of this encounter Care Teams Windows Desktop Support Relationship Specialty Start Date End Date Galina Brooks APRN, C.N.P., D.N.P. PCP - General Family Medicine 02/22/21 10/13/24 Dr Favian Doan- pt was not aware what the name of the dental group is. Dentistry 11/01/22 opthalmology [place] 11/01/22 documented as of this encounter
--- OUTSIDE RECORDS SUMMARY | 2024-10-25 10:04 | XMS_ITS | Encounter Summary ---
Author Organization [facility] Address [address] [place] [address] Care Team Providers Care Claim Benefit Specialist Name Role Phone Jg Garcia M.D. Primary Care Provider [phone] Encounter Details Date Type Department Care Team (Latest Contact Info) Description 10/22/2024 12:20 PM HUMAN RESOURCES COMMUNICATIONS MANAGER - 10/22/2024 11:59 PM [facility] Encounter Department of Laboratory Medicine and Pathology, [facility] in [place], [place] [address] [place] [phone] Julia Gunn M.D., Ph.D. [address] [place] [phone] Diarrhea; Toxic Gastroenteritis And Colitis; Lower Abdominal Pain Unspecified Discharge Disposition: Home or Self Care Social History Tobacco Use Types Packs/Day Years Used Date Smoking Tobacco: Never Passive Smoke Exposure: Past Smokeless Tobacco: Never Alcohol Use Standard Drinks/Week Comments Yes 1 (1 standard drink = 0.6 oz pur e alcohol) [facility] Utilities Answer Date Recorded In the [...] How often do you attend chur or catholic services? Never 07/07/2022 Do you belong to [...] PHQ-2 Answer Date Recorded PHQ-2 Score 2 10/16/2024 [facility] - Occupational [...] Recor ded PHQ-9 Total Score (max 27) 6 10/16 Nutrition Answer Date Recorded On average, how [...] your living situation today? I have a [facility] place to live 05/13/2024 Education Answer Date Recorded What is the highest level of school you have completed or the highest degree you have received? Associate degree: academic program 12/31/2020 Comments No Sex and Gender Information Value Date Recorded Sex Assigned at Female 06/04/2018 9:58 PM CDT Legal Sex Female 1:40 PM HUMAN RESOURCES COMMUNICATIONS MANAGER Gender Identity Female 06/04/2018 9:58 PM CDT Sexual Orientation Straight 06/04/2018 9: 58 PM CDT documented as of this encounter Medications at Time of Discharge amLODIPine (Norvasc) 5 mg tablet Take 1 tablet (5 mg total) by mouth daily. 90 tablet 3 06/18/2024 budesonide (Entocort EC) [address] capsule Take 3 capsules (9 mg total) by mouth daily. 90 capsule 1 09/23/2024 clobetasoL (Temovate) 0.05 % ointment Apply 1 Application topically 2 (two) times a week. Apply to affected area 30 g 2 10/24/2024 diphenhydrAMINE- acetaminophen (TYLENOL PM) 25-500 mg per tablet Take 2 tablets by mouth at bedtime. losartan (Cozaar) 50 mg tablet Take 1 tablet (50 mg total) by mouth 2 (two) times a day. 90 tablet 3 05/23/2024 propranoloL (InderaL) 60 mg tablet Take 1 tablet (60 mg total) by mouth every 12 (twelve) hours. 180 tablet 3 05/17/2024 rosuvastatin (Crestor) 10 mg tablet Take 1 tablet (10 mg total) by mouth daily. 90 tablet 3 09/18/2024 sertraline (Zoloft) 100 mg tablet Take 1.5 tablets (150 mg total) by mouth daily. 135 tablet 3 07/26/2024 5 documented as of this encounter Plan of Treatment Upcoming Encounters Date Type Department Care Team (Latest Contact Info) Description 11/19/2024 1:30 PM CDT Appointment Department of Radiology in [address] [phone] Marbella Slaughter APRN, C.N.P. [address] [place] [phone] Discharge Disposition: Home or Self Care 11/19/2024 2:30 PM CDT Office Visit Department of Dermatology in [address] [phone] Pam Crain M.D. [address] [place] [phone] Discharge Disposition: Home or Self Care 12/10/2024 10:00 AM CDT Clinical Communication Virtual Review in [place], [place] 200 [place] [phone] 12/12/2024 8:00 AM CDT Appointment Department of Laboratory Medicine and Pathology, [facility], in [place], [place] [address] [place] [phone] Julia Gunn M.D., Ph.D. [address] [place] [phone] 12/12/2024 9:00 AM CDT Appointment Department of Radiology, [facility], in [place], [place] [address] [place] [phone] Julia Gunn M.D., Ph.D. [address] [place] [phone] 12/12/2024 3:40 PM CDT Office Visit Department of Oncology in [place], [place] [address] [place] [phone] Adelina Arango APRN, C.N.P. [address] [place] [phone] 01/01/2025 1:45 PM CDT Office Visit Department of Family Medicine, [facility], in [address] [phone] Arabella Whitmore M.D. [address] [place] [phone] Scheduled Orders Name Type Priority Associated Diagnoses Orde r Schedule GI Pathogen Panel, PCR, Feces Microbiology Routine Diarrhea Toxic Gastroenteritis And Colitis Lower Abdominal Pain Unspecified Once for 1 Occurrences starting 10/22/2024 until 10/22/2024 documented as of this encounter Visit Diagnoses Diagnosis Diarrhea Toxic Gastroenteritis And Colitis Lower Abdominal Pain Unspecified documented in this encounter Additional Health Concerns Assessment Noted Time PHQ-9 Depression Total Score: 6 10/16/19 25 9:45 AM HUMAN RESOURCES COMMUNICATIONS MANAGER documented as of this encounter Care Teams Claim Benefit Specialist Relationship Specialty Start Date End Date Jg Garcia M.D. [address] [place] [phone] PCP - General Family Medicine 10/14/24 Dr Favian Doan- pt was not aware what the name of the dental group is. Dentistry 11/01/22 opthalmology [place] 11/01/22 documented as of this encounter
--- OUTSIDE RECORDS SUMMARY | 2024-10-25 10:04 | XMS_ITS | Encounter Summary ---
Author Organization [facility] Address [address] [place] [address] Care Team Providers Care Instructor Dramatic Arts Name Role Phone Jg Garcia M.D. Primary Care Provider [phone] [phone] Reason for Referral * Outpatient (Routine) - Authorized Specialty Diagnoses / Procedures Referred By Contac t Referred To Contact Obstetrics and Gynecology Marbella Slaughter APRN, C.N.P. [address] [place] [phone] Phone: tel: fax: [facility] Referral ID Status Reason Start Date Expiration Date V isits Requested Visits Authorized [id number] Authorized 10/22/2024 04/23/2026 1 1 SOFTWARE ENGINEER * Outpatient (Routine) - Authorized Specialty Diagnoses / Procedures Referred By Contac t Referred To Contact Diagnoses Screening Mammogram Average Risk Patient Procedures BI Breast Screening Bilateral with Tomosynthesis Marbella Slaughter APRN, C.N.P. [address] [place] [phone] Phone: tel: fax: [facility] Referral ID Status Reason Start Date Expiration Date V isits Requested Visits Authorized [id number] Authorized 10/22/2024 01/22/2026 1 1 SOFTWARE ENGINEER Reason for Visit * Reason Comments Return Visit * Outpatient (Routine) - Closed Specialty Diagnoses / Procedures Referred By Patric yeung Referred To Contact Obstetrics and Gynecology Marbella Slaughter APRN, C.N.P. [address] [place] [phone] Phone: tel: fax: [facility] Referral ID Status Reason Start Date Expiration Date Visits Re quested Visits Authorized [id number] Closed 06/14/2024 12/14/2025 1 1 Encounter Details Date Type Department Care Team (Late st Contact Info) Description 10/22/2024 1:30 PM WEB SOFTWARE ENGINEER Office Visit Department of Obstetrics and Gynecology, Division of Gynecologic Oncology in [place], [place] [address] [place] [phone] Marbella Slaughter APRN, C.N.P. [address] [place] [phone] Cancer Endometrium Personal History (Primary Dx); Screening Mammogram Average Risk Patient Social History Tobacco Use Types Packs/Day Years Used Date Smoking Tobacco: Never Passive Smoke Exposure: Past Smokeless Tobacco: Never Alcohol Use Standard Drinks/Week Comments Yes 1 (1 standard drink = 0.6 oz pur e alcohol) [facility] Utilities Answer Date Recorded In the past 12 months has e [employer], gas, oil, or water [employer] threatened to shut off services in your [...] often do you attend chur ch or sikhism services? Never 07/07/2022 Do you belong to any clubs o r organizations such as latter-day groups, unions, fraternal or athletic groups, or [...] Answer Date Recorded PHQ-2 Score 2 10/16/2024 [facility] - Occupational Stress Questionnaire Answer Date [...] your living situation today? I have a [facility] place to live 05/13/2024 Education Answer Date Recorded What is the highest level of school you have completed or the highest degree you have received? Associate degree: academic program 12/31/2020 Comments No Sex and Gender Information Value Date Recorded Sex Assigned at Female 06/04/2018 9:58 PM CDT Legal Sex Female 1:40 PM WEB SOFTWARE ENGINEER Gender Identity Female 06/04/2018 9:58 PM CDT Sexual Orientation Straight 06/04/2018 9: 58 PM CDT documented as of this encounter Last Filed Vital Signs Vital Sign Reading Time Taken Comments Blood Pressure - - Pulse - - Temperature - - Respiratory Rate - - Oxygen Saturation - - Inhaled Oxygen Concentration - - Weight 84.8 kg (186 lb 15.2 oz) 10/22/2024 1:23 PM WEB SOFTWARE ENGINEER Height 166.8 cm (5' 5.67) 10/22/2024 1:23 PM CS T Body Mass Index 30.48 10/22/2024 1:23 PM WEB SOFTWARE ENGINEER documented in this encounter Progress Notes * Marbella Slaughter, ADALGISA, C.N.P. - 10/22/2024 1:30 PM CST SUBJECTIVE CHIEF COMPLAINT/REASON FOR VISIT Cancer Surveillance HISTORY OF PRESENT ILLNESS Ms. Duran is a 74 y.o. who returns for a cancer surveillance visit. 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 11/08/2022 Surgery and Procedures Underwent robotic assisted hysterectomy, bilateral salpingo-oophorectomy, pelvic lymphadenectomy, omental biopsy, and left inguinal lymphadenectomy 08/13/[address] chest: Stable exam in the chest. CT abdomen/pelvis: 1. Stable to slight interval increase in omental nodularity most suspicious for metastatic disease. Melanoma Leg Left (HCC) 11/08/2022 Biopsy/Pathology While [...] on the left upper thigh. 01/02/2023 - 11/06/2023 Chemotherapy Nivolumab 480 mg every 4 weeks Start Date: 01/02/2023 08/13/[address] chest: Stable exam in the chest. CT abdomen/pelvis: 1. Stable to slight interval increase in omental nodularity most suspicious for metastatic disease. INTERVAL HISTORY: Patient states that from a gynecologic standpoint she is doing very well today. She denies any vaginal bleeding or abnormal discharge. Ivy has been working with her oncology team regarding some persistent colitis symptoms since her treatment for melanoma. She is currently on budesonide which has helped since I have increased her dose to 9 mg. She obtain a kit today to submit a stool sample for pathogen testing. She has altered her diet some to avoid triggers. She had a colonoscopy last March. Upon questioning Lilliam does note that her urinary incontinence has increased some in the past six months. She states she wears a small panty liner during the day, and no pads at night. She states itis not overly bothersome at this point. She has no new leg edema. She denies any respiratory or chest complaints. She does mentioned that she was dealing with some hair thinning over the past six months, but states it has recently improved. 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 She is scheduled to see dermatology and her medical oncology team for melanoma follow up in the next couple of months. Patient notes that her niece was diagnosed with breast cancer since her last visit in her early 40s. Patient's sister and mom also had breast cancer. There has been negative genetic testing, but the patient is uncertain if her niece has been tested. Colonoscopy 03/2024 Mammogram 10/2023 REVIEW OF SYSTEMS Negative other than noted [...] palpable masses. No organomegaly. Pelvis: External genitalia with some thin white tissue in the posterior introitus consistent with lichen sclerosus. No lesions concerning for vulvar dysplasia. Speculum was placed, vagina without lesions of concern. Bimanual exam is without palpable nodularity or masses. This was confirmed on rectovaginal exam. 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 I reassured the patient that there were no concerning findings on review of system or exam for recurrence. We will plan to see the patient back again in 6 months for ongoing surveillance. Possible warning signs of recurrence were reviewed. She will contact us in the meantime with any questions or concerns. I encouraged the patient to continue to use clobetasol 2 times per week as maintenance. Refill was sent to her preferred pharmacy. SOFTWARE ENGINEER documented in this encounter Plan of Treatment Upcoming Encounters Date Type Department Care Team (Latest Contact Info) Description 11/19/2024 1:30 PM CDT Appointment Department of Radiology in [address] [phone] Marbella Slaughter APRN, C.N.P. [address] [place] [phone] Discharge Disposition: Home or Self Care 11/19/2024 2:30 PM CDT Office Visit Department of Dermatology in [address] [phone] Pam Crain M.D. [address] [place] [phone] Discharge Disposition: Home or Self Care 12/10/2024 10:00 AM CDT Clinical Communication Virtual Review in [address] [phone] 12/12/2024 8:00 AM CDT Appointment Department of Laboratory Medicine and Pathology, [address] [phone] Julia Gunn M.D., Ph.D. [address] [place] [phone] 12/12/2024 9:00 AM CDT Appointment Department of Radiology, [facility], in [address] [phone] Julia Gunn M.D., Ph.D. [address] [place] [phone] 12/12/2024 3:40 PM CDT Office Visit Department of Oncology in [address] [phone] Adelina Arango APRN, C.N.P. [address] [place] [phone] 01/01/2025 1:45 PM CDT Office Visit Department of Family Medicine, [facility], in [address] [phone] Arabella Whitmore M.D. [address] [place] [phone] Scheduled Orders Name Type Priority Associated Diagnoses Order Schedule BI Breast Screening Bilateral with Tomosynthesis Imaging RAD - Routine (most inpatients and all outpatients) Screening Mammogram Average Risk Patient Expected: 11/19/2024, Expires: 01/19/2026 Scheduled Referrals Name Type Priority Associated Diagnoses Order Schedule Obstetrics and Gynecology office visit (clinic) Outpatient Referral Routine Expected: 04/21/2025, Expires: 01/19/2026 documented as of this encounter Visit Diagnoses Diagnosis Cancer Endometrium Personal History- Primary Screening Mammogram Average Risk Patient documented in this encounter Additional Health Concerns Assessment Noted Time PHQ-9 Depression Total Score: 6 10/16/19 25 9:45 AM WEB SOFTWARE ENGINEER documented as of this encounter Care Teams Instructor Dramatic Arts Relationship Specialty Start Date End Date Jg Garcia M.D. [address] [place] [phone] PCP - General Family Medicine 10/14/24 Dr Favian Doan- pt was not aware what the name of the dental group is. Dentistry 11/01/22 opthalmology [place] 11/01/22 documented as of this encounter
--- OUTSIDE RECORDS SUMMARY | 2024-10-25 10:04 | XMS_ITS | Clinical Summary ---
Author Organization [email or web address] Address [address] [place] [address] Care Team Providers Care Director Of Family Service Center Name Role Phone None Primary Care Provider Unavailabl e Immunizations Name Administration Dates Next Due COVID-19 vaccine ([employer]BioNTTirendo 30mcg/0.3mL) JAYLA [place] 11/11/2020,10/21/2020 Social History Tobacco Use Types Packs/Day Years Used Date Smoking Tobacco: Never Assessed Comments Unknown Sex and Gender Information Value Date Recorded Sex Assigned at Not on file Legal Sex Female 4:44 PM YARN WASHER Gender Identity Not on file Sexual Orientation [...] - 1-dose 75+ series) 2026 Care Teams Director Of Family Service Center Relationship Specialty Start Date End Date None . PCP - General 10/16/20
--- OUTSIDE RECORDS SUMMARY | 2024-10-25 10:04 | XMS_ITS | Encounter Summary ---
Author Organization [facility] Address [address] [place] [id number] Care Team Providers Care Brand Planner Name Role Phone Jg Garcia M.D. Primary Care Provider [phone] Reason for Referral * Outpatient (Routine) - Closed Specialty Diagnoses / Procedures Referred By Contac t Referred To Contact Obstetrics and Gynecology Marbella Slaughter APRN, C.N.P. [address] [place] [phone] Phone: tel: fax: [facility] Referral ID Status Reason Start Date Expiration Date Visits Re quested Visits Authorized [id number] Closed 06/14/2024 12/14/2025 1 1 Reason for Visit * Reason Comments Return Visit * Outpatient (Routine) - Closed Specialty Diagnoses / Procedures Referred By Contac t Referred To Contact Obstetrics and Gynecology Marbella Slaughter APRN, C.N.P. [address] [place] [phone] Phone: tel: fax: [facility] Referral ID Status Reason Start Date Expiration Date Visits Re quested Visits Authorized [id number] Closed 02/07/2024 08/08/2025 1 1 Encounter Details Date Type Department Care Team (Late st Contact Info) Description 06/14/2024 3:00 PM CDT Office Visit Department of Obstetrics and Gynecology, Division of Gynecologic Oncology in [place], [place] [address] [place] [address] Marbella Slaughter, ADALGISA, C.N.P. [address] [place] [address] Cancer Endometrium Personal History (Primary Dx); Lichen Sclerosus Social History Tobacco Use Types Packs/Day Years Used Date Smoking Tobacco: Never Passive Smoke Exposure: Past Smokeless Tobacco: Never Alcohol Use Standard Drinks/Week Comments Yes 1 (1 standard drink = 0.6 oz pur e alcohol) [facility] Answer Date Recorded In the past 12 [...] often do you attend chur ch or alevism services? Never 07/07/2022 Do you belong to [...] Answer Date Recorded PHQ-2 Score 2 10/16/2024 [facility] - Occupational Stress Questionnaire Answer [...] have a [facility] place to live 05/13/2024 Education Answer Date Recorded What is the highest level of school you have completed or the highest degree you have received? Associate degree: academic program 12/31/2020 Comments No Sex and Gender Information Value Date Recorded Sex Assigned at Female 06/04/2018 9:58 PM CDT Legal Sex Female 1:40 PM CASTING OPERATOR Gender Identity Female 06/04/2018 9:58 PM CDT Sexual Orientation Straight 06/04/2018 9: 58 PM CDT documented as of this encounter Last Filed Vital Signs Vital Sign Reading Time Taken Comments Blood Pressure 144/85 06/14/2024 3:15 PM CDT Pulse 90 06/14/2024 3:15 PM CDT Temperature - - Respiratory Rate - - Oxygen Saturation - - Inhaled Oxygen Concentration - - Weight 84 kg (185 lb 3 oz) 06/14/2024 3:02 PM CD T Height 168 cm (5' 6.14) 06/14/2024 3:02 PM CDT Body Mass Index 29.76 06/14/2024 3:02 PM CDT documented in this encounter Progress Notes * Marbella Slaughter, ADALGISA, C.N.P. - 06/14/2024 3:00 PM CDT SUBJECTIVE CHIEF COMPLAINT/REASON FOR VISIT [...] cN0(sn), cM0) Method of lymph node assessment: Bronson lymph node biopsy Histologic grade (G): G3 Histologic grading system: 3 grade system Genetic Testing and Tumor Genotyping Negative germline genetic testing in 2022; [facility] and [employer]- Cancer + RNAinsight panel from [facility]. Melanoma Leg Left (HCC) 11/08/2022 Biopsy/Pathology [...] any vaginal bleeding or abnormal discharge. She does use clobetasol 2 times per week for lichen sclerosus. She denies any sore areas or areas with significant itching or irritation. She denies any bowel or bladder changes. She denies any abdominal pain or bloating. She has no new leg edema. She denies any respiratory or chest complaints. Ivy does continue to struggle with fatigue. She has had thorough evaluation for this. She is working on conditioning. She continues to follow closely with dermatology and Medical Oncology for malignant melanoma. She is due for scans and a follow up next month. REVIEW OF SYSTEMS Negative other than noted [...] lower extremity edema ASSESSMENT / PLAN #1 history of stage IA serous endometrial cancer #2 Lichen sclerosus The patient seems to be doing very well. I reassured the patient that there were no concerning findings on review of system or exam for recurrence. We will plan to see the patient back again in 4-6 months for ongoing surveillance. Possible warning signs of recurrence were reviewed. She will contactus in the meantime with any questions or concerns. I encouraged the patient to continue to be using clobetasol 2 times per week. She will reach out ifshe has any vulvar areas of concern or persistent itching. ING OPERATOR documented in this encounter Plan of Treatment Upcoming Encounters Date Type Department Care Team (Latest Contact Info) Description 11/19/2024 1:30 PM CDT Appointment Department of Radiology in [address] [phone] Marbella Slaughter APRN, C.N.P. [address] [place] [phone] Discharge Disposition: Home or Self Care 11/19/2024 2:30 PM CDT Office Visit Department of Dermatology in [address] [phone] Pam Crain M.D. [address] [place] [phone] Discharge Disposition: Home or Self Care 12/10/2024 10:00 AM CDT Clinical Communication Virtual Review in [address] [phone] 12/12/2024 8:00 AM CDT Appointment Department of Laboratory Medicine and Pathology, [facility], in [address] [phone] Julia Gunn M.D., Ph.D. [address] [place] [phone] 12/12/2024 9:00 AM CDT Appointment Department of Radiology, [facility], in [place], [place] [address] [place] [address] Julia Gunn M.D., Ph.D. [address] [place] [phone] 12/12/2024 3:40 PM CDT Office Visit Department of Oncology in [place], [place] [address] [place] [address] Adelina Arango APRN, C.N.P. [address] [place] [phone] 01/01/2025 1:45 PM CDT Office Visit Department of Family Medicine, [facility], in [address] [phone] Arabella Whitmore M.D. [address] [place] [phone] Scheduled Referrals Name Type Priority Associated Diagnoses Order Schedule Obstetrics and Gynecology office visit (clinic) Outpatient Referral Routine Expected: 10/15/2024, Expires: 09/14/2025 documented as of this encounter Visit Diagnoses Diagnosis Cancer Endometrium Personal History- Primary Lichen Sclerosus documented in this encounter Additional Health Concerns Assessment Noted Time PHQ-9 Depression Total Score: 024 11:53 AM CDT documented as of this encounter Care Teams Brand Planner Relationship Specialty Start Date End Date Jg Garcia M.D. [address] [place] [phone] PCP - General Family Medicine 10/14/24 Dr Favian Doan- pt was not aware what the name of the dental group is. Dentistry 11/01/22 opthalmology [place] 11/01/22 documented as of this encounter
--- OUTSIDE RECORDS SUMMARY | 2024-10-25 10:04 | XMS_ITS | Clinical Summary ---
Author Organization [facility] Address [address] [place] [address] Care Team Providers Care Senior Javascript Engineer Name Role Phone Jg Garcia M.D. Primary Care Provider [phone] Source Comments Patient records contain information from all sites at [facility]. For routine questions regarding patient records, call [phone] during business hours, M-F 8:00 AM - 5:00 PM Central Time. Record requests for emergency care only can be directed to [phone] at any time.[facility] Allergies No known active allergies Medications * This document contains information received from the source organization and may not represent a complete record from that organization. diphenhydrAMI NE-acetaminop hen (TYLENOL PM) 25-500 mg per tablet Take 2 tablets by mouth at bedtime. Active propranoloL (InderaL) 60 mg tablet Take 1 tablet (60 mg total) by mouth every 12 (twelve) hours. 180 tablet 3 024 2024 Active losartan (Cozaar) 50 mg tablet Take 1 tablet (50 mg total) by mouth 2 (two) times a day. 90 tablet 3 024 Active amLODIPine (Norvasc) 5 mg tablet Take 1 tablet (5 mg total) by mouth daily. 90 tablet 3 Active sertraline (Zoloft) 100 mg tablet Take 1.5 tablets (150 mg total) by mouth daily. 135 tablet 3 024 2024 Active rosuvastatin (Crestor) 10 mg tablet Take 1 tablet (10 mg total) by mouth daily. 90 tablet 3 025 Active budesonide (Entocort EC) [address] capsule Take 3 capsules (9 mg total) by mouth daily. 90 capsule 1 025 2024 Active clobetasoL (Temovate) 0.05 % ointment Apply 1 Application topically 2 (two) times a week. Apply to affected area 30 g 2 025 Active clobetasoL (Temovate) 0.05 % ointment Apply 1 Application topically 2 (two) times a week. Apply to affected area 30 g 2 024 2024 Discontinued(R eorder) hydrocortison e (Hytone) 2.5 % ointment MIX WITH KETOCONAZOLE AND APPLY SMALL AMOUNT TO LIPS TWICE A DAY FOR 4 WEEKS 024 2024 Discontinued ketoconazole (Nizoral) 2 % cream MIX WITH HYDROCORTISONE AND APPLY SMALL AMOUNT TO LIPS TWICE A DAY FOR 4 WEEKS 024 2024 Discontinued Hospital, Clinic, or Other Facility Administered Medication Ordered Dose Route Frequency Start Date End Date Status lidocaine-EPINEPHrine 1%-1:200,000 injection 2-50 mL (Xylocaine w/epi)Indications:Malignant Neoplasm Of Face Basal Cell 2 - 50 mL inj As needed 08/16/2024 Active BHWyycfvdod-jcjygzifw-FQWCOLI rine 0.25%-1%-1:200,000 injection 2-25 mLIndications:Malignant Neoplasm Of Face Basal Cell 2 - 25 mL inj As needed 08/16/2024 Active Active Problems Problem Noted Date Diagnosed Date History Of Falling 05/17/2024 Toxic Gastroenteritis And Colitis 04/24/2024 Overview (05/17/2024): On entyvio for management. Tremor Essential 02/09/2024 Shortness Of Breath 01/24/2024 Overview (05/17/2024): Cardiology evaluated and wasn't convinced due to heart failure. Primary Osteoarthritis Knee Bilateral 07/10/2023 Chronic Kidney Disease (CKD) , Stage 3a Glomerular Filtration Rate (GFR) 45 To 59 07/10/2023 Secondary Malignant Neoplasm Lymph Node 12/30/19 23 Medication Therapy Long-Term Not Anticoagulant 0 12/29/2022 Melanoma Leg Left 11/18/2022 Cancer Staging:Pathologic:Stage IIIC(pT0, pN2b, cM0) - Signed by Vy Granger P.A.-C., M.S. on 08/02/2023 Malignant Neoplasm Of Uterus Endometrial 023 Cancer Staging:Clinical stage from 11/08/2022:FIGO Stage IA(cT1a, cN0(sn), cM0) - Signed by Roly Gaviria APRN, C.N.P., M.S. on 11/18/2022 Polyp Uterus 08/03/2022 Overview (08/03/2022): Added automatically from request for surgery [id number] Lesion Skin Foot 07/13/2022 Polyp Colon Personal History, Unspecified Type 1 09/12/2021 Depression Major Recurrent Moderate 03/01/2022 Depressive Disorder 07/06/2021 Overview (07/06/2021): Switched from Celexa to Prozac 04/2021. Pain Knee Left 01/04/2021 Overview (01/04/2021): Added automatically from request for surgery [id number] Distress Epigastric 09/13/2019 Keratosis Actinic 04/03/2015 Lichen Sclerosus 04/03/2015 Overview (07/06/2021): Maintenance topical steroid and vaginal estrogen twice weekly. Hypothyroidism Acquired 02/26/2014 Pain Back Lumbar 01/29/2013 Hyperlipidemia 09/14/2011 Overview (07/06/2021): Medium potency statin. Pain Hip Right Primary Osteoarthritis Hip Right Resolved Problems Problem Noted Date Diagnosed Date Resolved Date Positive Cologuard Stool Rafael xyribonucleic Acid Test 07/23/2021 05/17/2024 Overview (07/23/2021): Added automatically from request for surgery [id number] Hypertension Essential Primary 07/06/2021 06/18/2024 Overview (07/06/2021): No prior cardiovascular events or end-organ damage. Monotherapy with ARB. Encounters Date Type Department Care Team Description 10/22/2024 1:30 PM MARKING MACHINE TENDER Office Visit Department of Obstetrics and Gynecology, Division of Gynecologic Oncology in [place], [place] [address] [place] [address] Marbella Slaughter APRN, C.N.P. Cancer Endometrium Personal History (Primary Dx); Screening Mammogram Average Risk Patient 10/22/2024 12:20 PM MARKING MACHINE TENDER - 10/22/2024 11:59 PM MARKING MACHINE TENDER Hospital Encounter Department of Laboratory Medicine and Pathology, [facility] in [place], [place] [address] [place] [phone] Julia Gunn M.D., Ph.D. Diarrhea; Toxic Gastroenteritis And Colitis; Lower Abdominal Pain Unspecified Discharge Disposition: Home or Self Care 09/18/2024 Refill Department of Family Medicine, [facility], in [address] [phone] Galina Brooks APRN, C.N.P., D.N.P. Med Refill 08/16/2024 8:30 AM MARKING MACHINE TENDER Procedure visit Department of Dermatology in [place], [place] [address] [place] [phone] Francisco Osborne M.D., M.S. Malignant Neoplasm Of Face Basal Cell Discharge Disposition: Home or Self Care 08/16/2024 Ancillary Procedure Department of Dermatology 08/13/2024 4:00 PM MARKING MACHINE TENDER Office Visit Department of Oncology in [place], [place] [address] [place] [phone] Julia Gunn M.D., Ph.D. Melanoma Leg Left (HCC) (Primary Dx); Diarrhea 08/13/2024 11:11 AM MARKING MACHINE TENDER - 08/13/2024 11:59 PM MARKING MACHINE TENDER Hospital Encounter Department of Radiology, [facility] in [place], [place] [address] [place] [phone] Julia Gunn M.D., Ph.D. Melanoma Leg Left (HCC); Malignant Neoplasm Of Uterus Endometrial (HCC) Discharge Disposition: Home or Self Care 08/13/2024 10:44 AM MARKING MACHINE TENDER - 08/13/2024 11:10 AM MARKING MACHINE TENDER Hospital Encounter Department of Laboratory Medicine and Pathology, [place], [place] [address] [place] [address] Julia Gunn M.D., Ph.D. Melanoma Leg Left (HCC); Malignant Neoplasm Of Uterus Endometrial (HCC) Discharge Disposition: Home or Self Care 08/09/2024 10:45 AM MARKING MACHINE TENDER Office Visit Department of [facility] Medicine, [facility], in [address] [phone] Jg Garcia M.D. Preoperative Exam (Primary Dx); Cataract Senile; Hypertensive Chronic Kidney Disease With Stage 1 Through Stage 4 Chronic Kidney Disease, Or Unspecified Chronic Kidney Disease; Chronic Kidney Disease (CKD), Stage 3a Glomerular Filtration Rate (GFR) 45 To 59 (HCC); Hypothyroidism Acquired Discharge Disposition: Home or Self Care 08/08/2024 1:15 PM MARKING MACHINE TENDER Office Visit Department of Cardiovascular Diseases in [address] [phone] Yaya Douglas M.D. Shortness Of Breath (Primary Dx) Discharge Disposition: Home or Self Care 08/06/2024 10:45 AM MARKING MACHINE TENDER Office Visit Department of Dermatology in [address] [phone] Pam Crain M.D. Keratosis Actinic (Primary Dx); Tumor Skin Uncertain Behavior; Keratosis Seborrheic Inflamed; Nevi Multiple; Melanoma Personal History Discharge Disposition: Home or Self Care 08/06/2024 9:20 AM MARKING MACHINE TENDER Ancillary Procedure Department of Dermatology 07/26/2024 8:00 AM MARKING MACHINE TENDER Office Visit Department of Family Medicine, [facility], in [address] [phone] LindGalina mark APRN, C.N.P., D.N.P. Depression Major Recurrent Moderate (HCC) (Primary Dx); Hypertensive Chronic Kidney Disease With Stage 1 Through Stage 4 Chronic Kidney Disease, Or Unspecified Chronic Kidney Disease; Chronic Kidney Disease (CKD), Stage 3a Glomerular Filtration Rate (GFR) 45 To 59 (HCC); History Of Falling Discharge Disposition: Home or Self Care from Last 3 Months Immunizations Immunization Administration Dates Next Due HZV (ZOSTAVAX) 03/16/2012 Influenza Split 06/18/2014, 3,06/04/2012,2010 Influenza high dose QV(65 ye ars or older) (PF) 06/26/2023,07/13/2022,07/07/2021,2019 MMR 03/30/1993 PCV13 06/03/2016 PPSV23 06/06/2017 RSV: respiratory syncytial v irus (AREXVY) recombinant vaccine 07/05/2023 RZV (SHINGRIX) 09/03/2019,07/04/2019 SARS-COV-2 (COVID-19) - PFIZ ER TS(Discontinued)(12 years or older) 07/13/2022(Deferred: Other - will complete at local pharmacy) Td, (Adult) Unspecified 03/30/1993 Tdap 07/18/2022,09/13/2011 influenza trivalent high dos e (HD)(PF) 06/20/2019,06/19/2018,06/07/2017 Family History Medical History Relation Name [...] cancer Mother's Sister 2 Ivy Breast cancer Niece Breast cancer Sister 1 Lorna > 5 [...] Sister 1 Adelaida Mother's Sister 2 Ivy Niece Alive Sister 1 Lorna Sister 2 Sofia Sister 3 matt Sister 4 Nguyen Alive Social History Tobacco Use Types Packs/Day Years Used Date Smoking Tobacco: Never Passive Smoke Exposure: Past Smokeless Tobacco: Never Tobacco Cessation:Counseling Given: Not Answered Alcohol Use Standard Drinks/Week Comments Yes 1 (1 standard drink = 0.6 oz pur e alcohol) [facility] Utilities Answer Date Recorded In the past 12 months has e [employer], gas, oil, or water [employer] threatened to shut off services in your [...] often do you attend chur ch or lutheran services? Never 07/07/2022 Do you belong to any clubs o r organizations such as alevism groups, unions, fraternal or athletic groups, or [...] Answer Date Recorded PHQ-2 Score 2 10/16/2024 [facility] [...] PM CDT Legal Sex Female 1:40 PM MARKING MACHINE TENDER Gender Identity Female 06/04/2018 9:58 PM CDT Sexual Orientation Straight 06/04/2018 9: 58 PM CDT Last Filed Vital Signs Vital Sign Reading Time Taken Comments Blood Pressure 113/64 08/16/2024 8:25 AM MARKING MACHINE TENDER Pulse 67 08/16/2024 8:25 AM MARKING MACHINE TENDER Temperature 36.9 C (98.4 F) 08/13/2024 3:34 PM MARKING MACHINE TENDER Respiratory Rate 16 08/13/2024 3:34 PM MARKING MACHINE TENDER Oxygen Saturation 95% 08/13/2024 3:34 PM MARKING MACHINE TENDER Inhaled Oxygen Concentration - - Weight 84.8 kg (186 lb 15.2 oz) 10/22/2024 1:23 PM MARKING MACHINE TENDER Height 166.8 cm (5' 5.67) 10/22/2024 1:23 PM CS T Body Mass Index 30.48 10/22/2024 1:23 PM MARKING MACHINE TENDER Plan of Treatment Upcoming Encounters Date Type Department Care Team (Latest Contact Info) Description 11/19/2024 1:30 PM CDT Appointment Department of Radiology in [address] [phone] Marbella Slaughter APRN, C.N.P. [address] [place] [phone] Discharge Disposition: Home or Self Care 11/19/2024 2:30 PM CDT Office Visit Department of Dermatology in [address] [phone] Pam Crain M.D. [address] [place] [phone] Discharge Disposition: Home or Self Care 12/10/2024 10:00 AM CDT Clinical Communication Virtual Review in [place], [place] [address] [place] [address] 12/12/2024 8:00 AM CDT Appointment Department of Laboratory Medicine and Pathology, [facility] in [address] [phone] Julia Gunn M.D., Ph.D. [address] [place] [phone] 12/12/2024 9:00 AM CDT Appointment Department of Radiology, [facility] in [place], [place] [address] [place] [phone] Julia Gunn M.D., Ph.D. [address] [place] [phone] 12/12/2024 3:40 PM CDT Office Visit Department of Oncology in [address] [phone] Adelina Arango, RN ONCOLOGY, C.N.P. [address] [place] [phone] 01/01/2025 1:45 PM CDT Office Visit Department of Family Medicine, [facility], in [address] [phone] Arabella Whitmore M.D. [address] [place] [phone] Health Maintenance Due Date Last Done Comments CT Colonography 1951 Cologuard 07/08/2024 07/08/2021 Depression Monitoring (PHQ-9 for quality tracking) 09/04/2024 Fall Risk Screen (Annual) 09/04/2024 Mammogram 10/24/2024 10/24/2023, 05/2022, 07/14/2021, Additional history exists Visit: Medicare Annual Wellness 01/02/2025 01/02/2024 COVID-19 Vaccine (10 - Pfizer risk season) 2025 07/09/2024, 01/09/2024, 06/26/2023, Additional history exists Depression Monitoring (PHQ-9) 02/13/2025 10/16/2024 Visit: Annual, age 65+ (or Medicare and <65) 08/09/2025 08/09/2024 Creatinine Level (Kidney Function Test) 08/13/2025 08/13/2024, 07/12/2024, 06/14/2024, Additional history exists Potassium Level 08/13/2025 08/13/2024, 04/2024, 06/14/2024, Additional history exists Sodium Level 08/13/2025 08/13/2024, 04/2024, 06/14/2024, Additional history exists Colonoscopy 04/03/2027 04/03/2024, 03/06, 10/01/2021, Additional history exists Colorectal Cancer Surveillance 04/03/2027 Lipid (Cholesterol) Screening 07/13/2027 07/13/2022, 07/07/2021, 06/23/2020, Additional history exists Fasting Glucose for Diabetes Screening 08/13/2027 08/13/2024, 07/12/2024, 06/14/2024, Additional history exists DTaP,Tdap,and Td Vaccines (3 - Td or Tdap) 07/18/2032 07/18/2022, 09/13/2011, 03/30/1993 Pneumococcal vaccine (50+ years) Completed 06/06/2017, 06/03/2016 Zoster Vaccines Completed 09/03/2019, 06/06, 03/16/2012 RSV vaccine - (32-36 weeks) or 60+ years Completed 07/05/2023 Influenza Vaccine Completed 07/09/2024, , 07/13/2022, Additional history exists HPV Vaccines Aged Out No longer eligi ble based on patient's age to complete this topic IPV Vaccines Aged Out No longer eligi ble based on patient's age to complete this topic Medical Devices Implanted Type Area Pickling Grader Device Identifier Shelf Expiration Date Model / Serial / Lot Conversions - Default Historical Implant Device Implanted:Qty: 1 on 06/06/2017 Breast Other Left: Breast Description:Body Location - Breast L. Device Status Text - BreastOth. clip Clp Hrzn Ti 6 Clp Familia - [id number] Implanted:Qty: 1 on 11/08/2022 by Kiley Lees M.D. at [facility] Hardware e.g. pins/screw s/rods [employer] [id number] 04/25/2027 [id number] / / [id number] Clp Hrzn Ti 6 Clp Red - [id number] Implanted:Qty: 1 on 12/14/2022 by Marcial Bernstein M.D. at [facility] Hardware e.g. pins/screw s/rods [employer] [id number] / / Clp Hrzn Ti 6 Clp Familia - [id number] Implanted:Qty: 1 on 12/14/2022 by Marcial Bernstein M.D. at [facility] Hardware e.g. pins/screw s/rods [employer] [id number] / / Clp Hrzn Ti 6 Clp Familia - [id number] Implanted:Qty: 1 on 12/14/2022 by Marcial Bernstein M.D. at [facility] Hardware e.g. pins/screw s/rods [employer] [id number] 09/11/2027 [id number] / / [id number] Clp [facility] 235 - [id number] Implanted:Qty: 1 on 04/03/2024 by Sammi Mejias M.D., Ph.D. at [facility] Hardware e.g. pins/screw s/rods N/A: Ascending Colon [email or web address] [id number] 08/08/2026 [id number] / / [id number] Hip Implant Hip Implant Right: Hip Description:02/17/2020-[facility] ie Procedures Procedure Name Priority Date/Time Associated Diagnosis Comments [facility] 1-4 SITES Routine 08/16/2024 8: 30 AM MARKING MACHINE TENDER Malignant Neoplasm Of Face Basal Cell DERMATOLOGY IMAGE EXAM Routine 4 12:[address] CHEST WITH IV CONTRAST RAD - Routine (most inpatients and all outpatients) 08/13/2024 1:02 PM MARKING MACHINE TENDER Melanoma Leg Left (HCC) Malignant Neoplasm Of Uterus Endometrial (HCC) CT ABDOMEN PELVIS WITH IV CONTRAST RAD - Routine (most inpatients and all outpatients) 08/13/2024 1:02 PM MARKING MACHINE TENDER Melanoma Leg Left (HCC) Malignant Neoplasm Of Uterus Endometrial (HCC) THYROPEROXIDASE (TPO) ABS, S Routine 08/13/2024 11:05 AM MARKING MACHINE TENDER ME T4 FREE Routine 08/13/2024 11:05 AM MARKING MACHINE TENDER THYROID FUNCTION CASCADE, S Routine 08/13/2024 11:05 AM MARKING MACHINE TENDER Melanoma Leg Left (HCC) Malignant Neoplasm Of Uterus Endometrial (HCC) COMPREHENSIVE METABOLIC PANEL, S/P Routine 08/13/2024 11:05 AM MARKING MACHINE TENDER Melanoma Leg Left (HCC) Malignant Neoplasm Of Uterus Endometrial (HCC) CBC WITH DIFFERENTIAL, B Routine 08/13/2024 11:04 AM MARKING MACHINE TENDER Melanoma Leg Left (HCC) Malignant Neoplasm Of Uterus Endometrial (HCC) DERMATOPATHOLOGY Routine 08/06/2024 11:15 AM MARKING MACHINE TENDER Tumor Skin Uncertain Behavior DERMATOLOGY IMAGE EXAM Routine 9:20 AM MARKING MACHINE TENDER COLONOSCOPY Routine 04/03/2024 11:23 AM CDT Diarrhea BI BREAST SCREENING BILATERAL WITH TOMOSYNTHESIS RAD - Routine (most inpatients and all outpatients) 10/24/2023 11:04 AM MARKING MACHINE TENDER Screening Mammogram Breast Cancer LIPID PANEL, S Routine 07/13/2022 6:43 AM MARKING MACHINE TENDER Hyperlipidemia General Medical Examination Adult COLOGUARD Routine 07/08/2021 10:00 AM CDT Screening Colon Cancer Average Risk from Last 3 Months or Most Recently Relevant to Health Maintenance Results * [facility] 1-4 sites (08/16/2024 8:30 AM MARKING MACHINE TENDER) Francisco Blum M.D., M.S. - 08/16/2024 8:30 AM MARKING MACHINE TENDER Jarrett Wallace M.D. 08/16/2024 3:22 PM PREOP INDICATION: REMOVAL. Date of Surgery: 08/16/2024 Surgeon: Dr. Francisco Osborne M.D., M.S. [place] Reporter: Dr. Jarrett Wallace M.D. Location: [facility]: Floor:16 Room:[facility] Visit Type: Outpatient PostOp Diagnosis: Nodular basal cell carcinoma Anatomic Location: Right lateral eyebrow Preoperative size: 0.9 x 0.6 cm [facility] number: [id number] Indication(s) for Mohs Micrographic Surgery: anatomic location where tissue conservation is critical Procedure(s): Mohs micrographic surgery with intermediate layered closure Procedural pause conducted to verify: correct patient identity, procedure to be performed and as applicable, correct side and site, correct patient position, and availability of implants, special equipment or special requirements. INFORMED CONSENT Discussed the risks, benefits, alternatives, and the necessity of other members of the healthcare team participating in the procedure. All questions answered and consent given. PATIENT EDUCATION Ready to learn, no apparent learning barriers were identified; learning preferences include listening. Explained diagnosis and treatment plan; patient expressed understanding of the content. Preoperative medications: None The anesthesia was performed using lidocaine of lidocaine 9mg/ml (0.9%) buffered with sodium bicarbonate 0.1 mEq/mL (0.01%) and 1% lidocaine and 0.25% bupivacaine with 1:200,000 epinephrine (see orders for exact combination and formulations used). The skin was prepped in a sterile fashion with Hibiclens and iodine. Histologic tumor-free margins were obtained in 1 stages (2 blocks) by standard Mohs micrographic techniques with the Mohs surgeon performing both the surgery and pathology. No residual basal cell carcinoma was identified. The final defect depth was down to level of: subcutaneous fat. Postoperative size: 1.2 x 0.9 cm. Anesthesia with 1% lidocaine with 1:200,000 epinephrine and another sterile prep were performed. Burow's triangles were excised from opposite poles of the defect in the direction of the skin tension lines. The wound was undermined as needed, and hemostasis was obtained with electrocoagulation. The wound edges were closed with 4-0 Monocryl, 5 0 Monocryl subcutaneous sutures and 6 0 express gut for the top layer to approximate the epidermis. Postoperative length: 3.5 cm. Estimated blood loss: Minimal. Complications: None. Wound care: Routine. Postoperative medications: Pcdg-jxy-njfscxg analgesics Jarrett Wallace M.D. Mohs Surgery Fellow us Pam Crain M.D. DERM PROCEDURE ORDERABLES Fi nal Result * eye, right lateral canthus 166 Mohs micrographic surgery-Dermatology Image Exam (08/16/2024 12:00 AM MARKING MACHINE TENDER) Only the most recent of2 resultswithin the time period is included. Narrative [facility] - 08/16/2024 10:50 AM MARKING MACHINE TENDER This order has been created and auto-finalized to support the import of images acquired without order. The clinical documentation to support these images can be found on the encounter that produced images. Provider Not In System IMG NON RAD IMAGING PROCE DURES Final Result [facility] NA * CT Abdomen Pelvis with IV Contrast (08/13/2024 1:02 PM MARKING MACHINE TENDER) Anatomical Region Laterality Modality Abdomen, Pelvis, Abdominal R ST LOS, Abdominal ARZ LOS, Abdominal FLA LOS N/A Computed Tomograp hy, Computed Tomography 08/13/2024 12:2 9 PM MARKING MACHINE TENDER Impressions 08/13/2024 8:50 PM MARKING MACHINE TENDER Stable to slight interval increase in omental nodularity most suspicious for metastatic disease. Narrative 08/13/2024 8:50 PM MARKING MACHINE TENDER REVISED REPORT: EXAM: CT ABDOMEN PELVIS WITH IV CONTRAST HISTORY: Left thigh melanoma metastatic left inguinal lymph nodes most during hysterectomy and bilateral salpingo-oophorectomy for endometrial cancer 11/08/2022. COMPARISON: CT abdomen pelvis dated 07/12/2024. FINDINGS: Hysterectomy, bilateral salpingo-oophorectomy, left inguinal lymphadenopathy. Stable to slight interval increase in omental nodularity (series 6, image [id number]). No new or suspicious hepatic lesion. Stable subcentimeter hypoattenuating hepatic lesions likely small cysts and/or hemangiomas. Geographic area of decreased attenuation near the ligamentum teres most consistent with focal fatty infiltration. No intra or extrahepatic biliary ductal dilatation. Gallbladder appears normal. Spleen, both adrenal glands and both kidneys are normal with the exception of bilateral renal cysts. Sub-5 mm hypoattenuating areas within the pancreatic head may represent areas of focal parenchymal loss versus small pancreatic cysts, unchanged. No abdominal or pelvic lymphadenopathy. No free intraperitoneal fluid or gas. Small and large bowel are normal in caliber without obstruction or inflammation. Unchanged tethering of the rectosigmoid colon, small bowel and right vaginal fornix towards each other in the right pelvis likely scarring/sequelae of prior surgery. Nonaneurysmal aorta. Multilevel degenerative changes of the thoracolumbar spine. Right total hip arthroplasty. Procedure Note Britney Balderas M.D. - 08/14/2024 REVISED REPORT: EXAM: CT ABDOMEN PELVIS WITH IV CONTRAST HISTORY: Left thigh melanoma metastatic left inguinal lymph nodes mostduring hysterectomy and bilateral salpingo-oophorectomy for endometrialcancer 11/08/2022. COMPARISON: CT abdomen pelvis dated 07/12/2024. FINDINGS: Hysterectomy, bilateral salpingo-oophorectomy, left inguinallymphadenopathy. Stable to slight interval increase in omental nodularity (series 6, [id number]). No new or suspicious hepatic lesion. Stable subcentimeter hypoattenuatinghepatic lesions likely small cysts and/or hemangiomas. Geographic area ofdecreased attenuation near the ligamentum teres most consistent with focalfatty infiltration. No intra or extrahepatic biliary ductal dilatation. Gallbladder appearsnormal. Spleen, both adrenal glands and both kidneys are normal with the exceptionof bilateral renal cysts. Sub-5 mm hypoattenuating areas within thepancreatic head may represent areas of focal parenchymal loss versus smallpancreatic cysts, unchanged. No abdominal or pelvic lymphadenopathy. No free intraperitoneal fluid orgas. Small and large bowel are normal in caliber without obstruction orinflammation. Unchanged tethering of the rectosigmoid colon, small bowel and rightvaginal fornix towards each other in the right pelvis likelyscarring/sequelae of prior surgery. Nonaneurysmal aorta. Multilevel degenerative changes of the thoracolumbar spine. Right totalhip arthroplasty. IMPRESSION: Stable to slight interval increase in omental nodularity most suspiciousfor metastatic disease. Juila Gunn M.D., Ph.D. IMG CT PROCEDURE S Edited Result - Final * CT Chest with IV Contrast (08/13/2024 1:02 PM MARKING MACHINE TENDER) Anatomical Region Laterality Modality Chest, Thoracic RST LOS, Tho racic ARZ LOS, Thoracic ARZ LOS, Thoracic FLA LOS N/A Computed Tomography, Compute d Tomography 08/13/2024 12:4 0 PM MARKING MACHINE TENDER Impressions 08/13/2024 4:10 PM MARKING MACHINE TENDER Stable exam in the chest. Narrative 08/13/2024 4:10 PM MARKING MACHINE TENDER EXAM: CT CHEST WITH IV CONTRAST COMPARISON: CT chest 04/01/2024, 02/04/2024, and 12/26/2023. FINDINGS: Sub-3 mm micronodules in the left lung (annotated images and screen captures provided) remain unchanged. No new or enlarging nodules. Calcified granulomas. Linear atelectasis in the upper lung. No adenopathy. Upper tracheal diverticulum. No suspicious osseous lesion. Degenerative changes in the spine. Fat-containing morganii hernia. This examination was performed in conjunction with a CT of the abdomen, which will be reported separately. Procedure Note Evan Callejas M.D. - 08/13/2024 EXAM: CT CHEST WITH IV CONTRAST COMPARISON: CT chest 04/01/2024, 02/04/2024, and 12/26/2023. FINDINGS: Sub-3 mm micronodules in the left lung (annotated images and screencaptures provided) remain unchanged. No new or enlarging nodules.Calcified granulomas. Linear atelectasis in the upper lung. No adenopathy. Upper tracheal diverticulum. No suspicious osseous lesion.Degenerative changes in the spine. Fat-containing morganii hernia. This examination was performed in conjunction with a CT of the abdomen,which will be reported separately. IMPRESSION: Stable exam in the chest. us Julia Gunn M.D., Ph.D. IMG CT PROCEDURE S Final Result * T4 (Thyroxine), Free, Serum (08/13/2024 11:05 AM MARKING MACHINE TENDER) Pathologist [facility] T4 (Thyroxine), Free, S 1.2 0.9 - 1.7 ng/dL 08/13/2024 12:27 PM MARKING MACHINE TENDER DTL Blood 08/13/2024 11:0 5 AM MARKING MACHINE TENDER 08/13/2024 11:39 AM MARKING MACHINE TENDER Julia Gunn M.D., Ph.D. LAB BLOOD ADD-ON Final Result Performing Organization Address [facility]/[place] [address], [place] [address] * (ABNORMAL) Thyroid Function [place] (08/13/2024 11:05 AM MARKING MACHINE TENDER) [facility] TSH, Sensitive 8.6(H) 0.3 - 4.2 mIU/L 08/13/2024 12:07 PM MARKING MACHINE TENDER DT Blood (Blood, Venous) 08/13/2024 11:05 AM MARKING MACHINE TENDER 08/13/2024 11:39 AM MARKING MACHINE TENDER Julia Gunn M.D., Ph.D. LAB BLOOD ADD-ON Final Result [facility] [address] [place] [address], [place] [address] * Thyroperoxidase (TPO) Antibodies (08/13/2024 11:05 AM MARKING MACHINE TENDER) [facility] Thyroperoxidase Ab, S <15.0 <34.0 IU/mL 08/13/2024 12:27 PM MARKING MACHINE TENDER DTL Blood 08/13/2024 11:0 5 AM MARKING MACHINE TENDER 08/13/2024 11:39 AM MARKING MACHINE TENDER Julia Gunn M.D., Ph.D. LAB BLOOD ADD-ON Final Result [facility] - [facility] [address] [place] [address], [facility] DTL [facility] [address] [place] [address] * (ABNORMAL) Comprehensive Metabolic Panel (08/13/2024 11:05 AM MARKING MACHINE TENDER) [facility] Potassium, S 3.8 3.6 - 5.2 mmol/L 08/13/2024 12:07 PM MARKING MACHINE TENDER DTL Sodium, S 143 135 - 145 mmol/L 08/13/2024 12:07 PM MARKING MACHINE TENDER DTL Chloride, S 101 98 - 107 mmol/L 08/13/2024 12:07 PM MARKING MACHINE TENDER DTL Bicarbonate, S 31(H) 22 - 29 mmol/L 08/13/2024 12:07 PM MARKING MACHINE TENDER DTL Anion Gap 11 7 - 15 08/13/2024 12:07 PM MARKING MACHINE TENDER DTL BUN (Blood Urea Nitrogen), S 22(H) 6 - 21 mg/dL 08/13/2024 12:07 PM MARKING MACHINE TENDER DTL Creatinine 1.14(H) 0.59 - 1.04 mg/dL 08/13/2024 12:07 PM MARKING MACHINE TENDER DTL Estimated GFR (eGFR) 51(L) >=60 mL/min/BS A 08/13/2024 12:07 PM MARKING MACHINE TENDER DTL Comment: Estimated GFR calculated using the 2020 CKD_EPI creatinine equation. Calcium, Total, S 9.8 8.8 - 10.2 mg/dL 08/13/2024 12:07 PM MARKING MACHINE TENDER DTL Glucose, S 92 70 - 140 mg/dL 08/13/2024 12:07 PM MARKING MACHINE TENDER DTL Protein, Total, S 6.7 6.3 - 7.9 g/dL 08/13/2024 12:07 PM MARKING MACHINE TENDER DTL Albumin, S 4.3 3.5 - 5.0 g/dL 08/13/2024 12:07 PM MARKING MACHINE TENDER DTL Aspartate Aminotransferase (AST), S 26 8 - 43 U/L 08/13/2024 12:07 PM MARKING MACHINE TENDER DTL Alkaline Phosphatase, S 101 35 - 104 U/L 08/13/2024 12:07 PM MARKING MACHINE TENDER DTL Alanine Aminotransferase (ALT), S 23 7 - 45 U/L 08/13/2024 12:07 PM MARKING MACHINE TENDER DTL Bilirubin, Total, S 0.3 0.0 - 1.2 mg/dL 08/13/2024 12:07 PM MARKING MACHINE TENDER DTL Blood (Blood, Venous) 08/13/2024 11:05 AM MARKING MACHINE TENDER 08/13/2024 11:39 AM MARKING MACHINE TENDER Julia Gunn M.D., Ph.D. LAB BLOOD ADD-ON Final Result [facility] [address] [place] [address], [facility] DTL [place] [address] [place] [address] * CBC with Differential, Blood (08/13/2024 11:04 AM MARKING MACHINE TENDER) Hemoglobin 11.8 11.6 - 15.0 g/dL 08/13/2024 11:32 AM MARKING MACHINE TENDER DTL Hematocrit 38.3 35.5 - 44.9 % 08/13/2024 11:32 AM MARKING MACHINE TENDER DTL Erythrocytes 4.03 3.92 - 5.13 x10(12)/L 08/13/2024 11:32 AM MARKING MACHINE TENDER DTL MCV 95.0 78.2 - 97.9 fL 08/13/2024 11:32 AM MARKING MACHINE TENDER DTL RBC Distrib Width 13.7 12.2 - 16.1 % 08/13/2024 11:32 AM MARKING MACHINE TENDER DTL Platelet Count 219 157 - 371 x10(9)/L 08/13/2024 11:32 AM MARKING MACHINE TENDER DTL Leukocytes 6.4 3.4 - 9.6 x10(9)/L 08/13/2024 11:32 AM MARKING MACHINE TENDER DTL Neutrophils 3.71 1.56 - 6.45 x10(9)/L 08/13/2024 11:32 AM MARKING MACHINE TENDER DHPM Lymphocytes 1.63 0.95 - 3.07 x10(9)/L 08/13/2024 11:32 AM MARKING MACHINE TENDER DTL Monocytes 0.74 0.26 - 0.81 x10(9)/L 08/13/2024 11:32 AM MARKING MACHINE TENDER DTL Eosinophils 0.28 0.03 - 0.48 x10(9)/L 08/13/2024 11:32 AM MARKING MACHINE TENDER DTL Basophils 0.03 0.01 - 0.08 x10(9)/L 08/13/2024 11:32 AM MARKING MACHINE TENDER DTL Blood (Blood, Venous) 08/13/2024 11:04 AM MARKING MACHINE TENDER 08/13/2024 11:24 AM MARKING MACHINE TENDER Julia Gunn M.D., Ph.D. LAB BLOOD ADD-ON Final Result [facility] [address] [place] [address], [facility] DTL [facility] [address] [place] [address] [facility] [address] [place] [address] * Dermatopathology (08/06/2024 11:15 AM MARKING MACHINE TENDER) 08/08/2024 9:22 AM MARKING MACHINE TENDER ECLR Report Electronically Signed By J Luis Aaron M.D. I verify that I have examined all relevant slides/materi als for the specimen(s) and rendered or confirmed the diagnosis. 08/08/2024 9:22 AM MARKING MACHINE TENDER ECLR Gross Description Received labeled right dorsal hand near base of thumb is a 0.7 cm in diameter and 0.3 cm in thickness disc-shaped portion of skin. There is a raised white and off white pigmented area identified on the skin surface. The specimen is bisected. All submitted in cassette A1. JAL 08/08/2024 9:22 AM MARKING MACHINE TENDER ECLR Specimen Source Right dorsal hand near base of thumb shave biopsy 08/08/2024 9:22 AM MARKING MACHINE TENDER ECLR Clinical Information R/O SCC 08/08/2024 9:22 AM MARKING MACHINE TENDER ECLR Interpretation FINAL DIAGNOSIS Skin, right dorsal hand near base of thumb, shave biopsy: Verruca vulgaris. Digital imaging was used in the diagnostic assessment of this case. 08/08/2024 9:22 AM MARKING MACHINE TENDER ECLR Skin (Right Dorsal Hand) 08/06/2024 11:15 AM MARKING MACHINE TENDER us Pam Crain M.D. LAB PATH DERM ORDERABLES Fin al Result [facility] [address] [place] [address], [facility] ECLR [address] [id number] * BI Breast Screening Bilateral with Tomosynthesis (10/24/2023 11:04 AM MARKING MACHINE TENDER) Anatomical Region Laterality Modality Breast, Breast Imaging RST L OS, Breast Imaging ARZ LOS, Breast Imaging FLA LOS Bilateral Mammography Impressions 10/24/2023 5:10 PM MARKING MACHINE TENDER Negative. RECOMMENDATION: Annual Screening Mammogram ASSESSMENT: BI-RADS: 1: Negative. Narrative 10/24/2023 5:10 PM MARKING MACHINE TENDER EXAM: BI BREAST SCREENING BILATERAL WITH TOMOSYNTHESIS Current study was evaluated with a Computer Aided Detection (CAD) system. INDICATION: Screening mammogram. COMPARISON: Prior exam(s) were available and reviewed for comparison. DENSITY: b. There are scattered areas of fibroglandular density. FINDINGS: No mammographic findings of malignancy. Procedure Note Marbella [...] Annual Screening Mammogram ASSESSMENT: BI-RADS: 1: Negative. us Galina Brooks APRN, C.N.P., D.N.P. IMG BI PROC EDURES Final Result * Lipid Panel (07/13/2022 6:43 AM MARKING MACHINE TENDER) Triglycerides 98 mg/dL 07/13/2022 7:40 AM MARKING MACHINE TENDER DTL Comment: ----REFERENCE VALUE---- Normal: <150 mg/dL Borderline High: 150-199 mg/dL High: 200-499 mg/dL Very High: > or =500 mg/dL Cholesterol, Total 183 mg/dL 2021 7:40 AM MARKING MACHINE TENDER DTL Comment: ----REFERENCE VALUE---- Desirable: < 200 mg/dL Borderline High: 200 - 239 mg/dL High: > or = 240 mg/dL Cholesterol, LDL, Calculated 94 mg/dL 07/13/2022 7:40 AM MARKING MACHINE TENDER DTL Comment: ----REFERENCE VALUE---- Desirable: <100 mg/dL Above Desirable: 100-129 mg/dL Borderline High: 130-159 mg/dL High: 160-189 mg/dL Very High: >=190 mg/dL ----ADDITIONAL INFORMATION---- LDL cholesterol calculated using the Terry/NIH equation. Cholesterol, HDL, S 71 >=50 mg/dL 07/13/2022 7:40 AM MARKING MACHINE TENDER DTL Cholesterol, Non-HDL, Calculated 112 mg/dL 07/13/2022 7:40 AM MARKING MACHINE TENDER DTL Comment: ----REFERENCE VALUE---- Desirable: <130 mg/dL Above Desirable: 130-159 mg/dL Borderline High: 160-189 mg/dL High: 190-219 mg/dL Very High: > or =220 mg/dL Fasting (8 HR or more) y 07/13/2022 7:22 AM MARKING MACHINE TENDER DTL Blood (Blood, Venous) 07/13/2022 6:43 AM MARKING MACHINE TENDER 07/13/2022 7:22 AM MARKING MACHINE TENDER Lidia Gan APRN, C.N.P., M.S.N. LAB BLOOD AD D-ON Final Result [facility] [address] [place] [address], [facility] [address] [place] [address] * (ABNORMAL) Cologuard-Sent Out Lab (07/08/2021 10:00 AM CDT) Result Positive( A) Negative 07/23/2021 3:34 AM MARKING MACHINE TENDER EXLI Comment: POSITIVE TEST RESULT. A positive Cologuard result should be followed with a colonoscopy or visual examination of the colon. The normal value (reference range) for this assay is negative. TEST DESCRIPTION: Composite algorithmic analysis of stool DNA-biomarkers with hemoglobin immunoassay. Quantitative values of individual biomarkers are not [...] Booker. et al, N Engl J Med 2014;370(14):6088-7273.) Cologuard may produce a false negative or false positive result (no colorectal cancer or precancerous polyp present at colonoscopy follow up). A negative Cologuard test result does not guarantee the absence of CRC or advanced adenoma (pre-cancer). The current Cologuard screening interval is every 3 years. ([place] [employer] and U.S. Multi-Society Task Force). Cologuard performance data in a 10,000 patient pivotal study using colonoscopy as the reference method can be accessed at the following location: www.[employer]/results. Additional description of the Cologuard test process, warnings and precautions can be found at www.cologuard.com. Stool (Stool) 07/08/2021 10: 00 AM CDT 07/10/2021 1:57 PM CDT Lidia Gan APRN, C.N.P., M.S.N. LAB BODY FLUIDS AND STOOLS ORDERABLES Final Result [employer] [address] [place] [address] EXLI [facility] [address] [facility], [address] [place] [address] from Last 3 Months or Most Recently Relevant to Health Maintenance Insurance MEDICARE [facility] Advance Directives For more information, please contact: [phone] Documents on File Type Date Recorded Patient Contract Loader Expl anation Advance Directives 09/13/2011 12:00 AM [...] Answer Comments Full Code: Discussed Care Teams Senior Javascript Engineer Relationship Specialty Start Date End Date Jg Garcia M.D. [address] [place] [id number] PCP - General Family Medicine 10/14/24 Dr Favian Doan- pt was not aware what the name of the dental group is. Dentistry 11/01/22 opthalmology [place] 11/01/22
--- OUTSIDE RECORDS SUMMARY | 2024-10-25 10:04 | XMS_ITS ---
Author Organization [facility] Address [address] [place] [address] Care Team Providers Care Pharmacy Service Associate Name Role Phone Jg Garcia M.D. Primary Care Provider [phone] Active Problems * This document contains information received from the source organization and may not represent a complete record from that organization. 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 on 08/02/2023 Malignant Neoplasm Of Uterus Endometrial 023 Cancer Staging:Clinical stage from 11/08/2022:FIGO Stage IA(cT1a, cN0(sn), cM0) - Signed by Roly Gaviria APRN, C.N.P., M.S. on 11/18/2022 Polyp Uterus 08/03/2022 Overview (08/03/2022): Added automatically from request for surgery [id number] Lesion Skin Foot 07/13/2022 Polyp Colon Personal History, Unspecified Type 1 09/12/2021 Depression Major Recurrent Moderate 03/01/2022 Depressive Disorder 07/06/2021 Overview (07/06/2021): Switched from Celexa to Prozac 04/2021. Pain Knee Left 01/04/2021 Overview (01/04/2021): Added automatically from request for surgery [id number] Distress Epigastric 09/13/2019 Keratosis Actinic 04/03/2015 Lichen Sclerosus 04/03/2015 Overview (07/06/2021): Maintenance topical steroid and vaginal estrogen twice weekly. Hypothyroidism Acquired 02/26/2014 Pain Back Lumbar 01/29/2013 Hyperlipidemia 09/14/2011 Overview (07/06/2021): Medium potency statin. Pain Hip Right Primary Osteoarthritis Hip Right Current Treatment and Therapy Plans Vascular Access Patency - Peripheral Intravenous Catheter and Rapid Infusion Catheter* Plan Start Date:05/11/2024 Linked Problems Melanoma Leg Left (HCC) Treatment Medications No medications scheduled. Past Treatment and Therapy Plans Flushes/Hydration Plan Name Start Date Discontinue [...] APRN, C.N.P. 11 of 12 cycles started Resolved Problems Problem Noted Date Diagnosed Date Resolved Date Positive Cologuard Stool Rafael xyribonucleic Acid Test 07/23/2021 05/17/2024 Overview (07/23/2021): Added automatically from request for surgery [id number] Hypertension Essential Primary 07/06/2021 06/18/2024 Overview (07/06/2021): No prior cardiovascular events or end-organ damage. Monotherapy with ARB.
[2024-10-25 10:32] LABS: Lactate* 0.9 mmol/L (0.5-1.9)
[2024-10-25 10:34] LABS: Basophils Absolute Auto 0.01 K/uL (0.00-0.30); Basophils Percent Auto 0.1 % (0.0-3.0); Eosinophils Absolute Auto 0.11 K/uL (0.00-0.50); Eosinophils Percent Auto 1.2 % (0.0-7.0); Hematocrit 40.7 % (33.0-51.0); Hemoglobin* 12.5 gm/dL (12.0-16.0); Immature Granulocytes Abs Auto 0.02 K/uL (0.00-0.30); Immature Granulocytes Pct Auto 0.2 %; Lymphocytes Percent Auto 15.8 % (20-44); Mean Corpuscular HGB Conc 31 gm/dL (32-36); Mean Corpuscular Hemoglobin 27 pg (26-34); Mean Corpuscular Volume 89 fL (80-100); Monocytes Percent Auto 11.2 % (0.0-11.0); Neutrophils Percent Auto 71.5 % (42.0-72.0); Platelet Count* 186 K/uL (140-440); RDW Coefficient of Variation % 12.9 % (11.5-15.5); Red Blood Count 4.59 m/uL (4.00-5.20); White Blood Count* 8.82 K/uL (4.50-11.00)
[2024-10-25 10:36] LABS: Slide Review Reflex No
[2024-10-25 10:49] LABS: Chloride* 100 mmol/L (96-114); Sodium* 137 mmol/L (135-149)
[2024-10-25 10:51] LABS: Anion Gap 7 mEq/L (7-15); Bilirubin Total* 0.6 mg/dL (0.1-1.5); Carbon Dioxide* 30 mmol/L (20-32); Creatinine* 0.7 mg/dL (0.5-1.5); Est. Creatinine Clearance* 48.72; Estimated Glomerular Filt Rate 91 ml/min
[2024-10-25 10:52] LABS: Alanine Aminotransferase* 23 U/L (4-35); Aspartate Amino Transferase* 30 U/L (12-35); Blood Urea Nitrogen* 20 mg/dL (7-30); Calcium* 9.2 mg/dL (8.4-10.6); Glucose* 96 mg/dL (60-115); Lipase* 128 U/L (23-300)
[2024-10-25 10:56] LABS: Alkaline Phosphatase* 87 U/L (40-150); Potassium* 4.8 mmol/L (3.6-5.1)
[2024-10-25 10:57] LABS: Albumin* 4.2 g/dL (3.3-5.0)
[2024-10-25] MEDS: HYDROmorphone 0.5 mg/0.5 ml inj IVP (12:03)
[2024-10-25 12:08] LABS: Appearance Urine Clear (Clear); Bilirubin Urine Negative (Negative); Blood Urine Negative (Negative); Color Urine Yellow (Yellow); Glucose Urine Negative (Negative); Ketones Urine Negative (Negative); Leukocyte Esterase Urine Negative (Negative); Nitrite Urine Negative (Negative); Protein Urine Negative (Negative); Urobilinogen Urine 0.2 (0.2-1.0)
[2024-10-25] MEDS: HYDROmorphone 0.5 mg/0.5 ml inj 0.25 MG IVP (15:28)
== END 2024-10-25 16:45 | disposition short-term general hospital (02) ==
PROVIDERS: Emergency Provider Internal Medicine; PCP Student in an Organized Health Care Education/Training Program
DX: R10.31 Right lower quadrant pain (principal)
CPT/HCPCS: 36415; 74177; 80053; 81003; 83605; 83690; 85025; 96374; 96376; 99283; 99285; J1171; Q9967

== ENCOUNTER 2024-10-25 16:35 | Outpatient (CLI) | payer MEDICARE, BC, SELFPAY | END 2024-10-25 16:36 | disposition home or self-care (01) | PROVIDERS: PCP Student in an Organized Health Care Education/Training Program; Visit Provider Internal Medicine | DX: R10.9 Unspecified abdominal pain (principal) | CPT/HCPCS: A0425; A0427 ==

== ENCOUNTER 2025-02-07 08:52 | Emergency (ER) | payer MEDICARE, BC, SELFPAY ==
[2025-02-07] VITALS (14 sets, daily range): BP systolic 116–145; BP diastolic 62–87; PULSE 65–75; RESP 14–22; TEMP 36.2; O2SAT 87–94; BMI 29.0
--- NOTE | 2025-02-07 09:28 | ED.GENADULT ---
HPI - General Adult General Chief complaint: Shortness of Breath/Dyspnea Stated complaint: short of breath and abdominal pain Time Seen by Provider: 02/07/25 09:13 History of Present Illness HPI narrative: Patient presents to the emergency department complaining of shortness of breath. Patient states she has a history of cancer and was recently diagnosed with another type of cancer. Patient states the cancer is in the peritoneal cavity. Feels fluid building up and making it hard for her to breath. Is a [facility] patient. Sats at home have been in the 80s 75-year-old woman presenting to the emergency department Review of records shows history of hysterectomy for uterine cancer. Admits that she has been chronically short of breath particularly with exertion since completing immunotherapy for uterine cancer I believe as well as with chronic diarrhea. This is been at least a year and a half. No C diff she says. Has had extensive cardiac and lung evaluation. Denies that she has any heart or lung problems. Historical symptoms have been thought to be related to deconditioning she says. New however is peritoneal fluid accumulation which was just tapped and noted to be with malignant cells. Looks like adenocarcinoma. She had had some perihepatic fluid where she is having some discomfort. Just feels full. No fever. No chest pain. She is not known to have fluid in her lungs. Oxygen saturations she measured in the 80s at home and became concerned. Is recommended to present to the emergency department. She just wants to be checked out. She says she knows ?it's bad? mentioning that she thought she saw something about stage IV somewhere. Related Data Home Medications ?Medication ?Instructions ?Recorded ?Confirmed rosuvastatin 10 mg tablet 10 mg PO 07/15/22 05/30/24 budesonide 3 mg 9 mg PO DAILY 03/09/24 02/07/25 capsule,delayed,extended release propranolol 40 mg tablet 40 mg PO Q12H 03/09/24 02/07/25 torsemide 20 mg tablet 20 mg PO .prn 03/09/24 02/07/25 losartan 25 mg tablet 25 mg PO DAILY 05/30/24 02/07/25 sertraline 100 mg tablet 100 mg PO DAILY 05/30/24 02/07/25 Allergies Allergy/AdvReac Type Severity Reaction Status Date / Time No Known Drug Allergies Allergy Verified 02/07/25 11:34 Review of Systems Status of ROS: Reports: 6 or more systems reviewed and unremarkable except as noted in History and below [facility] Medical History Lichen sclerosus ?L90.0 - Lichen sclerosus et atrophicus (ICD-10) Surgical History H/O breast surgery (2016) ?Z98.890 - Other specified postprocedural states (ICD-10) 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 NAD. Breathing easily though sometimes seems to be splinting a little bed. Lungs are clear. Appears to be splinting a little bit. Not tachypneic. Heart in regular rate and rhythm. Abdomen is soft and tender across the right upper abdomen and generally. Skin is warm and dry without cellulitic change. Extremities are without edema. No concerning erythema or swellings in the area paracentesis access. Const: Vital Signs, click to edit/add: Vital Signs - 24 hr 02/07/25 08:55 02/07/25 10:15 02/07/25 10:25 Temperature 97.2 F L Pulse Rate Pulse Rate [Right Pulse Oximeter] 75 Respiratory Rate 18 Blood Pressure Blood Pressure [Ri ght Upper Arm] 145/87 H Pulse Oximetry 93 88 91 Oxygen Delivery Me thod Room Air Nasal Cannula Oxygen Flow Rate 2 02/07/25 10:25 02/07/25 10:28 02/07/25 11:00 Temperature Pulse Rate 72 67 68 Pulse Rate [Right Pulse Oximeter] Respiratory Rate 16 14 16 Blood Pressure Blood Pressure [Ri ght Upper Arm] Pulse Oximetry 87 L 91 94 Oxygen Delivery Me thod Room Air Nasal Cannula Nasal Cannula Oxygen Flow Rate 2 2 02/07/25 12:01 02/07/25 12:30 02/07/25 12:45 Temperature Pulse Rate 73 69 68 Pulse Rate [Right Pulse Oximeter] Respiratory Rate 16 16 17 Blood Pressure 116/62 Blood Pressure [Ri ght Upper Arm] Pulse Oximetry 91 90 90 Oxygen Delivery Me thod Nasal Cannula Oxygen Flow Rate 2 02/07/25 13:00 02/07/25 13:01 02/07/25 13:15 Temperature Pulse Rate 67 70 69 Pulse Rate [Right Pulse Oximeter] Respiratory Rate 20 Blood Pressure 120/66 Blood Pressure [Ri ght Upper Arm] Pulse Oximetry 88 88 88 Oxygen Delivery Me thod Oxygen Flow Rate Documenting provider has reviewed patient's vital signs: yes Course Vital Signs Vital signs: Initial Vital Signs Temperature 97.2 F L 02/07/25 08:55 Temperature Source Temporal Artery Scan 02/07/25 08:55 Pulse Rate 75 02/07/25 08:55 Pulse Rhythm Regular 02/07/25 08:55 Pulse Strength 3+ Normal 02/07/25 08:55 Respiratory Rate 18 02/07/25 08:55 Blood Pressure 145/87 H 02/07/25 08:55 Blood Pressure Mean 106 H 02/07/25 08:55 Blood Pressure Position Sitting 02/07/25 08:55 Pulse Oximetry 93 02/07/25 08:55 Oxygen Delivery Method Room Air 02/07/25 08:55 Vital Signs Temperature 97.2 F L 02/07/25 08:55 Pulse Rate 75 02/07/25 08:55 Respiratory Rate 18 02/07/25 08:55 Blood Pressure 145/87 H 02/07/25 08:55 Pulse Oximetry 93 02/07/25 08:55 Oxygen Delivery Method Room Air 02/07/25 08:55 Temperature 97.2 F L 02/07/25 08:55 Pulse Rate 69 02/07/25 13:15 Respiratory Rate 20 02/07/25 13:01 Blood Pressure 120/66 02/07/25 13:01 Pulse Oximetry 88 02/07/25 13:15 Oxygen Delivery Method Nasal Cannula 02/07/25 12:01 Oxygen Flow Rate 2 02/07/25 12:01 Medications Administered Medications: Discontinued Medications Generic Name Dose Route Start Last Admin Trade Name Freq PRN Reason Stop Dose Admin Sodium Chloride 500 mls @ 1,000 mls/hr 02/07/25 11:33 02/07/25 12:35 0.9 % Sodium Chloride 500 Ml IV 02/07/25 12:02 Infused .Q30M ONE Infusion Medical Decision Making MDM Narrative Medical decision making narrative: Does not appear to have primary pulmonary disease history. Heart failure is differential. Otherwise would look for pneumonia or effusion. Two-view chest x-ray independently reviewed by me shows a right-sided small pleural effusion. This sounds to be new. Would have concern of malignancy here. Oxygenating now in the upper 80s on room air. I wonder if partly is splinting due to upper quadrant area pain resulting as hypoxia. In the setting though would be prudent I think to scan chest looking for pulmonary embolus as well. INDICATION: CAO TECHNIQUE: PA and lateral COMPARISON: None FINDINGS: Lungs low in volume with crowded markings bases. Small right pleural effusion. Heart size and pulmonary vasculature within normal limits, allowing for the shallow inspiration. No significant bony abnormality. IMPRESSION: Shallow inspiration with crowded markings in the bases and small right pleural effusion Dictated by Sandeep Ontiveros MD @ 02/07/2025 10:23:54 AM INDICATION: Hypoxia. Pleural effusion. Perihepatic fluid. History of adenocarcinoma. History of uterine malignancy and melanoma. COMPARISON: No prior chest CTs available for comparison TECHNIQUE: : CT examination of the chest was performed with the uneventful intravenous administration of 95 cc of Isovue 370 while thin axial sections were obtained from above the apices of the lungs to the lung bases. The examination was timed as a pulmonary artery angiogram. 3D reformat/MIP imaging was provided Please note that all CT scans at this facility use dose modulation, iterative reconstruction, and/or weight-based dosing when appropriate to reduce radiation dose to as low as reasonably achievable. FINDINGS: : HEART and MEDIASTINUM: The heart size is top-normal. There is no mediastinal or hilar adenopathy or mass. No significant pericardial fluid. There are atherosclerotic vascular calcifications. PULMONARY ARTERIAL CIRCULATION: There is no visible intraluminal filling defect to suggest pulmonary embolus. LUNGS and PLEURAL SPACES: Regarding the aerated lung, there is patchy multifocal ground-glass. This is a nonspecific finding but is usually congestive or infectious/inflammatory. There is a small to moderate-sized right effusion that appears to be free-flowing. There is passive atelectasis of a portion of the right lower lobe and the right middle lobe. On the left, there is basilar atelectasis. No pleural effusion. VISUALIZED UPPER ABDOMEN: Ascites. Nodularity of the peritoneal surfaces in the left upper quadrant may represent a peritoneal carcinomatosis pattern. Perihepatic and perisplenic ascites. There is also a subcapsular fluid collection associated with the right lobe of the liver measuring about 5.6 centimeters. OSSEOUS STRUCTURES: Age-appropriate appearance. No acute fracture or destructive process. TUBES and LINES: None. IMPRESSION: 1. There is no finding of pulmonary embolus. 2. Small to moderate right pleural effusion, appears to be free-flowing. Passive atelectasis of a portion of the right lower lobe. Regarding the aerated lung about the atelectasis, patchy ground-glass. The ground-glass is nonspecific but is usually congestive or infectious/inflammatory. No steven consolidation. 3. On the left, there is some minimal basilar atelectasis. No pleural effusion. Patchy ground-glass similar to the right side as mentioned above. 4. Ascites. Nodularity of the peritoneal surfaces may represent peritoneal carcinomatosis. Perihepatic and perisplenic ascites. Subcapsular fluid collection anterior right lobe liver 5.6 centimeters. Please note that all CT scans at this facility use dose modulation, iterative reconstruction, and/or weight-based dosing when appropriate to reduce radiation dose to as low as reasonably achievable. Dictated by Carroll Andres MD @ 02/07/2025 12:00:15 PM Does not appear to have pulmonary emboli. Small to moderate pleural effusion I am not sure if this is enough to account for the hypoxia that she is demonstrating here on room air desatting to the mid to upper 80s. Presumably some splinting and atelectasis is related as well. Not convinced this is heart failure though possible. Regardless does need oxygen support. Would not be able to provide much more than that at this facility and will look to [facility] for potential admission. Medical Records Medical records reviewed: Yes I reviewed the patient's medical records Lab Data Lab results reviewed: Yes I reviewed the patient's lab results Labs: Lab Results 02/07/25 02/07/25 02/07/25 Range/Units 10:15 10:35 10:50 WBC 8.32 (4.50-11.00) K/uL RBC 4.39 (4.00-5.20) m/uL Hgb 11.2 L (12.0-16.0) gm/dL Hct 36.4 (33.0-51.0) % MCV 83 (80-100) fL MCH 26 (26-34) pg MCHC 31 L (32-36) gm/dL RDW Coeff of Sendy 15.4 (11.5-15.5) % Plt Count 264 (140-440) K/uL Neut % (Auto) 71.6 (42.0-72.0) % Lymph % (Auto) 15.3 L (20-44) % Clayton % (Auto) 9.0 (0.0-11.0) % Eos % (Auto) 3.5 (0.0-7.0) % Baso % (Auto) 0.2 (0.0-3.0) % Neut # (Auto) 5.96 (1.7-7.0) K/uL Lymph # (Auto) 1.30 (0.90-2.90) K/uL Clayton # (Auto) 0.70 (0.00-0.90) K/UL Eos # (Auto) 0.29 (0.00-0.50) K/uL Baso # (Auto) 0.02 (0.00-0.30) K/uL Abs Immat Gran (auto) 0.03 (0.00-0.30) K/uL Imm/Tot Granulo (auto) 0.4 % D-Dimer Quant (PE/DVT) 4.24 H (0.00-0.50) ug/ml Sodium 140 (135-149) mmol/L Potassium 4.1 (3.6-5.1) mmol/L Chloride 105 (96-114) mmol/L Carbon Dioxide 28 (20-32) mmol/L Anion Gap 7 (7-15) mEq/L BUN 22 (7-30) mg/dL Creatinine 0.8 (0.5-1.5) mg/dL Estimated Creat Clear 48.00 Estimated GFR 77 ml/min Glucose 104 (60-115) mg/dL Calcium 9.4 (8.4-10.6) mg/dL Total Bilirubin 0.5 (0.1-1.5) mg/dL Direct Bilirubin 0.2 (0.0-0.5) mg/dL AST 34 (12-35) U/L ALT 25 (4-35) U/L Alkaline Phosphatase 114 (40-150) U/L Troponin I < 0.01 (0.01-0.04) ng/mL NT-Pro-B Natriuret Pep 179 (See Note) pg/mL Total Protein 7.1 (6.0-8.3) g/dL Albumin 3.8 (3.3-5.0) g/dL Urine Color Yellow (Yellow) Urine Appearance Clear (Clear) Urine pH 5.5 (5.0-8.5) Ur Specific [place] 1.015 (1.000-1.030) Urine Protein Negative (Negative) Urine Glucose (UA) Negative (Negative) Urine Ketones Negative (Negative) Urine Blood Negative (Negative) Urine Nitrite Negative (Negative) Urine Bilirubin Negative (Negative) Urine Urobilinogen 0.2 (0.2-1.0) Ur Leukocyte Esterase Negative (Negative) Urine RBC 0-2 (0-2) Urine WBC 0-2 (0-5) Ur Squamous Epith Cells Few (None-Few) Urine Bacteria None (None) SARS-CoV-2 (PCR) Negative SARS-CoV-2 (Negative) Influenza Type A (PCR) Negative PCR FLU A (Negative) Influenza Type B (PCR) Negative PCR FLU B (Negative) RSV (PCR) Negative PCR RSV (Negative) Lab Acknowledgement 02/07/25 Range/Units 12:09 WBC (4.50-11.00) K/uL RBC (4.00-5.20) m/uL Hgb (12.0-16.0) gm/dL Hct (33.0-51.0) % MCV (80-100) fL MCH (26-34) pg MCHC (32-36) gm/dL RDW Coeff of Sendy (11.5-15.5) % Plt Count (140-440) K/uL Neut % (Auto) (42.0-72.0) % Lymph % (Auto) (20-44) % Clayton % (Auto) (0.0-11.0) % Eos % (Auto) (0.0-7.0) % Baso % (Auto) (0.0-3.0) % Neut # (Auto) (1.7-7.0) K/uL Lymph # (Auto) (0.90-2.90) K/uL Clayton # (Auto) (0.00-0.90) K/UL Eos # (Auto) (0.00-0.50) K/uL Baso # (Auto) (0.00-0.30) K/uL Abs Immat Gran (auto) (0.00-0.30) K/uL Imm/Tot Granulo (auto) % D-Dimer Quant (PE/DVT) (0.00-0.50) ug/ml Sodium (135-149) mmol/L Potassium (3.6-5.1) mmol/L Chloride (96-114) mmol/L Carbon Dioxide (20-32) mmol/L Anion Gap (7-15) mEq/L BUN (7-30) mg/dL Creatinine (0.5-1.5) mg/dL Estimated Creat Clear Estimated GFR ml/min Glucose (60-115) mg/dL Calcium (8.4-10.6) mg/dL Total Bilirubin (0.1-1.5) mg/dL Direct Bilirubin (0.0-0.5) mg/dL AST (12-35) U/L ALT (4-35) U/L Alkaline Phosphatase (40-150) U/L Troponin I (0.01-0.04) ng/mL NT-Pro-B Natriuret Pep (See Note) pg/mL Total Protein (6.0-8.3) g/dL Albumin (3.3-5.0) g/dL Urine Color (Yellow) Urine Appearance (Clear) Urine pH (5.0-8.5) Ur Specific [place] (1.000-1.030) Urine Protein (Negative) Urine Glucose (UA) (Negative) Urine Ketones (Negative) Urine Blood (Negative) Urine Nitrite (Negative) Urine Bilirubin (Negative) Urine Urobilinogen (0.2-1.0) Ur Leukocyte Esterase (Negative) Urine RBC (0-2) Urine WBC (0-5) Ur Squamous Epith Cells (None-Few) Urine Bacteria (None) SARS-CoV-2 (PCR) (Negative) Influenza Type A (PCR) (Negative) Influenza Type B (PCR) (Negative) RSV (PCR) (Negative) Lab Acknowledgement Test Added ECG Data Attestation: I personally reviewed and interpreted this ECG as follows: (Normal sinus rhythm. Rate of 68. no apparent acute ischemic changes) Discharge Plan Discharge Clinical Impression: Respiratory failure, Pleural effusion Patient Disposition: Xfer [facility] Condition: Stable Prescriptions: No Action rosuvastatin 10 mg tablet 10 mg PO Patient Comments: TAKE 1 TABLET (10 MG TOTAL) BY MOUTH DAILY. sertraline 100 mg tablet 100 mg PO DAILY losartan 25 mg tablet 25 mg PO DAILY torsemide 20 mg tablet 20 mg PO .prn propranolol 40 mg tablet 40 mg PO Q12H budesonide 3 mg capsule,delayed,extend.release 9 mg PO DAILY Stand Alone Forms: [facility] Info Instructions
--- NOTE | 2025-02-07 10:01 | CRLHL7_ITS ---
For Patients: As a result of the Century Cures Act, medical imaging exams and procedure reports are released immediately into your electronic medical record. You may view this report before your referring provider. If you have questions, please contact your health care provider. INDICATION: CAO TECHNIQUE: PA and lateral COMPARISON: None FINDINGS: Lungs low in volume with crowded markings bases. Small right pleural effusion. Heart size and pulmonary vasculature within normal limits, allowing for the shallow inspiration. No significant bony abnormality. IMPRESSION: Shallow inspiration with crowded markings in the bases and small right pleural effusion Dictated by Sandeep Ontiveros MD @ 02/07/2025 10:23:54 AM (Electronically Signed)
[2025-02-07 10:27] LABS: Basophils Absolute Auto 0.02 K/uL (0.00-0.30); Basophils Percent Auto 0.2 % (0.0-3.0); Eosinophils Absolute Auto 0.29 K/uL (0.00-0.50); Eosinophils Percent Auto 3.5 % (0.0-7.0); Hematocrit 36.4 % (33.0-51.0); Hemoglobin* 11.2 gm/dL (12.0-16.0); Immature Granulocytes Abs Auto 0.03 K/uL (0.00-0.30); Immature Granulocytes Pct Auto 0.4 %; Lymphocytes Percent Auto 15.3 % (20-44); Mean Corpuscular HGB Conc 31 gm/dL (32-36); Mean Corpuscular Hemoglobin 26 pg (26-34); Mean Corpuscular Volume 83 fL (80-100); Neutrophils Absolute Auto 5.96 K/uL (1.7-7.0); Neutrophils Percent Auto 71.6 % (42.0-72.0); Platelet Count* 264 K/uL (140-440); RDW Coefficient of Variation % 15.4 % (11.5-15.5); Red Blood Count 4.39 m/uL (4.00-5.20); White Blood Count* 8.32 K/uL (4.50-11.00)
[2025-02-07 10:38] LABS: Slide Review Reflex No
--- NOTE | 2025-02-07 10:39 | CRLHL7_ITS ---
For Patients: As a result of the 21st Century Cures Act, medical imaging exams and procedure reports are released immediately into your electronic medical record. You may view this report before your referring provider. If you have questions, please contact your health care provider. INDICATION: Hypoxia. Pleural effusion. Perihepatic fluid. History of adenocarcinoma. History of uterine malignancy and melanoma. COMPARISON: No prior chest CTs available for comparison TECHNIQUE: : CT examination of the chest was performed with the uneventful intravenous administration of 95 cc of Isovue 370 while thin axial sections were obtained from above the apices of the lungs to the lung bases. The examination was timed as a pulmonary artery angiogram. 3D reformat/MIP imaging was provided Please note that all CT scans at this facility use dose modulation, iterative reconstruction, and/or weight-based dosing when appropriate to reduce radiation dose to as low as reasonably achievable. FINDINGS: : HEART and MEDIASTINUM: The heart size is top-normal. There is no mediastinal or hilar adenopathy or mass. No significant pericardial fluid. There are atherosclerotic vascular calcifications. PULMONARY ARTERIAL CIRCULATION: There is no visible intraluminal filling defect to suggest pulmonary embolus. LUNGS and PLEURAL SPACES: Regarding the aerated lung, there is patchy multifocal ground-glass. This is a nonspecific finding but is usually congestive or infectious/inflammatory. There is a small to moderate-sized right effusion that appears to be free-flowing. There is passive atelectasis of a portion of the right lower lobe and the right middle lobe. On the left, there is basilar atelectasis. No pleural effusion. VISUALIZED UPPER ABDOMEN: Ascites. Nodularity of the peritoneal surfaces in the left upper quadrant may represent a peritoneal carcinomatosis pattern. Perihepatic and perisplenic ascites. There is also a subcapsular fluid collection associated with the right lobe of the liver measuring about 5.6 centimeters. OSSEOUS STRUCTURES: Age-appropriate appearance. No acute fracture or destructive process. TUBES and LINES: None. IMPRESSION: 1. There is no finding of pulmonary embolus. 2. Small to moderate right pleural effusion, appears to be free-flowing. Passive atelectasis of a portion of the right lower lobe. Regarding the aerated lung about the atelectasis, patchy ground-glass. The ground-glass is nonspecific but is usually congestive or infectious/inflammatory. No steven consolidation. 3. On the left, there is some minimal basilar atelectasis. No pleural effusion. Patchy ground-glass similar to the right side as mentioned above. 4. Ascites. Nodularity of the peritoneal surfaces may represent peritoneal carcinomatosis. Perihepatic and perisplenic ascites. Subcapsular fluid collection anterior right lobe liver 5.6 centimeters. Please note that all CT scans at this facility use dose modulation, iterative reconstruction, and/or weight-based dosing when appropriate to reduce radiation dose to as low as reasonably achievable. Dictated by Carroll Andres MD @ 02/07/2025 12:00:15 PM (Electronically Signed)
[2025-02-07 10:42] LABS: Albumin* 3.8 g/dL (3.3-5.0); Chloride* 105 mmol/L (96-114); Potassium* 4.1 mmol/L (3.6-5.1); Sodium* 140 mmol/L (135-149)
[2025-02-07 10:45] LABS: Alanine Aminotransferase* 25 U/L (4-35); Alkaline Phosphatase* 114 U/L (40-150); Anion Gap 7 mEq/L (7-15); Aspartate Amino Transferase* 34 U/L (12-35); Bilirubin Direct* 0.2 mg/dL (0.0-0.5); Bilirubin Total* 0.5 mg/dL (0.1-1.5); Blood Urea Nitrogen* 22 mg/dL (7-30); Calcium* 9.4 mg/dL (8.4-10.6); Carbon Dioxide* 28 mmol/L (20-32); Creatinine* 0.8 mg/dL (0.5-1.5); Estimated Glomerular Filt Rate 77 ml/min; Glucose* 104 mg/dL (60-115); Total Protein* 7.1 g/dL (6.0-8.3)
[2025-02-07 10:57] LABS: Appearance Urine Clear (Clear); Bilirubin Urine Negative (Negative); Blood Urine Negative (Negative); Color Urine Yellow (Yellow); Glucose Urine Negative (Negative); Ketones Urine Negative (Negative); Leukocyte Esterase Urine Negative (Negative); Nitrite Urine Negative (Negative); Protein Urine Negative (Negative); Specific Gravity Urine 1.015 (1.000-1.030); Urobilinogen Urine 0.2 (0.2-1.0); pH Urine 5.5 (5.0-8.5)
[2025-02-07 11:07] LABS: RBC Urine 0-2 (0-2); Squamous Epithelial Cell Urine Few (None-Few); WBC Urine 0-2 (0-5)
[2025-02-07 11:31] LABS: PCR FLU A Negative PCR FLU A (Negative); PCR FLU B Negative PCR FLU B (Negative); PCR RSV Negative PCR RSV (Negative); SARS PCR* Negative SARS-CoV-2 (Negative)
[2025-02-07] MEDS: 0.9 % SODIUM CHLORIDE 500 ML 500 ML IV (11:45)
[2025-02-07 12:58] LABS: D Dimer Quantitative* 4.24 ug/ml (0.00-0.50)
[2025-02-07 13:01] LABS: NT Pro B Type NatriureticPept* 179 pg/mL (See Note); Troponin I* < 0.01 ng/mL (0.01-0.04)
== END 2025-02-07 14:34 | disposition short-term general hospital (02) ==
PROVIDERS: Emergency Provider Family Medicine; PCP Student in an Organized Health Care Education/Training Program
DX: J96.91 Respiratory failure, unspecified with hypoxia (principal); J90 Pleural effusion, not elsewhere classified; C55 Malignant neoplasm of uterus, part unspecified; K52.9 Noninfective gastroenteritis and colitis, unspecified
CPT/HCPCS: 36415; 71046; 71275; 80048; 80076; 81001; 83880; 84484; 85025; 85379; 87631; 93005; 94761; 96360; 99284; 99285; J7030; Q9967

== ENCOUNTER 2025-07-26 10:39 | Outpatient (CLI) | payer MEDICARE, BC, SELFPAY | END 2025-07-26 10:40 | disposition home or self-care (01) | LOC: NFLDREF 07-31 17:30 | PROVIDERS: PCP Student in an Organized Health Care Education/Training Program; Referring Provider Student in an Organized Health Care Education/Training Program; Visit Provider Physician Assistant Surgical | DX: N30.01 Acute cystitis with hematuria (principal) | CPT/HCPCS: 87086 ==

== ENCOUNTER 2025-08-07 14:46 | Emergency (ER) | payer MEDICARE, BC, SELFPAY ==
[2025-08-07] VITALS (12 sets, daily range): BP systolic 112–127; BP diastolic 57–71; PULSE 64–74; RESP 16–18; TEMP 36.1; O2SAT 89–97; BMI 28.7
--- NOTE | 2025-08-07 14:52 | ED.GENADULT ---
HPI - General Adult General Date Seen: 08/07/25 Chief complaint: Abdominal Pain Stated complaint: stomach pain Time Seen by Provider: 08/07/25 14:51 History of Present Illness HPI narrative: 75-year-old female who has a history of recurrent endometrial carcinoma, peritoneal carcinomatosis, malignant ascites and malignant pleural effusions, also hypertension, hypothyroidism. She reports a history of colitis apparently related to Keytruda. Was in the ER last October for right lower abdominal pain. At that time white count 8.8, hemoglobin 12.5, platelet count 186. Normal electrolytes. BUN 20, creatinine 0.7. LFTs normal. Lipase normal. Urinalysis negative. Workup showed signs of possible metastatic uterine cancer. CT Abd pelvis- Impression: 1. Demonstration of extensive omental caking throughout the ventral abdominal fat which may represent metastatic changes from unknown primary. Correlate with history of malignancy. 2. Moderate stool within the proximal colon and demonstration of a linear radiopaque object seen within the cecum on series 2, images 100-105 which may represent a small surgical clip. Correlate if there is concern for ingested object. Otherwise, a normal appendix is not identified. No other inflammatory changes are appreciated. 3. Overall somewhat limited evaluation of the distal colon and rectosigmoid colon secondary to extensive beam hardening artifact from right hip arthroplasty with suggestion of an interposed rim enhancing fluid collection in the central pelvis measuring up to 4.5 centimeters and mild tethering of adjacent bowel loops which may represent sequela of inflammatory changes. 4. No other acute intra-abdominal abnormalities are appreciated. She was transferred to [place]. She has been following for her cancer treatment with Dr. Lozano in the [place] [facility] team. She did have a complication of colitis in June, apparently related to her immune therapy. Per oncology note from 06/23/2025-Dr. 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, 02/10/2025 biopsy of the peritoneal nodule, MSH6/PMS2 intact, HER2 negatives score 0 by IHC, started carbo Taxol on 03/10/2025, at [facility]-> transferred care to [place] for cycle 2 onwards -ECOG 0-1 -CBC CMP TSH reviewed --will proceed with cycle 6 of carbo Taxol, dose reduced Taxol for neuropathy, dose reduced at 150 milligrams/meter sq (previously at 175 milligrams/meter sq, absolute dose reduction from 340 mg-> 290 mg); will also take Keytruda today; also on budesonide -will add potassium chloride for borderline low potassium -will add free T3/T4 to next set of labs since her TSH is borderline elevated -she has scans and follow-up with Dr. Root scheduled for 07/18/2025 -return visit after her visit with Dr. Root; continue with Keytruda infusions as scheduled, next infusion scheduled for 07/14/2025 -she had scans and follow-up at [facility] 05/11/25: c/w treatment response, plan to proceed w Carbo/taxol + Keytruda/ budesonide -added keytruda w cy5, started budesonide 1 week prior at 9 mg po daily (to avoid colitis) -plan per [facility] is to proceed w 3 more cycles and then scan, and a total of 9 cycles and then a holiday consideration (in future chemoimmunetherapy VS IO+ Lenvatinib) -not wearing oxygen support during clinic visit and saturating 93% on room air -for neuropathy: Dose reduced Taxol; also on Cymbalta for last 6 weeks for depression which will also help the neuropathy -return visit in July after visit at [place] for scans and follow-up. Patient reports that she has been doing her treatments. She had her last dose of Keytruda last week. She gets it every 3 weeks. She is doing well lately. Beginning this morning she developed pain high in her upper abdomen that is now spread to be more diffuse. It is a sharp achy pain that comes in waves like uterine contractions (but obviously she is not having uterine contractions, she is status post hysterectomy). She is not nauseous. No fevers. Bowel movements have been normal. No black or bloody stools. Urination has been normal. She does recall that she was treated for UTI couple weeks ago in all of her urinary symptoms have resolved since that. Related Data Home Medications ?Medication ?Instructions ?Recorded ?Confirmed rosuvastatin 10 mg tablet 10 mg PO DAILY 07/15/22 07/26/25 torsemide 20 mg tablet 20 mg PO .prn 03/09/24 07/26/25 amlodipine 5 mg tablet 5 mg PO DAILY 03/27/25 07/26/25 diphenhydramine 25 2 tab PO .Bedtime as needed PRN 03/27/25 07/26/25 mg-acetaminophen 500 mg tablet losartan 50 mg tablet 50 mg PO BID 03/27/25 07/26/25 propranolol 60 mg tablet 60 mg PO Q12H 03/27/25 07/26/25 tramadol 50 mg tablet 50 mg PO Q6H PRN moderate pain 03/27/25 07/26/25 magnesium oxide 400 mg PO BID 06/02/25 07/26/25 duloxetine 30 mg capsule,delayed 30 mg PO QHS 06/23/25 07/26/25 release duloxetine 30 mg capsule,delayed 60 mg PO QAM 06/23/25 07/26/25 release sennosides 8.6 mg-docusate sodium 1 tab-cap PO QHS 06/23/25 07/26/25 50 mg tablet (Senna-S) pembrolizumab 25 mg/mL intravenous 200 mg IV Q3W 07/26/25 08/04/25 solution (Keytruda) Previous Rx's ?Medication ?Instructions ?Recorded potassium chloride 20 mEq 20 meq PO QDAY #5 tabs 06/23/25 tablet,extended release Allergies Allergy/AdvReac Type Severity Reaction Status Date / Time No Known Drug Allergies Allergy Verified 08/07/25 15:55 [facility] Medical History (Updated 06/23/25 @ 09:05 by Madeline Lozano MD) Colitis ?K52.9 - Noninfective gastroenteritis and colitis, unspecified (ICD-10) Small intestinal bacterial overgrowth (SIBO) ?K63.8219 - Small intestinal bacterial overgrowth, unspecified (ICD-10) Lichen sclerosus ?L90.0 - Lichen sclerosus et atrophicus (ICD-10) Surgical History H/O breast surgery (2016) ?Z98.890 - Other specified postprocedural states (ICD-10) 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 Alert. Conversant. Non toxic. HENT: Head: Atraumatic. Nose: Nose normal. Mouth/Throat: Oral mucosa is clear and moist. no trismus. Pharynx normal. Tonsils symmetric. No tonsillar enlargement, erythema, or exudate. Eyes: Conjunctivae normal. EOM normal. Pupils equal, round, and reactive to light. No scleral icterus. Neck: Normal range of motion. Neck supple. No tracheal deviation present. Cardiovascular: Normal rate, regular rhythm. No gallop. No friction rub. No murmur heard. Symmetric radial artery pulses Pulmonary/Chest: Effort normal. No stridor. No respiratory distress. No wheezes. No rales. No rhonchi Abdominal: Soft. Bowel sounds normal. No distension. No mass. Diffuse tenderness a maximum in the no epigastrium and right upper quadrant/left upper quadrant. Also mild bilateral lower quadrant tenderness.. No rebound. No guarding. Musculoskeletal: RUE: Normal range of motion. No tenderness. No deformity LUE: Normal range of motion. No tenderness. No deformity RLE: Normal range of motion. No edema. No tenderness. No deformity LLE: Normal range of motion. No edema. No tenderness. No deformity Neurological: Alert and oriented to person, place, and time. Normal strength. CN II-VII intact. No sensory deficit. GCS eye subscore is 4. GCS verbal subscore is 5. GCS motor subscore is 6. Normal coordination Skin: Skin is warm and dry. No rash noted. No pallor. Normal capillary refill. Psychiatric: Normal mood. Normal affect. Const: Vital Signs, click to edit/add: Vital Signs - 24 hr 08/07/25 14:53 Temperature 96.9 F L Pulse Rate [Right Pulse Oximeter] 74 Respiratory Rate 18 Blood Pressure [Ri ght Upper Arm] 127/71 Pulse Oximetry 91 Oxygen Delivery Me thod Room Air Course Vital Signs Vital signs: Initial Vital Signs Temperature 96.9 F L 08/07/25 14:53 Temperature Source Temporal Artery Scan 08/07/25 14:53 Pulse Rate 74 08/07/25 14:53 Respiratory Rate 18 08/07/25 14:53 Blood Pressure 127/71 08/07/25 14:53 Blood Pressure Mean 89 08/07/25 14:53 Blood Pressure Position Sitting 08/07/25 14:53 Pulse Oximetry 91 08/07/25 14:53 Oxygen Delivery Method Room Air 08/07/25 14:53 Vital Signs Temperature 96.9 F L 08/07/25 14:53 Pulse Rate 74 08/07/25 14:53 Respiratory Rate 18 08/07/25 14:53 Blood Pressure 127/71 08/07/25 14:53 Pulse Oximetry 91 08/07/25 14:53 Oxygen Delivery Method Room Air 08/07/25 14:53 Temperature 96.9 F L 08/07/25 14:53 Pulse Rate 74 08/07/25 14:53 Respiratory Rate 18 08/07/25 14:53 Blood Pressure 127/71 08/07/25 14:53 Pulse Oximetry 91 08/07/25 14:53 Oxygen Delivery Method Room Air 08/07/25 14:53 Medical Decision Making MDM Narrative Medical decision making narrative: Very pleasant 75-year-old female who has a history of recurrent, metastatic endometrial cancer, and also history of melanoma. She follows with the oncology team Dr. Lozano here in [facility] for treatment of that. She is currently on Keytruda. She also has a history of colitis apparently related to Keytruda and her anemia therapy. She presents to the ER today with colicky diffuse abdominal pain that began this morning in her upper memory and is now more generalized. Differential includes recurrent colitis as well as evolving ascites,, diverticulitis, pancreatitis, complication of malignancy, less likely would be bowel obstruction, appendicitis. Ischemia, among others. I have ordered blood for pain control as well as labs to include CBC, CMP, lipase, lactate, urinalysis. I have ordered a CT scan. Results of her workup is not resulted yet. Discussed with my partner, Dr. Petit who will oversee her workup and determine ultimate disposition. Clinical impression at this time: 1. Abdominal pain Lab Data Labs: Lab Results 08/07/25 Range/Units 15:40 Urine Color Yellow (Yellow) Urine Appearance Clear (Clear) Urine pH 7.0 (5.0-8.5) Ur Specific [place] 1.020 (1.000-1.030) Urine Protein 1+ A (Negative) Urine Glucose (UA) Negative (Negative) Urine Ketones Negative (Negative) Urine Blood Negative (Negative) Urine Nitrite Negative (Negative) Urine Bilirubin Negative (Negative) Urine Urobilinogen 0.2 (0.2-1.0) Ur Leukocyte Esterase Negative (Negative) ECG Data Attestation: I personally reviewed and interpreted this ECG as follows: Interpretation: Normal sinus rhythm Rate 68 AZ interval 174 Normal QRS axis. No pathologic Q-waves. No ST segment elevation or depression. Nonspecific T-wave flattening V3-V5. Baseline artifact in lead V6. QT 416 QTC 442 Discharge Plan Discharge Prescriptions: No Action losartan 50 mg tablet 50 mg PO BID propranolol 60 mg tablet 60 mg PO Q12H amlodipine 5 mg tablet 5 mg PO DAILY tramadol 50 mg tablet 50 mg PO Q6H PRN (Reason: moderate pain) diphenhydramine-acetaminophen 25-500 mg tablet 2 tab PO .Bedtime as needed PRN duloxetine 30 mg capsule,delayed release(DR/EC) 30 mg PO QHS sennosides-docusate sodium [Senna-S] 8.6-50 mg tablet 1 tab-cap PO QHS potassium chloride 20 mEq tablet extended release 20 meq PO QDAY Qty: 5 0RF Keytruda 25 mg/mL solution 200 mg IV Q3W Rx Instructions: administer over 30 mins rosuvastatin 10 mg tablet 10 mg PO DAILY Patient Comments: TAKE 1 TABLET (10 MG TOTAL) BY MOUTH DAILY. duloxetine 30 mg capsule,delayed release(DR/EC) 60 mg PO QAM Patient Comments: 60mg in am--30mg in evening torsemide 20 mg tablet 20 mg PO .prn magnesium oxide 400 mg magnesium tablet 400 mg PO BID Follow Up/Referrals: Marcial Garcia MD [Primary Care Provider, Family Practice]
--- NOTE | 2025-08-07 15:22 | CRLHL7_ITS ---
For Patients: As a result of the Century Cures Act, medical imaging exams and procedure reports are released immediately into your electronic medical record. You may view this report before your referring provider. If you have questions, please contact your health care provider. INDICATION: UPPER AND GENERALIZED ABD PAIN X8HRS TECHNIQUE: CT abdomen and pelvis acquired with 90 cc Isovue 370 IV contrast. COMPARISON: October 2024. FINDINGS: Lower chest: The visualized lower lungs are aerated. No pleural or pericardial effusion. ABDOMEN: Liver: Normal enhancement. Cysts. Subcentimeter hypodensities are too small to characterize however statistically represent cysts. Gallbladder and biliary: Contracted gallbladder. Normal caliber bile ducts. Spleen: Normal size and enhancement. Pancreas: Normal enhancement without peripancreatic inflammatory changes or ductal dilatation. Adrenal glands: Normal adrenal glands. Kidneys and ureters: Normal enhancement. No radio-opaque calculi. No hydroureteronephrosis. Subcentimeter hypodensities are too small to characterize however statistically represent cysts. GI tract: The stomach is relatively decompressed. Normal caliber small and large bowel loops. Normal appendix. Decreased conspicuity of areas of anterior omental fat stranding and ground-glass opacification. Vascular structures: Normal caliber aorta with atherosclerotic calcifications. Left ovarian vein thrombophlebitis. Lymph nodes: No lymphadenopathy in the abdomen or pelvis by size criteria. Peritoneum: No free air, free fluid, or focal drainable fluid collection. PELVIS: Genitourinary system: Urinary bladder is. Hysterectomy. Streak artifact relatively obscures pelvis. SKELETAL STRUCTURES AND SOFT TISSUES: Right hip arthroplasty. IMPRESSION: 1. Left ovarian vein thrombophlebitis. 2. Decreased conspicuity of areas of anterior omental fat stranding and ground-glass opacification. Differential considerations remain unchanged however. Recommend workup if not previously performed. Recommend correlation for history of known malignancy. Please note that all CT scans at this facility use dose modulation, iterative reconstruction, and/or weight-based dosing when appropriate to reduce radiation dose to as low as reasonably achievable. Dictated by Adan Sofia MD @ 08/07/2025 4:10:46 PM (Electronically Signed)
[2025-08-07 15:46] LABS: Appearance Urine Clear (Clear)
[2025-08-07 15:50] LABS: Lactate* 0.7 mmol/L (0.5-1.9)
[2025-08-07 15:57] LABS: Hematocrit* 36.0 % (33.0-51.0); Hemoglobin* 11.0 gm/dL (12.0-16.0); Immature Granulocytes Abs Auto 0.03 K/uL (0.00-0.30); Immature Granulocytes Pct Auto 0.4 %; Lymphocytes Absolute Auto 1.64 K/uL (0.90-2.90); Mean Corpuscular HGB Conc 31 gm/dL (32-36); Mean Corpuscular Hemoglobin 31 pg (26-34); Mean Corpuscular Volume 100 fL (80-100); RDW Coefficient of Variation % 14.5 % (11.5-15.5); Red Blood Count* 3.60 m/uL (4.00-5.20); White Blood Count* 7.03 K/uL (4.50-11.00)
[2025-08-07] MEDS: ONDANSETRON 2 MG/ML inj 4 MG IVP (16:06)
[2025-08-07] MEDS: 0.9 % SODIUM CHLORIDE 500 ML 500 ML IV (16:06)
[2025-08-07 16:07] LABS: Albumin* 4.4 g/dL (3.3-5.0); Chloride* 97 mmol/L (96-114); Potassium* 3.9 mmol/L (3.6-5.1); Sodium* 138 mmol/L (135-149)
[2025-08-07 16:10] LABS: Alanine Aminotransferase* 24 U/L (4-35); Alkaline Phosphatase* 94 U/L (40-150); Anion Gap 12 mEq/L (7-15); Aspartate Amino Transferase* 29 U/L (12-35); Bilirubin Total* 0.4 mg/dL (0.1-1.5); Blood Urea Nitrogen* 20 mg/dL (7-30); Calcium* 9.4 mg/dL (8.4-10.6); Carbon Dioxide* 29 mmol/L (20-32); Creatinine* 0.9 mg/dL (0.5-1.5); Est. Creatinine Clearance* 46.20; Estimated Glomerular Filt Rate 67 ml/min; Glucose* 92 mg/dL (60-115); Total Protein* 7.7 g/dL (6.0-8.3)
[2025-08-07 16:18] LABS: Slide Review Reflex No
== END 2025-08-07 17:24 | disposition home or self-care (01) ==
PROVIDERS: Emergency Provider Emergency Medicine; PCP Student in an Organized Health Care Education/Training Program
DX: R10.10 Upper abdominal pain, unspecified (principal); C54.1 Malignant neoplasm of endometrium; C78.6 Secondary malignant neoplasm of retroperitoneum and peritoneum; C78.2 Secondary malignant neoplasm of pleura; R18.0 Malignant ascites; Z90.710 Acquired absence of both cervix and uterus; Z79.899 Other long term (current) drug therapy; Z85.820 Personal history of malignant melanoma of skin
CPT/HCPCS: 36415; 74177; 80053; 81001; 83605; 83690; 85025; 87086; 93005; 96361; 96374; 96375; 99283; 99285; J1171; J2405; J7030; Q9967